=== PATIENT | female | born 1950 | race Caucasian/White ===

== ENCOUNTER → 2016-10-25 | Outpatient (CLI) | payer MEDICARE, MEDICAID ==
[~2016-10-25] MED LIST: AC325T; AC325T PO; ACID16CA2 PO; ADV1DS; ADVAIR; ALBU0.8322; ALBU17AE23; ALBU17AE3; ALBUTERAL; ALBUTEROL/IPRATROPIU INH; AMT50T; ASP81CT; ASPI-84 PO; AZITHROMAX; BACL20TA PO; BCL10T; BETA10DR OS; BETAXOLOL; BUDE6HFA IH; CSPT25 OS; DCS100C PO; DESV50TA PO; DIAZ5TAB3; DIAZ5TAB3 PO; DIAZ5TAB49; DIPH1TAB45; DIPH25TA82 PO; DUONEB; DZPM2T PO; ESCI20TA; ESCI20TA2; ESCT10T; ESOM20CA; FL025NA25 NSEACH; FLC150T; FLC150T PO; FLT05NA16; FLT05NA16 NSEACH; FLUT1DIS26 IH; FLUT1DIS26 INH; FRS325T PO; FRSM20T; FRSM20T PO; FURO20TA4; FURO20TA4 PO; GUAI100S; GUAI10SY4; HYDR-31; HYDR1TAB PO; INTE30KI4 IM; IPRA0.2S18; IPRA0.2S47; IPRA3AMP19 IH; IPRA3AMP19 NEB; KCL10CCR; LACT1CAP45 PO; LATA2.5D19 OS; LEVO500T69 PO; LNZ600T PO; LRT10T; LRT10T PO; LVB.63NB3 NEB; LVF250T; MELO15TA14 PO; MMT17NA; MOXI400T2; MPR22T NSEACH; MULT-608 PO; MULTIVITAMIN WITH MINERALS PO; NABU500T8; NCT7P; NST15C; NST15PW; NSTU5 PO; NYST1POW15; NYSTATIN POWDER; OMEP-10 PO; OMEP20CA12 PO; PHENERGAN/CODEINE; PL1OP15; PL1OP15 OS; PRD10T; PRD20T PO; Prestiq PO; QNS260T; RNT150T; ROCEPHIN IM; SENN1TAB76 PO; SERT50TA; SULF1TAB38; TIMO10DR; TIOT18CA; TPR25T; TPR25T PO; TRAV0.004S OS; VICODIN; VNL37.5T PO; [UNRECOGNIZED DRUG - CODE]; [UNRECOGNIZED DRUG - CODE]; [UNRECOGNIZED DRUG - CODE]; rocephin IM
--- OUTSIDE RECORDS SUMMARY | 2016-10-25 09:06 | XMS REPORT | Continuity of Care Document ---
Author Author [facility] Address Unknown Phone Unavailable Allergies Active Description Code Type Severity Reaction Onset Reported/Identified Relationship to Patient Clinical Status Yes Aminoglycosides [id number] Drug Allergy Unknown N/A 11/11/2006 Yes amoxicillin [id number] Drug Allergy Unknown N/A 11/11/2006 Yes bacitracin [id number] Drug Allergy Unknown N/A 11/11/2006 Yes clavulanic acid [id number] Drug Allergy Unknown N/A 11/11/2006 Yes erythromycin base [id number] Drug Allergy Unknown N/A 11/11/2006 Yes gramicidin D [id number] Drug Allergy Unknown N/A 11/11/2006 Yes neomycin [id number] Drug Allergy Unknown N/A 11/11/2006 Yes polymyxin B [id number] Drug Allergy Unknown N/A 11/11/2006 Yes vancomycin [id number] Drug Allergy Unknown N/A 11/11/2006 Yes adhesive [id number] Drug Allergy Unknown N/A 02/01/2008 Yes latex [id number] Drug Allergy Unknown N/A 02/01/2008 Yes cefaclor [id number] Drug Allergy Unknown N/A 09/24/2011 Yes *MRSA Miscellaneous Allergy N/A N/A 08/23/2013 Medications 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 08/19/2013 KIRT GEE MD 340 MULTIPLE SCLEROSIS 08/19/2013 KIRT GEE MD 496 CHR AIRWAY OBSTRUCT NEC 08/19/2013 KIRT GEE MD V58.69 CORRECTION MEDICATION USE 08/25/2013 RAGHU CHEN MD 296.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 08/25/2013 RAGHU CHEN MD 338.29 CHRONIC PAIN NEC 08/25/2013 RAGHU CHEN MD 340 MULTIPLE SCLEROSIS 08/25/2013 RAGHU CHEN MD 496 CHR AIRWAY OBSTRUCT NEC 05/10/2016 Ot 786.2 COUGH Procedures Code Description [place] [address] ELECTROCARDIOGRAM REPORT GERARD SANCHEZ, KIRT Gipson 08/19/2013 Results Test Result Range COMPLETE BLOOD COUNT - 08/19/13 14:50 Platelet 218 10^3u 142-424 MPV 10.9 FL 9.4-12.4 Kleberg # 0.85 10^3u 0.0-1.0 RBC 5.14 10^6u 4.04-6.13 Kleberg % 12.0 % 0-12 RDW 14.2 % 11.6-14.8 Neut # 3.45 10^3u 2.0-6.9 Neut % 48.6 % 37-80 WBC 7.10 10^3u 4.60-10.20 MCV 89.1 FL 80.0-97.0 Baso # 0.11 10^3u 0.0-0.1 Baso % 1.5 % 0-2 Eos # 0.43 10^3u 0-0.7 Eos % 6.1 % 0-7 Lymph % 31.8 % 10-50 MCHC 31.4 G/DL 31.8-35.4 MCH 28.0 PG 27.0-31.2 Lymph # 2.26 10^3u 0.6-3.4 HGB 14.4 G/DL 12.2-18.1 HCT 45.8 % 37.7-53.7 CMP - 08/19/13 14:50 Osmo Calculated 290 MOSM 261-280 Sodium 148 MMOLL 137-145 T. Protein 8.6 G/DL 6.3-8.2 Potassium 4.5 MMOLL 3.6-5.0 T Bili 0.5 MG/DL 0.2-1.3 Calcium 9.3 MG/DL 8.4-10.2 BUN 22 MG/DL 7-21 Chloride 100 MMOLL 98-107 AST 80 U/L 15-46 ALT 81 U/L 7-56 Albumin 4.1 G/DL 3.5-5.0 A/G Ratio 0.9 RATIO 1.2-2.2 Bun/Creat 20.2 RATIO 7-25 Alk Phos 127 U/L 38-126 CO2 34 MMOLL 22-30 Glucose 122 MG/DL 65-110 Globulin 4.5 2.4-3.5 Creatinine 1.1 MG/DL 0.7-1.5 Valproic Acid (Depakene) - 08/19/13 14:50 Valproic Acid (Depakene) 17.72 UG/ML 50- 100 TSH - 08/19/13 14:50 TSH 1.12 UIUML 0.35-4.94 Free T4 - 08/19/13 14:50 Free T4 0.95 NG/DL 0.70-1.48 EKG - 08/19/13 14:50 [facility]KG [facility] Urinalysis - 08/19/13 21:10 Glucose Negative Negative Leukocyte Negative Negative Nitrite Negative Negative pH 7.0 5.5-7.5 Urine Appearance SLCLOUDY Clear Protein Negative Negative Ketones Trace Negative Urobilinogen 4.0 0.2-1.0 Urine RBC N0-2 Specific [place] 1.020 1.010-1.020 Urine WBC N0-2 Amorphous Crystals 1+ Blood Negative Negative Color Yellow Yellow Squamous Epithelial Cells 2+ Bilirubin Negative Negative Valproic Acid (Depakene) - 08/25/13 05:30 Valproic Acid (Depakene) 36.78 UG/ML 50- 100 Encounters ACCT No. Visit Date/Time Discharge Status Pt. Type Provider Facility Loc./Unit Complaint [id number] 08/19/2013 14:00:00 08/25/2013 14 :30:00 DIS Inpatient APRIL SANCHEZ, [facility] [id number] 08/19/2013 14:00:00 08/19/2013 14 :00:00 DIS Outpatient GERARD SANCHEZ, KIRT Gipson [facility] OTHER
[2016-10-25 09:07] LABS: BILIRUBIN,URINE NEGATIVE (NEGATIVE); KETONES,URINE NEGATIVE (NEGATIVE); LEUKOCYTE ESTERASE ,URINE 2+ (NEGATIVE); NITRITE,URINE NEGATIVE (NEGATIVE); PH,URINE 6 (5-9); PROTEIN,URINE NEGATIVE (NEGATIVE); UROBILINOGEN,URINE 4 MG/DL (NORMAL)
[2016-10-25 09:19] LABS: RENAL EPITHELIAL CELLS,URINE 0-2 /HPF; WBC,URINE TNTC /HPF
[2016-10-25 09:20] LABS: SQUAMOUS EPITHELIAL CELL,UR 0-2 /HPF
== END ==
LOC: LABNPT 09:02
PROVIDERS: ATTEND Family Medicine
DX: R39.198 Other difficulties with micturition (principal)
CPT/HCPCS: 81000; 87088

== ENCOUNTER → 2017-01-31 | Outpatient (CLI) | payer MEDICARE, MEDICAID ==
[2017-01-31 11:05] LABS: BILIRUBIN,URINE NEGATIVE (NEGATIVE); KETONES,URINE NEGATIVE (NEGATIVE); LEUKOCYTE ESTERASE ,URINE 1+ (NEGATIVE); NITRITE,URINE NEGATIVE (NEGATIVE); PH,URINE 6 (5-9); PROTEIN,URINE 1+ (NEGATIVE); UROBILINOGEN,URINE 4 MG/DL (NORMAL)
== END ==
LOC: LABNPT 10:53
PROVIDERS: ATTEND Internal Medicine
DX: N39.0 Urinary tract infection, site not specified (principal)
CPT/HCPCS: 81000; 87077; 87088; 87186

== ENCOUNTER → 2017-02-20 | Outpatient (CLI) | payer OTHER, MEDICAID | LOC: LABNPT 17:19 | PROVIDERS: ATTEND Family Medicine | DX: R05 Cough (principal) | CPT/HCPCS: 87070; 87077; 87186; 87205 ==

== ENCOUNTER 2017-07-20 16:28 | Inpatient (IN) | payer MEDICARE, MEDICAID ==
[~2017-07-20] VITALS: Ht 160 cm; Wt 91.7 kg
[2017-07-20 16:43] LABS: BASOPHILS % (AUTO) 0 % (0-10); EOSINOPHILS % (AUTO) 0 % (0-10); LYMPHOCYTES # (AUTO) 2.5 X 10^3 (1.0-4.0); LYMPHOCYTES % (AUTO) 11 % (12-44); MEAN CORPUSCULAR HEMOGLOBIN 28 PG (25-34); MEAN CORPUSCULAR HGB CONC 32 G/DL (32-36); MEAN CORPUSCULAR VOLUME 88 FL (80-99); MEAN PLATELET VOLUME 11.2 FL (7.4-10.4); MONOCYTES # (AUTO) 1.6 X 10^3 (0.0-1.0); MONOCYTES % (AUTO) 7 % (0-12); NEUTROPHILS # (AUTO) 19.4 X 10^3 (1.8-7.8); NEUTROPHILS % (AUTO) 82 % (42-75); PLATELET COUNT 248 10^3/uL (130-400); RED BLOOD COUNT 4.94 10^6/uL (4.35-5.85); RED CELL DISTRIBUTION WIDTH 14.5 % (10.0-14.5); WHITE BLOOD COUNT 23.6 10^3/uL (4.3-11.0)
[2017-07-20 16:49] LABS: INR 1.1 (0.8-1.4); PROTHROMBIN TIME PATIENT 14.5 SEC (12.2-14.7)
[2017-07-20 16:58] LABS: ALANINE AMINOTRANSFERASE 14 U/L (0-55); ALBUMIN 3.3 GM/DL (3.2-4.5); ANION GAP 10 MMOL/L (5-14); ASPARTATE AMINO TRANSFERASE 16 U/L (5-34); BILIRUBIN,TOTAL 1.1 MG/DL (0.1-1.0); BLOOD UREA NITROGEN 26 MG/DL (7-18); BUN/CREATININE RATIO 33; CALCIUM 9.8 MG/DL (8.5-10.1); CARBON DIOXIDE 28 MMOL/L (21-32); CHLORIDE 104 MMOL/L (98-107); GFR ESTIMATED > 60; GLUCOSE 103 MG/DL (70-105); POTASSIUM 3.3 MMOL/L (3.6-5.0); SODIUM 142 MMOL/L (135-145); TOTAL PROTEIN 7.8 GM/DL (6.4-8.2)
[2017-07-20] MEDS ORDERED: RT-ALBUTEROL SULF 2.5 MG/3 ML PRE-MIX VIAL IH SCH (17:00)
[2017-07-20] MEDS ORDERED: RT-ALBUTEROL SULF 2.5 MG/3 ML PRE-MIX VIAL ONE (17:03)
--- NOTE | 2017-07-20 17:19 | Diagnostic Imaging Report ---
PATIENT HISTORY: Shortness of air and cough. TECHNIQUE: Single frontal view of the chest. COMPARISON: 06/18/2017. FINDINGS: Lung volumes are mildly low. There is mild cardiomegaly. There is central vascular congestion. There are bilateral interstitial and airspace opacities, with basilar predominance. No pneumothorax is seen. There are small bilateral pleural effusions. No acute osseous abnormality is seen. IMPRESSION: Bibasilar interstitial and airspace opacities with cardiomegaly and central vascular congestion, concerning for CHF. There are minimal bilateral pleural effusions. Dictated by: Dictated on workstation # [id number]
[2017-07-20 17:23] LABS: BAND NEUTROPHILS 5 %; LYMPHOCYTES % (MANUAL) 12 %; NEUTROPHILS % (MANUAL) 80 %
--- NOTE | 2017-07-20 17:25 | ED General ---
General Chief Complaint: Respiratory Problems Stated Complaint: SOA/PNEUMONIA Nursing Triage Note: PT SENT FROM [facility] FOR INCREASED SOA AND COUGH. Nursing Sepsis Screen: Possible Sepsis Risk Source of Information: Patient Exam Limitations: Physical Impairments History of Present Illness Time Seen by Provider: 16:32 Initial Comments Here from the [facility] with shortness of breath, coughing and generalized weakness. Patient is a poor historian. EMS gave albuterol and DuoNeb treatments in route which did help. Apparently she had initial O2 sat of 82 percent at the [facility] and this did respond to oxygen. Her primary care provider, Dr. Richardson, had ordered sputum culture and chest x-ray at the [facility] but her respiratory status declined and she was ultimately sent to the ER for evaluation. Patient states that she is weak and having a hard time breathing but otherwise unable to answer other questions well. Timing/Duration: 2-3 Days, Getting Worse Severity: Moderate Associated Systoms: Cough, Fever/Chills, No Nausea/Vomiting, Shortness of Air, Weakness Allergies and Home Medications Allergies Coded Allergies: Adhesive (Verified Allergy, Unknown, 02/01/08) Aminoglycosides (Verified Allergy, Unknown, 11/11/06) Amoxicillin (Verified Allergy, Unknown, 11/11/06) Erythromycin Base (Verified Allergy, Unknown, 11/11/06) Gramicidin D (Verified Allergy, Unknown, 11/11/06) Latex (Verified Allergy, Unknown, 02/01/08) Neomycin (Verified Allergy, Unknown, 11/11/06) Polymyxin B (Verified Allergy, Unknown, 11/11/06) bacitracin (Verified Allergy, Unknown, 11/11/06) clavulanic acid (Verified Allergy, Unknown, 11/11/06) vancomycin (Verified Allergy, Unknown, 11/11/06) Cefaclor (Verified Allergy, 09/24/11) Home Medications Albuterol Sulfate/Ipratropium 3 Ml Solution, 1 DOSE NEB BID, (Reported) Aspirin 81 Mg Tablet.dr, 81 MG PO DAILY, (Reported) Baclofen 20 Mg Tablet, 20 MG PO TID, (Reported) Betaxolol Hcl 5 Ml Susp, 1 DROP OS BID, (Reported) LEFT EYE Desvenlafaxine Succinate 50 Mg Tab.sr.24h, 50 MG PO DAILY, (Reported) Diazepam 2 Mg Tab, 2 MG PO BID, (Reported) Docusate Sodium 100 Mg Capsule, 100 MG PO BID, (Reported) Ferrous Sulfate 325 Mg Tablet, 325 MG PO DAILY, (Reported) Fluticasone Propionate 16 Gm Lena, 1 SPRAYS NSEACH DAILY, (Reported) Fluticasone Propionate 16 Gm Lena, 2 SPRAYS NSEACH DAILY, (Reported) Fluticasone/Salmeterol 1 Disk Inhp, 1 PUFF INH BID, (Reported) Furosemide 20 Mg Tab, 20 MG PO DAILY, (Reported) Hydrocodone Bit/Acetaminophen 1 Each Tablet, 1 TAB PO Q6H PRN, (Reported) Interferon Beta-1A 30 Mcg/0.5 Ml Kit, 30 MCG IM THURSDAYS, (Reported) Latanoprost 2.5 Ml Soln, 1 DROP OS HS, (Reported) LEFT EYE Loratadine 10 Mg Tab, 10 MG PO DAILY, (Reported) Meloxicam 15 Mg Tablet, 15 MG PO DAILY, (Reported) Omeprazole 20 Mg Capsule.dr, 20 MG PO DAILY, (Reported) Pilocarpine Hcl 15 Ml Soln, 1 DROP OS QID, (Reported) LEFT EYE Senna 1 Tab Tablet, 1 TAB PO BID, (Reported) Timolol Maleate/Dorzolam Hcl 5 Ml Btl, 1 DROP OS BID, (Reported) LEFT EYE Topiramate 25 Mg Tablet, 25 MG PO BID, (Reported) [Multi Vit w/Min] , 1 TAB PO DAILY, (Reported) [rocephin] , 500 MG IM DAILY for 3 Days, (Reported) Constitutional: see HPI, chills, fever, weakness Respiratory: cough, dyspnea on exertion, short of breath, wheezing Gastrointestinal: no symptoms reported Other Unable to complete review of systems due to altered mental status All Other Systems Reviewed Negative Unless Noted: No Past Kxzsezi-Mogzuh-Lrhlyx Hx Patient Social History Alcohol Use: Denies Use Recreational Drug Use: No Smoking Status: Former Smoker Former Smoker, Quit: Jul 20, 2007 Recent Foreign Travel: No Contact w/Someone Who Travel: No Recent Infectious Disease Expo: No Recent Hopitalizations: Yes (NUMEROUS) Physical Abuse: No Sexual Abuse: No Mistreated: No Fear: No Immunizations Up To Date Date of Pneumonia Vaccine: Jun 25, 2011 Date of Influenza Vaccine: May 21, 2011 Surgeries History of Surgeries: Yes (ELBOW SURGERY, CARPAL TUNNEL SURGERY) Surgeries: Hysterectomy, Orthopedic, Tonsillectomy Respiratory History of Respiratory Disorde: Yes Respiratory Disorders: COPD Cardiovascular History of Cardiac Disorders: Yes (HEART FAILURE, ) Neurological History of Neurological Disord: Yes (HAS MULTIPLE SCLEROSIS, CHRONIC PAIN) Neurological Disorders: Headaches /Migraines Reproductive System Hx Reproductive Disorders: No Genitourinary History of Genitourinary Disor: No Gastrointestinal History of Gastrointestinal Di: Yes Gastrointestinal Disorders: Chronic Constipation, Ulcer Musculoskeletal History of Musculoskeletal Dis: Yes (HAS MULTIPLE SCLEROSIS, HX OF MUSCLE WEAKNESS, ABNORMAL POSTURE,ABNORM GAIT) Endocrine History of Endocrine Disorders: No HEENT History of HEENT Disorders: Yes HEENT Disorders: Macular Degeneration Cancer History of Cancer: No Psychosocial History of Psychiatric Problem: Yes Behavioral Health Disorders: Anxiety, Personality Disorder, Depression Suicide Risk Score: 0 Blood Transfusions History of Blood Disorders: No Reviewed Nursing Assessment Reviewed/Agree w Nursing PMH: Yes Family Medical History Significant Family History: No Pertinent Family Hx Physical Exam-Suspected Sepsis Physical Exam Vital Signs Vital Sign - Last 12Hours 07/20/17 07/20/17 17:03 17:08 Temp 99.8 Pulse 93 Resp 27 B/P (MAP) 123/79 (94) Pulse Ox 95 O2 Delivery T Piece O2 Flow Rate 3.00 Capillary Refill : Less Than 3 Seconds Blood Pressure Mean: 94 General Appearance: WD/WN, Mild Distress (respiratory) HEENT: PERRL/EOMI, Pharynx Normal Neck: Non Tender, Supple Respiratory: Crackles (throughout both bases), Decreased Breath Sounds, Respiratory Distress Cardiovascular: No Murmur, Tachycardia Gastrointestinal: Non Tender, Soft Back: Normal Inspection, No CVA Tenderness, No Vertebral Tenderness Extremity: Normal Capillary Refill, Non Tender, No Calf Tenderness Neurologic/Psychiatric: Alert, Motor Weakness (global), Other (very poor historian but answers a few questions.) Skin: normal color, warm/dry Focused Exam Evaluation Lactate Level Laboratory Tests 07/20/17 16:30: Lactic Acid Level 1.13 Lactic Acid Level Laboratory Tests Test 07/20/17 16:30 Lactic Acid Level 1.13 MMOL/L (0.50-2.00) Progress/Results/Core Measures Suspected Sepsis Recent Fever Within 48 Hours: Yes Infection Criteria Present: Suspected New Infection New/Unexplained Altered Menta: No Sepsis Screen: Possible Sepsis Risk Sepsis Diagnosis: SIRS Temperature:99.8 Pulse: 93 Respiratory Rate: 27 Laboratory Tests 07/20/17 16:30: White Blood Count 23.6H Blood Pressure 123 /79 Mean: 94 Laboratory Tests 07/20/17 16:30: Lactic Acid Level 1.13 Laboratory Tests 07/20/17 16:30: Creatinine 0.80, INR Comment 1.1, Platelet Count 248, Total Bilirubin 1.1H Results/Orders Lab Results Laboratory Tests Test 07/20/17 16:30 07/20/17 17:24 Range/Units White Blood Count 23.6 H 4.3-11.0 10^3/uL Red Blood Count 4.94 4.35-5.85 10^6/uL Hemoglobin 14.0 11.5-16.0 G/DL Hematocrit 43 35-52 % Mean Corpuscular Volume 88 80-99 FL Mean Corpuscular Hemoglobin 28 25-34 PG Mean Corpuscular Hemoglobin Concent 32 32-36 G/DL Red Cell Distribution Width 14.5 10.0-14.5 % Platelet Count 248 130-400 10^3/uL Mean Platelet Volume 11.2 H 7.4-10.4 FL Neutrophils (%) (Auto) 82 H 42-75 % Lymphocytes (%) (Auto) 11 L 12-44 % Monocytes (%) (Auto) 7 0-12 % Eosinophils (%) (Auto) 0 0-10 % Basophils (%) (Auto) 0 0-10 % Neutrophils # (Auto) 19.4 H 1.8-7.8 X 10^3 Lymphocytes # (Auto) 2.5 1.0-4.0 X 10^3 Monocytes # (Auto) 1.6 H 0.0-1.0 X 10^3 Eosinophils # (Auto) 0.0 0.0-0.3 10^3/uL Basophils # (Auto) 0.0 0.0-0.1 10^3/uL Neutrophils % (Manual) 80 % Lymphocytes % (Manual) 12 % Monocytes % (Manual) 3 % Band Neutrophils 5 % Toxic Granulation 1+ Blood Morphology Comment NORMAL Prothrombin Time 14.5 12.2-14.7 SEC INR Comment 1.1 0.8-1.4 Activated Partial Thromboplast Time 35 24-35 SEC Sodium Level 142 135-145 MMOL/L Potassium Level 3.3 L 3.6-5.0 MMOL/L Chloride Level 104 98-107 MMOL/L Carbon Dioxide Level 28 21-32 MMOL/L Anion Gap 10 5-14 MMOL/L Blood Urea Nitrogen 26 H 7-18 MG/DL Creatinine 0.80 0.60-1.30 MG/DL Estimat Glomerular Filtration Rate > 60 BUN/Creatinine Ratio 33 Glucose Level 103 70-105 MG/DL Lactic Acid Level 1.13 0.50-2.00 MMOL/L Calcium Level 9.8 8.5-10.1 MG/DL Total Bilirubin 1.1 H 0.1-1.0 MG/DL Aspartate Amino Transf (AST/SGOT) 16 5-34 U/L Alanine Aminotransferase (ALT/SGPT) 14 0-55 U/L Alkaline Phosphatase 102 40-136 U/L Total Protein 7.8 6.4-8.2 GM/DL Albumin 3.3 3.2-4.5 GM/DL Urine Color SHABBIR H Urine Clarity CLEAR Urine pH 5 5-9 Urine Specific [place] 1.025 H 1.016-1.022 Urine Protein 1+ H NEGATIVE Urine Glucose (UA) NEGATIVE NEGATIVE Urine Ketones NEGATIVE NEGATIVE Urine Nitrite NEGATIVE NEGATIVE Urine Bilirubin NEGATIVE NEGATIVE Urine Urobilinogen 4 H NORMAL MG/DL Urine Leukocyte Esterase 1+ H NEGATIVE Urine RBC (Auto) NEGATIVE NEGATIVE Urine RBC NONE /HPF Urine WBC 2-5 /HPF Urine Squamous Epithelial Cells 0-2 /HPF Urine Crystals NONE /LPF Urine Bacteria LARGE H /HPF Urine Casts PRESENT /LPF Urine Hyaline Casts 0-2 H /LPF Urine Mucus NEGATIVE /LPF Urine Culture Indicated YES Micro Results Microbiology 07/20/17 Influenza Types A,B Antigen (MANJINDER) - Final, Complete My Orders Orders - SHARONDA WONG MD Cbc With Automated Diff (07/20/17 16:36) Comprehensive Metabolic Panel (07/20/17 16:36) Lactic Acid Analyzer (07/20/17 16:36) Blood Culture (07/20/17 16:36) Sputum Culture (07/20/17 16:36) Ua Culture If Indicated (07/20/17 16:36) Protime With Inr (07/20/17 16:36) Partial Thromboplastin Time (07/20/17 16:36) Chest 1 View, Ap/Pa Only (07/20/17 16:36) O2 (07/20/17 16:36) Saline Lock/Iv-Start (07/20/17 16:36) Ekg Tracing (07/20/17 16:36) Vital Signs Adult Sepsis Patie Q1H (07/20/17 16:36) Remove Rings In Anticipation O (07/20/17 16:36) Influenza A And B Antigens (07/20/17 16:36) Manual Differential (07/20/17 16:30) Albuterol Pre-Mix Nebs (Rt) (Proventil (07/20/17 17:00) Rt Request For Service (07/20/17 16:57) Albuterol Pre-Mix Nebs (Rt) (Proventil (07/20/17 17:03) Urine Culture (07/20/17 17:24) Furosemide Injection (Lasix Injection) (07/20/17 17:48) BNP (07/20/17 17:49) Maxipime 2g Iv 100 Mls/Hr (07/20/17 17:56) Medications Given in ED Current Medications Medications Dose Ordered Sig/Angelique Route Start Time Stop Time Status Last Admin Dose Admin Albuterol Sulfate 2.5 mg STK-MED ONCE .ROUTE 07/20/17 17:03 07/20/17 17:04 DC 07/20/17 17:08 2.5 MG Vital Signs/I&O Vital Sign - Last 12Hours 07/20/17 07/20/17 17:03 17:08 Temp 99.8 Pulse 93 Resp 27 B/P (MAP) 123/79 (94) Pulse Ox 95 96 O2 Delivery T Piece Nasal Cannula O2 Flow Rate 3.00 Capillary Refill : Less Than 3 Seconds Blood Pressure Mean: 94 Progress Note : Progress Note Seen and evaluated. Sepsis protocol initiated. IV by EMS. Labs, EKG, blood cultures and lactic acid ordered. Albuterol neb treatment ordered. O2 saturations improved and are 92 percent on 4 L via nasal cannula. Normally she is on 2 L so is requiring increased oxygen requirement. Chest x-ray pending. 174: Bibasilar infiltrates noted. Question of vascular congestion as well on x -ray. White count is elevated and patient has fever and I believe this is bibasilar infiltrate related to pneumonia. We will treat as such. I did discuss the case with Dr. Curtis and he agrees. We will give 1 dose of Lasix now. Consideration for Zosyn the patient is pen allergic. She has had Rocephin in the past. We will use cefepime. Patient does have Zhou catheter placed. Admit, inpatient status. Patient agrees to plan. Currently O2 saturation 94 percent with heart rate 96 on 4 L O2 via nasal cannula. ECG Initial ECG Impression Date: Jul 20, 2017 Initial ECG Impression Time: 16:39 Initial ECG Rate: 104 Initial ECG Rhythm: S.Tach Comment Sinus tachycardia with PACs. Morphology similar to previous of 05 July 2010. No evidence of ST elevation SC. Interpreted by me. Diagnostic Imaging Diagonstic Imaging: Xray Plain Films/CT/US/NM/MRI: chest Comments [facility]. [place], [place] NAME: MARAH HARRY [facility] REC#: [id number] PT STATUS: REG ER : 1950 PHYSICIAN: SHARONDA WONG MD ADMIT DATE: 07/20/17/ER Draft Date of Exam:07/20/17 CHEST 1 VIEW, AP/PA ONLY PATIENT HISTORY: Shortness of air and cough. TECHNIQUE: Single frontal view of the chest. COMPARISON: 06/18/2017. FINDINGS: Lung volumes are mildly low. There is mild cardiomegaly. There is central vascular congestion. There are bilateral interstitial and airspace opacities, with basilar predominance. No pneumothorax is seen. There are small bilateral pleural effusions. No acute osseous abnormality is seen. IMPRESSION: Bibasilar interstitial and airspace opacities with cardiomegaly and central vascular congestion, concerning for CHF. There are minimal bilateral pleural effusions. Dictated on workstation # [id number] Dict: 07/20/17 1713 Trans: 07/20/17 1719 [facility] [id number] Interpreted by: VIJAY HWANG MD Electronically signed by: Departure Communication (Admissions) Time/Spoke to Admitting Phy: 17:45 Impression Impression: Primary Impression: Bilateral pneumonia Qualified Codes: J18.9 - Pneumonia, unspecified organism Additional Impressions: Respiratory distress Hypoxia Disposition: ADMITTED INPATIENT Condition: Stable Admissions Decision to Admit Reason: Admit from ER (General) Decision to Admit/Date: Jul 20, 2017 Time/Decision to Admit Time: 17:45 Departure-Patient Inst. Referrals: ABHIJEET BEVERLY MD (PCP/Family) Primary Care Physician SHARONDA WONG MD Jul 20, 2017 17:25
[2017-07-20 17:31] LABS: BILIRUBIN,URINE NEGATIVE (NEGATIVE); KETONES,URINE NEGATIVE (NEGATIVE); LEUKOCYTE ESTERASE ,URINE 1+ (NEGATIVE); NITRITE,URINE NEGATIVE (NEGATIVE); PH,URINE 5 (5-9); PROTEIN,URINE 1+ (NEGATIVE); UROBILINOGEN,URINE 4 MG/DL (NORMAL)
[2017-07-20 17:48] LABS: HYALINE CASTS, URINE 0-2 /LPF; SQUAMOUS EPITHELIAL CELL,UR 0-2 /HPF
[2017-07-20] MEDS ORDERED: FUROSEMIDE 40 MG/4 ML INJ (LASIX) IV STA (17:48)
[2017-07-20] MEDS ORDERED: CEFEPIME INJECTION 2,000 MG in NS (IVPB) 50 ML IV STA (17:56)
[2017-07-20 19:00] VITALS: BP 134/62
[2017-07-20] MEDS ORDERED: ACETAMINOPHEN 325 MG TABLET/CAPLET (TYLENOL) PO PRN (20:00)
[2017-07-20] MEDS ORDERED: CATHETER FLUSH 10 ML SYR IV PRN (20:00)
[2017-07-20] MEDS ORDERED: ACETAMINOPHEN 650 MG SUPP (TYLENOL) PR PRN (20:00)
[2017-07-20] MEDS: NS IV 1000 ML 1,000 ML IV SCH (20:29)
[2017-07-20] MEDS ORDERED: RT-ALBUTEROL/IPRATROPIUM 3 ML (DUONEB) VIAL INH PRN (20:30)
[2017-07-20] MEDS: RT-ALBUTEROL/IPRATROPIUM 3 ML (DUONEB) VIAL INH SCH (22:23)
[2017-07-21 00:52] VITALS: BP 118/66
[2017-07-21] MEDS: RT-ALBUTEROL/IPRATROPIUM 3 ML (DUONEB) VIAL INH SCH ×3 (02:04→11:08)
[2017-07-21 04:30] VITALS: BP 105/66
[2017-07-21 06:20] LABS: BASOPHILS % (AUTO) 0 % (0-10); EOSINOPHILS % (AUTO) 0 % (0-10); LYMPHOCYTES # (AUTO) 1.5 X 10^3 (1.0-4.0); LYMPHOCYTES % (AUTO) 9 % (12-44); MEAN CORPUSCULAR HEMOGLOBIN 28 PG (25-34); MEAN CORPUSCULAR HGB CONC 32 G/DL (32-36); MEAN CORPUSCULAR VOLUME 87 FL (80-99); MEAN PLATELET VOLUME 11.1 FL (7.4-10.4); MONOCYTES # (AUTO) 1.1 X 10^3 (0.0-1.0); MONOCYTES % (AUTO) 7 % (0-12); NEUTROPHILS # (AUTO) 13.9 X 10^3 (1.8-7.8); NEUTROPHILS % (AUTO) 84 % (42-75); PLATELET COUNT 241 10^3/uL (130-400); RED BLOOD COUNT 4.78 10^6/uL (4.35-5.85); WHITE BLOOD COUNT 16.6 10^3/uL (4.3-11.0)
[2017-07-21] MEDS ORDERED: INFLUENZA TRIvalent 2017-2018 0.5 ML/45 MCG SYR IM ONE (07:00)
[2017-07-21 07:09] LABS: ALANINE AMINOTRANSFERASE 9 U/L (0-55); ALBUMIN 3.2 GM/DL (3.2-4.5); ANION GAP 11 MMOL/L (5-14); ASPARTATE AMINO TRANSFERASE 16 U/L (5-34); BILIRUBIN,TOTAL 0.9 MG/DL (0.1-1.0); BLOOD UREA NITROGEN 26 MG/DL (7-18); BUN/CREATININE RATIO 34; CALCIUM 9.4 MG/DL (8.5-10.1); CARBON DIOXIDE 28 MMOL/L (21-32); CHLORIDE 104 MMOL/L (98-107); CREATININE SERUM 0.76 MG/DL (0.60-1.30); GFR ESTIMATED > 60; GLUCOSE 96 MG/DL (70-105); SODIUM 143 MMOL/L (135-145); TOTAL PROTEIN 7.4 GM/DL (6.4-8.2)
[2017-07-21 08:00] VITALS: BP 130/69
[2017-07-21] MEDS: CEFEPIME 2 GM/NS 50 ML IVPB IV SCH ×4 (08:26→21:59)
[2017-07-21] MEDS ORDERED: TOPI25TA10 PO (09:11)
[2017-07-21] MEDS ORDERED: ACET325T38 PO ×2 (09:11)
[2017-07-21] MEDS ORDERED: PILO15DR7 OS (09:11)
[2017-07-21] MEDS ORDERED: FAMO20TA3 PO (09:11)
[2017-07-21] MEDS ORDERED: CITA20TA7 PO (09:11)
[2017-07-21] MEDS ORDERED: BACL20TA PO (09:11)
[2017-07-21] MEDS ORDERED: HYDR-3812 PO (09:11)
[2017-07-21] MEDS ORDERED: GUAI5SYR PO (09:11)
[2017-07-21] MEDS ORDERED: FLUT1AER INH (09:11)
[2017-07-21] MEDS ORDERED: VENL150C98 PO (09:11)
[2017-07-21] MEDS ORDERED: BUSP5TAB59 PO (09:11)
[2017-07-21] MEDS ORDERED: IBUP-30 PO (09:11)
[2017-07-21] MEDS ORDERED: FURO40TA4 PO (09:11)
[2017-07-21] MEDS ORDERED: LATA2.5D5 OU (09:11)
[2017-07-21] MEDS ORDERED: IPRA3AMP NEB (09:11)
[2017-07-21] MEDS ORDERED: DIVA125C10 PO (09:11)
[2017-07-21] MEDS ORDERED: BETA5DRO3 OU (09:11)
[2017-07-21] MEDS ORDERED: ONDN4T PO (09:11)
[2017-07-21] MEDS ORDERED: SENN-1 PO (09:11)
[2017-07-21] MEDS ORDERED: SODI30SP2 NS (09:11)
[2017-07-21 12:00] VITALS: BP 116/62
[2017-07-21] MEDS ORDERED: ACETAMINOPHEN 325 MG TABLET/CAPLET (TYLENOL) PO PRN (13:15)
[2017-07-21] MEDS ORDERED: SALINE NASAL SPRAY (OCEAN) 45 ML BTL NS PRN (13:15)
--- NOTE | 2017-07-21 13:30 | History & Physical-Hospitalist ---
HPI History of Present Illness: HPI/Chief Complaint The patient is a 67-year-old white female who resides at [facility] as a result of multiple sclerosis and advanced disability. She is unable to give anything in the way of useful history. Apparently she had had symptoms such that her physician Dr. egan from [place] had ordered a chest x-ray and a sputum culture. In the interim her respiratory status declined and she was sent by ambulance to [facility]. Workup in the emergency room showed a respiratory rate of 27-30. She was hypoxic but responded to oxygen supplementation at 5 L per nasal cannula with a 95 SaO2. Her white count was 23 ,600. Lactic acid was normal. UA was unremarkable. Chest x-ray was noted to have bibasilar infiltrates. Radiology seem to favor edema however her BMP was unremarkable and given her reported fever at the [facility] her vital signs were consistent with Sirs. With the white count at 23,600 and the chest x-ray I favor sepsis and pneumonia. Date Seen 07/21/17 Time Seen by Provider: 13:25 Attending Physician Nazario Alicea MD PCP Ramon Egan MD Referring Physician Date of Admission Jul 20, 2017 at 17:55 Home Medications & Allergies Home Medications Reviewed patient Home Medication Reconciliation Form Allergies Allergies Coded Allergies Aminoglycosides (Verified Allergy, Unknown, 11/11/06) adhesive (Verified Allergy, Unknown, 02/01/08) amoxicillin (Verified Allergy, Unknown, 11/11/06) bacitracin (Verified Allergy, Unknown, 11/11/06) cefaclor (Verified Allergy, Unknown, 07/20/17) clavulanic acid (Verified Allergy, Unknown, 11/11/06) erythromycin base (Verified Allergy, Unknown, 11/11/06) gramicidin D (Verified Allergy, Unknown, 11/11/06) latex (Verified Allergy, Unknown, 02/01/08) neomycin (Verified Allergy, Unknown, 11/11/06) polymyxin B (Verified Allergy, Unknown, 11/11/06) vancomycin (Verified Allergy, Unknown, 11/11/06) Past Dvythlz-Wnocdr-Cqesuz Hx Patient Social History Alcohol Use: Denies Use Recreational Drug Use: No Smoking Status: Former Smoker Former Smoker, Quit: Jul 20, 2007 Type Used: Cigarettes Physical Abuse Screen: No Sexual Abuse: No Recent Foreign Travel: No Contact w/other who traveled: No Recent Hopitalizations: No Recent Infectious Disease Expo: No Immunizations Up To Date Pediatric: No Date of Pneumonia Vaccine: Jun 25, 2011 Date of Influenza Vaccine: May 21, 2017 Seasonal Allergies Seasonal Allergies: No Surgeries No Hysterectomy, Orthopedic, Tonsillectomy Respiratory Yes Currently Using CPAP: No Currently Using BIPAP: No Cardiovascular Yes Neurological Yes Headaches /Migraines Reproductive System Hx Reproductive Disorders: No Genitourinary No Gastrointestinal Yes Ulcer Musculoskeletal Yes Chronic Back Pain Endocrine History of Endocrine Disorders: No HEENT History of HEENT Disorders: No HEENT Disorders: Macular Degeneration Cancer No Psychosocial History of Psychiatric Problem: Yes Behavioral Health Disorders: Personality Disorder Integumentary History of Skin or Integumenta: No Blood Transfusions History of Blood Disorders: No Adverse Reaction to a Blood Tr: No Reviewed Nursing Assessment Reviewed/Agree w Nursing PMH: Yes Family Medical History Significant Family History: No Pertinent Family Hx Family Hx: Patient reports no known family medical history. Review of Systems ROS-Unable to Obtain: patient answered questions only in gibberish Constitutional: no symptoms reported Physical Exam Physical Exam Vital Signs Vital Sign - Last 12Hours 07/20/17 07/20/17 17:03 17:08 Temp 99.8 Pulse 93 Resp 27 B/P (MAP) 123/79 (94) Pulse Ox 95 O2 Delivery T Piece O2 Flow Rate 3.00 Capillary Refill : Less Than 3 Seconds General Appearance: Other (patient appears much older than stated age. I understood no words given an answer to my questions. She exhibited tremulousness of the head and jaw.) Eyes: Bilateral Eye Normal Inspection HEENT: Normal ENT Inspection Neck: Normal Inspection Respiratory: Chest Non Tender, Lungs Clear, Normal Breath Sounds, No Accessory Muscle Use, No Respiratory Distress, Decreased Breath Sounds (breath sounds were distant) Cardiovascular: Regular Rate, Rhythm, No Edema, No Gallop, No JVD, No Murmur, Normal Peripheral Pulses Gastrointestinal: Normal Bowel Sounds, No Organomegaly, No Pulsatile Mass, Non Tender, Soft Neurologic/Psychiatric: Disoriented x3 Comments Loss of muscle mass Results Results/Procedures Lab Laboratory Tests 07/20/17 16:30 07/21/17 05:31 Assessment/Plan Admission Diagnosis Sepsis/pneumonia. 2.multiple sclerosis. 3.dementia or other cognitive disorder. Assessment and Plan Empiric Antibiotics and IV fluids Clinical Quality Measures DVT/VTE Risk/Contraindication: Risk Factor Score Per Nursin RFS Level Per Nursing on Admit: 4+=Very High NAZARIO ALICEA MD Jul 21, 2017 13:30
[2017-07-21] MEDS: RT-ALBUTEROL/IPRATROPIUM 3 ML (DUONEB) VIAL IH SCH ×3 (15:15→22:35)
[2017-07-21 15:35] VITALS: BP 127/59
[2017-07-21] MEDS: PILOCARPINE 2% OS SCH ×2 (16:17→22:00)
[2017-07-21] MEDS ORDERED: RT-ALBUTEROL/IPRATROPIUM 3 ML (DUONEB) VIAL IH SCH (17:00)
[2017-07-21 19:14] VITALS: BP 115/59
[2017-07-21] MEDS ORDERED: NON-FORMULARY MEDICATION 1 EA EA (Baclofen 20 MG) PO SCH (21:00)
[2017-07-21] MEDS: DIVALPROX SPRINKLE 125 MG (DEPAKOTE) CAP PO SCH (21:58)
[2017-07-21] MEDS: toPIRamate 25 MG (TOPAMAX) TAB PO SCH (21:58)
[2017-07-21] MEDS: BACLOFEN 10 MG (LIORESAL) TAB PO SCH (21:58)
[2017-07-21] MEDS: BETAXOLOL 0.5% OU SCH (21:59)
[2017-07-21] MEDS: busPIRone 5 MG (BUSPAR) TAB PO SCH (21:59)
[2017-07-21] MEDS: FAMOTIDINE 20 MG (PEPCID) TABLET PO SCH (21:59)
[2017-07-21] MEDS: LATANOPROST 0.005% (XALATAN) OPHTH SOLN 2.5 ML OU SCH (22:00)
[2017-07-21] MEDS: NS IV 1000 ML 1,000 ML IV SCH (22:09)
[2017-07-22 00:17] VITALS: BP 120/56
[2017-07-22] MEDS: RT-ALBUTEROL/IPRATROPIUM 3 ML (DUONEB) VIAL IH SCH ×6 (02:29→22:01)
[2017-07-22 04:00] VITALS: BP 111/57
[2017-07-22] MEDS: NS IV 1000 ML 1,000 ML IV SCH (05:41)
[2017-07-22 06:20] LABS: BASOPHILS % (AUTO) 0 % (0-10); EOSINOPHILS # (AUTO) 0.1 10^3/uL (0.0-0.3); EOSINOPHILS % (AUTO) 1 % (0-10); LYMPHOCYTES # (AUTO) 1.4 X 10^3 (1.0-4.0); LYMPHOCYTES % (AUTO) 14 % (12-44); MEAN CORPUSCULAR HEMOGLOBIN 29 PG (25-34); MEAN CORPUSCULAR HGB CONC 33 G/DL (32-36); MEAN CORPUSCULAR VOLUME 87 FL (80-99); MEAN PLATELET VOLUME 10.9 FL (7.4-10.4); MONOCYTES # (AUTO) 0.8 X 10^3 (0.0-1.0); MONOCYTES % (AUTO) 8 % (0-12); NEUTROPHILS # (AUTO) 7.6 X 10^3 (1.8-7.8); NEUTROPHILS % (AUTO) 76 % (42-75); PLATELET COUNT 190 10^3/uL (130-400); RED BLOOD COUNT 4.57 10^6/uL (4.35-5.85); RED CELL DISTRIBUTION WIDTH 13.6 % (10.0-14.5); WHITE BLOOD COUNT 9.9 10^3/uL (4.3-11.0)
[2017-07-22 08:00] VITALS: BP 115/71
[2017-07-22] MEDS: FAMOTIDINE 20 MG (PEPCID) TABLET PO SCH ×2 (08:58→20:24)
[2017-07-22] MEDS: busPIRone 5 MG (BUSPAR) TAB PO SCH ×2 (08:58→20:23)
[2017-07-22] MEDS: SENNA W/DOCUSATE (SENOKOT S) TABLET PO SCH (08:58)
[2017-07-22] MEDS: DIVALPROX SPRINKLE 125 MG (DEPAKOTE) CAP PO SCH ×2 (08:58→20:24)
[2017-07-22] MEDS: toPIRamate 25 MG (TOPAMAX) TAB PO SCH ×2 (08:58→20:24)
[2017-07-22] MEDS: CEFEPIME 2 GM/NS 50 ML IVPB IV SCH ×4 (08:58→20:23)
[2017-07-22] MEDS: BACLOFEN 10 MG (LIORESAL) TAB PO SCH ×3 (08:58→20:24)
[2017-07-22] MEDS: PILOCARPINE 2% OS SCH ×4 (08:59→20:24)
[2017-07-22] MEDS: BETAXOLOL 0.5% OU SCH ×2 (08:59→20:24)
[2017-07-22] MEDS ORDERED: IBUPROFEN TABLET 200 MG TAB PO PRN (09:45)
[2017-07-22] MEDS ORDERED: guaiFENesin/DM (ROBITUSSIN DM) 10 ML UDC PO PRN (09:45)
[2017-07-22] MEDS ORDERED: ONDANSETRON 4 MG (ZOFRAN) ORAL DISSOLVE TAB PO PRN (10:45)
[2017-07-22] MEDS: HYDROcodone/APAP 5 MG/325 MG (LORTAB) TAB PO PRN ×2 (10:55→17:00)
--- NOTE | 2017-07-22 11:12 | Progress Note-Hospitalist ---
Progress Note HPI/CC on Admission The patient is a 67-year-old white female who resides at [facility] as a result of multiple sclerosis and advanced disability. She is unable to give anything in the way of useful history. Apparently she had had symptoms such that her physician Dr. vincent from [place] had ordered a chest x-ray and a sputum culture. In the interim her respiratory status declined and she was sent by ambulance to [facility]. Workup in the emergency room showed a respiratory rate of 27-30. She was hypoxic but responded to oxygen supplementation at 5 L per nasal cannula with a 95 SaO2. Her white count was 23 ,600. Lactic acid was normal. UA was unremarkable. Chest x-ray was noted to have bibasilar infiltrates. Radiology seem to favor edema however her BMP was unremarkable and given [facility] her vital signs were consistent with Sirs. With the white count at 23,600 and the chest x-ray I favor sepsis and pneumonia. 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 Pt sounds a bit gurgly still. Pt confirms coughing, but not coughing up anything. Pt confirms coughing when she eats Pt was tried to talk, but had difficulty doing so Chronically ill, gurgling, lying supine in bed RRR, coarse all delaney no tachypneic No edema Laboratory Tests 07/22/17 05:41 Assessment: Sepsis due to pneumonia Appears high risk for aspiration? Severe MS Chronic debility needs DNR due to poor quality of life Obesity Hypokalemia Dementia Plan: 40 mEq of K+ IV Palliative care consult Speech therapy evaluation, hold diet until evaluated Restart all home meds including Lasix Check labs in am Scribed by Jeanie Cueva under direct supervision of Dr. Celestina Olivas. CELESTINA OLIVAS DO Jul 22, 2017 11:12
[2017-07-22] MEDS: POTASSIUM CL 10MEQ/50ML IVPB 50 ML IV SCH ×4 (11:46→15:57)
[2017-07-22 12:00] VITALS: BP 103/52
--- NOTE | 2017-07-22 12:48 | ST Dysphagia Evaluation ---
Speech Evaluation-General Medical Diagnosis Sepsis/Pneumonia Onset Date: Jul 20, 2017 Therapy Diagnosis Therapy Diagnosis: Mild Oropharyngeal Dysphagia Precautions Precautions: Aspiration Precautions/Isolations: Aspiration, Fall Prevention, Standard Precautions Referral Referring Physician: Dr. Celestina Zamorano Reason for Referral: Evaluation/Treatment Clinical Bedside Swallowing Evaluation Medical History Pertinent Medical History: Dementia Reviewed History: Yes Social History Home: Jail Speech PLF/Current-Dysphagia Prior Level of Function The patient was unable to provide past medical history or prior level of function. Subjective The patient was admitted to [facility] with a diagnosis of pneumonia. The patient has a past medical history significant for severe dementia, as well as, multiple sclerosis. The patient greeted the clinician upon entrance to her room and was agreeable to participation in the dysphagia evaluation. At this time, the patient is NPO pending results of swallowing evaluation. Per RN, the patient has done well with PO intake. CXR: 07/20/2017: Bibasilar interstitial and airspace opacities with cardiomegaly and central vascular congestion, concerning for CHF. There are minimal bilateral pleural effusions. Cognitive Status Patient Orientation: Non-Verbal/Aphasic Oral Motor Skills Dentition: Edentalous Ability to Follow Directions: Poor Oral Expression Ability: Severe Impairment Face Facial Symmetry: Symmetrical (Grossly Symmetrical) Oral-Facial Assessment Oral-Facial Dentition: Normal Labial Seal Description: Normal Smile: Normal Lingual Protrusion: Abnormal Right lingual tip deviation upon protrusion. Lingual Strength: Normal Pharynx Velopharyngeal Move.: Normal Dysphagia Evaluation Consistencies Presented: Thin Liquid (Via teaspoon, cup sip, and straw sip.), Pureed Oral Phase: Reduced Oral Transit - The patient displayed increased posterior transfer of puree consistencies, as well as, mild lingual residue following the bolus (puree). Pharyngeal Phase: Multiple Swallow Attempts, Reduced Laryngeal Elevation Funct. Velo/Pharyngeal Symptom: Cough After Swallow - The patient's vocal quality could not be assessed post swallow as she frequently did not vocalize upon request. - The patient displayed one, rigorous cough following consecutive straw drinks of thin liquid. The patient did not follow verbal prompts to complete one straw drink per swallow. - No signs/symptoms of aspiration were demonstrated with multiple teaspoon or cup sips of thin liquid or with multiple teaspoons of puree. Dietary Recommendations: Pureed Liquid Recommendations: Thin - Crush medication and place in puree for administration. - The patient should be seated upright and alert for all PO. Swallowing Precautions: Decreased Bolus 1/4 Tsp, Liquids from Cup, No Straw, Small Bites and Sips, Sitting 90 Degrees 30 Post Intake Dysphagia Evaluation Summary The patient displays mild oropharyngeal dysphagia characterized by reduced lingual range of motion and slightly decreased laryngeal elevation. Barriers to Learning Cognition Speech-Plan Treatment Plan Speech Therapy Treatment Plan: Discontinue ST Evaluation, only. Frequency: 1 time per month Estimated Hrs Per Day: Other Rehab Potential: Poor Safety Risks/Education Teaching Recipient: Patient Teaching Methods: Discussion Response to Teaching: Unable to Comprehend Education Topics Provided: Results, Recommendations, Plan of Care, Swallowing Strategies Time Speech Therapy Time In: 12:25 Speech Therapy Time Out: 12:45 Total Billed Time: 20 Billed Treatment Time 1, ANALIA NÚÑEZ Jul 22, 2017 12:48
[2017-07-22 15:35] VITALS: BP 120/62
[2017-07-22] MEDS: RT-ADVAIR HFA 115/21 MCG PER PUFF IH SCH (18:04)
[2017-07-22 19:01] VITALS: BP 112/82
[2017-07-22] MEDS: LATANOPROST 0.005% (XALATAN) OPHTH SOLN 2.5 ML OU SCH (20:24)
[2017-07-23] VITALS (7 sets, daily range): BP systolic 111–122; BP diastolic 59–72
[2017-07-23] MEDS: HYDROcodone/APAP 5 MG/325 MG (LORTAB) TAB PO PRN ×3 (00:26→20:29)
[2017-07-23] MEDS: RT-ALBUTEROL/IPRATROPIUM 3 ML (DUONEB) VIAL IH SCH ×6 (02:06→22:01)
[2017-07-23] MEDS: VENlafaxine XR 75 MG (EFFEXOR XR) CAP PO SCH (06:02)
[2017-07-23 06:43] LABS: BASOPHILS # (AUTO) 0.1 10^3/uL (0.0-0.1); BASOPHILS % (AUTO) 1 % (0-10); EOSINOPHILS # (AUTO) 0.2 10^3/uL (0.0-0.3); EOSINOPHILS % (AUTO) 3 % (0-10); LYMPHOCYTES # (AUTO) 1.7 X 10^3 (1.0-4.0); LYMPHOCYTES % (AUTO) 22 % (12-44); MEAN CORPUSCULAR HEMOGLOBIN 28 PG (25-34); MEAN CORPUSCULAR HGB CONC 33 G/DL (32-36); MEAN CORPUSCULAR VOLUME 88 FL (80-99); MEAN PLATELET VOLUME 11.2 FL (7.4-10.4); MONOCYTES # (AUTO) 0.9 X 10^3 (0.0-1.0); MONOCYTES % (AUTO) 12 % (0-12); NEUTROPHILS # (AUTO) 4.6 X 10^3 (1.8-7.8); NEUTROPHILS % (AUTO) 62 % (42-75); PLATELET COUNT 187 10^3/uL (130-400); RED CELL DISTRIBUTION WIDTH 13.7 % (10.0-14.5); WHITE BLOOD COUNT 7.5 10^3/uL (4.3-11.0)
[2017-07-23] MEDS: RT-ADVAIR HFA 115/21 MCG PER PUFF IH SCH ×2 (06:59→22:00)
[2017-07-23 07:09] LABS: ALANINE AMINOTRANSFERASE 16 U/L (0-55); ALBUMIN 2.8 GM/DL (3.2-4.5); ANION GAP 10 MMOL/L (5-14); ASPARTATE AMINO TRANSFERASE 23 U/L (5-34); BILIRUBIN,TOTAL 0.4 MG/DL (0.1-1.0); BLOOD UREA NITROGEN 18 MG/DL (7-18); BUN/CREATININE RATIO 28; CALCIUM 8.6 MG/DL (8.5-10.1); CARBON DIOXIDE 23 MMOL/L (21-32); CHLORIDE 104 MMOL/L (98-107); CREATININE SERUM 0.64 MG/DL (0.60-1.30); GFR ESTIMATED > 60; GLUCOSE 100 MG/DL (70-105); POTASSIUM 3.5 MMOL/L (3.6-5.0); SODIUM 137 MMOL/L (135-145); TOTAL PROTEIN 6.7 GM/DL (6.4-8.2)
[2017-07-23] MEDS: busPIRone 5 MG (BUSPAR) TAB PO SCH ×2 (09:28→20:29)
[2017-07-23] MEDS: BACLOFEN 10 MG (LIORESAL) TAB PO SCH ×3 (09:28→20:29)
[2017-07-23] MEDS: BETAXOLOL 0.5% OU SCH ×2 (09:28→20:29)
[2017-07-23] MEDS: CEFEPIME 2 GM/NS 50 ML IVPB IV SCH ×4 (09:28→20:28)
[2017-07-23] MEDS: PILOCARPINE 2% OS SCH ×4 (09:28→20:29)
[2017-07-23] MEDS: FUROSEMIDE 40 MG (LASIX) TAB PO SCH (09:29)
[2017-07-23] MEDS: DIVALPROX SPRINKLE 125 MG (DEPAKOTE) CAP PO SCH ×2 (09:29→20:29)
[2017-07-23] MEDS: SENNA W/DOCUSATE (SENOKOT S) TABLET PO SCH (09:29)
[2017-07-23] MEDS: toPIRamate 25 MG (TOPAMAX) TAB PO SCH ×2 (09:29→20:29)
[2017-07-23] MEDS: FAMOTIDINE 20 MG (PEPCID) TABLET PO SCH ×2 (09:30→20:29)
--- NOTE | 2017-07-23 10:46 | Progress Note-Hospitalist ---
Progress Note HPI/CC on Admission The patient is a 67-year-old white female who resides at [facility] as a result of multiple sclerosis and advanced disability. She is unable to give anything in the way of useful history. Apparently she had had symptoms such that her physician Dr. vincent from [place] had ordered a chest x-ray and a sputum culture. In the interim her respiratory status declined and she was sent by ambulance to [facility]. Workup in the emergency room showed a respiratory rate of 27-30. She was hypoxic but responded to oxygen supplementation at 5 L per nasal cannula with a 95 SaO2. Her white count was 23 ,600. Lactic acid was normal. UA was unremarkable. Chest x-ray was noted to have bibasilar infiltrates. Radiology seem to favor edema however her BMP was unremarkable and given her [facility] at the senior care her vital signs were consistent with Sirs. With the white count at 23,600 and the chest x-ray I favor sepsis and pneumonia. Progress Notes/Assess & Plan Date Seen 07/23/17 Time Seen by Provider: 10:30 Diagonsis/Assessment & Plan Chart Review: No fever Vitals stable WBC 7.5 K+ 3.5 after supplement Patient Interview: Pt coughed up some mucus prior to interview and I handed her tissues to help her clean it Pt stated again today that she was hot Pt still having difficulty making speaking today as well Pt was informed that I had her diet changed. Pt confirms having breakfast Physical exam stable. Lungs sound much better Possible UTI was discussed. Labs look better today though, and this was discussed. Pt denies having BMs but I assessed the chart and BM's are charted Pt asked to eat when asked if she needed anything and I informed her that I will have her RN help her with this Chronically ill, no gurgling today, lying supine but elevated in bed Difficult to understand RRR, cno coarseness in lung delaney noted today much improved No edema Laboratory Tests 07/23/17 06:16 Assessment: Sepsis due to pneumonia Appears high risk for aspiration? Severe MS Chronic debility needs DNR due to poor quality of life Obesity Hypokalemia improved Dementia Complicated UTI Plan: 40 mEq of K+ IV repeat Palliative care consult along with PT/OT Speech therapy evaluation is appreciated and implemented their recs Restarted all home meds including Lasix Check labs in am Swingbed tomorrow Zyvox along with Cefepime Scribed by Jeanie Cueva under direct supervision of Dr. Celestina Olivas. CELESTINA OLIVAS DO Jul 23, 2017 10:45
[2017-07-23] MEDS ORDERED: MAGNESIUM 1 GM/100 ML IVPB 100 ML IV NR (11:45)
[2017-07-23] MEDS: LINEZOLID (ZYVOX) 600 MG TAB PO SCH ×2 (12:05→20:29)
[2017-07-23] MEDS: POTASSIUM CL 10MEQ/50ML IVPB 50 ML IV SCH ×4 (13:32→16:47)
--- NOTE | 2017-07-23 13:47 | Physical Therapy Evaluation ---
PT Evaluation-General Medical Diagnosis Admission Date Jul 20, 2017 at 17:55 Medical Diagnosis: Sepsis/Pneumonia Onset Date: Jul 20, 2017 Therapy Diagnosis Therapy Diagnosis: generalized weakness/debility Height/Weight Height (Feet): 5 Height (Inches): 3.00 Weight (Pounds): 193 Weight (Ounces): 0.0 Precautions Precautions/Isolations: Aspiration, Fall Prevention, Standard Precautions Weight Bear Status Right Lower Extremity: Right Full Weight Bearing Left Lower Extremity: Left Full Weight Bearing Referral Physician: Jaun Reason for Referral: Evaluation/Treatment Medical History Pertinent Medical History: COPD, Dementia, Heart Failure, Macular Degenertion Additional Medical History multiple sclerosis Current History EMS secondary to SOB/weakness/hypoxia Reviewed History: Yes Social History Home: Correction Prior/Core FIM Prior Level of Function Functional [place] Measure 0=Not Assessed/NA 4=Minimal Assistance 1=Total Assistance 5=Supervision or Setup 2=Maximal Assistance 6=Modified [place] 3=Moderate Assistance 7=Complete [place] Bed Mobility: 2 Transfers (B,C,W/C) (FIM): 2 Gait: 0 Wheelchair Mobility: 4 is able to propel w/c at [place] per staff PT Evaluation-Current Subjective Patient is yelling and mumbling. Pain Numeric Pain Scale: 10-Worst Possible Pain Location: Right, Left Location Body Site: Knee Pain Description: Sharp Comment: FLACC with ROM Objective Patient Orientation: Confused Problem Solving: Poor Attachments: Oxygen, Zhou Catheter, IV ROM/Strength ROM Lower Extremities limited bilateral LE ROM due to pain and resistance with testing Strength Lower Extremities grossly 3-/5 bilaterally Integumentary/Posture Integumentary refer to nursing notes Bowel Incontinence: Yes Bladder Incontinence: Zhou Cath Neuromuscular (Tone, Coordination, Reflexes) diminished coordination/resistive with all movement Sensory Vision: Blind Legally Hearing: Unable to Assess Sensation Right Lower Extremit: Intact Sensation Left Lower Extremity: Intact Transfers Functional [place] Measure 0=Not Assessed/NA 4=Minimal Assistance 1=Total Assistance 5=Supervision or Setup 2=Maximal Assistance 6=Modified [place] 3=Moderate Assistance 7=Complete [place] Transfers (B, C, W/C) (FIM): 1 Scootin Rollin attempted to perform bed mobility activity to EOB, however, patient became combative and agitated. Dependent assist to reposition in bed with pillow placement behind back to relieve pressure. Gait Mode of Locomotion: Wheelchair Anticipated Mode of Locomotion: Wheelchair Assessment/Needs 67 y.o. female, will benefit from skilled PT to address functional strength and mobility to improve current LOF. Per NH staff, patient was able to perform SPT and propel w/c. Currently patient is unable to safely perform these tasks. Rehab Potential: Guarded PT Deputy Court Goals [facility] Goals PT Deputy [address] Goals Time Frame: Aug 07, 2017 Transfers (B,C,W/C) (FIM): 2 Wheelchair (FIM): 1 Wheelchair distance (FIM): 1=up to 49 ft Distance: 25' Wheelchair Level of Assist: 3 PT Plan Problem List Problem List: Activity Tolerance, Functional Strength, Safety, Balance, Transfer, Bed Mobility Treatment/Plan Treatment Plan: Continue Plan of Care Treatment Plan: Bed Mobility, Education, Functional Activity Giacomo, Functional Strength, Safety, Therapeutic Exercise, Transfers Treatment Duration: Aug 07, 2017 Frequency: 6 times per week Estimated Hrs Per Day: .25 hour per day Patient and/or Family Agrees t: Yes Discharge Recommendations Therapy D/C Recommendations: Correction Placement Time/GCodes Time In: 1307 Time Out: 1321 Total Billed Treatment Time: 14 Total Billed Treatment 1 visit EVModC 14 min ELOINA WHYTE PT Jul 23, 2017 13:47
--- NOTE | 2017-07-23 14:39 | Occupational Therapy Eval ---
OT Evaluation-General/PLF Medical Diagnosis Admission Date Jul 20, 2017 at 17:55 Medical Diagnosis: Sepsis/Pneumonia Onset Date: Jul 20, 2017 Therapy Diagnosis Therapy Diagnosis: decr self care, weakness, decr funct mobility, decr act christina Height/Weight Height (Feet): 5 Height (Inches): 3.00 Weight (Pounds): 193 Weight (Ounces): 0.0 Precautions Precautions/Isolations: Aspiration, Fall Prevention, Standard Precautions Safety Interventions: Bed Exit Alarm Referral Physician: Jaun Referral Reason: Evaluation/Treatment Medical History Pertinent Medical History: COPD, Dementia, Heart Failure, Macular Degenertion, Smoking Additional Medical History Elbow surgery, CTS. Multiple sclerosis. Chronic pain, headache/migraine. Anxiety , personality disorder, depression Current History Admitted from [facility] through ED with SOA/pneumonia and weakness Reviewed History: Yes Social History Home: [facility] ADL-Prior Level of Function ADL PLOF Comments Records indicate that pt was able to feed herself and get around in w/c prior to illness. She needed help with transfers and dressing/bathing/toileting. OT Current Status Subjective Pt seen in room, up in bed, agreeable to OT. Pt recognized this therapist and wished her "ace [place]." Pt reported some discomfort in thighs but did not rate or describe pain. Appearance Alert, cooperative. Pt is difficult to understand and mumbles. Mental Status/Objective Attachments: Zhou Catheter, IV, Oxygen Current Glasses/Contacts: Yes ("Can't find them") Hand Dominance: Right Upper Extremity ROM Grossly WFL bilat Upper Extremity Strength Grossly 4/5 bilat and able to follow instructions ADL-Treatment ADL-Current Pt indicated that she is able to feed herself but has someone with her because she chokes. Nursing reported that they feed her. Functional [place] Measure 0=Not Assessed/NA 4=Minimal Assistance 1=Total Assistance 5=Supervision or Setup 2=Maximal Assistance 6=Modified [place] 3=Moderate Assistance 7=Complete IndependenceIRFPAI Quality Coding Scale 6 Independent with activity with or without an assistive device 5 Patient requires set up or clean up by helper. Patient completes activity by themselves 4 Supervision or touching assist (CGA). [place] provide cues , steadying assist 3 The helper provides less than half the effort to complete the activity 2 The helper provides more than half the effort to complete the activity 1 Dependent. The helper does all the effort to complete an activity 7 Patient refused to complete or attempt activity 9 The patient did not perform the activity before the current illness or injury 88 Not attempted due to Medical conditions or safety concerns Education OT Patient Education: Purpose of tx/functional activities, Rehab process Teaching Recipient: Patient Teaching Methods: Discussion Response to Teaching: Verbalize Understanding OT Powder Room Attendant Goals Powder Room Attendant Goals Time Frame: Aug 07, 2017 Eating (FIM): 5 Grooming(FIM): 5 Toileting(FIM): 2 Toilet/Commode Transfer(FIM): 2 Additional Goals: 2-Verbalize Understanding, 3-ImproveStrength/Giacomo 1=Demonstrate adherence to instructed precautions during ADL tasks. 2=Patient will verbalize/demonstrate understanding of assistive devices/ modifications for ADL. 3=Patient will improve strength/tolerance for activity to enable patient to perform ADL's. OT Education/Plan Problem List/Assessment Assessment: Decreased Activ Tolerance, Decreased UE Strength, Dependent Transfers, Impaired Self-Care Skills, Visual-Perceptual Deficit (possibly due to macular degeneration) Pt would benefit from skilled OT to increase her independence in basic self care to allow her to safely return to her home and to decrease caregiver burden. Discharge Recommendations Plan/Recommendations: Continue POC Therapy D/C Recommendations: [facility] (TCU/NH) (OT) Treatment Plan/Plan of Care Treatment,Training & Education: Yes Patient would benefit from OT for education, treatment and training to promote independence in ADL's, mobility, safety and/or upper extremity function for ADL' s. Plan of Care: ADL Retraining, Functional Mobility, UE Funct Exercise/Act, UE Neuromus Re-Ed/Coord Treatment Duration: Aug 07, 2017 Frequency: 5 times per week Estimated Hrs Per Day: .5 hour per day Agreement: Yes Rehab Potential: Guarded Time/GCodes Start Time: 14:15 Stop Time: 14:30 Total Time Billed (hr/min): 15 Billed Treatment Time visit, evaluation moderate intensity 15 minutes MATT OLIVIA OT Jul 23, 2017 14:39
[2017-07-23] MEDS: NS IV 1000 ML 1,000 ML IV SCH (14:52)
[2017-07-23] MEDS: LATANOPROST 0.005% (XALATAN) OPHTH SOLN 2.5 ML OU SCH (20:29)
[2017-07-24 00:15] VITALS: BP 115/74
[2017-07-24] MEDS: RT-ALBUTEROL/IPRATROPIUM 3 ML (DUONEB) VIAL IH SCH ×2 (02:53→08:01)
[2017-07-24 05:41] LABS: BASOPHILS # (AUTO) 0.1 10^3/uL (0.0-0.1); BASOPHILS % (AUTO) 1 % (0-10); EOSINOPHILS # (AUTO) 0.3 10^3/uL (0.0-0.3); EOSINOPHILS % (AUTO) 4 % (0-10); LYMPHOCYTES # (AUTO) 1.7 X 10^3 (1.0-4.0); LYMPHOCYTES % (AUTO) 26 % (12-44); MEAN CORPUSCULAR HEMOGLOBIN 29 PG (25-34); MEAN CORPUSCULAR HGB CONC 33 G/DL (32-36); MEAN CORPUSCULAR VOLUME 88 FL (80-99); MEAN PLATELET VOLUME 10.7 FL (7.4-10.4); MONOCYTES # (AUTO) 0.8 X 10^3 (0.0-1.0); MONOCYTES % (AUTO) 11 % (0-12); NEUTROPHILS % (AUTO) 58 % (42-75); PLATELET COUNT 188 10^3/uL (130-400); RED BLOOD COUNT 4.42 10^6/uL (4.35-5.85); RED CELL DISTRIBUTION WIDTH 13.7 % (10.0-14.5); WHITE BLOOD COUNT 6.8 10^3/uL (4.3-11.0)
[2017-07-24 06:03] LABS: ALANINE AMINOTRANSFERASE 15 U/L (0-55); ALBUMIN 2.7 GM/DL (3.2-4.5); ANION GAP 8 MMOL/L (5-14); ASPARTATE AMINO TRANSFERASE 23 U/L (5-34); BILIRUBIN,TOTAL 0.4 MG/DL (0.1-1.0); BLOOD UREA NITROGEN 12 MG/DL (7-18); BUN/CREATININE RATIO 18; CALCIUM 8.9 MG/DL (8.5-10.1); CARBON DIOXIDE 27 MMOL/L (21-32); CHLORIDE 106 MMOL/L (98-107); CREATININE SERUM 0.67 MG/DL (0.60-1.30); GFR ESTIMATED > 60; GLUCOSE 77 MG/DL (70-105); SODIUM 141 MMOL/L (135-145); TOTAL PROTEIN 6.2 GM/DL (6.4-8.2)
[2017-07-24] MEDS: VENlafaxine XR 75 MG (EFFEXOR XR) CAP PO SCH (06:03)
[2017-07-24] MEDS: HYDROcodone/APAP 5 MG/325 MG (LORTAB) TAB PO PRN (06:06)
[2017-07-24 08:00] VITALS: BP 137/76
[2017-07-24] MEDS ORDERED: ADVAIR HFA 115/21 MCG INHALER 8 GM IH SCH (08:00)
[2017-07-24] MEDS: SENNA W/DOCUSATE (SENOKOT S) TABLET PO SCH (08:34)
[2017-07-24] MEDS: DIVALPROX SPRINKLE 125 MG (DEPAKOTE) CAP PO SCH (08:34)
[2017-07-24] MEDS: BETAXOLOL 0.5% OU SCH (08:34)
[2017-07-24] MEDS: toPIRamate 25 MG (TOPAMAX) TAB PO SCH (08:34)
[2017-07-24] MEDS: busPIRone 5 MG (BUSPAR) TAB PO SCH (08:34)
[2017-07-24] MEDS: LINEZOLID (ZYVOX) 600 MG TAB PO SCH (08:34)
[2017-07-24] MEDS: PILOCARPINE 2% OS SCH (08:34)
[2017-07-24] MEDS: FAMOTIDINE 20 MG (PEPCID) TABLET PO SCH (08:34)
[2017-07-24] MEDS: BACLOFEN 10 MG (LIORESAL) TAB PO SCH (08:34)
[2017-07-24] MEDS: CEFEPIME 2 GM/NS 50 ML IVPB IV SCH ×2 (08:36)
[2017-07-24] MEDS: FUROSEMIDE 40 MG (LASIX) TAB PO SCH (08:42)
--- NOTE | 2017-07-24 10:55 | Discharge Summary-Hospitalist ---
Diagnosis/Chief Complaint Date of Admission Jul 20, 2017 at 17:55 Date of Discharge Discharge Date: Jul 24, 2017 Admission Diagnosis Sepsis/pneumonia. 2.multiple sclerosis. 3.dementia or other cognitive disorder. Discharge Diagnosis Assessment: Sepsis due to pneumonia Aspiration risk placed on modified diet Severe MS Chronic debility needs DNR due to poor quality of life Obesity Hypokalemia improved Dementia Complicated UTI along with allergies to multiple meds Plan: 40 mEq of K+ IV repeat Palliative care consult along with PT/OT Speech therapy evaluation is appreciated and implemented their recs Restarted all home meds including Lasix Check labs in am Swingbed today Zyvox along with Cefepime Scribed by Jeanie Cueva under direct supervision of Dr. Celestina Zamorano. Discharge Summary Discharge Physical Examination Allergies: Coded Allergies: Aminoglycosides (Verified Allergy, Unknown, 11/11/06) adhesive (Verified Allergy, Unknown, 02/01/08) amoxicillin (Verified Allergy, Unknown, 11/11/06) bacitracin (Verified Allergy, Unknown, 11/11/06) cefaclor (Verified Allergy, Unknown, 07/20/17) clavulanic acid (Verified Allergy, Unknown, 11/11/06) erythromycin base (Verified Allergy, Unknown, 11/11/06) gramicidin D (Verified Allergy, Unknown, 11/11/06) latex (Verified Allergy, Unknown, 02/01/08) neomycin (Verified Allergy, Unknown, 11/11/06) polymyxin B (Verified Allergy, Unknown, 11/11/06) vancomycin (Verified Allergy, Unknown, 11/11/06) Vitals & I&Os Vital Signs Date Time Temp Pulse Resp B/P (MAP) Pulse Ox O2 Delivery O2 Flow Rate FiO2 07/24/17 08:01 96 Nasal Cannula 4.00 07/24/17 08:00 96.8 72 22 137/76 (96) 07/23/17 07:13 36 Hospital Course Pt had a standard hospital course. Pneumonia was treated empirically and covered for aspiration due to severe dysphagia and ST was consulted and diet was modified accordingly and patient became much improved after aspiration resolved. DNR was obtained. UTI was noted so Zyvox was initiated due to sensitivities and allergy to meds. Overall her prognosis is poor given severe and progressive MS but she will complete her abx here in [facility] then will DC back to [facility]. Labs (last 24 hrs) Laboratory Tests 07/24/17 05:12: White Blood Count 6.8, Red Blood Count 4.42, Hemoglobin 12.6, Hematocrit 39, Mean Corpuscular Volume 88, Mean Corpuscular Hemoglobin 29, Mean Corpuscular Hemoglobin Concent 33, Red Cell Distribution Width 13.7, Platelet Count 188, Mean Platelet Volume 10.7H, Neutrophils (%) (Auto) 58, Lymphocytes (%) (Auto) 26 , Monocytes (%) (Auto) 11, Eosinophils (%) (Auto) 4, Basophils (%) (Auto) 1, Neutrophils # (Auto) 4.0, Lymphocytes # (Auto) 1.7, Monocytes # (Auto) 0.8, Eosinophils # (Auto) 0.3, Basophils # (Auto) 0.1, Sodium Level 141, Potassium Level 4.0, Chloride Level 106, Carbon Dioxide Level 27, Anion Gap 8, Blood Urea Nitrogen 12, Creatinine 0.67, Estimat Glomerular Filtration Rate > 60, BUN/ Creatinine Ratio 18, Glucose Level 77, Calcium Level 8.9, Total Bilirubin 0.4, Aspartate Amino Transf (AST/SGOT) 23, Alanine Aminotransferase (ALT/SGPT) 15, Alkaline Phosphatase 71, Total Protein 6.2L, Albumin 2.7L Microbiology 07/20/17 Blood Culture - Preliminary, Resulted No growth 07/20/17 Influenza Types A,B Antigen (MANJINDER) - Final, Complete 07/20/17 Urine Culture - Final, Complete Enterococcus Faecium Strep, Beta Hemolytic Group B See Comments Pending Labs Laboratory Tests 07/24/17 05:12: White Blood Count 6.8, Red Blood Count 4.42, Hemoglobin 12.6, Hematocrit 39, Mean Corpuscular Volume 88, Mean Corpuscular Hemoglobin 29, Mean Corpuscular Hemoglobin Concent 33, Red Cell Distribution Width 13.7, Platelet Count 188, Mean Platelet Volume 10.7, Neutrophils (%) (Auto) 58, Lymphocytes (%) (Auto) 26 , Monocytes (%) (Auto) 11, Eosinophils (%) (Auto) 4, Basophils (%) (Auto) 1, Neutrophils # (Auto) 4.0, Lymphocytes # (Auto) 1.7, Monocytes # (Auto) 0.8, Eosinophils # (Auto) 0.3, Basophils # (Auto) 0.1, Sodium Level 141, Potassium Level 4.0, Chloride Level 106, Carbon Dioxide Level 27, Anion Gap 8, Blood Urea Nitrogen 12, Creatinine 0.67, Estimat Glomerular Filtration Rate > 60, BUN/ Creatinine Ratio 18, Glucose Level 77, Calcium Level 8.9, Total Bilirubin 0.4, Aspartate Amino Transf (AST/SGOT) 23, Alanine Aminotransferase (ALT/SGPT) 15, Alkaline Phosphatase 71, Total Protein 6.2, Albumin 2.7 Discharge Home Medications: Active Scripts Active Reported Zofran (Ondansetron HCl) 4 Mg Tab 4 Mg PO Q4H PRN Tylenol (Acetaminophen) 325 Mg Tablet 650 Mg PO TID Tylenol (Acetaminophen) 325 Mg Tablet 650 Mg PO Q4H PRN Topiramate 25 Mg Tablet 25 Mg PO BID Senna S Tablet (Sennosides/Docusate Sodium) 1 Each Tablet 1 Tab PO DAILY Saline Nasal [place] (Sodium Chloride) 30 Ml [place] 2 Sprays NS Q8H PRN Guaifenesin Dm Syrup (Guaifenesin/Dextromethorphan) 5 Ml Syrup 10 Ml PO Q4H PRN Furosemide 40 Mg Tablet 40 Mg PO DAILY Isopto Carpine (Pilocarpine HCl) 15 Ml Drops 1 Drop OS QID Advil (Ibuprofen) 200 Mg Tablet 400 Mg PO Q6H PRN Hydrocodon -Acetaminophen 5-325 (Hydrocodone/Acetaminophen) 1 Each Tablet 1 Tab PO Q4H PRN Acid Handle Assembler (FAMOTIDINE) (Famotidine) 20 Mg Tablet 20 Mg PO BID Venlafaxine HCl ER (Venlafaxine HCl) 150 Mg Cap.er.24h 150 Mg PO DAILY Iprat-Albut 0.5-3(2.5) mg/3 ml (Ipratropium/Albuterol Sulfate) 3 Ml Ampul.neb 3 Ml NEB QID Divalproex Sodium 125 Mg Cap.sprink 125 Mg PO BID Citalopram HBr (Citalopram Hydrobromide) 20 Mg Tablet 20 Mg PO DAILY Buspirone HCl 5 Mg Tablet 5 Mg PO BID Breo Ellipta 100-25 Mcg INH (Fluticasone/Vilanterol) 1 Each Blst.w.dev 1 Puff INH DAILY Betaxolol HCl 5 Ml Drops 2 Drops OU BID Baclofen 20 Mg Tablet 20 Mg PO TID Latanoprost 2.5 Ml Drops 1 Drop OU HS Instructions to patient/family Please see electronic discharge instructions given to patient. Clinical Quality Measures DVT/VTE Risk/Contraindication: Risk Factor Score Per Nursin RFS Level Per Nursing on Admit: 4+=Very High CELESTINA ZAMORANO DO Jul 24, 2017 10:55
== END 2017-07-24 10:56 | disposition swing bed (61) | DRG 871 ==
LOC: ER 16:28 → EDUNIT# 16:28 → 4TH 17:55
PROVIDERS: ADMIT Internal Medicine; ATTEND Internal Medicine
DX: A41.9 Sepsis, unspecified organism (principal); J69.0 Pneumonitis due to inhalation of food and vomit; N39.0 Urinary tract infection, site not specified; G35 Multiple sclerosis; R13.10 Dysphagia, unspecified; F03.90 Unspecified dementia, unspecified severity, without behavioral disturbance, psychotic disturbance, mood disturbance, and anxiety; E87.6 Hypokalemia; E66.9 Obesity, unspecified; Z66 Do not resuscitate; Z68.35 Body mass index [BMI] 35.0-35.9, adult
CPT/HCPCS: 36415; 71010; 80053; 81000; 83605; 83880; 85007; 85025; 85027; 85610; 85730; 87040; 87077; 87088; 87186; 87804; 93005; 94640; 94642; 94660; 94760; 96365; 96375

== ENCOUNTER 2017-07-24 10:57 | Inpatient (IN) | payer MEDICARE, MEDICAID ==
[~2017-07-24] VITALS: Ht 160 cm; Wt 91.7 kg
[~2017-07-24 10:57] MED LIST changes: +ACET325T38 PO; +BETA5DRO3 OU; +BUSP5TAB59 PO; +CITA20TA7 PO; +DIVA125C10 PO; +FAMO20TA3 PO; +FLUT1AER INH; +FURO40TA4 PO; +GUAI5SYR PO; +HYDR-3812 PO; +IBUP-30 PO; +IPRA3AMP NEB; +LATA2.5D5 OU; +ONDN4T PO; +PILO15DR7 OS; +SENN-1 PO; +SODI30SP2 NS; +TOPI25TA10 PO; +VENL150C98 PO
[2017-07-24] MEDS ORDERED: IBUPROFEN TABLET 200 MG TAB PO PRN (11:00)
[2017-07-24] MEDS ORDERED: SALINE NASAL SPRAY (OCEAN) 45 ML BTL NS PRN (11:00)
[2017-07-24] MEDS ORDERED: ACETAMINOPHEN 325 MG TABLET/CAPLET (TYLENOL) PO PRN (11:00)
[2017-07-24] MEDS ORDERED: ACETAMINOPHEN 650 MG SUPP (TYLENOL) PR PRN (11:00)
[2017-07-24] MEDS ORDERED: RT-ALBUTEROL SULF 2.5 MG/3 ML PRE-MIX VIAL IH SCH (11:00)
[2017-07-24] MEDS ORDERED: ONDANSETRON 4 MG (ZOFRAN) ORAL DISSOLVE TAB PO PRN (11:00)
[2017-07-24] MEDS ORDERED: guaiFENesin/DM (ROBITUSSIN DM) 10 ML UDC PO PRN (11:00)
[2017-07-24] MEDS ORDERED: CATHETER FLUSH 10 ML SYR IV PRN (11:00)
--- OUTSIDE RECORDS SUMMARY | 2017-07-24 11:14 | XMS REPORT | Continuity of Care Document ---
Author Author [facility] Address Unknown Phone Unavailable Allergies Active Description Code Type Severity Reaction Onset Reported/Identified Relationship to Patient Clinical Status Yes Aminoglycosides [id number] Drug Allergy Unknown N/A 11/11/2006 Yes amoxicillin [id number] Drug Allergy Unknown N/A 11/11/2006 Yes bacitracin [id number] Drug Allergy Unknown N/A 11/11/2006 Yes clavulanic acid [id number] Drug Allergy Unknown N/A 11/11/2006 Yes erythromycin base [id number] Drug Allergy Unknown N/A 11/11/2006 Yes gramicidin D [id number] Drug Allergy Unknown N/A 11/11/2006 Yes neomycin [id number] Drug Allergy Unknown N/A 11/11/2006 Yes polymyxin B [id number] Drug Allergy Unknown N/A 11/11/2006 Yes vancomycin [id number] Drug Allergy Unknown N/A 11/11/2006 Yes adhesive [id number] Drug Allergy Unknown N/A 02/01/2008 Yes latex [id number] Drug Allergy Unknown N/A 02/01/2008 Yes *MRSA Miscellaneous Allergy N /A N/A 08/23/2013 Yes cefaclor [id number] Drug Allergy Unknown N/A 07/20/2017 Medications There is no data. 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 08/25/2013 RAGHU CHEN MD 338.29 CHRONIC PAIN NEC 08/25/2013 RAGHU CHEN MD 340 MULTIPLE SCLEROSIS 08/25/2013 APRIL SANCHEZ, RAGHU Tsang 496 CHR AIRWAY OBSTRUCT NEC 05/10/2016 Ot 786.2 COUGH 10/31/2016 ABHIJEET BEVERLY MD Ot R39.198 OTHER DIFFICULTIES WITH MICTURITION 11/01/2016 ABHIJEET BEVERLY MD Ot R39.198 OTHER DIFFICULTIES WITH MICTURITION 11/19/2016 ABHIJEET BEVERLY MD Ot R39.198 OTHER DIFFICULTIES WITH MICTURITION 11/25/2016 ABHIJEET BEVERLY MD Ot R39.198 OTHER DIFFICULTIES WITH MICTURITION 02/06/2017 ABHIJEET BEVERLY MD Ot N39.0 URINARY TRACT INFECTION, SITE NOT SPECIF 02/07/2017 Ot 786.2 COUGH 02/08/2017 ABHIJEET BEVERLY MD Ot N39.0 URINARY TRACT INFECTION, SITE NOT SPECIF 02/09/2017 ABHIJEET BEVERLY MD Ot N39.0 URINARY TRACT INFECTION, SITE NOT SPECIF 02/23/2017 ABHIJEET BEVERLY MD Ot N39.0 URINARY TRACT INFECTION, SITE NOT SPECIF 03/06/2017 ABHIJEET BEVERLY MD Ot N39.0 URINARY TRACT INFECTION, SITE NOT SPECIF 03/16/2017 ABHIJEET BEVERLY MD Ot R05 COUGH 03/20/2017 ABHIJEET BEVERLY MD Ot R05 COUGH 04/21/2017 ABHIJEET BEVERLY MD Ot V76.12 OTH SCREEN MAMMO-MALIGN NEOPLASM OF HANS 04/21/2017 ABHIJEET BEVERLY MD Ot R39.198 OTHER DIFFICULTIES WITH MICTURITION 04/21/2017 ABHIJEET BEVERLY MD Ot N39.0 URINARY TRACT INFECTION, SITE NOT SPECIF 04/21/2017 ABHIJEET BEVERLY MD Ot R05 COUGH 04/21/2017 ABHIJEET BEVERLY MD Ot R05 COUGH 06/19/2017 JOSE R HAMILTON MD Ot S00.33XA CONTUSION OF NOSE, INITIAL ENCOUNTER 06/19/2017 JOSE R HAMILTON MD Ot S01.81XA LACERATION W/O FOREIGN BODY OF OTH PART 06/19/2017 JOSE R HAMILTON MD Ot S02.2XXA FRACTURE OF NASAL BONES, INIT ENCNTR FOR 06/19/2017 JOSE R HAMILTON MD, Ot W19.XXXA UNSPECIFIED FALL, INITIAL ENCOUNTER 06/19/2017 JOSE R HAMILTON MD, Ot Y92.[address] IN CARE HOME PLACE 06/19/2017 JOSE R HAMILTON MD, Ot Z23 ENCOUNTER FOR IMMUNIZATION 06/19/2017 JOSE R HAMILTON MD, Ot 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 06/19/2017 JOSE R HAMILTON MD, Ot Z90.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 ABSENCE OF BOTH CERVIX AND UTER 06/19/2017 JOSE R HAMILTON MD, Ot Z90.89 ACQUIRED ABSENCE OF OTHER ORGANS 07/21/2017 JONNA ALICEA MD Ot A41.9 SEPSIS, UNSPECIFIED ORGANISM 07/21/2017 JONNA ALICEA MD Ot F03.90 UNSPECIFIED DEMENTIA WITHOUT BEHAVIORAL 07/21/2017 JONNA ALICEA MD Ot G35 MULTIPLE SCLEROSIS 07/21/2017 JONNA ALICEA MD Ot J18.9 PNEUMONIA, UNSPECIFIED ORGANISM 07/24/2017 JONNA ALICEA MD Ot A41.9 SEPSIS, UNSPECIFIED ORGANISM 07/24/2017 JONNA ALICEA MD Ot F03.90 UNSPECIFIED DEMENTIA WITHOUT BEHAVIORAL 07/24/2017 JONNA ALICEA MD Ot G35 MULTIPLE SCLEROSIS 07/24/2017 JONNA ALICEA MD Ot J18.9 PNEUMONIA, UNSPECIFIED ORGANISM Procedures Code Description Performed By Performed On 33.24 ENDOSCOPIC BRONCHIAL BX 07/23/2009 34905 ELECTROCARDIOGRAM REPORT KIRT GEE MD 08/19/2013 Results Test Result Range COMPLETE BLOOD COUNT - 08/19/13 14:50 Platelet 218 10^3u 142-424 MPV 10.9 FL 9.4-12.4 [place] # 0.85 10^3u 0.0-1.0 RBC 5.14 10^6u 4.04-6.13 [place] % 12.0 % 0-12 RDW 14.2 % [...] 08/19/13 14:50 Valproic Acid (Depakene) 17.72 UG/ML 50-100 TSH - 08/19/13 14:50 TSH 1.12 UIUML 0.35-4.94 Free T4 - 08/19/13 14:50 Free T4 0.95 NG/DL 0.70-1.48 EKG - 08/19/13 14:50 EKG SMR Urinalysis - 08/19/13 21:10 Glucose Negative Negative Leukocyte Negative Negative Nitrite Negative Negative pH 7.0 5.5-7.5 Urine Appearance SLCLOUDY Clear Protein Negative Negative Ketones Trace Negative Urobilinogen 4.0 0.2-1.0 Urine RBC N0-2 Specific [place] 1.020 1.010-1.020 Urine WBC N0-2 Amorphous Crystals 1+ Blood Negative Negative Color Yellow Yellow Squamous Epithelial Cells 2+ Bilirubin Negative Negative Valproic Acid (Depakene) - 08/25/13 05:30 Valproic Acid (Depakene) 36.78 UG/ML 50-100 Complete urinalysis with reflex to culture - 10/25/16 06:37 Urine color determination YELLOW NRG Urine clarity determination SLIGHTLY CLOUDY NRG Urine pH measurement by test strip 6 5-9 Specific gravity of urine by test strip 1.015 1.016- 1.022 Urine protein assay by test strip, semi-quantitative NEGATIVE NEGATIVE Urine glucose detection by automated test strip NEGATIVE NEGATIVE Erythrocytes detection in urine sediment by light microscopy 1+ NEGATIVE Urine ketones detection by automated test strip NEGATIVE NEGATIVE Urine nitrite detection by test strip NEGATIVE NEGATIVE Urine total bilirubin detection by test strip NEGATIVE NEGATIVE Urine urobilinogen measurement by automated test strip (mass/volume) 4 mg/dL NORMAL Urine leukocyte esterase detection by dipstick 2+ NEGATIVE Automated urine sediment erythrocyte count by microscopy (number/high power field) NONE NRG Automated urine sediment leukocyte count by microscopy (number/high power field ) TNTC NRG Bacteria detection in urine sediment by light microscopy LARGE NRG Squamous epithelial cells detection in urine sediment by light microscopy 0-2 NRG Crystals detection in urine sediment by light microscopy PRESENT NRG Casts detection in urine sediment by light microscopy NONE NRG Mucus detection in urine sediment by light microscopy NEGATIVE NRG Complete urinalysis with reflex to culture YES NRG Amorphous sediment detection in urine sediment by light microscopy MOD PITA URATES NRG Renal epithelial cells detection in urine sediment by light microscopy 0-2 NRG Bacterial urine culture - 10/25/16 06:37 Bacterial urine culture FOOTNOTE NRG Complete urinalysis with reflex to culture - 01/31/17 02:33 Urine color determination YELLOW NRG Urine clarity determination SLIGHTLY CLOUDY NRG Urine pH measurement by test strip 6 5-9 Specific gravity of urine by test strip 1.020 1.016- 1.022 Urine protein assay by test strip, semi-quantitative 1+ NEGATIVE Urine glucose detection by automated test strip NEGATIVE NEGATIVE Erythrocytes detection in urine sediment by light microscopy NEGATIVE NEGATIVE Urine ketones detection by automated test strip NEGATIVE NEGATIVE Urine nitrite detection by test strip NEGATIVE NEGATIVE Urine total bilirubin detection by test strip NEGATIVE NEGATIVE Urine urobilinogen measurement by automated test strip (mass/volume) 4 mg/dL NORMAL Urine leukocyte esterase detection by dipstick 1+ NEGATIVE Automated urine sediment erythrocyte count by microscopy (number/high power field) NONE NRG Automated urine sediment leukocyte count by microscopy (number/high power field ) [HPF] NRG Bacteria detection in urine sediment by light microscopy LARGE NRG Squamous epithelial cells detection in urine sediment by light microscopy 5-10 NRG Crystals detection in urine sediment by light microscopy NONE NRG Casts detection in urine sediment by light microscopy NONE NRG Mucus detection in urine sediment by light microscopy NEGATIVE NRG Complete urinalysis with reflex to culture YES NRG Bacterial urine culture - 01/31/17 02:33 Bacterial urine culture [id number] NRG COLONY COUNT >100,000/ML NR FTX;REPORTABLE SENSITIVITY [place]ED [place] 0811, 02-06-17 NR URINE CULTURE RESULTS PLUS [facility] Bacterial susceptibility panel - 01/31/17 02:33 Gentamicin susceptibility test by minimum inhibitory concentration > = NR Trimethoprim/sulfamethoxazole susceptibility test by minimum inhibitoryconcentration <= NRG Ampicillin susceptibility test by minimum inhibitory concentration > = NR Tobramycin susceptibility test by minimum inhibitory concentration 2 NR Cefazolin susceptibility test by minimum inhibitory concentration < = NR Ceftriaxone susceptibility test by minimum inhibitory concentration <= NRG Ampicillin/sulbactam susceptibility test by minimum inhibitory concentration 16 NRG Piperacillin/tazobactam susceptibility test by minimum inhibitory concentration <= NRG Ciprofloxacin susceptibility test by minimum inhibitory concentration 0.5 NRG Meropenem susceptibility test by minimum inhibitory concentration < = NRG Nitrofurantoin susceptibility test by minimum inhibitory concentration <= NRG Aztreonam susceptibility test by minimum inhibitory concentration < = NRG Extended spectrum beta lactamase (ESBL) producing bacteria susceptibility test by minimum inhibitory concentration - [facility] Bacterial susceptibility panel - 01/31/17 02:33 Gentamicin susceptibility test by minimum inhibitory concentration S NR Vancomycin susceptibility test by minimum inhibitory concentration < = NRG Levofloxacin susceptibility test by minimum inhibitory concentration >= NR Tetracycline susceptibility test by minimum inhibitory concentration >= NR Ampicillin susceptibility test by minimum inhibitory concentration 8 NR Ciprofloxacin susceptibility test by minimum inhibitory concentration R NRG Nitrofurantoin susceptibility test by minimum inhibitory concentration 64 NR Linezolid susceptibility test by minimum inhibitory concentration 2 NR Sputum Gram stain - 02/20/17 05:00 GRAM STAIN SPUTUM AND MIXED BACTERIAL SUSAN NRG Bacterial sputum culture - 02/20/17 05:00 FREE TEXT EXTERNAL AB NR QUANTITY OF GROWTH . [facility] MRSA AGAR MRSA isolated (Screening test for MRSA is positive) [facility] CALL POSITIVES (F1 HELP) CALLED TO GIOVANI AT 0936, 02-22-17 [facility] Bacterial sputum culture [id number] [facility] Bacterial susceptibility panel - 02/20/17 05:00 Oxacillin susceptibility test by minimum inhibitory concentration > = NRG Gentamicin susceptibility test by minimum inhibitory concentration < = NRG Clindamycin susceptibility test by minimum inhibitory concentration R NRG Erythromycin susceptibility test by minimum inhibitory concentration >= NRG Trimethoprim/sulfamethoxazole susceptibility test by minimum inhibitoryconcentration <= NRG Vancomycin susceptibility test by minimum inhibitory concentration < = NRG Levofloxacin susceptibility test by minimum inhibitory concentration >= NRG Rifampin susceptibility test by minimum inhibitory concentration <= NRG Tetracycline susceptibility test by minimum inhibitory concentration >= NRG Ciprofloxacin susceptibility test by minimum inhibitory concentration R [facility] Bacterial susceptibility panel - 02/20/17 05:00 Gentamicin susceptibility test by minimum inhibitory concentration > = NRG Trimethoprim/sulfamethoxazole susceptibility test by minimum inhibitoryconcentration >= NRG Ampicillin susceptibility test by minimum inhibitory concentration > = NRG Tobramycin susceptibility test by minimum inhibitory concentration > = NRG Cefazolin susceptibility test by minimum inhibitory concentration I NRG Ceftriaxone susceptibility test by minimum inhibitory concentration S NRG Ampicillin/sulbactam susceptibility test by minimum inhibitory concentration >= NRG Piperacillin/tazobactam susceptibility test by minimum inhibitory concentration <= NRG Ciprofloxacin susceptibility test by minimum inhibitory concentration >= NRG Meropenem susceptibility test by minimum inhibitory concentration < = NRG Aztreonam susceptibility test by minimum inhibitory concentration S NRG Amikacin susceptibility test by minimum inhibitory concentration S [facility] Bacterial susceptibility panel - 02/20/17 05:00 Gentamicin susceptibility test by minimum inhibitory concentration > = NRG Trimethoprim/sulfamethoxazole susceptibility test by minimum inhibitoryconcentration <= NRG Ampicillin susceptibility test by minimum inhibitory concentration > = NRG Tobramycin susceptibility test by minimum inhibitory concentration 8 NRG Cefazolin susceptibility test by minimum inhibitory concentration < = NRG Ceftriaxone susceptibility test by minimum inhibitory concentration <= NRG Ampicillin/sulbactam susceptibility test by minimum inhibitory concentration 16 NRG Piperacillin/tazobactam susceptibility test by minimum inhibitory concentration <= NRG Ciprofloxacin susceptibility test by minimum inhibitory concentration >= NRG Meropenem susceptibility test by minimum inhibitory concentration < = NRG Aztreonam susceptibility test by minimum inhibitory concentration < = NRG Extended spectrum beta lactamase (ESBL) producing bacteria susceptibility test by minimum inhibitory concentration - NRG Amikacin susceptibility test by minimum inhibitory concentration S NRG Complete blood count (CBC) with automated white blood cell (WBC) differential - 06/18/17 22:55 Blood leukocytes automated count (number/volume) 9.6 10*3/uL 4.3-11.0 Blood erythrocytes automated count (number/volume) 4.90 10*6/uL 4.35-5.85 Venous blood hemoglobin measurement (mass/volume) 14.1 g/dL 11.5-16.0 Blood hematocrit (volume fraction) 43 % 35-52 Automated erythrocyte mean corpuscular volume 88 [foz_us] 80-99 Automated erythrocyte mean corpuscular hemoglobin (mass per erythrocyte) 29 pg 25-34 Automated erythrocyte mean corpuscular hemoglobin concentration measurement ( mass/volume) 33 g/dL 32-36 Automated erythrocyte distribution width ratio 14.3 % 10.0-14.5 Automated blood platelet count (count/volume) 219 10*3/uL 130-400 Automated blood platelet mean volume measurement 10.8 [foz_us] 7.4-10.4 Automated blood neutrophils/100 leukocytes 71 % 42-75 Automated blood lymphocytes/100 leukocytes 22 % 12-44 Blood monocytes/100 leukocytes 7 % 0-12 Automated blood eosinophils/100 leukocytes 0 % 0-10 Automated blood basophils/100 leukocytes 1 % 0-10 Blood neutrophils automated count (number/volume) 6.7 10*3 1.8-7.8 Blood lymphocytes automated count (number/volume) 2.1 10*3 1.0-4.0 Blood monocytes automated count (number/volume) 0.7 10*3 0.0-1.0 Automated eosinophil count 0.0 10*3/uL 0.0-0.3 Automated blood basophil count (count/volume) 0.1 10*3/uL 0.0-0.1 Whole blood basic metabolic panel - 06/18/17 22:55 Serum or plasma sodium measurement (moles/volume) 141 mmol/L 135-145 Serum or plasma potassium measurement (moles/volume) 3.9 mmol/L 3.6-5.0 Serum or plasma chloride measurement (moles/volume) 104 mmol/L 98-107 Carbon dioxide 26 mmol/L 21-32 Serum or plasma anion gap determination (moles/volume) 11 mmol/L 5-14 Serum or plasma urea nitrogen measurement (mass/volume) 28 mg/dL 7-18 Serum or plasma creatinine measurement (mass/volume) 0.86 mg/dL 0.60-1.30 Serum or plasma urea nitrogen/creatinine mass ratio 33 NRG Serum or plasma creatinine measurement with calculation of estimated glomerular filtration rate > NRG Serum or plasma glucose measurement (mass/volume) 120 mg/dL 70-105 Serum or plasma calcium measurement (mass/volume) 9.4 mg/dL 8.5-10.1 Valproic acid - 06/18/17 22:55 Valproic acid 25.3 ug/mL 50.0-100.0 Complete urinalysis with reflex to culture - 06/19/17 00:04 Urine color determination YELLOW NRG Urine clarity determination CLEAR NRG Urine pH measurement by test strip 6 5-9 Specific gravity of urine by test strip 1.020 1.016- 1.022 Urine protein assay by test strip, semi-quantitative NEGATIVE NEGATIVE Urine glucose detection by automated test strip NEGATIVE NEGATIVE Erythrocytes detection in urine sediment by light microscopy NEGATIVE NEGATIVE Urine ketones detection by automated test strip NEGATIVE NEGATIVE Urine nitrite detection by test strip NEGATIVE NEGATIVE Urine total bilirubin detection by test strip NEGATIVE NEGATIVE Urine urobilinogen measurement by automated test strip (mass/volume) 4 mg/dL NORMAL Urine leukocyte esterase detection by dipstick 1+ NEGATIVE Automated urine sediment erythrocyte count by microscopy (number/high power field) NONE NRG Automated urine sediment leukocyte count by microscopy (number/high power field ) RARE NRG Bacteria detection in urine sediment by light microscopy TRACE NRG Squamous epithelial cells detection in urine sediment by light microscopy 2-5 NRG Crystals detection in urine sediment by light microscopy NONE NRG Casts detection in urine sediment by light microscopy PRESENT NRG Mucus detection in urine sediment by light microscopy SMALL NRG Complete urinalysis with reflex to culture NO NRG Hyaline casts detection in urine sediment by light microscopy RARE NRG Blood lactic acid measurement (moles/volume) - 07/20/17 16:30 Blood lactic acid measurement (moles/volume) 1.13 mmol/L 0.50-2.00 Complete blood count (CBC) with automated white blood cell (WBC) differential - 07/20/17 16:30 Blood leukocytes automated count (number/volume) 23.6 10*3/uL 4.3-11.0 Blood erythrocytes automated count (number/volume) 4.94 10*6/uL 4.35-5.85 Venous blood hemoglobin measurement (mass/volume) 14.0 g/dL 11.5-16.0 Blood hematocrit (volume fraction) 43 % 35-52 Automated erythrocyte mean corpuscular volume 88 [foz_us] 80-99 Automated erythrocyte mean corpuscular hemoglobin (mass per erythrocyte) 28 pg 25-34 Automated erythrocyte mean corpuscular hemoglobin concentration measurement ( mass/volume) 32 g/dL 32-36 Automated erythrocyte distribution width ratio 14.5 % 10.0-14.5 Automated blood platelet count (count/volume) 248 10*3/uL 130-400 Automated blood platelet mean volume measurement 11.2 [foz_us] 7.4-10.4 Automated blood neutrophils/100 leukocytes 82 % 42-75 Automated blood lymphocytes/100 leukocytes 11 % 12-44 Blood monocytes/100 leukocytes 7 % 0-12 Automated blood eosinophils/100 leukocytes 0 % 0-10 Automated blood basophils/100 leukocytes 0 % 0-10 Blood neutrophils automated count (number/volume) 19.4 10*3 1.8-7.8 Blood lymphocytes automated count (number/volume) 2.5 10*3 1.0-4.0 Blood monocytes automated count (number/volume) 1.6 10*3 0.0-1.0 Automated eosinophil count 0.0 10*3/uL 0.0-0.3 Automated blood basophil count (count/volume) 0.0 10*3/uL 0.0-0.1 PT panel in platelet poor plasma by coagulation assay - 07/20/17 16:30 Prothrombin time (PT) in platelet poor plasma by coagulation assay 14.5 s 12.2-14.7 INR in platelet poor plasma or blood by coagulation assay 1.1 0.8-1.4 Activated partial thromboplastin time (aPTT) in platelet poor plasma bycoagulation assay - 07/20/17 16:30 Activated partial thromboplastin time (aPTT) in platelet poor plasma bycoagulation assay 35 s 24-35 Comprehensive metabolic panel - 07/20/17 16:30 Serum or plasma sodium measurement (moles/volume) 142 mmol/L 135-145 Serum or plasma potassium measurement (moles/volume) 3.3 mmol/L 3.6-5.0 Serum or plasma chloride measurement (moles/volume) 104 mmol/L 98-107 Carbon dioxide 28 mmol/L 21-32 Serum or plasma anion gap determination (moles/volume) 10 mmol/L 5-14 Serum or plasma urea nitrogen measurement (mass/volume) 26 mg/dL 7-18 Serum or plasma creatinine measurement (mass/volume) 0.80 mg/dL 0.60-1.30 Serum or plasma urea nitrogen/creatinine mass ratio 33 NRG Serum or plasma creatinine measurement with calculation of estimated glomerular filtration rate > NRG Serum or plasma glucose measurement (mass/volume) 103 mg/dL 70-105 Serum or plasma calcium measurement (mass/volume) 9.8 mg/dL 8.5-10.1 Serum or plasma total bilirubin measurement (mass/volume) 1.1 mg/dL 0.1-1.0 Serum or plasma alkaline phosphatase measurement (enzymatic activity/volume) 102 U/L 40-136 Serum or plasma aspartate aminotransferase measurement (enzymatic activity/ volume) 16 U/L 5-34 Serum or plasma alanine aminotransferase measurement (enzymatic activity/volume ) 14 U/L 0-55 Serum or plasma protein measurement (mass/volume) 7.8 g/dL 6.4-8.2 Serum or plasma albumin measurement (mass/volume) 3.3 g/dL 3.2-4.5 Blood manual differential performed detection - 07/20/17 16:30 Blood monocytes/100 leukocytes 3 % NRG Manual blood segmented neutrophils/100 leukocytes 80 % NRG Blood band neutrophils/100 leukocytes 5 % NRG Manual blood lymphocytes/100 leukocytes 12 % NRG Blood erythrocyte morphology finding identification NORMAL NRG Blood toxic granules detection by light microscopy 1+ NRG Serum or plasma lithium measurement (moles/volume) - 07/20/17 16:30 BNP level 124.3 pg/mL <100.0 Bacterial blood culture - 07/20/17 16:30 Bacterial blood culture NG NRG Bacterial blood culture - 07/20/17 16:52 Bacterial blood culture NG NRG Influenza virus A and B antigen detection - 07/20/17 17:14 FLU RESULT NEGATIVE FOR INFLUENZA A AND B ANTIGENS BY IA NRG Complete urinalysis with reflex to culture - 07/20/17 17:24 Urine color determination SHABBIR NRG Urine clarity determination CLEAR NRG Urine pH measurement by test strip 5 5-9 Specific gravity of urine by test strip 1.025 1.016- 1.022 Urine protein assay by test strip, semi-quantitative 1+ NEGATIVE Urine glucose detection by automated test strip NEGATIVE NEGATIVE Erythrocytes detection in urine sediment by light microscopy NEGATIVE NEGATIVE Urine ketones detection by automated test strip NEGATIVE NEGATIVE Urine nitrite detection by test strip NEGATIVE NEGATIVE Urine total bilirubin detection by test strip NEGATIVE NEGATIVE Urine urobilinogen measurement by automated test strip (mass/volume) 4 mg/dL NORMAL Urine leukocyte esterase detection by dipstick 1+ NEGATIVE Automated urine sediment erythrocyte count by microscopy (number/high power field) NONE NRG Automated urine sediment leukocyte count by microscopy (number/high power field ) [HPF] NRG Bacteria detection in urine sediment by light microscopy LARGE NRG Squamous epithelial cells detection in urine sediment by light microscopy 0-2 NRG Crystals detection in urine sediment by light microscopy NONE NRG Casts detection in urine sediment by light microscopy PRESENT NRG Mucus detection in urine sediment by light microscopy NEGATIVE NRG Complete urinalysis with reflex to culture YES NRG Hyaline casts detection in urine sediment by light microscopy 0-2 NRG Bacterial urine culture - 07/20/17 17:24 Bacterial urine culture SEE COMMEN NRG COLONY COUNT . NRG FTX;REPORTABLE SENSITIVITY REPORTED 07/23 07:40 NRG Bacterial susceptibility panel - 07/20/17 17:24 Gentamicin susceptibility test by minimum inhibitory concentration S NRG Vancomycin susceptibility test by minimum inhibitory concentration < = NRG Levofloxacin susceptibility test by minimum inhibitory concentration >= NRG Tetracycline susceptibility test by minimum inhibitory concentration >= NRG Ampicillin susceptibility test by minimum inhibitory concentration R NRG Ciprofloxacin susceptibility test by minimum inhibitory concentration R NRG Nitrofurantoin susceptibility test by minimum inhibitory concentration 64 NRG Linezolid susceptibility test by minimum inhibitory concentration 2 NRG Complete blood count (CBC) with automated white blood cell (WBC) differential - 07/21/17 05:31 Blood leukocytes automated count (number/volume) 16.6 10*3/uL 4.3-11.0 Blood erythrocytes automated count (number/volume) 4.78 10*6/uL 4.35-5.85 Venous blood hemoglobin measurement (mass/volume) 13.5 g/dL 11.5-16.0 Blood hematocrit (volume fraction) 42 % 35-52 Automated erythrocyte mean corpuscular volume 87 [foz_us] 80-99 Automated erythrocyte mean corpuscular hemoglobin (mass per erythrocyte) 28 pg 25-34 Automated erythrocyte mean corpuscular hemoglobin concentration measurement ( mass/volume) 32 g/dL 32-36 Automated erythrocyte distribution width ratio 14.0 % 10.0-14.5 Automated blood platelet count (count/volume) 241 10*3/uL 130-400 Automated blood platelet mean volume measurement 11.1 [foz_us] 7.4-10.4 Automated blood neutrophils/100 leukocytes 84 % 42-75 Automated blood lymphocytes/100 leukocytes 9 % 12-44 Blood monocytes/100 leukocytes 7 % 0-12 Automated blood eosinophils/100 leukocytes 0 % 0-10 Automated blood basophils/100 leukocytes 0 % 0-10 Blood neutrophils automated count (number/volume) 13.9 10*3 1.8-7.8 Blood lymphocytes automated count (number/volume) 1.5 10*3 1.0-4.0 Blood monocytes automated count (number/volume) 1.1 10*3 0.0-1.0 Automated eosinophil count 0.0 10*3/uL 0.0-0.3 Automated blood basophil count (count/volume) 0.0 10*3/uL 0.0-0.1 Comprehensive metabolic panel - 07/21/17 05:31 Serum or plasma sodium measurement (moles/volume) 143 mmol/L 135-145 Serum or plasma potassium measurement (moles/volume) 3.0 mmol/L 3.6-5.0 Serum or plasma chloride measurement (moles/volume) 104 mmol/L 98-107 Carbon dioxide 28 mmol/L 21-32 Serum or plasma anion gap determination (moles/volume) 11 mmol/L 5-14 Serum or plasma urea nitrogen measurement (mass/volume) 26 mg/dL 7-18 Serum or plasma creatinine measurement (mass/volume) 0.76 mg/dL 0.60-1.30 Serum or plasma urea nitrogen/creatinine mass ratio 34 NRG Serum or plasma creatinine measurement with calculation of estimated glomerular filtration rate > NRG Serum or plasma glucose measurement (mass/volume) 96 mg/dL 70-105 Serum or plasma calcium measurement (mass/volume) 9.4 mg/dL 8.5-10.1 Serum or plasma total bilirubin measurement (mass/volume) 0.9 mg/dL 0.1-1.0 Serum or plasma alkaline phosphatase measurement (enzymatic activity/volume) 102 U/L 40-136 Serum or plasma aspartate aminotransferase measurement (enzymatic activity/ volume) 16 U/L 5-34 Serum or plasma alanine aminotransferase measurement (enzymatic activity/volume ) 9 U/L 0-55 Serum or plasma protein measurement (mass/volume) 7.4 g/dL 6.4-8.2 Serum or plasma albumin measurement (mass/volume) 3.2 g/dL 3.2-4.5 Complete blood count (CBC) with automated white blood cell (WBC) differential - 07/22/17 05:41 Blood leukocytes automated count (number/volume) 9.9 10*3/uL 4.3-11.0 Blood erythrocytes automated count (number/volume) 4.57 10*6/uL 4.35-5.85 Venous blood hemoglobin measurement (mass/volume) 13.1 g/dL 11.5-16.0 Blood hematocrit (volume fraction) 40 % 35-52 Automated erythrocyte mean corpuscular volume 87 [foz_us] 80-99 Automated erythrocyte mean corpuscular hemoglobin (mass per erythrocyte) 29 pg 25-34 Automated erythrocyte mean corpuscular hemoglobin concentration measurement ( mass/volume) 33 g/dL 32-36 Automated erythrocyte distribution width ratio 13.6 % 10.0-14.5 Automated blood platelet count (count/volume) 190 10*3/uL 130-400 Automated blood platelet mean volume measurement 10.9 [foz_us] 7.4-10.4 Automated blood neutrophils/100 leukocytes 76 % 42-75 Automated blood lymphocytes/100 leukocytes 14 % 12-44 Blood monocytes/100 leukocytes 8 % 0-12 Automated blood eosinophils/100 leukocytes 1 % 0-10 Automated blood basophils/100 leukocytes 0 % 0-10 Blood neutrophils automated count (number/volume) 7.6 10*3 1.8-7.8 Blood lymphocytes automated count (number/volume) 1.4 10*3 1.0-4.0 Blood monocytes automated count (number/volume) 0.8 10*3 0.0-1.0 Automated eosinophil count 0.1 10*3/uL 0.0-0.3 Automated blood basophil count (count/volume) 0.0 10*3/uL 0.0-0.1 Complete blood count (CBC) with automated white blood cell (WBC) differential - 07/23/17 06:16 Blood leukocytes automated count (number/volume) 7.5 10*3/uL 4.3-11.0 Blood erythrocytes automated count (number/volume) 4.40 10*6/uL 4.35-5.85 Venous blood hemoglobin measurement (mass/volume) 12.5 g/dL 11.5-16.0 Blood hematocrit (volume fraction) 39 % 35-52 Automated erythrocyte mean corpuscular volume 88 [foz_us] 80-99 Automated erythrocyte mean corpuscular hemoglobin (mass per erythrocyte) 28 pg 25-34 Automated erythrocyte mean corpuscular hemoglobin concentration measurement ( mass/volume) 33 g/dL 32-36 Automated erythrocyte distribution width ratio 13.7 % 10.0-14.5 Automated blood platelet count (count/volume) 187 10*3/uL 130-400 Automated blood platelet mean volume measurement 11.2 [foz_us] 7.4-10.4 Automated blood neutrophils/100 leukocytes 62 % 42-75 Automated blood lymphocytes/100 leukocytes 22 % 12-44 Blood monocytes/100 leukocytes 12 % 0-12 Automated blood eosinophils/100 leukocytes 3 % 0-10 Automated blood basophils/100 leukocytes 1 % 0-10 Blood neutrophils automated count (number/volume) 4.6 10*3 1.8-7.8 Blood lymphocytes automated count (number/volume) 1.7 10*3 1.0-4.0 Blood monocytes automated count (number/volume) 0.9 10*3 0.0-1.0 Automated eosinophil count 0.2 10*3/uL 0.0-0.3 Automated blood basophil count (count/volume) 0.1 10*3/uL 0.0-0.1 Comprehensive metabolic panel - 07/23/17 06:16 Serum or plasma sodium measurement (moles/volume) 137 mmol/L 135-145 Serum or plasma potassium measurement (moles/volume) 3.5 mmol/L 3.6-5.0 Serum or plasma chloride measurement (moles/volume) 104 mmol/L 98-107 Carbon dioxide 23 mmol/L 21-32 Serum or plasma anion gap determination (moles/volume) 10 mmol/L 5-14 Serum or plasma urea nitrogen measurement (mass/volume) 18 mg/dL 7-18 Serum or plasma creatinine measurement (mass/volume) 0.64 mg/dL 0.60-1.30 Serum or plasma urea nitrogen/creatinine mass ratio 28 NRG Serum or plasma creatinine measurement with calculation of estimated glomerular filtration rate > NRG Serum or plasma glucose measurement (mass/volume) 100 mg/dL 70-105 Serum or plasma calcium measurement (mass/volume) 8.6 mg/dL 8.5-10.1 Serum or plasma total bilirubin measurement (mass/volume) 0.4 mg/dL 0.1-1.0 Serum or plasma alkaline phosphatase measurement (enzymatic activity/volume) 75 U/L 40-136 Serum or plasma aspartate aminotransferase measurement (enzymatic activity/ volume) 23 U/L 5-34 Serum or plasma alanine aminotransferase measurement (enzymatic activity/volume ) 16 U/L 0-55 Serum or plasma protein measurement (mass/volume) 6.7 g/dL 6.4-8.2 Serum or plasma albumin measurement (mass/volume) 2.8 g/dL 3.2-4.5 Complete blood count (CBC) with automated white blood cell (WBC) differential - 07/24/17 05:12 Blood leukocytes automated count (number/volume) 6.8 10*3/uL 4.3-11.0 Blood erythrocytes automated count (number/volume) 4.42 10*6/uL 4.35-5.85 Venous blood hemoglobin measurement (mass/volume) 12.6 g/dL 11.5-16.0 Blood hematocrit (volume fraction) 39 % 35-52 Automated erythrocyte mean corpuscular volume 88 [foz_us] 80-99 Automated erythrocyte mean corpuscular hemoglobin (mass per erythrocyte) 29 pg 25-34 Automated erythrocyte mean corpuscular hemoglobin concentration measurement ( mass/volume) 33 g/dL 32-36 Automated erythrocyte distribution width ratio 13.7 % 10.0-14.5 Automated blood platelet count (count/volume) 188 10*3/uL 130-400 Automated blood platelet mean volume measurement 10.7 [foz_us] 7.4-10.4 Automated blood neutrophils/100 leukocytes 58 % 42-75 Automated blood lymphocytes/100 leukocytes 26 % 12-44 Blood monocytes/100 leukocytes 11 % 0-12 Automated blood eosinophils/100 leukocytes 4 % 0-10 Automated blood basophils/100 leukocytes 1 % 0-10 Blood neutrophils automated count (number/volume) 4.0 10*3 1.8-7.8 Blood lymphocytes automated count (number/volume) 1.7 10*3 1.0-4.0 Blood monocytes automated count (number/volume) 0.8 10*3 0.0-1.0 Automated eosinophil count 0.3 10*3/uL 0.0-0.3 Automated blood basophil count (count/volume) 0.1 10*3/uL 0.0-0.1 Comprehensive metabolic panel - 07/24/17 05:12 Serum or plasma sodium measurement (moles/volume) 141 mmol/L 135-145 Serum or plasma potassium measurement (moles/volume) 4.0 mmol/L 3.6-5.0 Serum or plasma chloride measurement (moles/volume) 106 mmol/L 98-107 Carbon dioxide 27 mmol/L 21-32 Serum or plasma anion gap determination (moles/volume) 8 mmol/L 5-14 Serum or plasma urea nitrogen measurement (mass/volume) 12 mg/dL 7-18 Serum or plasma creatinine measurement (mass/volume) 0.67 mg/dL 0.60-1.30 Serum or plasma urea nitrogen/creatinine mass ratio 18 NRG Serum or plasma creatinine measurement with calculation of estimated glomerular filtration rate > NRG Serum or plasma glucose measurement (mass/volume) 77 mg/dL 70-105 Serum or plasma calcium measurement (mass/volume) 8.9 mg/dL 8.5-10.1 Serum or plasma total bilirubin measurement (mass/volume) 0.4 mg/dL 0.1-1.0 Serum or plasma alkaline phosphatase measurement (enzymatic activity/volume) 71 U/L 40-136 Serum or plasma aspartate aminotransferase measurement (enzymatic activity/ volume) 23 U/L 5-34 Serum or plasma alanine aminotransferase measurement (enzymatic activity/volume ) 15 U/L 0-55 Serum or plasma protein measurement (mass/volume) 6.2 g/dL 6.4-8.2 Serum or plasma albumin measurement (mass/volume) 2.7 g/dL 3.2-4.5 Encounters ACCT No. Visit Date/Time Discharge Status Pt. Type Provider Facility Loc./Unit Complaint [id number] 08/19/2013 14:00:00 08/25/2013 14:30:00 DIS Inpatient APRIL SANCHEZ, RAGHU [facility] [id number] 08/19/2013 14:00:00 08/19/2013 14:00:00 DIS Outpatient GERARD SANCHEZ, KIRT [facility] OTHER [id number] 07/20/2017 17:55:00 07/24/2017 10:56:00 DIS Inpatient NIXON SANCHEZ, JONNA [facility] 4TH BIBASILAR PNA,RESP DISTRESS [id number] 06/18/2017 22:36:00 06/19/2017 02:26:00 DIS Emergency ALFONSO SANCHEZ, JOSE R Dowd [facility] ER FALL [id number] 02/20/2017 17:19:00 02/20/2017 23:59:59 CLS Outpatient ABHIJEET BEVERLY MD [facility] R05 [id number] 01/31/2017 10:53:00 01/31/2017 23:59:59 CLS Outpatient ABHIJEET BEVERLY MD [facility] [id number] 10/25/2016 09:02:00 10/25/2016 23:59:59 CLS Outpatient ABHIJEET BEVERLY MD [id number] 05/04/2014 13:47:00 05/04/2014 23:59:59 CLS Outpatient ABHIJEET BEVERLY MD [facility] RAD SCREENING [id number] 07/24/2017 11:46:00 PEN Preadmit NATASHA OLIVAS DO [id number] 09/28/2010 09:46:00 Document Registration [id number] 07/22/2009 13:01:00 Document Registration
[2017-07-24] MEDS ORDERED: INFLUENZA TRIvalent 2017-2018 0.5 ML/45 MCG SYR IM ONE (11:15)
[2017-07-24] MEDS ORDERED: RT-ALBUTEROL/IPRATROPIUM 3 ML (DUONEB) VIAL INH PRN (11:15)
--- NOTE | 2017-07-24 11:47 | Physical Therapy Evaluation ---
PT Evaluation-General Medical Diagnosis Admission Date Jul 24, 2017 at 10:57 Medical Diagnosis: bibasliar pneumonia Onset Date: Jul 20, 2017 Therapy Diagnosis Therapy Diagnosis: weakness/debility Height/Weight Height (Feet): 5 Height (Inches): 3.00 Weight (Pounds): 193 Weight (Ounces): 0.0 Precautions Precautions/Isolations: Aspiration, Droplet Isolation, Fall Prevention Weight Bear Status Right Lower Extremity: Right Full Weight Bearing Left Lower Extremity: Left Full Weight Bearing Referral Physician: Jaun Reason for Referral: Evaluation/Treatment Medical History Pertinent Medical History: COPD, Dementia, Heart Failure, Macular Degenertion Additional Medical History O2 continuous; Multiple Sclerosis Current History transfer to [facility] status Reviewed History: Yes Social History Home: Retirement Prior/[facility] Prior Level of Function Functional [place] Measure 0=Not Assessed/NA 4=Minimal Assistance 1=Total Assistance 5=Supervision or Setup 2=Maximal Assistance 6=Modified [place] 3=Moderate Assistance 7=Complete [place] Bed Mobility: 2 Transfers (B,C,W/C) (FIM): 2 Wheelchair Mobility: 4 able to propel w/c at [place]; non ambulatory PT Evaluation-Current Subjective Patient is in bed and agrees to PT. Pain Numeric Pain Scale: 10-Worst Possible Pain Location: Right, Left, Soft Tissue Location Body Site: Thigh Pain Description: Ache Comment: FLACC Objective Patient Orientation: Confused Problem Solving: Poor Attachments: Oxygen, Zhou Catheter, IV ROM/Strength ROM Lower Extremities rigid bilaterally with ROM/ very resistive with all ROM Strenght Lower Extremities bilaterally 4/5 with inability to formally test due to dementia Integumentary/Posture Integumentary refer to nursing notes Bowel Incontinence: Yes Bladder Incontinence: Zhou Cath Posture kyphotic Neuromuscular (Tone, Coordination, Reflexes) diminished coordination/resistive with all movement, change in position, ROM Sensory Vision: Blind Legally Hearing: Impaired Sensation Right Lower Extremit: Intact Sensation Left Lower Extremity: Intact Transfers Functional [place] Measure 0=Not Assessed/NA 4=Minimal Assistance 1=Total Assistance 5=Supervision or Setup 2=Maximal Assistance 6=Modified [place] 3=Moderate Assistance 7=Complete [place] Transfers (B, C, W/C) (FIM): 1 Scootin Rollin Supine to/from Sit: 1 Sit to/from Stand: 1 Sit to Lying (QC): 1 Lying to Sitting/Side of Bed(Q: 1 Sit to Stand (QC): 1 Chair/[id number]-[id number] Xfer(QC): 1 dependent assist with all bed mobility and transfers with patient demonstrating extension tone with all repositioning and SPT bed to chair. Gait Does the Patient Walk?: No and Walking Goal NOT indicated Wheelchair Training Does the Pt Use a Wheelchair?: Yes Balance Sitting Static: Fair Sitting Dynamic: Poor Standing Static: Poor Standing Dynamic: Poor Treatment bed mobility activity/exercises with patient unable to follow simple direction and requiring dependent assist with all. Patient demonstrated extension tone with SPT bed to recliner with dependent assist x 2 to reposition up in chair with pillow placement behind back to prevent aspiration with drinking and eating. Assessment/Needs 67 y.o. female, will benefit from skilled PT to address functional mobility to improve current dependent transfers and bed mobility and to safely return to [place] for continued care. Rehab Potential: Guarded PT Prison Goals Surface Plate Inspector Goals PT Surface Plate Inspector Goals Time Frame: Aug 07, 2017 Transfers (B,C,W/C) (FIM): 2 Sit to Lying (QC): 2 Lying-Sitting on Side/Bed(QC): 2 Sit to Stand (QC): 2 Rollin Chair/Fet-pr-Hdeqf Xfer(QC): 2 Does the Patient Walk: No and Walking Goal NOT indicated Wheelchair (FIM): 1 Wheelchair distance (FIM): 1=up to 49 ft Distance: 20' Wheelchair Level of Assist: 3 PT Plan Problem List Problem List: Activity Tolerance, Functional Strength, Safety, Balance, Transfer, Bed Mobility, ROM Treatment/Plan Treatment Plan: Continue Plan of Care Treatment Plan: Bed Mobility, Education, Functional Activity Giacomo, Functional Strength, Safety, Therapeutic Exercise, Transfers Treatment Duration: Aug 07, 2017 Frequency: 6 times per week Estimated Hrs Per Day: .25 hour per day Patient and/or Family Agrees t: Yes Safety Risks/Education Patient Education: Safety Issues Teaching Recipient: Patient Teaching Methods: Discussion Response to Teaching: Reinforcement Needed Discharge Recommendations Therapy D/C Recommendations: Retirement Placement Time/GCodes Time In: 1105 Time Out: 1130 Total Billed Treatment Time: 25 Total Billed Treatment 1 visit EVModC 10 min FA 15 min ELOINA WHYTE PT Jul 24, 2017 11:47
--- NOTE | 2017-07-24 11:56 | Discharge Summary-Hospitalist ---
Diagnosis/Chief Complaint Date of Admission Jul 24, 2017 at 10:57 Date of Discharge Discharge Diagnosis see DC note on acute care Discharge Summary Discharge Physical Examination Allergies: Coded Allergies: Aminoglycosides (Verified Allergy, Unknown, 11/11/06) adhesive (Verified Allergy, Unknown, 02/01/08) amoxicillin (Verified Allergy, Unknown, 11/11/06) bacitracin (Verified Allergy, Unknown, 11/11/06) cefaclor (Verified Allergy, Unknown, 07/20/17) clavulanic acid (Verified Allergy, Unknown, 11/11/06) erythromycin base (Verified Allergy, Unknown, 11/11/06) gramicidin D (Verified Allergy, Unknown, 11/11/06) latex (Verified Allergy, Unknown, 02/01/08) neomycin (Verified Allergy, Unknown, 11/11/06) polymyxin B (Verified Allergy, Unknown, 11/11/06) vancomycin (Verified Allergy, Unknown, 11/11/06) Vitals & I&Os Vital Signs Date Time Temp Pulse Resp B/P (MAP) Pulse Ox O2 Delivery O2 Flow Rate FiO2 07/27/17 06:56 98 07/27/17 06:49 Nasal Cannula 5.00 07/27/17 06:00 97.0 80 20 111/75 (87) Hospital Course Chart Review: Pt was made DNR at her request yesterday No fever WBC 6.8 CMP normal K+ 3.5 Stop iv fluid Will swing today Patient Interview: Pt was asleep prior to interview. Pt was informed that her pneumonia is better. Labs look good and this was discussed. Pt was informed that UTI treatment started yesterday Physical exam stable. Lungs sound perfect Pt was informed that she will continue treatment until the first of the week then DC. Pt states she is not getting enough to eat. Pt would like something to drink and I assured her that I would have her RN help with this. Plan: DC fluids Swingbed Scribed by Jeanie Cueva under direct supervision of Dr. Celestina Zamorano. Discharge Home Medications: Active Scripts Active Reported Zofran (Ondansetron HCl) 4 Mg Tab 4 Mg PO Q4H PRN Tylenol (Acetaminophen) 325 Mg Tablet 650 Mg PO TID Tylenol (Acetaminophen) 325 Mg Tablet 650 Mg PO Q4H PRN Topiramate 25 Mg Tablet 25 Mg PO BID Senna S Tablet (Sennosides/Docusate Sodium) 1 Each Tablet 1 Tab PO DAILY Saline Nasal Kinsley (Sodium Chloride) 30 Ml Kinsley 2 Sprays NS Q8H PRN Guaifenesin Dm Syrup (Guaifenesin/Dextromethorphan) 5 Ml Syrup 10 Ml PO Q4H PRN Furosemide 40 Mg Tablet 40 Mg PO DAILY Isopto Carpine (Pilocarpine HCl) 15 Ml Drops 1 Drop OS QID Advil (Ibuprofen) 200 Mg Tablet 400 Mg PO Q6H PRN Hydrocodon -Acetaminophen 5-325 (Hydrocodone/Acetaminophen) 1 Each Tablet 1 Tab PO Q4H PRN Acid Tiler (FAMOTIDINE) (Famotidine) 20 Mg Tablet 20 Mg PO BID Venlafaxine HCl ER (Venlafaxine HCl) 150 Mg Cap.er.24h 150 Mg PO DAILY Iprat-Albut 0.5-3(2.5) mg/3 ml (Ipratropium/Albuterol Sulfate) 3 Ml Ampul.neb 3 Ml NEB QID Divalproex Sodium 125 Mg Cap.sprink 125 Mg PO BID Citalopram HBr (Citalopram Hydrobromide) 20 Mg Tablet 20 Mg PO DAILY Buspirone HCl 5 Mg Tablet 5 Mg PO BID Breo Ellipta 100-25 Mcg INH (Fluticasone/Vilanterol) 1 Each Blst.w.dev 1 Puff INH DAILY Betaxolol HCl 5 Ml Drops 2 Drops OU BID Baclofen 20 Mg Tablet 20 Mg PO TID Latanoprost 2.5 Ml Drops 1 Drop OU HS Instructions to patient/family Please see electronic discharge instructions given to patient. Clinical Quality Measures DVT/VTE Risk/Contraindication: Risk Factor Score Per Nursin CELESTINA ZAMORANO DO Jul 24, 2017 11:56
[2017-07-24] MEDS: BACLOFEN 10 MG (LIORESAL) TAB PO SCH ×2 (13:53→21:37)
[2017-07-24] MEDS: PILOCARPINE 2% OS SCH ×3 (13:54→21:40)
--- NOTE | 2017-07-24 14:25 | Occupational Therapy Eval ---
OT Evaluation-General/PLF Medical Diagnosis Admission Date Jul 24, 2017 at 10:57 Medical Diagnosis: bibasliar pneumonia Onset Date: Jul 20, 2017 Therapy Diagnosis Therapy Diagnosis: impaired self care skills Height/Weight Height (Feet): 5 Height (Inches): 3.00 Weight (Pounds): 193 Weight (Ounces): 0.0 Precautions Precautions/Isolations: Aspiration, Droplet Isolation, Fall Prevention Referral Physician: Jaun Medical History Pertinent Medical History: COPD, Dementia, Heart Failure, Macular Degenertion Additional Medical History elbow surgery, CTS, chronic pain, headache/migraine, anxiety, personality disorder, depression. Reviewed History: Yes Social History Home: [facility] ADL-Prior Level of Function ADL PLOF Comments Per acute care OT evaluation, pt was able to feed herself and get around in her w/c, but required assist for transfers, bathing, toileting, and dressing. Drive Self: No OT Current Status Subjective Pt sitting in chair, agrees to therapy. Pt reports pain in back, but does not rate. Mental Status/Objective Patient Orientation: Person, Confused Attachments: IV, Oxygen Current Glasses/Contacts: Yes (impaired vision secondary to macular degeneration) Hand Dominance: Right Upper Extremity ROM Grossly functional Upper Extremity Coordination Fair Upper Extremity Strength Fair ADL-Treatment ADL-Current Pt participated in UE assessment while seated. Pt drinks from cup after set up, but RN reports pt has been assisted with feeding. Pt has impaired vision and has difficulty managing foods on tray. Pt combed hair with minimal assistance to reach back of head. Pt washed face with SBA. Education provided regarding role of OT and plan of care. Pt is in agreement with plan. Pt would like to remain sitting up at this time. Needs met after session. Functional [place] Measure 0=Not Assessed/NA 4=Minimal Assistance 1=Total Assistance 5=Supervision or Setup 2=Maximal Assistance 6=Modified [place] 3=Moderate Assistance 7=Complete IndependenceIRFPAI Quality Coding Scale 6 Independent with activity with or without an assistive device 5 Patient requires set up or clean up by helper. Patient completes activity by themselves 4 Supervision or touching assist (CGA). [place] provide cues , steadying assist 3 The helper provides less than half the effort to complete the activity 2 The helper provides more than half the effort to complete the activity 1 Dependent. The helper does all the effort to complete an activity 7 Patient refused to complete or attempt activity 9 The patient did not perform the activity before the current illness or injury 88 Not attempted due to Medical conditions or safety concerns Eating (FIM): 3 (by report) Eating (QC): 3 Grooming (FIM): 4 Education OT Patient Education: Rehab process Teaching Recipient: Patient Teaching Methods: Discussion Response to Teaching: Reinforcement Needed OT Short Term Goals Short Term Goals 1=Demonstrate adherence to instructed precautions during ADL tasks. 2=Patient will verbalize/demonstrate understanding of assistive devices/ modifications for ADL. 3=Patient will improve strength/tolerance for activity to enable patient to perform ADL's. OT Brazer Crawler Torch Goals Brazer Crawler Torch Goals Time Frame: Aug 07, 2017 Eating (FIM): 5 Eating (QC): 4 Groomin Oral Hygiene (QC): 4 Toileting(FIM): 2 Toileting Hygiene (QC): 2 Toilet/Commode Transfer(FIM): 2 Toilet/Commode Transfer (QC): 2 Additional Goals: 2-Verbalize Understanding, 3-ImproveStrength/Giacomo 1=Demonstrate adherence to instructed precautions during ADL tasks. 2=Patient will verbalize/demonstrate understanding of assistive devices/ modifications for ADL. 3=Patient will improve strength/tolerance for activity to enable patient to perform ADL's. OT Education/Plan Problem List/Assessment Assessment: Decreased Activ Tolerance, Decreased UE Strength, Dependent Transfers, Impaired Funct Balance, Impaired Self-Care Skills Pt to benefit from skilled OT intervention for ADL training, transfers, and UE activity to maximize level of function and allow safe discharge. Discharge Recommendations Plan/Recommendations: Continue POC Treatment Plan/Plan of Care Treatment,Training & Education: Yes Patient would benefit from OT for education, treatment and training to promote independence in ADL's, mobility, safety and/or upper extremity function for ADL' s. Plan of Care: ADL Retraining, Functional Mobility, UE Funct Exercise/Act Treatment Duration: Aug 07, 2017 Frequency: 5 times per week Estimated Hrs Per Day: .25 hour per day Rehab Potential: Guarded Time/GCodes Start Time: 13:45 Stop Time: 14:10 Total Time Billed (hr/min): 25 Billed Treatment Time 1 visit, EVM(10minutes), ADL(15minutes) MICHAEL SIMS OT Jul 24, 2017 14:25
--- NOTE | 2017-07-24 14:45 | ST Dysphagia Evaluation ---
Speech Evaluation-General Medical Diagnosis bibasliar pneumonia Onset Date: Jul 20, 2017 Therapy Diagnosis Therapy Diagnosis: Mild Oropharyngeal Dysphagia Precautions Precautions: Aspiration Precautions/Isolations: Aspiration, Droplet Isolation, Fall Prevention Referral Referring Physician: Dr. Celestina Zamorano Reason for Referral: Evaluation/Treatment Bedside Swallowing Evaluation Medical History Pertinent Medical History: COPD, Dementia, Heart Failure, Macular Degenertion Reviewed History: Yes Speech PLF/Current-Dysphagia Prior Level of Function The patient was unable to provide prior level of function. The patient was evaluated on the acute floor and was placed on a pureed diet with thin liquids ( no straws, crushed medication). Subjective The patient was recently transferred to swing bed status with a diagnosis of pneumonia. The patient greeted the clinician and was agreeable to participation in the dysphagia evaluation. Per Dr. Zamorano's progress note, the patient's chest exam is improving. The patient was seated upright in recliner upon entrance. Cognitive Status The patient does state her first name to the clinician. The patient's speech is poorly articulated and displays reduced intelligibility. Oral Motor Skills Dentition: Edentalous Current Food Consistancy: Pureed, Thin Liquids Ability to Follow Directions: Fair Oral Expression Ability: Moderate Impairment Voice Voice Phonatory-Based Quality: Weak Voice Pitch: Normal Voice Loudness: Mildly Soft/Quiet Face Facial Symmetry: Symmetrical (Grossly.) Oral-Facial Assessment Oral-Facial Dentition: Normal Labial Seal Description: Weak (Bilaterally.) Smile: Normal Lingual Protrusion: Abnormal (Slight deviation of tongue tip to the right.) Lingual ROM: Normal Lingual Strength: Normal Pharynx Velopharyngeal Move.: Normal Volitional Dry Swallow: Yes Voluntary Cough: Yes Can Clear Throat Volitionally: Yes Productive Cough: Yes The patient displays a productive cough at basline prior to bolus trials. Dysphagia Evaluation Consistencies Presented: Thin Liquid, Pureed Oral Phase: Oral Residue The patient displayed mild lingual surface residue following trials of puree. The patient cleared the residue with a subsequent dry swallow (spontaneous). Pharyngeal Phase: Multiple Swallow Attempts, Reduced Laryngeal Elevation Funct. Velo/Pharyngeal Symptom: Cough After Swallow - No signs/symptoms of aspiration were demonstrated with teaspoon trials of thin liquid or single, small cup sips of thin liquid. No signs/symptoms of aspiration were demonstrated with trials of puree. - One immediate cough (productive) was noted with large, consecutive cup sips. Once cup sips were single and small, no signs/symptoms of aspiration were demonstrated (noted above). Dietary Recommendations: Pureed Liquid Recommendations: Thin Swallowing Precautions: Decreased Bolus 1/4 Tsp, Decreased Rate of Oral Intake , Liquids from Cup, No Straw, Oral Supervision Staff, Oral Supervision Caregiver , Small Bites and Sips, Sitting 90 Degrees 30 Post Intake 1. Crush Medication 2. Upright and alert for PO. Dysphagia Evaluation Summary The patient displays mild oropharyngeal dysphagia characterized by reduced lingual coordination and decreased laryngeal elevation. Please ensure the patient is upright, alert, and consuming small, single sips to avoid and reduce the patient's risks for aspiration. Due to the patient's fluctuating alertness and cognition, she remains at a high risk for aspiration. Barriers to Learning Cognition. Speech Short Term Goals Short Term Goals Short Term Goals 1. The patient will demonstrate swallowing strategies with 70% accuracy and moderate clinician verbal cueing. Time Frame-STG: Five Days Speech Label Printing Machinist Goals Longterm Goals 1. The patient will tolerate the least restrictive diet without signs/symptoms of aspiration or laryngeal penetration. Time Frame: One Week Speech-Plan Treatment Plan Speech Therapy Treatment Plan: Continue Plan of Care Continue skilled speech pathology to monitor swallowing safety. Frequency: 3 times per week Estimated Hrs Per Day: .25 hour per day Rehab Potential: Guarded Safety Risks/Education Teaching Recipient: Patient Teaching Methods: Discussion Response to Teaching: Unable to Comprehend Education Topics Provided: Results, Recommendations, Plan of Care Time Speech Therapy Time In: 14:30 Speech Therapy Time Out: 14:45 Total Billed Time: 15 Billed Treatment Time 1, ANALIA NÚÑEZ Jul 24, 2017 14:45
[2017-07-24] MEDS: RT-ALBUTEROL/IPRATROPIUM 3 ML (DUONEB) VIAL IH SCH ×2 (15:03→20:52)
[2017-07-24] MEDS ORDERED: RT-ADVAIR HFA 115/21 MCG PER PUFF IH ONE (18:30)
[2017-07-24 18:39] VITALS: BP 116/57
[2017-07-24] MEDS: ADVAIR HFA 115/21 MCG INHALER 8 GM IH SCH (21:04)
[2017-07-24] MEDS: LINEZOLID (ZYVOX) 600 MG TAB PO SCH (21:36)
[2017-07-24] MEDS: FAMOTIDINE 20 MG (PEPCID) TABLET PO SCH (21:37)
[2017-07-24] MEDS: DIVALPROX SPRINKLE 125 MG (DEPAKOTE) CAP PO SCH (21:37)
[2017-07-24] MEDS: busPIRone 5 MG (BUSPAR) TAB PO SCH (21:37)
[2017-07-24] MEDS: toPIRamate 25 MG (TOPAMAX) TAB PO SCH (21:37)
[2017-07-24] MEDS: CEFEPIME INJECTION 2,000 MG in NS (IVPB) 50 ML IV SCH (21:37)
[2017-07-24] MEDS: LATANOPROST 0.005% (XALATAN) OPHTH SOLN 2.5 ML OU SCH (21:39)
[2017-07-24] MEDS: BETAXOLOL 0.5% OU SCH (21:39)
[2017-07-25] MEDS: RT-ALBUTEROL/IPRATROPIUM 3 ML (DUONEB) VIAL IH SCH ×6 (02:14→21:45)
[2017-07-25] MEDS: VENlafaxine XR 75 MG (EFFEXOR XR) CAP PO SCH (06:06)
[2017-07-25 06:11] VITALS: BP 148/83
[2017-07-25] MEDS: ADVAIR HFA 115/21 MCG INHALER 8 GM IH SCH ×2 (07:20→18:51)
--- NOTE | 2017-07-25 09:53 | Physical Therapy Daily Note ---
PT Daily Note-Current Subjective Pt. in bed slumped, eyes closed, unable to understand what pt. is saying when she is awakened and attempts to communicate. Pt. resistive for much of Rx. Pain Location: No Pain Reported Mental Status Patient Orientation: Confused, Mumbles Attachments: Oxygen, Zhou Catheter pt. VENETIE IRA and vision impaired and has much difficulty communicating Transfers Functional [place] Measure 0=Not Assessed/NA 4=Minimal Assistance 1=Total Assistance 5=Supervision or Setup 2=Maximal Assistance 6=Modified [place] 3=Moderate Assistance 7=Complete IndependenceIRFPAI Quality Coding Scale 6 Independent with activity with or without an assistive device 5 Patient requires set up or clean up by helper. Patient completes activity by themselves 4 Supervision or touching assist (CGA). [place] provide cues , steadying assist 3 The helper provides less than half the effort to complete the activity 2 The helper provides more than half the effort to complete the activity 1 Dependent. The helper does all the effort to complete an activity 7 Patient refused to complete or attempt activity 9 The patient did not perform the activity before the current illness or injury 88 Not attempted due to Medical conditions or safety concerns Transfers (B, C, W/C) (FIM): 2 Scootin Rollin Supine to/from Sit: 2 MAX assist of 2 to roll and to bring to sitting as well. Pt. pulls back and resists and keeps eyes closed. leans to left when up . Sat with assist at EOB for 8 min. Attempted help pt. eat offering a few bites of food which ptl. declined except for 2 bites Weight Bearing Right Lower Extremity: Right Full Weight Bearing Left Lower Extremity: Left Full Weight Bearing Exercises Supine Ex: Rolling, Heel Slides, Hip abd/add Supine Reps: 8 Assessment Current Status: Fair Progress difficulty with communication , much difficulty with mobility PT Panel Maker Goals Panel Maker Goals PT Panel Maker Goals Time Frame: Aug 07, 2017 Transfers (B,C,W/C) (FIM): 2 Wheelchair (FIM): 1 Wheelchair distance (FIM): 1=up to 49 ft Distance: 20' Wheelchair Level of Assist: 3 PT Plan Treatment/Plan Treatment Plan: Continue Plan of Care Treatment Plan: Bed Mobility, Education, Functional Activity Giacomo, Functional Strength, Safety, Therapeutic Exercise, Transfers Treatment Duration: Aug 07, 2017 Frequency: 6 times per week Estimated Hrs Per Day: .25 hour per day Patient and/or Family Agrees t: Yes Safety Risks/Education Patient Education: Transfer Techniques, Correct Positioning, Safety Issues Teaching Recipient: Patient Teaching Methods: Demonstration, Discussion Response to Teaching: Verbalize Understanding, Unable to Return Demonstration, Unable to Comprehend, Reinforcement Needed Time/GCodes Time In: 900 Time Out: 915 Total Billed Treatment Time: 15 Total Billed Treatment 1,FA15m G Codes Necessary: No EUGENIE RENTERIA MECHANICAL CAD DRAFTER Jul 25, 2017 09:53
[2017-07-25] MEDS: CEFEPIME INJECTION 2,000 MG in NS (IVPB) 50 ML IV SCH ×2 (11:09→20:29)
[2017-07-25] MEDS: FUROSEMIDE 40 MG (LASIX) TAB PO SCH (11:10)
[2017-07-25] MEDS: SENNA W/DOCUSATE (SENOKOT S) TABLET PO SCH (11:10)
[2017-07-25] MEDS: BACLOFEN 10 MG (LIORESAL) TAB PO SCH ×3 (11:10→20:29)
[2017-07-25] MEDS: toPIRamate 25 MG (TOPAMAX) TAB PO SCH ×2 (11:10→20:27)
[2017-07-25] MEDS: busPIRone 5 MG (BUSPAR) TAB PO SCH ×2 (11:10→20:29)
[2017-07-25] MEDS: BETAXOLOL 0.5% OU SCH ×2 (11:11→20:30)
[2017-07-25] MEDS: FAMOTIDINE 20 MG (PEPCID) TABLET PO SCH ×2 (11:11→20:29)
[2017-07-25] MEDS: DIVALPROX SPRINKLE 125 MG (DEPAKOTE) CAP PO SCH ×2 (11:11→20:29)
[2017-07-25] MEDS: LINEZOLID (ZYVOX) 600 MG TAB PO SCH ×2 (11:20→20:27)
[2017-07-25] MEDS: PILOCARPINE 2% OS SCH ×4 (11:20→20:31)
[2017-07-25 18:59] VITALS: BP 115/64
[2017-07-25] MEDS: HYDROcodone/APAP 5 MG/325 MG (LORTAB) TAB PO PRN (20:28)
[2017-07-25] MEDS: LATANOPROST 0.005% (XALATAN) OPHTH SOLN 2.5 ML OU SCH (20:30)
[2017-07-26] MEDS: RT-ALBUTEROL/IPRATROPIUM 3 ML (DUONEB) VIAL IH SCH ×6 (01:57→21:38)
[2017-07-26 06:00] VITALS: BP 142/65
[2017-07-26] MEDS: VENlafaxine XR 75 MG (EFFEXOR XR) CAP PO SCH (06:17)
[2017-07-26] MEDS: FUROSEMIDE 40 MG (LASIX) TAB PO SCH (08:15)
[2017-07-26] MEDS: FAMOTIDINE 20 MG (PEPCID) TABLET PO SCH ×2 (08:15→20:34)
[2017-07-26] MEDS: BACLOFEN 10 MG (LIORESAL) TAB PO SCH ×3 (08:15→20:34)
[2017-07-26] MEDS: SENNA W/DOCUSATE (SENOKOT S) TABLET PO SCH (08:16)
[2017-07-26] MEDS: toPIRamate 25 MG (TOPAMAX) TAB PO SCH ×2 (08:16→20:33)
[2017-07-26] MEDS: LINEZOLID (ZYVOX) 600 MG TAB PO SCH ×2 (08:16→20:34)
[2017-07-26] MEDS: DIVALPROX SPRINKLE 125 MG (DEPAKOTE) CAP PO SCH ×2 (08:16→20:33)
[2017-07-26] MEDS: CEFEPIME INJECTION 2,000 MG in NS (IVPB) 50 ML IV SCH ×2 (08:16→20:34)
[2017-07-26] MEDS: PILOCARPINE 2% OS SCH ×4 (08:17→20:34)
[2017-07-26] MEDS: BETAXOLOL 0.5% OU SCH ×2 (08:17→20:35)
[2017-07-26] MEDS: busPIRone 5 MG (BUSPAR) TAB PO SCH ×2 (09:02→20:34)
[2017-07-26] MEDS: HYDROcodone/APAP 5 MG/325 MG (LORTAB) TAB PO PRN (09:02)
[2017-07-26 09:52] LABS: BASOPHILS # (AUTO) 0.1 10^3/uL (0.0-0.1); BASOPHILS % (AUTO) 2 % (0-10); EOSINOPHILS # (AUTO) 0.2 10^3/uL (0.0-0.3); EOSINOPHILS % (AUTO) 3 % (0-10); LYMPHOCYTES % (AUTO) 23 % (12-44); MEAN CORPUSCULAR HEMOGLOBIN 28 PG (25-34); MEAN CORPUSCULAR HGB CONC 33 G/DL (32-36); MEAN CORPUSCULAR VOLUME 87 FL (80-99); MEAN PLATELET VOLUME 10.3 FL (7.4-10.4); MONOCYTES % (AUTO) 12 % (0-12); NEUTROPHILS # (AUTO) 5.1 X 10^3 (1.8-7.8); NEUTROPHILS % (AUTO) 60 % (42-75); PLATELET COUNT 254 10^3/uL (130-400); RED BLOOD COUNT 4.69 10^6/uL (4.35-5.85); RED CELL DISTRIBUTION WIDTH 13.8 % (10.0-14.5); WHITE BLOOD COUNT 8.5 10^3/uL (4.3-11.0)
--- NOTE | 2017-07-26 09:59 | Progress Note-Hospitalist ---
Subjective HPI/CC On Admission Date Seen by Provider: Jul 26, 2017 Time Seen by Provider: 10:00 Subjective/Events-last exam patient has been requiring increased oxygen over the last 2-3 days. Chest x- ray shows a right middle lobe infiltrate. Official reading is not available at this point to compare it to her other previous chest x-rays. patient's abdomen is somewhat distended with high-pitched gurgling bowel sounds. There is no recorded bowel movement for some time. Review of Systems Gastrointestinal: Constipation Objective Exam Vital Signs Vital Sign - Last 12Hours 07/24/17 07/24/17 15:03 18:39 Temp 98.3 Pulse 77 Resp 18 B/P (MAP) 116/57 (76) Pulse Ox 93 O2 Delivery Nasal Cannula O2 Flow Rate 4.00 Capillary Refill : General Appearance: Chronically ill Respiratory: Lungs Clear Cardiovascular: Regular Rate, Rhythm, Systolic Murmur Gastrointestinal: Abnormal Bowel Sounds, Distended Extremity: Pedal Edema Neurologic/Psychiatric: Alert Results/Procedures Lab Laboratory Tests 07/26/17 09:42 Assessment/Plan Assessment and Plan Assess & Plan/Chief Complaint pneumonia-probable aspiration on pureed diet, inproved on cxr.on antibiotics. Patient is a DO NOT RESUSCITATE Constipation with increased abdominal distention will use a Dulcolax suppository 1 KENDALL MCCARTNEY MD Jul 26, 2017 9:59 am
[2017-07-26] MEDS ORDERED: BISACODYL 10 MG SUPP (DULCOLAX) PR NR (10:00)
[2017-07-26 10:12] LABS: ALANINE AMINOTRANSFERASE 13 U/L (0-55); ANION GAP 9 MMOL/L (5-14); ASPARTATE AMINO TRANSFERASE 17 U/L (5-34); BILIRUBIN,TOTAL 0.5 MG/DL (0.1-1.0); BLOOD UREA NITROGEN 10 MG/DL (7-18); BUN/CREATININE RATIO 14; CALCIUM 9.3 MG/DL (8.5-10.1); CARBON DIOXIDE 30 MMOL/L (21-32); CHLORIDE 101 MMOL/L (98-107); CREATININE SERUM 0.73 MG/DL (0.60-1.30); GFR ESTIMATED > 60; GLUCOSE 98 MG/DL (70-105); SODIUM 140 MMOL/L (135-145); TOTAL PROTEIN 7.3 GM/DL (6.4-8.2)
--- NOTE | 2017-07-26 10:16 | Diagnostic Imaging Report ---
INDICATION: Hypoxia. TECHNIQUE: Single view chest 9:43 AM. CORRELATION STUDY: 07/20/2017 FINDINGS: Heart size enlarged. Vasculature is improved and near normal on followup. Likely areas of atelectasis about both lung bases are present. Overall the lung delaney do appear to be improved in their appearance since prior study. IMPRESSION: 1. Stable cardiac enlargement. Vasculature and lung delaney overall appear improved since prior study. There may be minimal basilar atelectasis. Dictated by: Dictated on workstation # [id number]
[2017-07-26] MEDS: ADVAIR HFA 115/21 MCG INHALER 8 GM IH SCH ×2 (10:49→18:58)
[2017-07-26 18:00] VITALS: BP 125/77
[2017-07-26] MEDS: LATANOPROST 0.005% (XALATAN) OPHTH SOLN 2.5 ML OU SCH (20:35)
[2017-07-27] MEDS: RT-ALBUTEROL/IPRATROPIUM 3 ML (DUONEB) VIAL IH SCH ×6 (02:13→22:51)
[2017-07-27 06:00] VITALS: BP 111/75
[2017-07-27] MEDS: VENlafaxine XR 75 MG (EFFEXOR XR) CAP PO SCH (06:06)
[2017-07-27] MEDS: ADVAIR HFA 115/21 MCG INHALER 8 GM IH SCH ×2 (06:49→18:53)
[2017-07-27] MEDS: FAMOTIDINE 20 MG (PEPCID) TABLET PO SCH ×2 (09:39→21:29)
[2017-07-27] MEDS: FUROSEMIDE 40 MG (LASIX) TAB PO SCH (09:39)
[2017-07-27] MEDS: BACLOFEN 10 MG (LIORESAL) TAB PO SCH ×3 (09:40→21:29)
[2017-07-27] MEDS: DIVALPROX SPRINKLE 125 MG (DEPAKOTE) CAP PO SCH ×2 (09:40→21:29)
[2017-07-27] MEDS: HYDROcodone/APAP 5 MG/325 MG (LORTAB) TAB PO PRN ×2 (09:40→21:31)
[2017-07-27] MEDS: LINEZOLID (ZYVOX) 600 MG TAB PO SCH ×2 (09:40→21:29)
[2017-07-27] MEDS: toPIRamate 25 MG (TOPAMAX) TAB PO SCH ×2 (09:40→21:29)
[2017-07-27] MEDS: SENNA W/DOCUSATE (SENOKOT S) TABLET PO SCH (09:40)
[2017-07-27] MEDS: busPIRone 5 MG (BUSPAR) TAB PO SCH ×2 (09:48→21:29)
--- NOTE | 2017-07-27 10:33 | Speech Therapy Daily Note ---
Speech Daily Progress Note Subjective Date Seen by Provider: Jul 27, 2017 Time Seen by Provider: 08:45 The patient was seated upright in recliner, self-feeding upon entrance. The clinician aided the patient in completion of her breakfast and completed a re- assessment of the patient's swallowing function. The patient greeted the clinician appropriately and was agreeable to the plan of care. The patient remains extremely difficult to comprehend and rarely vocalizes. The patient displays a grunting like behavior intermittently at baseline, which is similar to a throat clear. Objective The patient was reassessed with her morning meal, self-feeding jell-O, mashed potatoes, and Powerade (via cup). The patient consistently missed her cup of Jell-O, therefore, the clinician aided in feeding for the remainder of the session. Without the clinician's aid, the patient was unable to follow verbal prompts to consume small, single sips of thin liquid. Following one swallow (self administered), the patient displayed a rigorous cough. Due to the patient's inability to self-control sip size, the clinician attempted cup drinks of nectar -thick liquids. Regardless of drink size (small sip, continuous large drinks), no coughing or additional signs/symptoms of aspiration were demonstrated. No signs/symptoms of aspiration were demonstrated with 4 ounces of puree ( chocolate pudding). As the patient appears inconsistently able to control cup drinks of follow verbal cues/reminders by the clinician, the clinician believes the safest consistency (liquid) for the patient is a nectar-thick. The patient should continue with pureed solids. Recommendations: - Almyra-thick liquid consistencies. - NO STRAWS. - Single, small cup drinks. - Pureed solids. - Crush medication and place in puree for administration. - Feeding assistance and aid. * These recommendations were provided to the patient's RN. Treatment Plan Continue Plan of Care Speech Short Term Goals Short Term Goals Short Term Goals 1. The patient will demonstrate swallowing strategies with 70% accuracy and moderate clinician verbal cueing. NOT MET Time Frame-STG: Five Days Speech Fpc Goals Fpc Goals 1. The patient will tolerate the least restrictive diet without signs/symptoms of aspiration or laryngeal penetration. Time Frame: One Week Speech-Plan Treatment Plan Speech Therapy Treatment Plan: Continue Plan of Care Continue skilled speech pathology to target swallowing safety and appropriateness of current diet consistency. Treatment Duration: Aug 03, 2017 Frequency: 3 times per week Estimated Hrs Per Day: .25 hour per day Rehab Potential: Guarded Safety Risks/Education Teaching Recipient: Patient Teaching Methods: Discussion Response to Teaching: Reinforcement Needed Education Topics Provided: Diet Recommendations, Swallowing Strategies, Signs/Symptoms of Aspiration (also discussed with the patient's RN). Time Speech Therapy Time In: 08:45 Speech Therapy Time Out: 09:05 Total Billed Time: 20 Billed Treatment Time 1, ANALIA MARTINEZ Jul 27, 2017 10:33
[2017-07-27] MEDS: BETAXOLOL 0.5% OU SCH ×2 (10:37→21:29)
[2017-07-27] MEDS: PILOCARPINE 2% OS SCH ×4 (10:37→21:29)
--- NOTE | 2017-07-27 12:06 | Physical Therapy Daily Note ---
PT Daily Note-Current Subjective Pt. shakes head and points to indicate she wants bites of food and motions drinking Pain Numeric Pain Scale: 0-No Pain Location: No Pain Reported Mental Status Patient Orientation: Non-Verbal/Aphasic Attachments: Zhou Catheter Transfers Functional [place] Measure 0=Not Assessed/NA 4=Minimal Assistance 1=Total Assistance 5=Supervision or Setup 2=Maximal Assistance 6=Modified [place] 3=Moderate Assistance 7=Complete IndependenceIRFPAI Quality Coding Scale 6 Independent with activity with or without an assistive device 5 Patient requires set up or clean up by helper. Patient completes activity by themselves 4 Supervision or touching assist (CGA). [place] provide cues , steadying assist 3 The helper provides less than half the effort to complete the activity 2 The helper provides more than half the effort to complete the activity 1 Dependent. The helper does all the effort to complete an activity 7 Patient refused to complete or attempt activity 9 The patient did not perform the activity before the current illness or injury 88 Not attempted due to Medical conditions or safety concerns Transfers (B, C, W/C) (FIM): 3 Scootin Sit to/from Stand: 3 Weight Bearing Right Lower Extremity: Right Full Weight Bearing Left Lower Extremity: Left Full Weight Bearing Exercises Seated Therapy Exercises: Ankle pumps, Sit to stand, Long arc quads, Hip flexion Seated Reps: 10 Treatments sit to stand at chair, resists further seated therex. Assessment Current Status: Fair Progress nursing reports knowing this pt. from outside facility and that she typically needs max assist during illness but slowly recovers and then moves self around SBA PT Logistics Vice President Goals Logistics Vice President Goals PT Chcf Goals Time Frame: Aug 07, 2017 Transfers (B,C,W/C) (FIM): 2 Wheelchair (FIM): 1 Wheelchair distance (FIM): 1=up to 49 ft Distance: 20' Wheelchair Level of Assist: 3 PT Plan Treatment/Plan Treatment Plan: Continue Plan of Care Treatment Plan: Bed Mobility, Education, Functional Activity Giacomo, Functional Strength, Safety, Therapeutic Exercise, Transfers Treatment Duration: Aug 07, 2017 Frequency: 6 times per week Estimated Hrs Per Day: .25 hour per day Patient and/or Family Agrees t: Yes Safety Risks/Education Patient Education: Gait Training, Transfer Techniques Teaching Recipient: Patient Teaching Methods: Demonstration Response to Teaching: Unable to Return Demonstration, Unable to Comprehend, Reinforcement Needed Time/GCodes Time In: 1045 Time Out: 1100 Total Billed Treatment Time: 15 Total Billed Treatment 1,FA15m G Codes Necessary: EUGENIE Montilla PTA Jul 27, 2017 12:06
--- NOTE | 2017-07-27 13:44 | Occupational Ther Daily Note ---
OT Current Status-Daily Note Subjective Pt. smiles at OT when OT comes into room. Appearance Pt. up in chair. Pt. has spilled drink on herself. Gown is half off. Mental Status/Objective Patient Orientation: Unable to Assess Functional [place] Measure 0=Not Assessed/NA 4=Minimal Assistance 1=Total Assistance 5=Supervision or Setup 2=Maximal Assistance 6=Modified [place] 3=Moderate Assistance 7=Complete [place] ADL-Treatment Functional [place] Measure 0=Not Assessed/NA 4=Minimal Assistance 1=Total Assistance 5=Supervision or Setup 2=Maximal Assistance 6=Modified [place] 3=Moderate Assistance 7=Complete IndependenceIRFPAI Quality Coding Scale 6 Independent with activity with or without an assistive device 5 Patient requires set up or clean up by helper. Patient completes activity by themselves 4 Supervision or touching assist (CGA). [place] provide cues , steadying assist 3 The helper provides less than half the effort to complete the activity 2 The helper provides more than half the effort to complete the activity 1 Dependent. The helper does all the effort to complete an activity 7 Patient refused to complete or attempt activity 9 The patient did not perform the activity before the current illness or injury 88 Not attempted due to Medical conditions or safety concerns Eating (FIM): 1 (Tray in front of pt. OT offers pt. food. Pt. is fully fed by OT, except she will hold her own cup. When OT attempts to have pt. hold spoon, she shakes her head.) Eating (QC): 1 Other Treatment Pt's gown is half off. OT assists pt. with changing gown. Pt. is difficult to understand. Multiple times, pt. attempts to tell OT something that is not intelligible. Pt's tray in front of pt. OT feeds her, but pt. will not feed herself. Noted that OT has to specify where the spoon is each time with food on it. Pt. does not take this on her own, and shakes her head when she is asked to. Pt. will hold her cup, but only takes small sips at a time. Pt. requires encouragement to stay on task, as she wants to tell OT something. OT has nursing listen as well. Pt. is asking for us to get food out of her refridgerator. Nursing states that she feels that pt. may think that she is still at the prison, as she has a mini fridge in her room. All needs met. Education OT Patient Education: Correct positioning, Modified ADL techniques, Progress toward Goal/Update tx plan, Purpose of tx/functional activities, Reviewed precautions, Rehab process, Transfer techniques Teaching Recipient: Patient Teaching Methods: Demonstration, Discussion Response to Teaching: Verbalize Understanding, Return Demonstration OT Short Term Goals Short Term Goals 1=Demonstrate adherence to instructed precautions during ADL tasks. 2=Patient will verbalize/demonstrate understanding of assistive devices/ modifications for ADL. 3=Patient will improve strength/tolerance for activity to enable patient to perform ADL's. OT Acls Nurse Goals Custodial Goals Time Frame: Aug 07, 2017 Eating (FIM): 5 Eating (QC): 4 Groomin Oral Hygiene (QC): 4 Toileting(FIM): 2 Toileting Hygiene (QC): 2 Toilet/Commode Transfer(FIM): 2 Toilet/Commode Transfer (QC): 2 Additional Goals: 2-Verbalize Understanding, 3-ImproveStrength/Giacomo 1=Demonstrate adherence to instructed precautions during ADL tasks. 2=Patient will verbalize/demonstrate understanding of assistive devices/ modifications for ADL. 3=Patient will improve strength/tolerance for activity to enable patient to perform ADL's. OT Education/Plan Problem List/Assessment Assessment: Decreased Activ Tolerance, Decreased Safety Aware, Decreased UE Strength, Dependent Transfers, Impaired Bed Mobility, Impaired Cognition, Impaired Coordination, Impaired Funct Balance, Impaired I ADL's, Impaired Self- Care Skills, Restricted Funct UE ROM, Visual-Perceptual Deficit Pt to benefit from skilled OT intervention for ADL training, transfers, and UE activity to maximize level of function and allow safe discharge. Discharge Recommendations Plan/Recommendations: Continue POC Therapy D/C Recommendations: 24 hr Supervision, Senior Care Placement Treatment Plan/Plan of Care Treatment,Training & Education: Yes Patient would benefit from OT for education, treatment and training to promote independence in ADL's, mobility, safety and/or upper extremity function for ADL' s. Plan of Care: ADL Retraining, Functional Mobility, UE Funct Exercise/Act Treatment Duration: Aug 07, 2017 Frequency: 5 times per week Estimated Hrs Per Day: .25 hour per day Rehab Potential: Guarded Time/GCodes Start Time: 13:15 Stop Time: 13:35 Total Time Billed (hr/min): 20 Billed Treatment Time 1, ADL MACK SPANGLER OT Jul 27, 2017 13:44
--- NOTE | 2017-07-27 15:15 | Progress Note-Hospitalist ---
Subjective HPI/CC On Admission Date Seen by Provider: Jul 27, 2017 Time Seen by Provider: 15:00 Subjective/Events-last exam Pt reports doing well. She is difficult to understand. I informed her of plan to remove warner and I believe she was agreeable to that. Objective Exam Vital Signs Vital Sign - Last 12Hours 07/24/17 07/24/17 15:03 18:39 Temp 98.3 Pulse 77 Resp 18 B/P (MAP) 116/57 (76) Pulse Ox 93 O2 Delivery Nasal Cannula O2 Flow Rate 4.00 Capillary Refill : General Appearance: No Apparent Distress, WD/WN Respiratory: Lungs Clear, No Respiratory Distress Cardiovascular: Regular Rate, Rhythm, No Murmur Gastrointestinal: Normal Bowel Sounds, Non Tender, Soft Neurologic/Psychiatric: Alert, Other (dysphasia) Assessment/Plan Assessment and Plan Assess & Plan/Chief Complaint Pneumonia- likely due to aspiration Complete abx tonight Continue to titrate oxygen as able Likely to return to [place] tomorrow KEVIN CAICEDO MD Jul 27, 2017 15:15
[2017-07-27 18:51] VITALS: BP 114/68
[2017-07-27] MEDS: LATANOPROST 0.005% (XALATAN) OPHTH SOLN 2.5 ML OU SCH (21:29)
[2017-07-28] MEDS: RT-ALBUTEROL/IPRATROPIUM 3 ML (DUONEB) VIAL IH SCH ×4 (02:54→14:11)
[2017-07-28] MEDS: VENlafaxine XR 75 MG (EFFEXOR XR) CAP PO SCH (05:42)
[2017-07-28] MEDS: HYDROcodone/APAP 5 MG/325 MG (LORTAB) TAB PO PRN (05:42)
[2017-07-28 06:20] VITALS: BP 114/59
[2017-07-28] MEDS: ADVAIR HFA 115/21 MCG INHALER 8 GM IH SCH (07:24)
[2017-07-28] MEDS: SENNA W/DOCUSATE (SENOKOT S) TABLET PO SCH (08:38)
[2017-07-28] MEDS: FAMOTIDINE 20 MG (PEPCID) TABLET PO SCH (08:38)
[2017-07-28] MEDS: BETAXOLOL 0.5% OU SCH (08:38)
[2017-07-28] MEDS: toPIRamate 25 MG (TOPAMAX) TAB PO SCH (08:38)
[2017-07-28] MEDS: FUROSEMIDE 40 MG (LASIX) TAB PO SCH (08:38)
[2017-07-28] MEDS: BACLOFEN 10 MG (LIORESAL) TAB PO SCH (08:38)
[2017-07-28] MEDS: busPIRone 5 MG (BUSPAR) TAB PO SCH (08:38)
[2017-07-28] MEDS: DIVALPROX SPRINKLE 125 MG (DEPAKOTE) CAP PO SCH (08:38)
[2017-07-28] MEDS: PILOCARPINE 2% OS SCH (08:39)
--- NOTE | 2017-07-28 09:02 | Discharge Inst-Simple/Standard ---
Discharge Inst-Standard Discharge Medications New, Converted or Re-Newed RX: Other Patient Instructions/Follow Up Plan of Care/Instructions/FU: See diet orders below. Please crush meds and place in pureed food. Assist with feeds. Activity as Tolerated: Yes Discharge Diet: Other Diet (Dysphagia diet, pureed with nectar thick liquids) KEVIN CAICEDO MD Jul 28, 2017 09:02
--- NOTE | 2017-07-28 09:17 | Discharge Summary-Hospitalist ---
Diagnosis/Chief Complaint Date of Admission Jul 24, 2017 at 10:57 Date of Discharge Discharge Date: Jul 28, 2017 Admission Diagnosis Pneumonia Discharge Diagnosis Pneumonia Discharge Summary Discharge Physical Examination Allergies: Coded Allergies: Aminoglycosides (Verified Allergy, Unknown, 11/11/06) adhesive (Verified Allergy, Unknown, 02/01/08) amoxicillin (Verified Allergy, Unknown, 11/11/06) bacitracin (Verified Allergy, Unknown, 11/11/06) cefaclor (Verified Allergy, Unknown, 07/20/17) clavulanic acid (Verified Allergy, Unknown, 11/11/06) erythromycin base (Verified Allergy, Unknown, 11/11/06) gramicidin D (Verified Allergy, Unknown, 11/11/06) latex (Verified Allergy, Unknown, 02/01/08) neomycin (Verified Allergy, Unknown, 11/11/06) polymyxin B (Verified Allergy, Unknown, 11/11/06) vancomycin (Verified Allergy, Unknown, 11/11/06) Vitals & I&Os Vital Signs Date Time Temp Pulse Resp B/P (MAP) Pulse Ox O2 Delivery O2 Flow Rate FiO2 07/28/17 07:22 94 Nasal Cannula 4.00 07/28/17 06:20 96.8 70 18 114/59 (77) General Appearance: Alert, Cooperative Respiratory: Clear to Auscultation Cardiovascular: Regular Rate, No Murmurs Abdominal: Normal Bowel Sounds, Soft Hospital Course Ms Hooper was admitted for pneumonia and due to her extensive allergies necessitated [facility] admission to [facility] for IV antibiotics. Her pneumonia was likely due to aspiration and she was evaluated by Speech Therapy who recommended Pureed diet with [place] thick liquids which she tolerated well. She completed abx on 07/27 evening and was discharged back in stable condition to her NH. Discharge Home Medications: Active Scripts Active Reported Zofran (Ondansetron HCl) 4 Mg Tab 4 Mg PO Q4H PRN Tylenol (Acetaminophen) 325 Mg Tablet 650 Mg PO TID Tylenol (Acetaminophen) 325 Mg Tablet 650 Mg PO Q4H PRN Topiramate 25 Mg Tablet 25 Mg PO BID Senna S Tablet (Sennosides/Docusate Sodium) 1 Each Tablet 1 Tab PO DAILY Saline Nasal [place] (Sodium Chloride) 30 Ml [place] 2 Sprays NS Q8H PRN Guaifenesin Dm Syrup (Guaifenesin/Dextromethorphan) 5 Ml Syrup 10 Ml PO Q4H PRN Furosemide 40 Mg Tablet 40 Mg PO DAILY Isopto Carpine (Pilocarpine HCl) 15 Ml Drops 1 Drop OS QID Advil (Ibuprofen) 200 Mg Tablet 400 Mg PO Q6H PRN Hydrocodon -Acetaminophen 5-325 (Hydrocodone/Acetaminophen) 1 Each Tablet 1 Tab PO Q4H PRN Acid Supervisor Machine Workers (FAMOTIDINE) (Famotidine) 20 Mg Tablet 20 Mg PO BID Venlafaxine HCl ER (Venlafaxine HCl) 150 Mg Cap.er.24h 150 Mg PO DAILY Iprat-Albut 0.5-3(2.5) mg/3 ml (Ipratropium/Albuterol Sulfate) 3 Ml Ampul.neb 3 Ml NEB QID Divalproex Sodium 125 Mg Cap.sprink 125 Mg PO BID Citalopram HBr (Citalopram Hydrobromide) 20 Mg Tablet 20 Mg PO DAILY Buspirone HCl 5 Mg Tablet 5 Mg PO BID Breo Ellipta 100-25 Mcg INH (Fluticasone/Vilanterol) 1 Each Blst.w.dev 1 Puff INH DAILY Betaxolol HCl 5 Ml Drops 2 Drops OU BID Baclofen 20 Mg Tablet 20 Mg PO TID Latanoprost 2.5 Ml Drops 1 Drop OU HS Instructions to patient/family Please see electronic discharge instructions given to patient. Clinical Quality Measures DVT/VTE Risk/Contraindication: Risk Factor Score Per Nursin Copy Copies To 1: ABHIJEET BEVERLY MD, KATELYN M MD Jul 28, 2017 09:17
--- NOTE | 2017-07-28 09:29 | Therapy Team Discharge Summary ---
Therapy Discharge Summary Discharge Recommendations Date of Discharge Therapy D/C Recommendations: 24 hr Supervision, Alf Placement Physical Therapy Patient dismissed to [place] for continued care. Patient continues to require dependent assist of 2 for all bed mobility and SPT bed to recliner. Patient continues to be difficult to understand. Therapy to continue at [place]. Goals addressed but not attained. Occupational Therapy Decreased Activ Tolerance, Decreased Safety Aware, Decreased UE Strength, Dependent Transfers, Impaired Bed Mobility, Impaired Cognition, Impaired Coordination, Impaired Funct Balance, Impaired I ADL's, Impaired Self-Care Skills, Restricted Funct UE ROM, Visual-Perceptual Deficit PT Halfway Goals Halfway Goals PT Industry Analyst Goals Time Frame: Aug 07, 2017 Transfers (B,C,W/C) (FIM): 2 Sit to Lying (QC): 2 Lying-Sitting on Side/Bed(QC): 2 Sit to Stand (QC): 2 Rollin Chair/Iue-gc-Jttsp Xfer(QC): 2 Does the Patient Walk: No and Walking Goal NOT indicated Wheelchair (FIM): 1 Wheelchair distance (FIM): 1=up to 49 ft Distance: 20' Wheelchair Level of Assist: 3 OT Industry Analyst Goals Halfway Goals Time Frame: Aug 07, 2017 Eating (FIM): 5 Eating (QC): 4 Groomin Oral Hygiene (QC): 4 Toileting(FIM): 2 Toileting Hygiene (QC): 2 Toilet/Commode Transfer(FIM): 2 Toilet/Commode Transfer (QC): 2 Additional Goals: 2-Verbalize Understanding, 3-ImproveStrength/Giacomo 1=Demonstrate adherence to instructed precautions during ADL tasks. 2=Patient will verbalize/demonstrate understanding of assistive devices/ modifications for ADL. 3=Patient will improve strength/tolerance for activity to enable patient to perform ADL's. Speech Halfway Goals Halfway Goals 1. The patient will tolerate the least restrictive diet without signs/symptoms of aspiration or laryngeal penetration. Time Frame: One Week ELOINA WHYTE PT Jul 28, 2017 09:29
--- NOTE | 2017-07-28 10:50 | Therapy Team Discharge Summary ---
Therapy Discharge Summary Discharge Recommendations Date of Discharge Therapy D/C Recommendations: 24 hr Supervision, Detention Placement Occupational Therapy Decreased Activ Tolerance, Decreased Safety Aware, Decreased UE Strength, Dependent Transfers, Impaired Bed Mobility, Impaired Cognition, Impaired Coordination, Impaired Funct Balance, Impaired I ADL's, Impaired Self-Care Skills, Restricted Funct UE ROM, Visual-Perceptual Deficit Speech-Language Pathology The patient was admitted to [facility] with a diagnosis of pneumonia. A bedside swallow revealed the patient was appropriate for a pureed diet with thin liquids with strict aspiration precautions. Upon follow up, the patient was self-feeding and it appeared she was unable to follow recommendations for small, single sips. Due to this, the patient was assessed with nectar-thick liquids and appeared appropriate regardless of cup sip size. The patient was placed on a pureed diet with nectar-thick liquids. The patient is discharged to return to correction at this time. Speech pathology follow up is recommended for diet safety upon return to correction. PT Correction Goals Regional Operations Manager Goals PT Regional Operations Manager Goals Time Frame: Aug 07, 2017 Transfers (B,C,W/C) (FIM): 2 Sit to Lying (QC): 2 Lying-Sitting on Side/Bed(QC): 2 Sit to Stand (QC): 2 Rollin Chair/Rcy-zw-Pdwyz Xfer(QC): 2 Does the Patient Walk: No and Walking Goal NOT indicated Wheelchair (FIM): 1 Wheelchair distance (FIM): 1=up to 49 ft Distance: 20' Wheelchair Level of Assist: 3 OT Regional Operations Manager Goals Correction Goals Time Frame: Aug 07, 2017 Eating (FIM): 5 Eating (QC): 4 Groomin Oral Hygiene (QC): 4 Toileting(FIM): 2 Toileting Hygiene (QC): 2 Toilet/Commode Transfer(FIM): 2 Toilet/Commode Transfer (QC): 2 Additional Goals: 2-Verbalize Understanding, 3-ImproveStrength/Giacomo 1=Demonstrate adherence to instructed precautions during ADL tasks. 2=Patient will verbalize/demonstrate understanding of assistive devices/ modifications for ADL. 3=Patient will improve strength/tolerance for activity to enable patient to perform ADL's. Speech Regional Operations Manager Goals Regional Operations Manager Goals 1. The patient will tolerate the least restrictive diet without signs/symptoms of aspiration or laryngeal penetration. MET Time Frame: One Week ANALIA GOMEZ Jul 28, 2017 10:50
--- NOTE | 2017-07-29 13:46 | Therapy Team Discharge Summary ---
Therapy Discharge Summary Discharge Recommendations Date of Discharge Jul 28, 2017 at 14:35 Therapy D/C Recommendations: 24 hr Supervision, Correction Placement Occupational Therapy Pt admitted to [facility] status following acute hospitalization for pneumonia. Skilled OT intervention focused on ADL training. Pt would not attempt to feed herself during OT treatment session and did not meet OT LTG. Pt was discharged back to [facility] for further care. D/C SWB OT at this time. Decreased Activ Tolerance, Decreased Safety Aware, Decreased UE Strength, Dependent Transfers, Impaired Bed Mobility, Impaired Cognition, Impaired Coordination, Impaired Funct Balance, Impaired I ADL's, Impaired Self-Care Skills, Restricted Funct UE ROM, Visual-Perceptual Deficit PT Cryptographic Clerk Goals Skilled Nursing Goals PT Cryptographic Clerk Goals Time Frame: Aug 07, 2017 Transfers (B,C,W/C) (FIM): 2 Sit to Lying (QC): 2 Lying-Sitting on Side/Bed(QC): 2 Sit to Stand (QC): 2 Chair/Gtz-kl-Wdazv Xfer(QC): 2 Does the Patient Walk: No and Walking Goal NOT indicated Wheelchair (FIM): 1 Wheelchair distance (FIM): 1=up to 49 ft Distance: 20' Wheelchair Level of Assist: 3 OT Skilled Nursing Goals Cryptographic Clerk Goals Time Frame: Aug 07, 2017 Eating (FIM): 5 Eating (QC): 4 Oral Hygiene (QC): 4 Grooming(FIM): 5 Toileting(FIM): 2 Toileting Hygiene (QC): 2 Toilet/Commode Transfer(FIM): 2 Toilet/Commode Transfer (QC): 2 Additional Goals: 2-Verbalize Understanding, 3-ImproveStrength/Giacomo 1=Demonstrate adherence to instructed precautions during ADL tasks. 2=Patient will verbalize/demonstrate understanding of assistive devices/ modifications for ADL. 3=Patient will improve strength/tolerance for activity to enable patient to perform ADL's. Speech Skilled Nursing Goals Skilled Nursing Goals 1. The patient will tolerate the least restrictive diet without signs/symptoms of aspiration or laryngeal penetration. MET Time Frame: One Week MICHAEL SIMS OT Jul 29, 2017 13:46
== END 2017-07-28 14:35 | DRG 178 ==
LOC: 4TH 10:57
PROVIDERS: ADMIT Internal Medicine; ATTEND Internal Medicine
DX: J69.0 Pneumonitis due to inhalation of food and vomit (principal); N39.0 Urinary tract infection, site not specified; G35 Multiple sclerosis; R13.10 Dysphagia, unspecified; F03.90 Unspecified dementia, unspecified severity, without behavioral disturbance, psychotic disturbance, mood disturbance, and anxiety; E66.9 Obesity, unspecified; Z66 Do not resuscitate; Z68.35 Body mass index [BMI] 35.0-35.9, adult; K59.00 Constipation, unspecified
CPT/HCPCS: 36415; 71010; 80053; 85025; 94640; 94760; 94761

== ENCOUNTER 2019-01-11 19:38 | Emergency (ER) | payer MEDICARE, MEDICAID ==
[~2019-01-11] VITALS: Ht 160 cm; Wt 72.6 kg
[~2019-01-11 19:38] MED LIST changes: +ACHD5005 PO; -CITA20TA7 PO; +CITA20TA9 PO; -HYDR-3812 PO; -IPRA3AMP NEB; +IPRA3AMP31 NEB; -SENN-1 PO; +SENN-145 PO
[2019-01-11] MEDS ORDERED: MEROPENEM 500 MG in WATER (STERILE) FOR INJECTION 10 ML IV ONE (19:45)
[2019-01-11] MEDS ORDERED: ONDANSETRON 4 MG/2 ML (SDV) Z0FRAN IV PRN (19:45)
[2019-01-11] MEDS ORDERED: NS IV ONE (19:45)
--- NOTE | 2019-01-11 19:58 | ED General ---
General Stated Complaint: AMS Source of Information: EMS, [facility] Records Exam Limitations: Other (PT IS NOT TALKING, MINIMAL INFORMATION FROM LONGTERM ABOUT PT AND LAST KNOWN WELL TIME IS UNCLEAR. PT HAS DX OF DEMENTIA, PER OLD RECORDS AND HAS BEEN UNABLE TO GIVE ANY HISTORY FOR MANY YEARS, ACCORDING TO OLD RECORDS) (NIHARIKA CREWS DO) History of Present Illness Date Seen by Provider: Jan 11, 2019 Time Seen by Provider: 19:59 Initial Comments PT ARRIVES VIA EMS FROM [facility] LONGTERM PT ARRIVES WITH "ALTERED MENTAL STATUS" "NOT ACTING LIKE HERSELF" , BUT LONGTERM STAFF ARE UNABLE TO STATE WHAT HER NORMAL BASELINE IS FOR THE PT WAS REPORTED TO EMS, THAT PT WAS EATING DINNER AND VOMITED--TIME OF THIS IS UNKNOWN LONGTERM REPORTED BP 67/40 AND PT WAS DIAPHORETIC FOR EMS, BP'S HAVE BEEN IN 70'S SYSTOLIC, HR 62-67, O2 SAT 92% ON ROOM AIR, UP TO 96% ON 2L/NC TEMP WAS 100.7 AND PT DIAPHORETIC FOR EMS FINGERSTICK GLUCOSE 149 FOR EMS PT IS NOT TALKING OR FOLLOWING COMMANDS PT DOES OPEN EYES TO VOICE BUT DOES NOT MAKE EYE CONTACT OR LOOK AROUND ROOM ( PER OLD RECORDS, PT IS BLIND FROM MACULAR DEGENERATION) PT IS WHEELCHAIR BOUND PT IS FULL CODE, PER LONGTERM RECORDS PCP: DR. GONZALEZ (NIHARIKA CREWS DO) Allergies and Home Medications Allergies Coded Allergies: Aminoglycosides (Verified Allergy, Unknown, 11/11/06) adhesive (Verified Allergy, Unknown, 02/01/08) amoxicillin (Verified Allergy, Unknown, 11/11/06) bacitracin (Verified Allergy, Unknown, 11/11/06) cefaclor (Verified Allergy, Unknown, 07/20/17) clavulanic acid (Verified Allergy, Unknown, 11/11/06) erythromycin base (Verified Allergy, Unknown, 11/11/06) gramicidin D (Verified Allergy, Unknown, 11/11/06) latex (Verified Allergy, Unknown, 02/01/08) neomycin (Verified Allergy, Unknown, 11/11/06) polymyxin B (Verified Allergy, Unknown, 11/11/06) vancomycin (Verified Allergy, Unknown, 11/11/06) Home Medications Acetaminophen 325 Mg Tablet, 650 MG PO Q4H PRN for PAIN-MILD, (Reported) Acetaminophen 325 Mg Tablet, 650 MG PO TID, (Reported) Baclofen 20 Mg Tablet, 20 MG PO TID, (Reported) Betaxolol HCl 5 Ml Drops, 2 DROPS OU BID, (Reported) Buspirone HCl 5 Mg Tablet, 5 MG PO BID, (Reported) Citalopram Hydrobromide 20 Mg Tablet, 20 MG PO DAILY, (Reported) Divalproex Sodium 125 Mg Cap.sprink, 125 MG PO BID, (Reported) Famotidine 20 Mg Tablet, 20 MG PO BID, (Reported) Fluticasone/Vilanterol 1 Each Blst.w.dev, 1 PUFF INH DAILY, (Reported) Furosemide 40 Mg Tablet, 40 MG PO DAILY, (Reported) Guaifenesin/Dextromethorphan 5 Ml Syrup, 10 ML PO Q4H PRN for COUGH, (Reported) Hydrocodone Bit/Acetaminophen 1 Each Tablet, 1 TAB PO Q4H PRN for PAIN-MODERATE, (Reported) Ibuprofen 200 Mg Tablet, 400 MG PO Q6H PRN for PAIN-MILD, (Reported) Ipratropium/Albuterol Sulfate 3 Ml Ampul.neb, 3 ML NEB QID, (Reported) Latanoprost 2.5 Ml Drops, 1 DROP OU HS, (Reported) Ondansetron HCl 4 Mg Tab, 4 MG PO Q4H PRN for NAUSEA/VOMITING-1ST LINE, (Reported) Pilocarpine HCl 15 Ml Drops, 1 DROP OS QID, (Reported) Sennosides/Docusate Sodium 1 Each Tablet, 1 TAB PO DAILY, (Reported) Sodium Chloride 30 Ml Lapaz, 2 SPRAYS NS Q8H PRN for DRY NOSE, (Reported) Topiramate 25 Mg Tablet, 25 MG PO BID, (Reported) Venlafaxine HCl 150 Mg Cap.er.24h, 150 MG PO DAILY, (Reported) Review of Systems Review of Systems Constitutional: diaphoresis, fever, other (NO OTHER INFORMATION OBTAINABLE) Psychiatric/Neurological: See HPI (NIHARIKA CREWS DO) Past Yqxefri-Jkuerb-Ftxtzq Hx Patient Social History Type Used: Cigarettes Former Smoker, Quit: Jul 20, 2007 Recent Foreign Travel: No Contact w/Someone Who Travel: No Recent Hopitalizations: No (NIHARIKA CREWS DO) Immunizations Up To Date PED Vaccines UTD: No Date of Pneumonia Vaccine: Jun 25, 2011 Date of Influenza Vaccine: May 21, 2017 (MARSNIHARIKA Na CARRION) Seasonal Allergies Seasonal Allergies: No (MARSNIHARIKA Na CARRION) Past Medical History Surgeries: Yes Hysterectomy, Orthopedic, Tonsillectomy Respiratory: Yes Pneumonia Currently Using CPAP: No Currently Using BIPAP: No Cardiac: Yes Hypertension Neurological: Yes Headaches /Migraines, Multiple Sclerosis Reproductive Disorders: No Genitourinary: Yes Bladder Infection Gastrointestinal: Yes Ulcer Musculoskeletal: Yes (WHEELCHAIR BOUND) Chronic Back Pain Endocrine: No HEENT: Yes Macular Degeneration Cancer: No Psychosocial: Yes Personality Disorder Integumentary: No Blood Disorders: No Adverse Reaction/Blood Tranf: No (MARSNIHARIKA Na CARRION) Family Medical History Patient reports no known family medical history. No Pertinent Family Hx (MARSNIHARIKA Na CARRION) Physical Exam Vital Signs Vital Signs - First Documented 01/11/19 01/11/19 19:40 23:02 Temp 97.4 Pulse 65 Resp 16 B/P (MAP) 71/41 (51) Pulse Ox 93 O2 Delivery Nasal Cannula O2 Flow Rate 2.00 (CRISTO SWARTZ APRN) Vital Signs Capillary Refill : (MARSNIHARIKA Monzon ) Height, Weight, BMI Height: 5'3.00" Weight: 193lbs. 0.0oz. 87.661953sb; 34.2 BMI Method:Estimated General Appearance: Obese, Other (PT OPENS EYES TO VOICE, BUT DOES NOT MAKE EYE CONTACT--LOOKING UP AND TO THE RIGHT WITH BLANK STARE. PT IS MUTTERING UNINTELLIGIBLE WORDS/GUTTERAL NOISES. PT IS NOT FOLLOWING COMMANDS. ) HEENT: Other (EDENTULOUS; PUPILS PINPOINT) Respiratory: Normal Breath Sounds, No Accessory Muscle Use, No Respiratory Distress Cardiovascular: Regular Rate, Rhythm, No JVD, No Murmur Gastrointestinal: Soft Extremity: Normal Capillary Refill, No Pedal Edema Neurologic/Psychiatric: Other (AWAKE, WITH MENTATION NOTED ABOVE. DOES APPEAR TO MOVE ALL EXTREMITIES EQUALLY, BUT DOES NOT FOLLOW COMMANDS) Skin: Damp, Pallor, Other (WARM) (NIHARIKA CREWS DO) Focused Exam Lactate Level 01/11/19 19:50: Lactic Acid Level 1.45 (CRISTO SWARTZ APRN) Lactic Acid Level (CRISTO SWARTZ APRN) Procedures/Interventions Lumen: triple Central Line Procedure: betadine prep, sterile drapes applied, sterile dressing applied Position: internal jugular (L) Anesthesia: local Volume Anesthetic (ccs): 5 Complications: none Post Position: sutured (CRISTO SWARTZ APRN) Progress/Results/Core Measures Suspected Sepsis SIRS Temperature: Pulse: Respiratory Rate: Laboratory Tests 01/11/19 19:50: White Blood Count 9.8 Blood Pressure / Mean: 01/11/19 19:50: Lactic Acid Level 1.45 Laboratory Tests 01/11/19 19:50: Creatinine 0.88, INR Comment 1.1, Platelet Count 160, Total Bilirubin 0.8 (NIHARIKA CREWS DO) Results/Orders Lab Results (CRISTO SWARTZ APRN) Micro Results (CRISTO SWARTZ APRN) My Orders (CRISTO SWARTZ APRN) Medications Given in ED (CRISTO SWARTZ APRN) Vital Signs/I&O Capillary Refill : (NIHARIKA CREWS DO) Progress Note : Progress Note BP STILL IN 70'S/40'S, DESPITE > 3 LITERS OF FLUIDS, HEART RATE IN 60'S CENTRAL LINE PLACED BY BORING MILL SET UP OPERATOR Baudilio SWARTZ AND LEVOPHED DROP STARTED. BP UP TO 130'S/70'S, HEART RATE IN 50'S O2 SATS 98-100% ON 2L/NC (NIHARIKA CREWS DO) Diagnostic Imaging Comments CT HEAD--NO ACUTE PROCESS, ADVANCED MICROVASCULAR ISCHEMIC CHANGES--SIMILAR TO PREVIOUS--PER RADIOLOGIST REPORT @ 2015 CXR--ATELECTASIS AND INFILTRATE IN RIGHT BASE, PER RADIOLOGIST REPORT AT 2020 Reviewed: Reviewed by Me (NIHARIKA CREWS DO) Departure Communication (Admissions) Family Conversation SPOKE WITH PT'S DAUGHTER, AND INFORMED HER OF PT'S CRITICAL CONDITION, AND THAT SHE WOULD BE TRANSFERRED TO [place], DUE TO NO ICU BEDS AVAILABLE HERE. (NIHARIKA CREWS DO) Impression Primary Impression: Septic shock Additional Impressions: RLL pneumonia UTI (urinary tract infection) Altered mental status Dementia NON-AMBULATORY Hx of multiple sclerosis Disposition: 02 XFER SHT-TRM HOSP Condition: Improved Transfer Transfer Facility: [place] Method of Transfer: EMS (NIHARIKA CREWS DO) Departure-Patient Inst. Referrals: ABHIJEET BEVERLY MD (PCP/Family) Primary Care Physician NIHARIKA CREWS DO Jan 11, 2019 19:58 CRISTO SWARTZ APRN Jan 11, 2019 21:21
--- NOTE | 2019-01-11 20:00 | NUR ---
UNABLE TO COMPLETE NIH R/T UNRESPONSIVENESS.
[2019-01-11 20:01] LABS: BASOPHILS % (AUTO) 0 % (0-10); EOSINOPHILS # (AUTO) 0.1 10^3/uL (0.0-0.3); EOSINOPHILS % (AUTO) 1 % (0-10); HEMATOCRIT 38 % (35-52); HEMOGLOBIN 12.7 G/DL (11.5-16.0); LYMPHOCYTES # (AUTO) 1.3 X 10^3 (1.0-4.0); LYMPHOCYTES % (AUTO) 13 % (12-44); MEAN CORPUSCULAR HEMOGLOBIN 30 PG (25-34); MEAN CORPUSCULAR HGB CONC 33 G/DL (32-36); MEAN CORPUSCULAR VOLUME 90 FL (80-99); MEAN PLATELET VOLUME 10.5 FL (7.4-10.4); MONOCYTES # (AUTO) 0.8 X 10^3 (0.0-1.0); MONOCYTES % (AUTO) 8 % (0-12); NEUTROPHILS # (AUTO) 7.6 X 10^3 (1.8-7.8); NEUTROPHILS % (AUTO) 78 % (42-75); PLATELET COUNT 160 10^3/uL (130-400); RED CELL DISTRIBUTION WIDTH 13.5 % (10.0-14.5); WHITE BLOOD COUNT 9.8 10^3/uL (4.3-11.0)
[2019-01-11] MEDS ORDERED: LACTATED RINGERS 1,000 ML IV ONE ×2 (20:07→20:45)
[2019-01-11 20:12] LABS: INR 1.1 (0.8-1.4); PROTHROMBIN TIME PATIENT 14.9 SEC (12.2-14.7)
--- NOTE | 2019-01-11 20:14 | Diagnostic Imaging Report ---
PROCEDURE: CT head wo r/o stroke. TECHNIQUE: Multiple contiguous axial images were obtained through the brain without the use of intravenous contrast. Auto Exposure Controls were utilized during the CT exam to meet ALARA standards for radiation dose reduction. INDICATION: Choking during dinner with vomiting. Hypotensive. Altered mental status. COMPARISON: 06/18/2017. FINDINGS: There is generalized cortical atrophy. The ventricles are not dilated. There is no evidence of intracranial hemorrhage. Periventricular white matter changes are noted bilaterally which does not appear significantly changed. There is no mass effect. No extra-axial fluid collection. Basal cisterns are clear. Mastoid air cells and paranasal sinuses are well-aerated and clear. No evidence of calvarial fracture. IMPRESSION: 1. Diffuse cortical atrophy with white matter changes consistent with chronic small vessel disease. Overall appearance has not changed significantly when compared with 06/18/2017. Dictated by: Dictated on workstation # [id number]
--- NOTE | 2019-01-11 20:15 | Diagnostic Imaging Report ---
INDICATION: Choking with vomiting during dinner. COMPARISON: 07/26/2018. FINDINGS: There is elevation of right hemidiaphragm with some right basilar atelectasis. Probable right basilar infiltrate is well. The left lung is well-aerated and clear. The heart is upper limits of normal. There is no evidence of pulmonary edema. No pneumothorax. No pleural effusion. IMPRESSION: 1. Finding consistent with some atelectasis at right lung base as well as probable mild right basilar infiltrate. Dictated by: Dictated on workstation # [id number]
[2019-01-11 20:19] LABS: ALANINE AMINOTRANSFERASE 19 U/L (0-55); ALBUMIN 3.3 GM/DL (3.2-4.5); ALKALINE PHOSPHATASE 80 U/L (40-136); BILIRUBIN,TOTAL 0.8 MG/DL (0.1-1.0); BUN/CREATININE RATIO 19; CALCIUM 8.8 MG/DL (8.5-10.1); CARBON DIOXIDE 24 MMOL/L (21-32); CHLORIDE 107 MMOL/L (98-107); CREATINE KINASE 66 U/L (29-168); CREATININE SERUM 0.88 MG/DL (0.60-1.30); GFR ESTIMATED > 60; GLUCOSE 132 MG/DL (70-105); POTASSIUM 4.2 MMOL/L (3.6-5.0); SODIUM 139 MMOL/L (135-145); TOTAL PROTEIN 7.1 GM/DL (6.4-8.2)
[2019-01-11 20:39] LABS: CREATINE KINASE MB 2.2 NG/ML (<6.6); TSH (THYROID ANALYZER) 0.81 UIU/ML (0.35-4.94); VALPROIC ACID 23.9 UG/ML (50.0-100.0)
[2019-01-11 20:46] LABS: BILIRUBIN,URINE NEGATIVE (NEGATIVE); CLARITY,URINE SLIGHTLY CLOUDY; COLOR,URINE YELLOW; GLUCOSE, URINE (UA) NEGATIVE (NEGATIVE); KETONES,URINE 1+ (NEGATIVE); LEUKOCYTE ESTERASE ,URINE 2+ (NEGATIVE); NITRITE,URINE POSITIVE (NEGATIVE); PH,URINE 6 (5-9); PROTEIN,URINE 1+ (NEGATIVE); UROBILINOGEN,URINE 8 MG/DL (NORMAL)
[2019-01-11 20:53] LABS: BACTERIA,URINE LARGE /HPF; SQUAMOUS EPITHELIAL CELL,UR 0-2 /HPF
[2019-01-11] MEDS ORDERED: NOREPINEPHRINE 4 MG in NS (IVPB) 250 ML IV SCH (21:00)
--- NOTE | 2019-01-11 21:44 | Diagnostic Imaging Report ---
INDICATION: Central line placement. COMPARISON with 8 PM exam. FINDINGS: Left jugular vein line is now present, the tip extends across the midline into the superior vena cava. The lungs are well-aerated with no pneumothorax or pleural effusion. IMPRESSION: Satisfactory appearing left central line placement. Dictated by: Dictated on workstation # [id number]
--- NOTE | 2019-01-11 22:40 | NUR ---
[facility] BROUGHT DPOA/LIVING WILL PAPER WORK.
[2019-01-11 23:02] VITALS: BP 140/65
--- OUTSIDE RECORDS SUMMARY | 2019-01-12 01:31 | XMS REPORT | Continuity of Care Document ---
Author Organization Unknown Address Unknown Allergies Active Description Code Type Severity Reaction Onset Reported/Identified Relationship to Patient Clinical Status Yes AMINOGLYCOSIDE UNKNOWN UNKNOWN Yes BACTRIM UNKNOWN UNKNOWN Yes CEFACLOR UNKNOWN UNKNOWN Yes CEPHALOSPORINS UNKNOWN UNKNOWN Yes CORICIDIN D UNKNOWN UNKNOWN Yes LATEX UNKNOWN UNKNOWN Yes PENICILLIN G SODIUM UNKNOWN UNKNOWN Yes SILICON UNKNOWN UNKNOWN Yes TAPE UNKNOWN UNKNOWN Yes VANCOMYCIN UNKNOWN UNKNOWN Yes Aminoglycosides [id number] Drug Allergy Unknown N/A 11/11/2006 Yes amoxicillin [id number] Drug Allergy Unknown N/A 11/11/2006 Yes bacitracin [id number] Drug Allergy Unknown N/A 11/11/2006 Yes clavulanic acid [id number] Drug Allergy Unknown N/A 11/11/2006 Yes erythromycin base [id number] Drug Allergy Unknown N/A 11/11/2006 Yes gramicidin D [id number] Drug Allergy Unknown N/A 11/11/2006 Yes neomycin [id number] Drug Allergy Unknown N/A 11/11/2006 Yes polymyxin B [id number] Drug Allergy Unknown N/A 11/11/2006 Yes vancomycin [id number] Drug Allergy Unknown N/A 11/11/2006 Yes adhesive [id number] Drug Allergy Unknown N/A 02/01/2008 Yes latex [id number] Drug Allergy Unknown N/A 02/01/2008 Yes *MRSA Miscellaneous Allergy N/A N/A 08/23/2013 Yes cefaclor [id number] Drug Allergy Unknown N/A 07/20/2017 Medications There is no data. 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 08/19/2013 KIRT GEE MD 340 MULTIPLE SCLEROSIS 08/19/2013 KIRT GEE MD 496 CHR AIRWAY OBSTRUCT NEC 08/19/2013 KIRT GEE MD V58.69 JAIL MEDICATION USE 08/25/2013 RAGHU CHEN MD 296.34 [...] ABHIJEET BEVERLY MD Ot R05 COUGH 04/21/2017 RUSH SANCHEZ, ABHIJEET Monzon Ot R05 COUGH 06/19/2017 JOSE R HAMILTON MD Ot S00.33XA CONTUSION OF NOSE, INITIAL ENCOUNTER 06/19/2017 JOSE R HAMILTON MD Ot S01.81XA LACERATION W/O FOREIGN BODY OF OTH PART 06/19/2017 JOSE R HAMILTON MD Ot S02.2XXA FRACTURE OF NASAL BONES, INIT ENCNTR FOR 06/19/2017 JOSE R HAMILTON MD Ot W19.XXXA UNSPECIFIED FALL, INITIAL ENCOUNTER 06/19/2017 JOSE R HAMILTON MD Ot Y92.[address] IN GROUP HOME PLACE 06/19/2017 JOSE R HAMILTON MD Ot Z23 ENCOUNTER FOR IMMUNIZATION 06/19/2017 JOSE R HAMILTON MD Ot Z79.82 JAIL (CURRENT) USE OF ASPIRIN 06/19/2017 JOSE R HAMILTON MD Ot Z90.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 ABSENCE OF BOTH CERVIX AND UTER 06/19/2017 JOSE R HAMILTON MD Ot Z90.89 ACQUIRED ABSENCE OF OTHER ORGANS [...] UNSPECIFIED ORGANISM 07/24/2017 JONNA ALICEA MD Ot E66.9 OBESITY, UNSPECIFIED 07/24/2017 JONNA ALICEA MD Ot E87.6 HYPOKALEMIA 07/24/2017 JONNA ALICEA MD Ot F03.90 UNSPECIFIED DEMENTIA WITHOUT BEHAVIORAL 07/24/2017 JONNA ALICEA MD Ot G35 MULTIPLE SCLEROSIS 07/24/2017 JONNA ALICEA MD Ot J69.0 PNEUMONITIS DUE TO INHALATION OF FOOD AN 07/24/2017 JONNA ALICEA MD Ot N39.0 URINARY TRACT INFECTION, SITE NOT SPECIF 07/24/2017 JONNA ALICEA MD Ot R13.10 DYSPHAGIA, UNSPECIFIED 07/24/2017 JONNA ALICEA MD Ot Z66 DO NOT RESUSCITATE 07/24/2017 JONNA ALICEA MD Ot Z68.35 BODY MASS INDEX (BMI) 35.0-35.9, ADULT 07/27/2017 OLIVAS DO, NATASHA Ot E66.9 OBESITY, UNSPECIFIED 07/27/2017 OLIVAS DO, NATASHA Ot F03.90 UNSPECIFIED DEMENTIA WITHOUT BEHAVIORAL 07/27/2017 OLIVAS DO, NATASHA Ot G35 MULTIPLE SCLEROSIS 07/27/2017 OLIVAS DO, NATASHA Ot J69.0 PNEUMONITIS DUE TO INHALATION OF FOOD AN 07/27/2017 OLIVAS DO, NATASHA Ot K59.00 CONSTIPATION, UNSPECIFIED 07/27/2017 OLIVAS DO, NATASHA Ot N39.0 URINARY TRACT INFECTION, SITE NOT SPECIF 07/27/2017 OLIVAS DO, NATASHA Ot R13.10 DYSPHAGIA, UNSPECIFIED 07/27/2017 OLIVAS DO, NATASHA Ot Z66 DO NOT RESUSCITATE 07/27/2017 OLIVAS DO, NATASHA Ot Z68.35 BODY MASS INDEX (BMI) 35.0-35.9, ADULT 07/28/2017 OLIVAS DO, NATASHA Ot E66.9 OBESITY, UNSPECIFIED 07/28/2017 OLIVAS DO, NATASHA Ot F03.90 UNSPECIFIED DEMENTIA WITHOUT BEHAVIORAL 07/28/2017 OLIVAS DO, NATASHA Ot G35 MULTIPLE SCLEROSIS 07/28/2017 OLIVAS DO, NATASHA Ot J69.0 PNEUMONITIS DUE TO INHALATION OF FOOD AN 07/28/2017 OLIVSA DO, NATASHA Ot K59.00 CONSTIPATION, UNSPECIFIED 07/28/2017 OLIVAS DO, NATASHA Ot N39.0 URINARY TRACT INFECTION, SITE NOT SPECIF 07/28/2017 OLIVAS DO, NATASHA Ot R13.10 DYSPHAGIA, UNSPECIFIED 07/28/2017 OLIVAS DO, NATASHA Ot Z66 DO NOT RESUSCITATE 07/28/2017 NATASHA OLIVAS DO Ot Z68.35 BODY MASS INDEX (BMI) 35.0-35.9, ADULT Procedures Code Description Performed By Performed On 33.24 ENDOSCOPIC BRONCHIAL BX 07/23/2009 34827 ELECTROCARDIOGRAM REPORT GERARD SANCHEZ, KIRT Leonela 08/19/2013 Results Test Result Range COMPLETE BLOOD COUNT - 08/19/13 14:50 Platelet 218 10^3u 142-424 MPV 10.9 FL 9.4-12.4 [place] # 0.85 10^3u 0.0-1.0 RBC 5.14 10^6u 4.04-6.13 [place] % 12.0 % 0-12 RDW 14.2 % [...] Urobilinogen 4.0 0.2-1.0 Urine RBC N0-2 Specific [place] 1.020 1.010-1.020 Urine WBC N0-2 Amorphous Crystals [...] gravity of urine by test strip 1.015 1.016-1.022 Urine protein assay by test strip, semi-quantitative [...] sediment leukocyte count by microscopy (number/high power field) TNTC NRG Bacteria detection in urine sediment [...] gravity of urine by test strip 1.020 1.016-1.022 Urine protein assay by test strip, semi-quantitative [...] sediment leukocyte count by microscopy (number/high power field) [HPF] NRG Bacteria detection in urine sediment [...] culture - 01/31/17 02:33 Bacterial urine culture [id number] NRG COLONY COUNT >100,000/ML NRG FTX;[place]PORT[place] [address], 17 NRG URINE CULTURE RESULTS PLUS NRG Bacterial susceptibility panel - 01/31/17 02:33 Gentamicin susceptibility test by minimum inhibitory concentration >= NRG Trimethoprim/sulfamethoxazole susceptibility test by minimum inhibitoryconcentration <= NRG Ampicillin susceptibility test by minimum inhibitory concentration >= NRG Tobramycin susceptibility test by minimum inhibitory concentration 2 NRG Cefazolin susceptibility test by minimum inhibitory concentration <= NRG Ceftriaxone susceptibility test by minimum inhibitory concentration <= NRG Ampicillin/sulbactam susceptibility test by minimum inhibitory concentration 16 NRG Piperacillin/tazobactam susceptibility test by minimum inhibitory concentration <= NRG Ciprofloxacin susceptibility test by minimum inhibitory concentration 0.5 NRG Meropenem susceptibility test by minimum inhibitory concentration <= NRG Nitrofurantoin susceptibility test by minimum inhibitory concentration <= NRG Aztreonam susceptibility test by minimum inhibitory concentration <= NRG Extended spectrum beta lactamase (ESBL) producing bacteria susceptibility test by minimum inhibitory concentration - [facility] Bacterial susceptibility panel - 01/31/17 02:33 Gentamicin susceptibility test by minimum inhibitory concentration S NRG Vancomycin susceptibility test by minimum inhibitory concentration <= NRG Levofloxacin susceptibility test by minimum inhibitory concentration >= NRG Tetracycline susceptibility test by minimum inhibitory concentration >= NRG Ampicillin susceptibility test by minimum inhibitory concentration 8 NRG Ciprofloxacin susceptibility test by minimum inhibitory concentration R NRG Nitrofurantoin susceptibility test by minimum inhibitory concentration 64 NRG Linezolid susceptibility test by minimum inhibitory concentration 2 NRG Sputum Gram stain - 02/20/17 05:00 GRAM STAIN SPUTUM AND MIXED BACTERIAL SUSAN NR Bacterial sputum culture - 02/20/17 05:00 FREE TEXT EXTERNAL AB NRG QUANTITY OF GROWTH . NRG MRSA AGAR MRSA isolated (Screening test for MRSA is positive) [facility] CALL POSITIVES (F1 HELP) CALLED TO MARLON/HOLLIE AT [id number] NR Bacterial sputum culture [id number] [facility] Bacterial susceptibility panel - 02/20/17 05:00 Oxacillin susceptibility test by minimum inhibitory concentration >= NRG Gentamicin susceptibility test by minimum inhibitory concentration <= NRG Clindamycin susceptibility test by minimum inhibitory concentration R NRG Erythromycin susceptibility test by minimum inhibitory concentration >= NRG Trimethoprim/sulfamethoxazole susceptibility test by minimum inhibitoryconcentration <= NRG Vancomycin susceptibility test by minimum inhibitory concentration <= NRG Levofloxacin susceptibility test by minimum inhibitory concentration >= NRG Rifampin susceptibility test by minimum inhibitory concentration <= NRG Tetracycline susceptibility test by minimum inhibitory concentration >= NRG Ciprofloxacin susceptibility test by minimum inhibitory concentration R [facility] Bacterial susceptibility panel - 02/20/17 05:00 Gentamicin susceptibility test by minimum inhibitory concentration >= NRG Trimethoprim/sulfamethoxazole susceptibility test by minimum inhibitoryconcentration >= NRG Ampicillin susceptibility test by minimum inhibitory concentration >= NRG Tobramycin susceptibility test by minimum inhibitory concentration >= NRG Cefazolin susceptibility test by minimum inhibitory concentration I NRG Ceftriaxone susceptibility test by minimum inhibitory concentration S NRG Ampicillin/sulbactam susceptibility test by minimum inhibitory concentration >= NRG Piperacillin/tazobactam susceptibility test by minimum inhibitory concentration <= NRG Ciprofloxacin susceptibility test by minimum inhibitory concentration >= NRG Meropenem susceptibility test by minimum inhibitory concentration <= NRG Aztreonam susceptibility test by minimum inhibitory concentration S NRG Amikacin susceptibility test by minimum inhibitory concentration S NR Bacterial susceptibility panel - 02/20/17 05:00 Gentamicin susceptibility test by minimum inhibitory concentration >= NRG Trimethoprim/sulfamethoxazole susceptibility test by minimum inhibitoryconcentration <= NRG Ampicillin susceptibility test by minimum inhibitory concentration >= NRG Tobramycin susceptibility test by minimum inhibitory concentration 8 NRG Cefazolin susceptibility test by minimum inhibitory concentration <= NRG Ceftriaxone susceptibility test by minimum inhibitory concentration <= NRG Ampicillin/sulbactam susceptibility test by minimum inhibitory concentration 16 NRG Piperacillin/tazobactam susceptibility test by minimum inhibitory concentration <= NRG Ciprofloxacin susceptibility test by minimum inhibitory concentration >= NRG Meropenem susceptibility test by minimum inhibitory concentration <= NRG Aztreonam susceptibility test by minimum inhibitory concentration <= NRG Extended spectrum beta lactamase (ESBL) producing [...] Automated erythrocyte mean corpuscular hemoglobin concentration measurement (mass/volume) 33 g/dL 32-36 Automated erythrocyte distribution width ratio 14.3 % 10.0- 14.5 Automated blood platelet count (count/volume) 219 10*3/uL [...] Blood monocytes automated count (number/volume) 0.7 10*3 0.0- 1.0 Automated eosinophil count 0.0 10*3/uL 0.0-0.3 Automated [...] gravity of urine by test strip 1.020 1.016-1.022 Urine protein assay by test strip, semi-quantitative [...] sediment leukocyte count by microscopy (number/high power field) RARE NRG Bacteria detection in urine sediment [...] Blood lactic acid measurement (moles/volume) 1.13 mmol/L 0.50- 2.00 Complete blood count (CBC) with automated white [...] Automated erythrocyte mean corpuscular hemoglobin concentration measurement (mass/volume) 32 g/dL 32-36 Automated erythrocyte distribution width ratio 14.5 % 10.0- 14.5 Automated blood platelet count (count/volume) 248 10*3/uL [...] Blood monocytes automated count (number/volume) 1.6 10*3 0.0- 1.0 Automated eosinophil count 0.0 10*3/uL 0.0-0.3 Automated [...] Serum or plasma aspartate aminotransferase measurement (enzymatic activity/volume) 16 U/L 5-34 Serum or plasma alanine aminotransferase measurement (enzymatic activity/volume) 14 U/L 0-55 Serum or plasma protein [...] gravity of urine by test strip 1.025 1.016-1.022 Urine protein assay by test strip, semi-quantitative [...] sediment leukocyte count by microscopy (number/high power field) [HPF] NRG Bacteria detection in urine sediment [...] Vancomycin susceptibility test by minimum inhibitory concentration <= NRG Levofloxacin susceptibility test by minimum inhibitory [...] Automated erythrocyte mean corpuscular hemoglobin concentration measurement (mass/volume) 32 g/dL 32-36 Automated erythrocyte distribution width ratio 14.0 % 10.0- 14.5 Automated blood platelet count (count/volume) 241 10*3/uL [...] Blood monocytes automated count (number/volume) 1.1 10*3 0.0- 1.0 Automated eosinophil count 0.0 10*3/uL 0.0-0.3 Automated [...] Serum or plasma aspartate aminotransferase measurement (enzymatic activity/volume) 16 U/L 5-34 Serum or plasma alanine aminotransferase measurement (enzymatic activity/volume) 9 U/L 0-55 Serum or plasma protein [...] Automated erythrocyte mean corpuscular hemoglobin concentration measurement (mass/volume) 33 g/dL 32-36 Automated erythrocyte distribution width ratio 13.6 % 10.0- 14.5 Automated blood platelet count (count/volume) 190 10*3/uL [...] Blood monocytes automated count (number/volume) 0.8 10*3 0.0- 1.0 Automated eosinophil count 0.1 10*3/uL 0.0-0.3 Automated [...] Automated erythrocyte mean corpuscular hemoglobin concentration measurement (mass/volume) 33 g/dL 32-36 Automated erythrocyte distribution width ratio 13.7 % 10.0- 14.5 Automated blood platelet count (count/volume) 187 10*3/uL [...] Blood monocytes automated count (number/volume) 0.9 10*3 0.0- 1.0 Automated eosinophil count 0.2 10*3/uL 0.0-0.3 Automated [...] Serum or plasma aspartate aminotransferase measurement (enzymatic activity/volume) 23 U/L 5-34 Serum or plasma alanine aminotransferase measurement (enzymatic activity/volume) 16 U/L 0-55 Serum or plasma protein [...] Automated erythrocyte mean corpuscular hemoglobin concentration measurement (mass/volume) 33 g/dL 32-36 Automated erythrocyte distribution width ratio 13.7 % 10.0- 14.5 Automated blood platelet count (count/volume) 188 10*3/uL [...] Blood monocytes automated count (number/volume) 0.8 10*3 0.0- 1.0 Automated eosinophil count 0.3 10*3/uL 0.0-0.3 Automated [...] Serum or plasma aspartate aminotransferase measurement (enzymatic activity/volume) 23 U/L 5-34 Serum or plasma alanine aminotransferase measurement (enzymatic activity/volume) 15 U/L 0-55 Serum or plasma protein measurement (mass/volume) 6.2 g/dL 6.4-8.2 Serum or plasma albumin measurement (mass/volume) 2.7 g/dL 3.2-4.5 Complete blood count (CBC) with automated white blood cell (WBC) differential - 07/26/17 09:42 Blood leukocytes automated count (number/volume) 8.5 10*3/uL 4.3-11.0 Blood erythrocytes automated count (number/volume) 4.69 10*6/uL 4.35-5.85 Venous blood hemoglobin measurement (mass/volume) 13.3 g/dL 11.5-16.0 Blood hematocrit (volume fraction) 41 % 35-52 Automated erythrocyte mean corpuscular volume 87 [foz_us] 80-99 Automated erythrocyte mean corpuscular hemoglobin (mass per erythrocyte) 28 pg 25-34 Automated erythrocyte mean corpuscular hemoglobin concentration measurement (mass/volume) 33 g/dL 32-36 Automated erythrocyte distribution width ratio 13.8 % 10.0- 14.5 Automated blood platelet count (count/volume) 254 10*3/uL 130-400 Automated blood platelet mean volume measurement 10.3 [foz_us] 7.4-10.4 Automated blood neutrophils/100 leukocytes 60 % 42-75 Automated blood lymphocytes/100 leukocytes 23 % 12-44 Blood monocytes/100 leukocytes 12 % 0-12 Automated blood eosinophils/100 leukocytes 3 % 0-10 Automated blood basophils/100 leukocytes 2 % 0-10 Blood neutrophils automated count (number/volume) 5.1 10*3 1.8-7.8 Blood lymphocytes automated count (number/volume) 2.0 10*3 1.0-4.0 Blood monocytes automated count (number/volume) 1.0 10*3 0.0- 1.0 Automated eosinophil count 0.2 10*3/uL 0.0-0.3 Automated blood basophil count (count/volume) 0.1 10*3/uL 0.0-0.1 Blood blood smear finding identification by light microscopy S [facility] Comprehensive metabolic panel - 07/26/17 09:42 Serum or plasma sodium measurement (moles/volume) 140 mmol/L 135-145 Serum or plasma potassium measurement (moles/volume) 4.0 mmol/L 3.6-5.0 Serum or plasma chloride measurement (moles/volume) 101 mmol/L 98-107 Carbon dioxide 30 mmol/L 21-32 Serum or plasma anion gap determination (moles/volume) 9 mmol/L 5-14 Serum or plasma urea nitrogen measurement (mass/volume) 10 mg/dL 7-18 Serum or plasma creatinine measurement (mass/volume) 0.73 mg/dL 0.60-1.30 Serum or plasma urea nitrogen/creatinine mass ratio 14 [facility] Serum or plasma creatinine measurement with calculation of estimated glomerular filtration rate > [facility] Serum or plasma glucose measurement (mass/volume) 98 mg/dL 70-105 Serum or plasma calcium measurement (mass/volume) 9.3 mg/dL 8.5-10.1 Serum or plasma total bilirubin measurement (mass/volume) 0.5 mg/dL 0.1-1.0 Serum or plasma alkaline phosphatase measurement (enzymatic activity/volume) 80 U/L 40-136 Serum or plasma aspartate aminotransferase measurement (enzymatic activity/volume) 17 U/L 5-34 Serum or plasma alanine aminotransferase measurement (enzymatic activity/volume) 13 U/L 0-55 Serum or plasma protein measurement (mass/volume) 7.3 g/dL 6.4-8.2 Serum or plasma albumin measurement (mass/volume) 3.0 g/dL 3.2-4.5 Complete blood count (CBC) with automated white blood cell (WBC) differential - 01/11/19 19:50 Blood leukocytes automated count (number/volume) 9.8 10*3/uL 4.3-11.0 Blood erythrocytes automated count (number/volume) 4.29 10*6/uL 4.35-5.85 Venous blood hemoglobin measurement (mass/volume) 12.7 g/dL 11.5-16.0 Blood hematocrit (volume fraction) 38 % 35-52 Automated erythrocyte mean corpuscular volume 90 [foz_us] 80-99 Automated erythrocyte mean corpuscular hemoglobin (mass per erythrocyte) 30 pg 25-34 Automated erythrocyte mean corpuscular hemoglobin concentration measurement (mass/volume) 33 g/dL 32-36 Automated erythrocyte distribution width ratio 13.5 % 10.0- 14.5 Automated blood platelet count (count/volume) 160 10*3/uL 130-400 Automated blood platelet mean volume measurement 10.5 [foz_us] 7.4-10.4 Automated blood neutrophils/100 leukocytes 78 % 42-75 Automated blood lymphocytes/100 leukocytes 13 % 12-44 Blood monocytes/100 leukocytes 8 % 0-12 Automated blood eosinophils/100 leukocytes 1 % 0-10 Automated blood basophils/100 leukocytes 0 % 0-10 Blood neutrophils automated count (number/volume) 7.6 10*3 1.8-7.8 Blood lymphocytes automated count (number/volume) 1.3 10*3 1.0-4.0 Blood monocytes automated count (number/volume) 0.8 10*3 0.0- 1.0 Automated eosinophil count 0.1 10*3/uL 0.0-0.3 Automated blood basophil count (count/volume) 0.0 10*3/uL 0.0-0.1 PT panel in platelet poor plasma by coagulation assay - 01/11/19 19:50 Prothrombin time (PT) in platelet poor plasma by coagulation assay 14.9 s 12.2-14.7 INR in platelet poor plasma or blood by coagulation assay 1.1 0.8-1.4 Activated partial thromboplastin time (aPTT) in platelet poor plasma bycoagulation assay - 01/11/19 19:50 Activated partial thromboplastin time (aPTT) in platelet poor plasma bycoagulation assay 37 s 24-35 Blood lactic acid measurement (moles/volume) - 01/11/19 19:50 Blood lactic acid measurement (moles/volume) 1.45 mmol/L 0.50- 2.00 Comprehensive metabolic panel - 01/11/19 19:50 Serum or plasma sodium measurement (moles/volume) 139 mmol/L 135-145 Serum or plasma potassium measurement (moles/volume) 4.2 mmol/L 3.6-5.0 Serum or plasma chloride measurement (moles/volume) 107 mmol/L 98-107 Carbon dioxide 24 mmol/L 21-32 Serum or plasma anion gap determination (moles/volume) 8 mmol/L 5-14 Serum or plasma urea nitrogen measurement (mass/volume) 17 mg/dL 7-18 Serum or plasma creatinine measurement (mass/volume) 0.88 mg/dL 0.60-1.30 Serum or plasma urea nitrogen/creatinine mass ratio 19 NRG Serum or plasma creatinine measurement with calculation of estimated glomerular filtration rate > NRG Serum or plasma glucose measurement (mass/volume) 132 mg/dL 70-105 Serum or plasma calcium measurement (mass/volume) 8.8 mg/dL 8.5-10.1 Serum or plasma total bilirubin measurement (mass/volume) 0.8 mg/dL 0.1-1.0 Serum or plasma alkaline phosphatase measurement (enzymatic activity/volume) 80 U/L 40-136 Serum or plasma aspartate aminotransferase measurement (enzymatic activity/volume) 25 U/L 5-34 Serum or plasma alanine aminotransferase measurement (enzymatic activity/volume) 19 U/L 0-55 Serum or plasma protein measurement (mass/volume) 7.1 g/dL 6.4-8.2 Serum or plasma albumin measurement (mass/volume) 3.3 g/dL 3.2-4.5 CALCIUM CORRECTED 9.4 mg/dL 8.5-10.1 Magnesium - 01/11/19 19:50 Magnesium 2.0 mg/dL 1.8-2.4 Serum or plasma creatine kinase measurement (enzymatic activity/volume) - 01/11/19 19:50 Serum or plasma creatine kinase measurement (enzymatic activity/volume) 66 U/L 29-168 Serum or plasma lithium measurement (moles/volume) - 01/11/19 19:50 BNP level 107.9 pg/mL <100.0 Serum or plasma creatine kinase MB measurement (enzymatic activity/volume) - 01/11/19 19:50 Serum or plasma creatine kinase MB measurement (enzymatic activity/volume) 2.2 ng/mL <6.6 Serum or plasma troponin i.cardiac measurement (mass/volume) - 01/11/19 19:50 Serum or plasma troponin i.cardiac measurement (mass/volume) < ng/mL <0.028 Myoglobin, serum - 01/11/19 19:50 Myoglobin, serum 39.9 ng/mL 10.0-92.0 Serum or plasma thyrotropin measurement by detection limit <=0.05 miu/l (units/volume) - 01/11/19 19:50 Serum or plasma thyrotropin measurement by detection limit <=0.05 miu/l (units/volume) 0.81 u[iU]/mL 0.35-4.94 [id number] - 01/11/19 19:50 [id number] 23.9 ug/mL 50.0-100.0 Influenza virus A and B antigen detection - 01/11/19 20:19 FLU RESULT NEGATIVE FOR INFLUENZA A AND B ANTIGENS BY IA NRG Complete urinalysis with reflex to culture - 01/11/19 20:32 Urine color determination YELLOW NRG Urine clarity determination SLIGHTLY CLOUDY NRG Urine pH measurement by test strip 6 5-9 Specific gravity of urine by test strip 1.015 1.016-1.022 Urine protein assay by test strip, semi-quantitative 1+ NEGATIVE Urine glucose detection by automated test strip NEGATIVE NEGATIVE Erythrocytes detection in urine sediment by light microscopy NEGATIVE NEGATIVE Urine ketones detection by automated test strip 1+ NEGATIVE Urine nitrite detection by test strip POSITIVE NEGATIVE Urine total bilirubin detection by test strip NEGATIVE NEGATIVE Urine urobilinogen measurement by automated test strip (mass/volume) 8 mg/dL NORMAL Urine leukocyte esterase detection by dipstick 2+ NEGATIVE Automated urine sediment erythrocyte count by microscopy (number/high power field) NONE NRG Automated urine sediment leukocyte count by microscopy (number/high power field) [HPF] NRG Bacteria detection in urine sediment by light microscopy LARGE NRG Squamous epithelial cells detection in urine sediment by light microscopy 0-2 NRG Crystals detection in urine sediment by light microscopy NONE NRG Casts detection in urine sediment by light microscopy NONE NRG Mucus detection in urine sediment by light microscopy NEGATIVE NRG Complete urinalysis with reflex to culture CULTURE PENDING NRG Encounters ACCT No. Visit Date/Time Discharge Status Pt. Type Provider Facility Loc./Unit Complaint [id number] 08/19/2013 14:00:00 08/25/2013 14:30:00 DIS Inpatient APRIL SANCHE[facility] [id number] 08/19/2013 14:00:00 08/19/2013 14:00:00 DIS Outpatient GERARD SANCHEZ, KIRT [facility] [id number] 08/06/2018 01:15:26 Document Registration [id number] 07/24/2017 10:57:00 07/28/2017 14:35:00 DIS Inpatient NATASHA OLIVAS DO [facility] 4TH SWB-PNEUMONIA [id number] 07/20/2017 17:55:00 07/24/2017 10:56:00 DIS Inpatient NIXON SANCHEZ, JONNA Monzon [facility] 4TH BIBASILAR PNA,RESP DISTRESS [id number] 06/18/2017 22:36:00 06/19/2017 02:26:00 DIS Emergency ALFONSO SANCHEZ, JOSE R oDwd [facility] ER FALL [id number] 02/20/2017 17:19:00 02/20/2017 23:59:59 CLS Outpatient ABHIJEET BEVERLY MD [facility] R05 [id number] 01/31/2017 10:53:00 01/31/2017 23:59:59 CLS Outpatient ABHIJEET BEVERLY MD [facility] [id number] 10/25/2016 09:02:00 10/25/2016 23:59:59 CLS Outpatient ABHIJEET BEVERLY MD [facility] [id number] 05/04/2014 13:47:00 05/04/2014 23:59:59 CLS Outpatient ABHIJEET BEVERLY MD [facility] RAD SCREENING [id number] 01/11/2019 20:04:00 Document Registration [id number] 09/28/2010 09:46:00 Document Registration [id number] 07/22/2009 13:01:00 Document Registration
== END 2019-01-11 23:02 | disposition short-term general hospital (02) ==
LOC: EDUNIT# 19:38 → ER 19:39
DX: A41.9 Sepsis, unspecified organism (principal); R65.21 Severe sepsis with septic shock; J18.1 Lobar pneumonia, unspecified organism; N39.0 Urinary tract infection, site not specified; F03.90 Unspecified dementia, unspecified severity, without behavioral disturbance, psychotic disturbance, mood disturbance, and anxiety; R41.82 Altered mental status, unspecified; I10 Essential (primary) hypertension; G43.909 Migraine, unspecified, not intractable, without status migrainosus; G35 Multiple sclerosis; F60.9 Personality disorder, unspecified; Z87.19 Personal history of other diseases of the digestive system; Z87.448 Personal history of other diseases of urinary system; Z91.048 Other nonmedicinal substance allergy status; Z88.1 Allergy status to other antibiotic agents; Z91.040 Latex allergy status; Z88.8 Allergy status to other drugs, medicaments and biological substances; Z79.51 Long term (current) use of inhaled steroids; Z87.01 Personal history of pneumonia (recurrent); Z87.891 Personal history of nicotine dependence; Z90.710 Acquired absence of both cervix and uterus; Z90.89 Acquired absence of other organs
CPT/HCPCS: 36415; 51702; 70450; 71045; 80053; 80164; 81000; 82550; 82553; 83605; 83735; 83874; 83880; 84443; 84484; 85025; 85610; 85730; 87040; 87077; 87088; 87186; 87804; 93005; 93041; 96361; 96365; 96375; 99291

== ENCOUNTER 2019-03-02 22:18 | Emergency (ER) | payer MEDICARE, MEDICAID ==
[~2019-03-02] VITALS: Ht 167.6 cm; Wt 72.6 kg
[2019-03-02] MEDS ORDERED: BENZONATATE 100 MG (TESSALON) CAPSULE PO ONE (23:13)
[2019-03-02] MEDS ORDERED: WATER (STERILE) FOR INJECTION 10 ML ONE (23:13)
[2019-03-02] MEDS ORDERED: cefTRIAXone 1,000 MG IV (ROCEPHIN) VIAL ONE (23:13)
--- NOTE | 2019-03-02 23:15 | NUR ---
called isabel gil at [facility] for ride back to facility.
--- NOTE | 2019-03-02 23:18 | NUR ---
pt incontinent urine. pt cleaned new depends placed on patient. warm blanket provided.
[2019-03-02 23:50] VITALS: BP 118/95
[2019-03-03 00:09] LABS: ALANINE AMINOTRANSFERASE 18 U/L (0-55); ALBUMIN 3.3 GM/DL (3.2-4.5); ALKALINE PHOSPHATASE 97 U/L (40-136); BILIRUBIN,TOTAL 0.4 MG/DL (0.1-1.0); BUN/CREATININE RATIO 24; CALCIUM 9.4 MG/DL (8.5-10.1); CARBON DIOXIDE 21 MMOL/L (21-32); CHLORIDE 109 MMOL/L (98-107); GFR ESTIMATED > 60; GLUCOSE 120 MG/DL (70-105); POTASSIUM 3.7 MMOL/L (3.6-5.0); SODIUM 141 MMOL/L (135-145); TOTAL PROTEIN 7.8 GM/DL (6.4-8.2); VALPROIC ACID 19.3 UG/ML (50.0-100.0)
[2019-03-03 00:15] LABS: HEMATOCRIT 40 % (35-52); HEMOGLOBIN 13.1 G/DL (11.5-16.0); LYMPHOCYTES % (AUTO) 33 % (12-44); MEAN CORPUSCULAR HEMOGLOBIN 29 PG (25-34); MEAN CORPUSCULAR HGB CONC 33 G/DL (32-36); MEAN CORPUSCULAR VOLUME 88 FL (80-99); MEAN PLATELET VOLUME 10.5 FL (7.4-10.4); MONOCYTES % (AUTO) 12 % (0-12); NEUTROPHILS % (AUTO) 50 % (42-75); PLATELET COUNT 197 10^3/uL (130-400); WHITE BLOOD COUNT 6.5 10^3/uL (4.3-11.0)
[2019-03-03 00:16] LABS: BASOPHILS # (AUTO) 0.1 10^3/uL (0.0-0.1); BASOPHILS % (AUTO) 2 % (0-10); EOSINOPHILS # (AUTO) 0.3 10^3/uL (0.0-0.3); EOSINOPHILS % (AUTO) 5 % (0-10); LYMPHOCYTES # (AUTO) 2.1 X 10^3 (1.0-4.0); MONOCYTES # (AUTO) 0.8 X 10^3 (0.0-1.0); NEUTROPHILS # (AUTO) 3.2 X 10^3 (1.8-7.8)
--- NOTE | 2019-03-03 02:00 | ED Cough/URI ---
General Chief Complaint: Cough/Cold/Flu Symptoms Stated Complaint: COUGHING Nursing Triage Note: cough Sepsis Screen: No Definite Risk Source: EMS, longterm records, old records (ALL PMH IS FROM OLD RECORDS AND [facility] RECORDS) Exam Limitations: other (PT WITH INCOHERENT SPEECH) History of Present Illness Date Seen by Provider: Mar 02, 2019 Time Seen by Provider: 22:19 Initial Comments PT ARRIVES VIA EMS FROM [facility] SENT HERE TO ER [facility], BECAUSE PT HAS A COUGH WITH GREEN SPUTUM PT HAS NO OTHER SYMPTOMS NO OTHER INFORMATION FROM [facility] PT WAS ADMITTED THERE 01/20/19 --FROM [facility], ACCORDING TO [facility] PAPERS. PT WAS HERE IN ER 01/11/19 --CAME FROM [facility] AT THAT TIME--AND WAS TRANSFERRED TO [place] WITH SEPTIC SHOCK, RLL PNEUMONIA, UTI PT WITH LONG HISTORY OF DEMENTIA, WITH CHRONIC UNINTELLIGIBLE LANGUAGE, AND IS NON-AMBULATORY/WHEELCHAIR BOUND--HAS HISTORY OF M.S., IS ALSO BLIND FROM MACULAR DEGENERATION AND GLAUCOMA PT APPEARS TO BE AT HER NORMAL BASELINE MENTALLY/NEUROLOGICALLY AT THIS TIME. PT IS DNR/DNI PCP: DR. CAM Allergies and Home Medications Allergies Coded Allergies: Aminoglycosides (Verified Allergy, Unknown, 11/11/06) adhesive (Verified Allergy, Unknown, 02/01/08) amoxicillin (Verified Allergy, Unknown, 11/11/06) bacitracin (Verified Allergy, Unknown, 11/11/06) cefaclor (Verified Allergy, Unknown, 07/20/17) clavulanic acid (Verified Allergy, Unknown, 11/11/06) erythromycin base (Verified Allergy, Unknown, 11/11/06) gramicidin D (Verified Allergy, Unknown, 11/11/06) latex (Verified Allergy, Unknown, 02/01/08) neomycin (Verified Allergy, Unknown, 11/11/06) polymyxin B (Verified Allergy, Unknown, 11/11/06) vancomycin (Verified Allergy, Unknown, 11/11/06) Home Medications Acetaminophen 325 Mg Tablet, 650 MG PO Q4H PRN for PAIN-MILD, (Reported) Acetaminophen 325 Mg Tablet, 650 MG PO TID, (Reported) Baclofen 20 Mg Tablet, 20 MG PO TID, (Reported) Betaxolol HCl 5 Ml Drops, 2 DROPS OU BID, (Reported) Buspirone HCl 5 Mg Tablet, 5 MG PO BID, (Reported) Citalopram Hydrobromide 20 Mg Tablet, 20 MG PO DAILY, (Reported) Divalproex Sodium 125 Mg Cap.sprink, 125 MG PO BID, (Reported) Famotidine 20 Mg Tablet, 20 MG PO BID, (Reported) Fluticasone/Vilanterol 1 Each Blst.w.dev, 1 PUFF INH DAILY, (Reported) Furosemide 40 Mg Tablet, 40 MG PO DAILY, (Reported) Guaifenesin/Dextromethorphan 5 Ml Syrup, 10 ML PO Q4H PRN for COUGH, (Reported) Hydrocodone Bit/Acetaminophen 1 Each Tablet, 1 TAB PO Q4H PRN for PAIN-MODERATE, (Reported) Ibuprofen 200 Mg Tablet, 400 MG PO Q6H PRN for PAIN-MILD, (Reported) Ipratropium/Albuterol Sulfate 3 Ml Ampul.neb, 3 ML NEB QID, (Reported) Latanoprost 2.5 Ml Drops, 1 DROP OU HS, (Reported) Ondansetron HCl 4 Mg Tab, 4 MG PO Q4H PRN for NAUSEA/VOMITING-1ST LINE, (Reported) Pilocarpine HCl 15 Ml Drops, 1 DROP OS QID, (Reported) Sennosides/Docusate Sodium 1 Each Tablet, 1 TAB PO DAILY, (Reported) Sodium Chloride 30 Ml Cadott, 2 SPRAYS NS Q8H PRN for DRY NOSE, (Reported) Topiramate 25 Mg Tablet, 25 MG PO BID, (Reported) Venlafaxine HCl 150 Mg Cap.er.24h, 150 MG PO DAILY, (Reported) Patient Home Medication List Home Medication List Reviewed: Yes Review of Systems Review of Systems Constitutional: No fever; other (UNABLE TO OBTAIN ANY OTHER INFORMATION ) Respiratory: cough, phlegm Past Cuunhuh-Fybosa-Mxdges Hx Past Med/Social Hx: Reviewed and Corrections made Patient Social History Alcohol Use: Denies Use Recreational Drug Use: No Smoking Status: Former Smoker Type Used: Cigarettes Former Smoker, Quit: Jul 20, 2007 2nd Hand Smoke Exposure: No Recent Foreign Travel: No Contact w/Someone Who Travel: No Recent Infectious Disease Expo: No Recent Hopitalizations: No Immunizations Up To Date Tetanus Booster (TDap): Unknown PED Vaccines UTD: No Date of Pneumonia Vaccine: Jun 25, 2011 Date of Influenza Vaccine: May 21, 2017 Seasonal Allergies Seasonal Allergies: No Past Medical History Surgeries: Yes (TONSILLECTOMY; HYSTERECTOMY; ELBOW SURGERY; CARPAL TUNNEL SURGERY) Hysterectomy, Orthopedic, Tonsillectomy Respiratory: Yes (RLL AND SEPTIC SHOCK 01/11/19) Pneumonia, COPD Currently Using CPAP: No Currently Using BIPAP: No Cardiac: Yes (CHF) Chronic Edema/Swelling, Hypertension Neurological: Yes (UNINTELLIGIBLE SPEECH, WITH ESSENTIALLY NO FORMED WORDS; PT IS NON-AMBULATORY; DEMENTIA WITH BEHAVIOR DISTURBANCE) Dementia, Headaches /Migraines, Multiple Sclerosis : No 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 No Pertinent Family Hx Physical Exam Vital Signs - First Documented 03/02/19 22:19 Temp 97.2 Pulse 87 Resp 14 B/P (MAP) 97/66 (76) Pulse Ox 92 O2 Delivery Room Air Capillary Refill : Less Than 3 Seconds Height: 5'6.00" Weight: 160lbs. 2.0oz. [id number]; 34.2 BMI Method:Estimated General Appearance: other (PT MOVING AROUND, LOOKING TOWARD VOICES, SMILING, BABBLING BUT SPEECH IS UNINTELLIGIBLE WITH NO FORMED WORDS. HAS OCCASIONAL LOOSE COUGH. PT HAS BEEN INCONTINENT OF URINE PRIOR TO ARRIVAL. DOES NOT APPEAR TO BE IN ANY DISCOMFORT OR DISTRESS) HEENT: other (EDENTULOUS, ORAL MUCOSA MOIST) Respiratory: normal breath sounds, no respiratory distress, no accessory muscle use, decreased breath sounds (IN BASES) Cardiovascular: regular rate, rhythm, no edema, no JVD, no murmur Gastrointestinal: non tender, soft Extremities: no pedal edema, normal capillary refill Neurologic/Psychiatric: no motor/sensory deficits (GROSS MOTOR/SENSORY INTACT--MOVING ALL EXTREMITIES), alert, other (MENTATION NOTED ABOVE. PT DOES NOT FOLLOW COMMANDS. PT SEEMS FAIRLY ANIMATED AND SMILING AND ACKNOWLEDGING WHEN SOMEONE IS IN ROOM AND DOES ATTEMPT TO TALK BUT NO INTELLIGIBLE WORDS. ) Skin: normal color, warm/dry Focused Exam Lactate Level 03/02/19 22:40: Lactic Acid Level 1.33 Lactic Acid Level Laboratory Tests Test 03/02/19 22:40 Lactic Acid Level 1.33 MMOL/L (0.50-2.00) Progress/Results/Core Measures Suspected Sepsis Recent Fever Within 48 Hours: No Infection Criteria Present: None New/Unexplained Altered Menta: No Sepsis Screen: No Definite Risk SIRS Temperature:97.5 Pulse: 84 Respiratory Rate: 16 Laboratory Tests 03/02/19 22:40: White Blood Count 6.5 Blood Pressure 118 /95 Mean: 103 03/02/19 22:40: Lactic Acid Level 1.33 Laboratory Tests 03/02/19 22:40: Creatinine 0.80, Platelet Count 197, Total Bilirubin 0.4 Results/Orders Lab Results Laboratory Tests Test 03/02/19 22:40 Range/Units White Blood Count 6.5 4.3-11.0 10^3/uL Red Blood Count 4.56 4.35-5.85 10^6/uL Hemoglobin 13.1 11.5-16.0 G/DL Hematocrit 40 35-52 % Mean Corpuscular Volume 88 80-99 FL Mean Corpuscular Hemoglobin 29 25-34 PG Mean Corpuscular Hemoglobin Concent 33 32-36 G/DL Red Cell Distribution Width 14.0 10.0-14.5 % Platelet Count 197 130-400 10^3/uL Mean Platelet Volume 10.5 H 7.4-10.4 FL Neutrophils (%) (Auto) 50 42-75 % Lymphocytes (%) (Auto) 33 12-44 % Monocytes (%) (Auto) 12 0-12 % Eosinophils (%) (Auto) 5 0-10 % Basophils (%) (Auto) 2 0-10 % Neutrophils # (Auto) 3.2 1.8-7.8 X 10^3 Lymphocytes # (Auto) 2.1 1.0-4.0 X 10^3 Monocytes # (Auto) 0.8 0.0-1.0 X 10^3 Eosinophils # (Auto) 0.3 0.0-0.3 10^3/uL Basophils # (Auto) 0.1 0.0-0.1 10^3/uL Sodium Level 141 135-145 MMOL/L Potassium Level 3.7 3.6-5.0 MMOL/L Chloride Level 109 H 98-107 MMOL/L Carbon Dioxide Level 21 21-32 MMOL/L Anion Gap 11 5-14 MMOL/L Blood Urea Nitrogen 19 H 7-18 MG/DL Creatinine 0.80 0.60-1.30 MG/DL Estimat Glomerular Filtration Rate > 60 BUN/Creatinine Ratio 24 Glucose Level 120 H 70-105 MG/DL Lactic Acid Level 1.33 0.50-2.00 MMOL/L Calcium Level 9.4 8.5-10.1 MG/DL Corrected Calcium 10.0 8.5-10.1 MG/DL Total Bilirubin 0.4 0.1-1.0 MG/DL Aspartate Amino Transf (AST/SGOT) 24 5-34 U/L Alanine Aminotransferase (ALT/SGPT) 18 0-55 U/L Alkaline Phosphatase 97 40-136 U/L Total Protein 7.8 6.4-8.2 GM/DL Albumin 3.3 3.2-4.5 GM/DL Valproic Acid (Depakene) Level 19.3 L 50.0-100.0 UG/ML My Orders Orders - NIHARIKA CREWS DO Ed Iv/Invasive Line Start (03/02/19 22:19) Monitor-Rhythm Ecg Trace Only (03/02/19 22:19) Cbc With Automated Diff (03/02/19 22:19) Comprehensive Metabolic Panel (03/02/19 22:19) Blood Culture (03/02/19 22:19) Sputum Culture (03/02/19 22:19) Lactic Acid Analyzer (03/02/19 22:27) Valproic Acid (03/02/19 22:27) Ceftriaxone For Iv Use (Rocephin For I (03/02/19 23:13) Benzonatate Capsule (Tessalon Perles) (03/02/19 23:13) Water (Sterile) For Injection (Sterile W (03/02/19 23:13) Chest 1 View, Ap/Pa Only (03/02/19 22:19) Vital Signs/I&O 03/02/19 03/02/19 03/02/19 22:19 22:19 23:50 Temp 97.2 97.5 Pulse 87 84 Resp 14 16 B/P (MAP) 97/66 (76) 118/95 (103) Pulse Ox 92 97 O2 Delivery Room Air Room Air Room Air Capillary Refill : Less Than 3 Seconds Blood Pressure Mean: 103 Progress Note : Progress Note UNEVENTFUL ER STAY VITALS STABLE, NO FEVER, NO HYPOXIA GIVEN ROCEPHIN WITHOUT ANY ADVERSE EFFECTS. Diagnostic Imaging Comments CXR--MILD BIBASILAR ATELECTASIS/INFILTRATES--PENDING RADIOLOGIST REVIEW Reviewed: Reviewed by Me Departure Impression Primary Impression: BRONCHITIS VS MILD PNEUMONIA Disposition: XFER SNF Condition: Stable Departure-Patient Inst. Referrals: ABHIJEET BEVERLY MD (PCP) Primary Care Physician JEREMÍAS CAM DO Patient Instructions: Acute Bronchitis, Adult (DC), Pneumonia, Adult (DC) Add. Discharge Instructions: CONTINUE CURRENT MEDICATIONS FOLLOW UP WITH THIS WEEK FOR FURTHER CARE All discharge instructions reviewed with patient and/or family. Voiced understanding. Scripts Benzonatate (TESSALON PERLES) 100 Mg Capsule 1-2 TAB PO TID for Cough, #30 CAP Prov: NIHARIKA CREWS DO 03/03/19 Cefdinir (Cefdinir) 300 Mg Capsule 300 MG PO BID for FOR INFECTION, #20 CAP Prov: NIHARIKA CREWS DO 03/03/19 NIHARIKA CREWS DO Mar 03, 2019 02:00
[2019-03-03] MEDS ORDERED: BENZ100C18 PO (02:15)
[2019-03-03] MEDS ORDERED: CEFD300C3 PO (02:15)
--- NOTE | 2019-03-03 06:49 | Diagnostic Imaging Report ---
INDICATION: Cough and congestion COMPARISON: 01/11/2019 TECHNIQUE: Single frontal radiograph of the chest dated 03/02/2019. FINDINGS: Previously noted left IJ central venous catheter is no longer visualized. The cardiac silhouette is mildly enlarged, though stable. No significant pulmonary vascular congestion. Slightly increased right basilar predominantly interstitial opacities. Otherwise, the lungs appear clear. No significant pleural effusion. No pneumothorax. No acute osseous abnormality with chronic osseous findings. IMPRESSION: Developing mild right basilar atelectasis and/or pneumonitis. Interval removal of previously noted left IJ central venous catheter. Dictated by: Dictated on workstation # [id number]
== END 2019-03-02 23:50 | disposition home or self-care (01) ==
LOC: EDUNIT# 22:18 → ER 22:19
DX: R05 Cough (principal); J44.9 Chronic obstructive pulmonary disease, unspecified; I11.0 Hypertensive heart disease with heart failure; I50.9 Heart failure, unspecified; F32.9 Major depressive disorder, single episode, unspecified; F41.9 Anxiety disorder, unspecified; F03.91 Unspecified dementia, unspecified severity, with behavioral disturbance; G43.909 Migraine, unspecified, not intractable, without status migrainosus; G35 Multiple sclerosis; F80.9 Developmental disorder of speech and language, unspecified; K21.9 Gastro-esophageal reflux disease without esophagitis; F22 Delusional disorders; F60.3 Borderline personality disorder; Z74.09 Other reduced mobility; Z88.8 Allergy status to other drugs, medicaments and biological substances; Z88.0 Allergy status to penicillin; Z88.1 Allergy status to other antibiotic agents; Z91.040 Latex allergy status; Z79.51 Long term (current) use of inhaled steroids; Z87.891 Personal history of nicotine dependence; Z90.89 Acquired absence of other organs; Z90.710 Acquired absence of both cervix and uterus; Z98.890 Other specified postprocedural states; Z87.01 Personal history of pneumonia (recurrent)
CPT/HCPCS: 36415; 71045; 80053; 80164; 83605; 85025; 87040; 87070; 87205; 93041

== ENCOUNTER 2019-05-16 03:56 | Inpatient (IN) | payer MEDICARE, MEDICAID ==
[~2019-05-16] VITALS: Ht 152.4 cm; Wt 76.1 kg
[~2019-05-16 03:56] MED LIST changes: +BENZ100C18 PO; +CEFD300C3 PO; -PILO15DR7 OS; +PILO15DR7 OU
[2019-05-16] MEDS ORDERED: methylPREDNISolone 125 MG (Solu-MEDROL) VIAL IV STA (04:00)
[2019-05-16] MEDS ORDERED: MEROPENEM 500 MG in WATER (STERILE) FOR INJECTION 10 ML IV ONE ×2 (04:00→05:30)
[2019-05-16] MEDS ORDERED: NS IV 1000 ML 1,000 ML IV SCH (04:00)
[2019-05-16] MEDS ORDERED: RT-ALBUTEROL/IPRATROPIUM 3 ML (DUONEB) VIAL INH ONE (04:00)
[2019-05-16 04:21] LABS: BASOPHILS # (AUTO) 0.1 10^3/uL (0.0-0.1); BASOPHILS % (AUTO) 1 % (0-10); EOSINOPHILS # (AUTO) 0.3 10^3/uL (0.0-0.3); EOSINOPHILS % (AUTO) 5 % (0-10); HEMATOCRIT 42 % (35-52); HEMOGLOBIN 13.4 G/DL (11.5-16.0); LYMPHOCYTES # (AUTO) 1.8 X 10^3 (1.0-4.0); LYMPHOCYTES % (AUTO) 27 % (12-44); MEAN CORPUSCULAR HEMOGLOBIN 28 PG (25-34); MEAN CORPUSCULAR HGB CONC 32 G/DL (32-36); MEAN CORPUSCULAR VOLUME 87 FL (80-99); MEAN PLATELET VOLUME 10.3 FL (7.4-10.4); MONOCYTES # (AUTO) 0.8 X 10^3 (0.0-1.0); MONOCYTES % (AUTO) 11 % (0-12); NEUTROPHILS # (AUTO) 3.9 X 10^3 (1.8-7.8); NEUTROPHILS % (AUTO) 57 % (42-75); PLATELET COUNT 214 10^3/uL (130-400); RED CELL DISTRIBUTION WIDTH 14.5 % (10.0-14.5); WHITE BLOOD COUNT 6.8 10^3/uL (4.3-11.0)
[2019-05-16 04:34] LABS: PROTHROMBIN TIME PATIENT 13.6 SEC (12.2-14.7)
[2019-05-16 04:40] LABS: ALANINE AMINOTRANSFERASE 23 U/L (0-55); ALBUMIN 3.1 GM/DL (3.2-4.5); ALKALINE PHOSPHATASE 92 U/L (40-136); BILIRUBIN,TOTAL 0.4 MG/DL (0.1-1.0); BUN/CREATININE RATIO 20; CALCIUM 8.9 MG/DL (8.5-10.1); CARBON DIOXIDE 27 MMOL/L (21-32); CHLORIDE 109 MMOL/L (98-107); CREATININE SERUM 0.79 MG/DL (0.60-1.30); GFR ESTIMATED > 60; GLUCOSE 91 MG/DL (70-105); MAGNESIUM 2.1 MG/DL (1.6-2.4); SODIUM 143 MMOL/L (135-145); TOTAL PROTEIN 8.2 GM/DL (6.4-8.2)
[2019-05-16 04:47] LABS: VALPROIC ACID 26.5 UG/ML (50.0-100.0)
[2019-05-16 05:03] LABS: BILIRUBIN,URINE NEGATIVE (NEGATIVE); CLARITY,URINE CLEAR; COLOR,URINE YELLOW; GLUCOSE, URINE (UA) NEGATIVE (NEGATIVE); KETONES,URINE NEGATIVE (NEGATIVE); LEUKOCYTE ESTERASE ,URINE 1+ (NEGATIVE); NITRITE,URINE NEGATIVE (NEGATIVE); PH,URINE 7 (5-9); PROTEIN,URINE 1+ (NEGATIVE); UROBILINOGEN,URINE 8 MG/DL (NORMAL)
[2019-05-16 05:20] LABS: BACTERIA,URINE LARGE /HPF; SQUAMOUS EPITHELIAL CELL,UR 0-2 /HPF
--- NOTE | 2019-05-16 05:25 | Diagnostic Imaging Report ---
INDICATION: Shortness of air. COMPARISON: 01/11/2019 FINDINGS: Single frontal radiographic view of the chest was obtained and demonstrates normal cardiac silhouette and pulmonary vasculature. Pulmonary interstitium appears slightly more prominent on today's exam. Lungs otherwise show low inspiratory volumes with patchy atelectatic opacities within both lung bases. There is no large effusion or pneumothorax. Osseous structures show no gross acute abnormalities. IMPRESSION: 1. Slightly increased interstitial opacities. Findings could be on the basis of interstitial infiltrate or edema. Clinical correlation recommended. 2. Low lung volumes with probable bibasilar atelectasis. Dictated by: Dictated on workstation # [id number]
--- NOTE | 2019-05-16 05:58 | ED Respiratory ---
General Chief Complaint: Respiratory Problems Stated Complaint: PNEUMONIA, HYPOXIA; SEPSIS;DEMEMTIA; UTI Nursing Triage Note: Pt to room #6 via [facility] ems cart from [facility] with c/o SOA. Clinical Program Coordinator nurse Shanell (BETSY) reported to this RN pt O2 sat 87% via RA, productive cough, and SOA. Nurse Shanell reports she adm brtx to pt @ 0310. CC ems accessed 20g IV to lt a/c prior to arrival and placed pt on 4L O2 via NC. Upon arrival pt alert to self and situation. Pt noted to be coughing up green/yellow phlegm. Diminished lung renteria heard bilat. Source: EMS, care home records Exam Limitations: clinical condition (PT WITH DEMENTIA AND SPEECH IS UNINTELLIGIBLE) History of Present Illness Date Seen by Provider: May 16, 2019 Time Seen by Provider: 03:57 Initial Comments PT ARRIVES VIA EMS FROM [facility] REPORTS THAT PT HAS HAD A COUGH WITH YELLOW / GREEN SPUTUM SINCE YESTERDAY PT HAS BEEN SHORT OF BREATH TODAY O2 SAT AT [facility] WAS 87% ON ROOM AIR, PER [facility] STAFF. EMS REPORT THAT O2 SATS 92-93%ON 2L--UP TO 95-96% ON 4L/NC [facility] STAFF GAVE PT A BREATHING TREATMENT AT 0310 THIS AM NO OTHER INFORMATION IS KNOWN IS UNKNOWN IF SHE HAS HAD FEVER OR NOT PT IS DNR/DNI PT WAS HERE 01/11/19 AND WAS TRANSFERRED TO [place] DUE TO SEPTIC SHOCK DUE TO PNEUMONIA--REQUIRED CENTRAL LINE PLACEMENT HERE. NO OTHER DETAILS ARE KNOWN ABOUT HER STAY AT [place]. PT SPEECH IS MOSTLY UNINTELLIGIBLE / GUTTERAL SOUNDS WITH A FEW NON-SENSICAL WORDS AT TIMES ON DIRECT QUESTIONING THE PT IF SHE WAS IN PAIN ANYWHERE, SHE WAS ABLE TO SAY "NO" PCP: DR. CAM IS DR AT [facility]. Allergies and Home Medications Allergies Coded Allergies: Aminoglycosides (Verified Allergy, Unknown, 11/11/06) adhesive (Verified Allergy, Unknown, 02/01/08) amoxicillin (Verified Allergy, Unknown, 11/11/06) bacitracin (Verified Allergy, Unknown, 11/11/06) cefaclor (Verified Allergy, Unknown, 07/20/17) clavulanic acid (Verified Allergy, Unknown, 11/11/06) erythromycin base (Verified Allergy, Unknown, 11/11/06) gramicidin D (Verified Allergy, Unknown, 11/11/06) latex (Verified Allergy, Unknown, 02/01/08) neomycin (Verified Allergy, Unknown, 11/11/06) polymyxin B (Verified Allergy, Unknown, 11/11/06) vancomycin (Verified Allergy, Unknown, 11/11/06) Home Medications Acetaminophen 325 Mg Tablet, 650 MG PO Q4H PRN for PAIN-MILD, (Reported) Acetaminophen 325 Mg Tablet, 650 MG PO TID, (Reported) Baclofen 20 Mg Tablet, 20 MG PO TID, (Reported) Benzonatate 100 Mg Capsule, 1-2 TAB PO TID Prescribed by: NIHARIKA CREWS on 03/03/19214 Betaxolol HCl 5 Ml Drops, 2 DROPS OU BID, (Reported) Buspirone HCl 5 Mg Tablet, 5 MG PO BID, (Reported) Cefdinir 300 Mg Capsule, 300 MG PO BID Prescribed by: NIHARIKA CREWS on 03/03/19214 Citalopram Hydrobromide 20 Mg Tablet, 20 MG PO DAILY, (Reported) Divalproex Sodium 125 Mg Cap.sprink, 125 MG PO BID, (Reported) Famotidine 20 Mg Tablet, 20 MG PO BID, (Reported) Fluticasone/Vilanterol 1 Each Blst.w.dev, 1 PUFF INH DAILY, (Reported) Furosemide 40 Mg Tablet, 40 MG PO DAILY, (Reported) Guaifenesin/Dextromethorphan 5 Ml Syrup, 10 ML PO Q4H PRN for COUGH, (Reported) Hydrocodone Bit/Acetaminophen 1 Each Tablet, 1 TAB PO Q4H PRN for PAIN-MODERATE, (Reported) Ibuprofen 200 Mg Tablet, 400 MG PO Q6H PRN for PAIN-MILD, (Reported) Ipratropium/Albuterol Sulfate 3 Ml Ampul.neb, 3 ML NEB QID, (Reported) Latanoprost 2.5 Ml Drops, 1 DROP OU HS, (Reported) Ondansetron HCl 4 Mg Tab, 4 MG PO Q4H PRN for NAUSEA/VOMITING-1ST LINE, (Reported) Pilocarpine HCl 15 Ml Drops, 1 DROP OS QID, (Reported) Sennosides/Docusate Sodium 1 Each Tablet, 1 TAB PO DAILY, (Reported) Sodium Chloride 30 Ml [place], 2 SPRAYS NS Q8H PRN for DRY NOSE, (Reported) Topiramate 25 Mg Tablet, 25 MG PO BID, (Reported) Venlafaxine HCl 150 Mg Cap.er.24h, 150 MG PO DAILY, (Reported) Patient Home Medication List Home Medication List Reviewed: Yes Review of Systems Review of Systems Constitutional: other (PT NOT ) Respiratory: cough, phlegm, short of breath Past Wwgelzj-Mfihjo-Gymcmy Hx Past Med/Social Hx: Reviewed and Corrections made Patient Social History Alcohol Use: Denies Use Recreational Drug Use: No Smoking Status: Former Smoker Type Used: Cigarettes Former Smoker, Quit: Jul 20, 2007 2nd Hand Smoke Exposure: No Recent Foreign Travel: No Contact w/Someone Who Travel: No Recent Infectious Disease Expo: No Recent Hopitalizations: No Immunizations Up To Date Tetanus Booster (TDap): Unknown PED Vaccines UTD: No Date of Pneumonia Vaccine: Jun 25, 2011 Date of Influenza Vaccine: May 21, 2017 Seasonal Allergies Seasonal Allergies: No Past Medical History Surgeries: Yes (TONSILLECTOMY; HYSTERECTOMY; ELBOW SURGERY; CARPAL TUNNEL SURGERY) Hysterectomy, Orthopedic, Tonsillectomy Respiratory: Yes ([facility]LL PNEUMONIA AND SEPTIC SHOCK 01/11/19) Pneumonia, COPD Currently Using CPAP: No Currently Using BIPAP: No Cardiac: Yes (CHF) Chronic Edema/Swelling, Hypertension Neurological: Yes (DYPSHAGIA AND DYSPHASIA) Dementia, Headaches /Migraines, Multiple Sclerosis Reproductive Disorders: No [employer] History: Menopausal Genitourinary: Yes Bladder Infection Gastrointestinal: Yes (DYSPHAGIA) Gastroesophageal Reflux, Chronic Constipation, Ulcer Musculoskeletal: Yes (ELBOW AND CARPAL TUNNEL SURGERY; CHRONIC PAIN ; GENERALIZED WEAKNESS; WHEELCHAIR BOUND) Chronic Back Pain Endocrine: No HEENT: Yes (EDENTULOUS; 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 No Pertinent Family Hx Physical Exam Vital Signs - First Documented 05/16/19 05/16/19 03:58 04:07 Temp 35.3 Pulse 80 Resp 28 B/P (MAP) 126/72 (90) Pulse Ox 94 O2 Delivery Nasal Cannula O2 Flow Rate 2.00 FiO2 95 Capillary Refill : Less Than 3 Seconds Height: 5'6.00" Weight: 160lbs. 2.0oz. 72.500039yp; 23.00 BMI Method:Estimated General Appearance: no apparent distress, other (FREQUENT LOOSE, PRODUCTIVE COUGH--COPIOUS AMOUNTS OF PURULENT SPUTUM. NO APPARENT DISTRESS. PT WITH CONSTANT MOVEMENTS OF MOUTH AND TONGUE. BABBLING "JIBBERISH" MOST OF THE TIME--ABLE TO MAKE OUT A FEW WORDS, BUT ARE NON-SENSICAL, AND OTHERWISE SPEECH IS MOSTLY GUTTERAL NOISES/NO INTELLIGIBLE WORDS DOES NOT MAKE EYE CONTACT, BUT HAS REPORTED HX OF BLINDNESS DUE TO MACULAR DEGENERATION) HEENT: other (EDENTULOUS. ORAL MUCOSA MOIST) Respiratory: no respiratory distress, no accessory muscle use, decreased breath sounds (DECREASED LUNG SOUNDS IN ALL LUNG RENTERIA. ) Cardiovascular: regular rate, rhythm; No JVD; systolic murmur (?FAINT? ) Gastrointestinal: soft Extremities: no pedal edema, normal capillary refill Neurologic/Psychiatric: other (MOVES ALL EXTREMITIES. PT IS ALERT. MENTATION NOTED ABOVE. PT CAN FOLLOW A FEW SIMPLE COMMANDS. ) Skin: normal color, warm/dry Focused Exam Lactate Level 05/16/19 04:06: Lactic Acid Level 1.02 Lactic Acid Level Laboratory Tests Test 05/16/19 04:06 Lactic Acid Level 1.02 MMOL/L (0.50-2.00) Progress/Results/Core Measures Suspected Sepsis Recent Fever Within 48 Hours: No Infection Criteria Present: Suspected New Infection New/Unexplained Altered Menta: No Sepsis Screen: Possible Sepsis Risk SIRS Temperature: Pulse: 80 Respiratory Rate: 28 Laboratory Tests 05/16/19 04:06: White Blood Count 6.8 Blood Pressure 126 /72 Mean: 90 05/16/19 04:06: Lactic Acid Level 1.02 Laboratory Tests 05/16/19 04:06: Creatinine 0.79, INR Comment 1.0, Platelet Count 214, Total Bilirubin 0.4 Results/Orders Lab Results Laboratory Tests Test 05/16/19 04:06 05/16/19 04:55 Range/Units White Blood Count 6.8 4.3-11.0 10^3/uL Red Blood Count 4.88 4.35-5.85 10^6/uL Hemoglobin 13.4 11.5-16.0 G/DL Hematocrit 42 35-52 % Mean Corpuscular Volume 87 80-99 FL Mean Corpuscular Hemoglobin 28 25-34 PG Mean Corpuscular Hemoglobin Concent 32 32-36 G/DL Red Cell Distribution Width 14.5 10.0-14.5 % Platelet Count 214 130-400 10^3/uL Mean Platelet Volume 10.3 7.4-10.4 FL Neutrophils (%) (Auto) 57 42-75 % Lymphocytes (%) (Auto) 27 12-44 % Monocytes (%) (Auto) 11 0-12 % Eosinophils (%) (Auto) 5 0-10 % Basophils (%) (Auto) 1 0-10 % Neutrophils # (Auto) 3.9 1.8-7.8 X 10^3 Lymphocytes # (Auto) 1.8 1.0-4.0 X 10^3 Monocytes # (Auto) 0.8 0.0-1.0 X 10^3 Eosinophils # (Auto) 0.3 0.0-0.3 10^3/uL Basophils # (Auto) 0.1 0.0-0.1 10^3/uL Prothrombin Time 13.6 12.2-14.7 SEC INR Comment 1.0 0.8-1.4 Activated Partial Thromboplast Time 33 24-35 SEC Sodium Level 143 135-145 MMOL/L Potassium Level 4.0 3.6-5.0 MMOL/L Chloride Level 109 H 98-107 MMOL/L Carbon Dioxide Level 27 21-32 MMOL/L Anion Gap 7 5-14 MMOL/L Blood Urea Nitrogen 16 7-18 MG/DL Creatinine 0.79 0.60-1.30 MG/DL Estimat Glomerular Filtration Rate > 60 BUN/Creatinine Ratio 20 Glucose Level 91 70-105 MG/DL Lactic Acid Level 1.02 0.50-2.00 MMOL/L Calcium Level 8.9 8.5-10.1 MG/DL Corrected Calcium 9.6 8.5-10.1 MG/DL Magnesium Level 2.1 1.6-2.4 MG/DL Total Bilirubin 0.4 0.1-1.0 MG/DL Aspartate Amino Transf (AST/SGOT) 24 5-34 U/L Alanine Aminotransferase (ALT/SGPT) 23 0-55 U/L Alkaline Phosphatase 92 40-136 U/L Troponin I < 0.028 <0.028 NG/ML B-Type Natriuretic Peptide 67.4 <100.0 PG/ML Total Protein 8.2 6.4-8.2 GM/DL Albumin 3.1 L 3.2-4.5 GM/DL Valproic Acid (Depakene) Level 26.5 L 50.0-100.0 UG/ML Urine Color YELLOW Urine Clarity CLEAR Urine pH 7 5-9 Urine Specific [place] 1.015 L 1.016-1.022 Urine Protein 1+ H NEGATIVE Urine Glucose (UA) NEGATIVE NEGATIVE Urine Ketones NEGATIVE NEGATIVE Urine Nitrite NEGATIVE NEGATIVE Urine Bilirubin NEGATIVE NEGATIVE Urine Urobilinogen 8 H NORMAL MG/DL Urine Leukocyte Esterase 1+ H NEGATIVE Urine RBC (Auto) NEGATIVE NEGATIVE Urine RBC 2-5 H /HPF Urine WBC 2-5 /HPF Urine Squamous Epithelial Cells 0-2 /HPF Urine Crystals NONE /LPF Urine Bacteria LARGE H /HPF Urine Casts NONE /LPF Urine Mucus NEGATIVE /LPF Urine Culture Indicated CULTURE PENDING Micro Results Microbiology 05/16/19 Influenza Types A,B Antigen (MANJINDER) - Final, Complete My Orders Orders - NIHARIKA CREWS DO Cbc With Automated Diff (05/16/19 04:00) Comprehensive Metabolic Panel (05/16/19 04:00) Blood Culture (05/16/19 04:00) Sputum Culture (05/16/19 04:00) Urinalysis (05/16/19 04:00) Urine Culture (05/16/19 04:00) Protime With Inr (05/16/19 04:00) Partial Thromboplastin Time (05/16/19 04:00) Chest 1 View, Ap/Pa Only (05/16/19 04:00) Ed Iv/Invasive Line Start (05/16/19 04:00) Ed Iv/Invasive Line Start (05/16/19 04:00) Ekg Tracing (05/16/19 04:00) Troponin I (05/16/19 04:00) Vital Signs Adult Sepsis Patie Q15M (05/16/19 04:00) O2 (05/16/19 04:00) Remove Rings In Anticipation O (05/16/19 04:00) Lactic Acid Analyzer (05/16/19 04:00) Influenza A And B Antigens (05/16/19 04:00) Ns Iv 1000 Ml (Sodium Chloride 0.9%) (05/16/19 04:00) Meropenem (Merrem 500 Mg) (05/16/19 04:00) Catheter(Urinary) Insert & Ass 03,15 (05/16/19 04:00) Monitor-Rhythm Ecg Trace Only (05/16/19 04:00) BNP (05/16/19 04:00) Magnesium (05/16/19 04:00) Albuterol/Ipra Inhalation Soln (Duoneb I (05/16/19 04:00) Rt Request For Service (05/16/19 04:00) Methylprednisolone Sod Succ (Solu-Medrol (05/16/19 04:00) Svn Small Volume Nebulizer (05/16/19 04:00) Valproic Acid (05/16/19 04:09) Medications Given in ED Current Medications Medications Dose Ordered Sig/Angelique Route Start Time Stop Time Status Last Admin Dose Admin Albuterol/ Ipratropium 3 ml ONCE ONCE INH 05/16/19 04:00 05/16/19 04:05 DC 05/16/19 04:19 3 ML Meropenem 500 mg/ Sterile Water 10 ml @ 200 mls/hr ONCE ONCE IV 05/16/19 04:00 05/16/19 04:05 DC 05/16/19 04:37 200 MLS/HR Vital Signs/I&O 05/16/19 05/16/19 05/16/19 03:58 04:07 04:27 Temp 35.3 Pulse 80 Resp 28 B/P (MAP) 126/72 (90) Pulse Ox 94 88 94 O2 Delivery Nasal Cannula Nasal Cannula Nasal Cannula O2 Flow Rate 2.00 2.00 FiO2 95 Capillary Refill : Less Than 3 Seconds Blood Pressure Mean: 90 Progress Note : Progress Note GIVEN DUO NEB TREATMENT AND SOLU-MEDROL--INCREASED AERATION, NOW WITH FAINT WHEEZING AND FAINT BILATERAL RALES. VITALS REMAINED STABLE. O2 SATS 94-96% ON 2L/NC PT HYPOTHERMIC ON ARRIVAL, GIVEN WARM BLANKETS AND TEMP BEGINNING TO COME UP AT TIME OF ADMIT. ECG Initial ECG Impression Date: May 16, 2019 Initial ECG Impression Time: 04:07 Initial ECG Rate: 70 Initial ECG Rhythm: Normal Sinus Diagnostic Imaging Comments CXR--POOR INSPIRATION, BIBASILAR INFILTRATES/ATELECTASIS. PENDING RADIOLOGIST REVIEW Reviewed: Reviewed by Me Departure Communication (Admissions) 0515--SPOKE WITH DR. HO, ACCEPTS PT FOR ADMIT. Impression Primary Impression: Sepsis Additional Impressions: Dementia Hypoxia Pneumonia UTI (urinary tract infection) Disposition: ADMITTED INPATIENT Condition: Stable Admissions Decision to Admit Reason: Admit from ER (General) Decision to Admit/Date: May 16, 2019 Time/Decision to Admit Time: 05:15 Departure-Patient Inst. Referrals: ABHIJEET BEVERLY MD (PCP/Family) Primary Care Physician NIHARIKA CREWS DO May 16, 2019 05:58
--- NOTE | 2019-05-16 06:00 | NUR ---
MARAH HARRY admitted to room 430-1, with an admitting diagnosis of pneumonia, hypoxia, sepsis, dementia, UTI on 05/16/19 from ED via stretcher, accompanied by staff.MARAH HARRY introduced to surroundings, call light, bed controls, phone, TV, temperature control, lights, meal times, smoking policy, visitor policy, side rail policy, bathrooms and showers. Patient Rights given to patient in the handbook. MARAH HARRY verbalizes understanding that [facility] is not responsible for the loss or damage to any personal effects or valuables that are kept in the patients posession during their hospitalization.
--- NOTE | 2019-05-16 06:08 | NUR ---
Contacted [facility] and spoke nurse Shanell, with regarding pt admission to #[phone]. Shanell voices no questions or concerns.
[2019-05-16] MEDS ORDERED: D5 1/2 NS W/KCL 20 MEQ/L 1,000 ML IV ONE (06:30)
[2019-05-16 06:39] VITALS: BP 114/77
[2019-05-16] MEDS ORDERED: ACETAMINOPHEN 500 MG TAB (TYLENOL) PO PRN (07:45)
[2019-05-16 08:00] VITALS: BP 113/77
--- NOTE | 2019-05-16 08:01 | History & Physical ---
History of Present Illness History of Present Illness Reason for visit/HPI Patient resident of a retirement. Received a call from the nurse there that the patient's pulse ox was 87 and trouble breathing. Patient spitting up green phlegm. Patient has dementia and unable to be understandable or give a good history. Patient on 01/11 was transferred to [facility] from this emergency room due to septic shock. Difficulty understand patient due to garbled speech. Patient states 8-2 = 5 Date of Admission May 16, 2019 at 05:15 Time Seen by a Provider: 08:03 I consulted on this patient on 05/16/19 07:56 Attending Physician Maged Cam DO Admitting Physician Ramon Egan MD Consult Allergies and Home Medications Allergies Coded Allergies: Aminoglycosides (Verified Allergy, Unknown, 11/11/06) adhesive (Verified Allergy, Unknown, 02/01/08) amoxicillin (Verified Allergy, Unknown, 11/11/06) bacitracin (Verified Allergy, Unknown, 11/11/06) cefaclor (Verified Allergy, Unknown, 07/20/17) clavulanic acid (Verified Allergy, Unknown, 11/11/06) erythromycin base (Verified Allergy, Unknown, 11/11/06) gramicidin D (Verified Allergy, Unknown, 11/11/06) latex (Verified Allergy, Unknown, 02/01/08) neomycin (Verified Allergy, Unknown, 11/11/06) polymyxin B (Verified Allergy, Unknown, 11/11/06) vancomycin (Verified Allergy, Unknown, 11/11/06) Home Medications Acetaminophen 325 Mg Tablet, 650 MG PO Q4H PRN for PAIN-MILD, (Reported) Acetaminophen 325 Mg Tablet, 650 MG PO TID, (Reported) Baclofen 20 Mg Tablet, 20 MG PO TID, (Reported) Benzonatate 100 Mg Capsule, 1-2 TAB PO TID Prescribed by: NIHARIKA CREWS on 03/03/19214 Betaxolol HCl 5 Ml Drops, 2 DROPS OU BID, (Reported) Buspirone HCl 5 Mg Tablet, 5 MG PO BID, (Reported) Cefdinir 300 Mg Capsule, 300 MG PO BID Prescribed by: NIHARIKA CREWS on 03/03/19214 Citalopram Hydrobromide 20 Mg Tablet, 20 MG PO DAILY, (Reported) Divalproex Sodium 125 Mg Cap.sprink, 125 MG PO BID, (Reported) Famotidine 20 Mg Tablet, 20 MG PO BID, (Reported) Fluticasone/Vilanterol 1 Each Blst.w.dev, 1 PUFF INH DAILY, (Reported) Furosemide 40 Mg Tablet, 40 MG PO DAILY, (Reported) Guaifenesin/Dextromethorphan 5 Ml Syrup, 10 ML PO Q4H PRN for COUGH, (Reported) Hydrocodone Bit/Acetaminophen 1 Each Tablet, 1 TAB PO Q4H PRN for PAIN-MODERATE, (Reported) Ibuprofen 200 Mg Tablet, 400 MG PO Q6H PRN for PAIN-MILD, (Reported) Ipratropium/Albuterol Sulfate 3 Ml Ampul.neb, 3 ML NEB QID, (Reported) Latanoprost 2.5 Ml Drops, 1 DROP OU HS, (Reported) Ondansetron HCl 4 Mg Tab, 4 MG PO Q4H PRN for NAUSEA/VOMITING-1ST LINE, (Reported) Pilocarpine HCl 15 Ml Drops, 1 DROP OS QID, (Reported) Sennosides/Docusate Sodium 1 Each Tablet, 1 TAB PO DAILY, (Reported) Sodium Chloride 30 Ml [place], 2 SPRAYS NS Q8H PRN for DRY NOSE, (Reported) Topiramate 25 Mg Tablet, 25 MG PO BID, (Reported) Venlafaxine HCl 150 Mg Cap.er.24h, 150 MG PO DAILY, (Reported) Patient Home Medication List Home Medication List Reviewed: No Past Pxvvfdm-Mzjmii-Vobbkz Hx Past Med/Social Hx: Reviewed and Corrections made Patient Social History Alcohol Use: Denies Use Recreational Drug Use: No Smoking Status: Former Smoker Former Smoker, Quit: Jul 20, 2007 Type Used: Cigarettes 2nd Hand Smoke Exposure: No Recent Foreign Travel: No Contact w/other who traveled: No Recent Hopitalizations: No Recent Infectious Disease Expo: No Immunizations Up To Date Tetanus Booster (TDap): Unknown Pediatric: No Date of Pneumonia Vaccine: Jun 25, 2011 Date of Influenza Vaccine: May 21, 2017 Seasonal Allergies Seasonal Allergies: No Past Medical History Surgeries: Hysterectomy, Orthopedic, Tonsillectomy Currently Using CPAP: No Currently Using BIPAP: No Cardiac: Chronic Edema/Swelling, Hypertension Neurological: Dementia, Headaches /Migraines, Multiple Sclerosis Reproductive: No Menopausal Genitourinary: Bladder Infection Gastrointestinal: Gastroesophageal Reflux, Chronic Constipation, Ulcer Musculoskeletal: Chronic Back Pain HEENT: Dysphagia, Macular Degeneration, Glaucoma Loss of Vision: Bilateral Psychosocial: Anxiety, Personality Disorder, Depression History of Blood Disorders: No Adverse Reaction to Blood [place]: No Family History Patient reports no known family medical history. No Pertinent Family Hx Review of Systems Constitutional: malaise, weakness EENTM: no symptoms reported Respiratory: cough, other (Congestion) Cardiovascular: no symptoms reported Gastrointestinal: no symptoms reported Genitourinary: no symptoms reported : No Physical Exam Vital Signs Vital Signs - First Documented 05/16/19 05/16/19 03:58 04:07 Temp 35.3 Pulse 80 Resp 28 B/P (MAP) 126/72 (90) Pulse Ox 94 O2 Delivery Nasal Cannula O2 Flow Rate 2.00 FiO2 95 Capillary Refill : Less Than 3 Seconds Height, Weight, BMI Height: 5'6.00" Weight: 160lbs. 2.0oz. 72.062527ke; 32.76 BMI Method:Estimated General Appearance: No Apparent Distress, WD/WN Eyes: Bilateral Eye Normal Inspection, Bilateral Eye Other (Macular degener ation) HEENT: Normal ENT Inspection Neck: Full Range of Motion, Normal Inspection Respiratory: Decreased Breath Sounds, Wheezing (Congestion), Other (Spitting up green phlegm) Cardiovascular: Regular Rate, Rhythm Gastrointestinal: Non Tender, Soft Assessment/Plan Admission Diagnosis Short of the air. Sepsis. Dementia. Pneumonia. Hypoxemia Admission Status: Inpatient Order (span 2 midnights) Reason for Inpatient Admission: Pneumonia. Hypoxia. Spitting up green phlegm. Sepsis Clinical Quality Measures DVT/VTE Risk/Contraindication: Risk Factor Score Per Nursin RFS Level Per Nursing on Admit: 4+=Very High MAGED CAM DO May 16, 2019 08:01
[2019-05-16] MEDS: D5 1/2 NS W/KCL 20 MEQ/L 1,000 ML IV SCH ×2 (09:40→17:22)
[2019-05-16] MEDS: ENOXAPARIN 40 MG/0.4 ML (LOVENOX) SYR SC SCH (09:42)
[2019-05-16] MEDS ORDERED: CRAN250C2 PO (09:48)
[2019-05-16] MEDS ORDERED: BACL10TA PO (09:48)
[2019-05-16] MEDS ORDERED: DORZ10DR18 OU (09:48)
[2019-05-16] MEDS ORDERED: MAGN400O7 PO (09:48)
[2019-05-16] MEDS ORDERED: BISA10SU8 RC (09:48)
[2019-05-16] MEDS ORDERED: PURE RC (09:48)
[2019-05-16] MEDS ORDERED: POTA10TA10 PO (09:48)
[2019-05-16] MEDS ORDERED: MIRA50TA PO (09:48)
[2019-05-16] MEDS ORDERED: [UNRECOGNIZED DRUG - OTHER] RC (09:48)
[2019-05-16] MEDS: methylPREDNISolone 125 MG (Solu-MEDROL) VIAL IV SCH ×3 (09:48→22:33)
[2019-05-16] MEDS ORDERED: POLY17PO6 PO (09:48)
[2019-05-16] MEDS ORDERED: FURO20TA4 PO (09:48)
[2019-05-16] MEDS ORDERED: ASCO-262 PO (09:48)
[2019-05-16] MEDS ORDERED: OLAN2.5T3 PO (09:48)
--- NOTE | 2019-05-16 09:50 | NUR ---
UPDATED MED REC WITH ORDER SUMMARY REPORT FROM [facility] [place] AND [facility].
[2019-05-16] MEDS: RT-ALBUTEROL/IPRATROPIUM 3 ML (DUONEB) VIAL INH PRN ×2 (11:40→14:51)
[2019-05-16 11:47] VITALS: BP 117/77
[2019-05-16 12:00] VITALS: BP 108/70
[2019-05-16] MEDS: MEROPENEM 500 MG/SWFI 10 ML IV PUSH IV SCH ×4 (12:30→21:22)
[2019-05-16] MEDS ORDERED: KCL 10 MEQ TAB (MICRO K) PO SCH (12:45)
[2019-05-16] MEDS ORDERED: RT-ALBUTEROL/IPRATROPIUM 3 ML (DUONEB) VIAL IH PRN (12:45)
[2019-05-16] MEDS ORDERED: BISACODYL 10 MG SUPP (DULCOLAX) RC PRN (12:45)
[2019-05-16] MEDS ORDERED: NON-FORMULARY MEDICATION 1 EA EA (Polyethylene Glycol 3350 (Miralax) 17 GM) PO PRN (12:45)
[2019-05-16] MEDS ORDERED: POLYETHYLENE GLYCOL 17 GM (MIRALAX) PACK PO PRN (13:15)
--- NOTE | 2019-05-16 14:20 | NUR ---
Attempted to see pt for consult for MST Score. Pt was asleep both times. Will attempt to see pt tomorrow. Tay More MS, RD, LD [phone]
[2019-05-16 15:58] VITALS: BP 102/67
[2019-05-16] MEDS: LORazepam INJ 2 MG/ML (ATIVAN) VIAL IVP PRN (16:19)
[2019-05-16] MEDS: BACLOFEN 10 MG (LIORESAL) TAB PO SCH ×2 (16:50→21:28)
[2019-05-16] MEDS: DIVALPROX SPRINKLE 125 MG (DEPAKOTE) CAP PO SCH ×2 (16:50→21:22)
[2019-05-16] MEDS: KCL 10 MEQ TAB (MICRO K) PO SCH (17:15)
[2019-05-16] MEDS: RT-ALBUTEROL/IPRATROPIUM 3 ML (DUONEB) VIAL INH SCH (19:02)
[2019-05-16 19:21] VITALS: BP 114/75
[2019-05-16] MEDS ORDERED: NON-FORMULARY MEDICATION 1 EA EA (Dorzolamide HCl 1 DROP) OU SCH (21:00)
[2019-05-16] MEDS ORDERED: OLANZAPINE 2.5 MG PO SCH (21:00)
[2019-05-16] MEDS: OLANZapine 2.5 MG (ZyPREXA) TAB PO SCH (21:22)
[2019-05-16] MEDS: toPIRamate 25 MG (TOPAMAX) TAB PO SCH (21:22)
[2019-05-16] MEDS: DORZOLAMIDE 2% 10 ML BTL (TRUSOPT) OU SCH (21:25)
[2019-05-16] MEDS: LATANOPROST 0.005% (XALATAN) OPHTH SOLN 2.5 ML OU SCH (21:25)
[2019-05-16] MEDS: MILK OF MAGNESIA 400 MG/5 ML 30 ML UDC PO SCH (21:28)
[2019-05-17 00:37] VITALS: BP 128/80
[2019-05-17] MEDS: D5 1/2 NS W/KCL 20 MEQ/L 1,000 ML IV SCH ×3 (02:39→23:12)
[2019-05-17] MEDS: LORazepam INJ 2 MG/ML (ATIVAN) VIAL IVP PRN ×3 (04:09→18:27)
[2019-05-17 04:35] VITALS: BP 107/69
[2019-05-17 05:26] LABS: BASOPHILS % (AUTO) 0 % (0-10); EOSINOPHILS % (AUTO) 0 % (0-10); HEMATOCRIT 39 % (35-52); HEMOGLOBIN 12.2 G/DL (11.5-16.0); LYMPHOCYTES # (AUTO) 0.8 X 10^3 (1.0-4.0); LYMPHOCYTES % (AUTO) 11 % (12-44); MEAN CORPUSCULAR HEMOGLOBIN 27 PG (25-34); MEAN CORPUSCULAR HGB CONC 32 G/DL (32-36); MEAN CORPUSCULAR VOLUME 87 FL (80-99); MONOCYTES # (AUTO) 0.2 X 10^3 (0.0-1.0); MONOCYTES % (AUTO) 3 % (0-12); NEUTROPHILS % (AUTO) 86 % (42-75); PLATELET COUNT 165 10^3/uL (130-400); RED CELL DISTRIBUTION WIDTH 14.2 % (10.0-14.5)
[2019-05-17 05:52] LABS: ALANINE AMINOTRANSFERASE 20 U/L (0-55); ALBUMIN 2.8 GM/DL (3.2-4.5); ALKALINE PHOSPHATASE 72 U/L (40-136); BILIRUBIN,TOTAL 0.3 MG/DL (0.1-1.0); BUN/CREATININE RATIO 23; CALCIUM 8.8 MG/DL (8.5-10.1); CARBON DIOXIDE 21 MMOL/L (21-32); CHLORIDE 112 MMOL/L (98-107); CREATININE SERUM 0.69 MG/DL (0.60-1.30); GFR ESTIMATED > 60; GLUCOSE 152 MG/DL (70-105); POTASSIUM 4.8 MMOL/L (3.6-5.0); SODIUM 139 MMOL/L (135-145); TOTAL PROTEIN 7.4 GM/DL (6.4-8.2)
[2019-05-17] MEDS: BACLOFEN 10 MG (LIORESAL) TAB PO SCH ×3 (06:03→20:46)
[2019-05-17] MEDS: MEROPENEM 500 MG/SWFI 10 ML IV PUSH IV SCH ×6 (06:03→20:46)
[2019-05-17] MEDS: RT-ADVAIR HFA 115/21 MCG PER PUFF IH SCH (07:47)
--- NOTE | 2019-05-17 07:58 | Progress Note ---
Subjective Time Seen by a Provider: 07:56 Subjective/Events-last exam Patient doing better today. Patient not spitting up possibly going sputum has previous today. Lung congestion is less. Clinically patient in the right direction Focused Exam Lactate Level 05/16/19 04:06: Lactic Acid Level 1.02 Objective Exam Vital Signs Date Time Temp Pulse Resp B/P (MAP) Pulse Ox O2 Delivery O2 Flow Rate FiO2 05/17/19 04:35 36.3 63 18 107/69 (82) 100 Nasal Cannula 2.00 05/17/19 00:37 35.7 77 20 128/80 (96) 100 Nasal Cannula 2.00 05/16/19 20:01 Nasal Cannula 2.00 05/16/19 19:21 36.0 64 18 114/75 (88) 98 Nasal Cannula 2.00 05/16/19 19:02 94 Nasal Cannula 2.00 05/16/19 15:58 36.4 79 18 102/67 (79) 98 Nasal Cannula 2.00 05/16/19 12:00 35.2 73 18 108/70 (83) 99 Nasal Cannula 2.00 05/16/19 11:47 36.2 70 97 05/16/19 11:47 97 Nasal Cannula 2.00 05/16/19 08:00 98 Nasal Cannula 2.00 95 05/16/19 08:00 35.0 82 20 113/77 (89) 93 Nasal Cannula 2.00 I & O 05/17/19 07:00 Intake Total 1010 ml Output Total 800 ml Balance 210 ml Capillary Refill : Less Than 3 Seconds General Appearance: No Apparent Distress, WD/WN HEENT: Normal ENT Inspection Neck: Normal Inspection Respiratory: Lungs Clear, No Accessory Muscle Use, No Respiratory Distress Cardiovascular: Regular Rate, Rhythm, No Murmur Gastrointestinal: non tender, soft Results Lab Laboratory Tests 05/17/19 05:11 Laboratory Tests 05/17/19 05:11: White Blood Count 7.0, Red Blood Count 4.45, Hemoglobin 12.2, Hematocrit 39, Mean Corpuscular Volume 87, Mean Corpuscular Hemoglobin 27, Mean Corpuscular Hemoglobin Concent 32, Red Cell Distribution Width 14.2, Platelet Count 165, Mean Platelet Volume 10.0, Neutrophils (%) (Auto) 86H, Lymphocytes (%) (Auto) 11L, Monocytes (%) (Auto) 3, Eosinophils (%) (Auto) 0, Basophils (%) (Auto) 0, Neutrophils # (Auto) 6.0, Lymphocytes # (Auto) 0.8L, Monocytes # (Auto) 0.2, Eosinophils # (Auto) 0.0, Basophils # (Auto) 0.0, Sodium Level 139, Potassium Level 4.8, Chloride Level 112H, Carbon Dioxide Level 21, Anion Gap 6, Blood Urea Nitrogen 16, Creatinine 0.69, Estimat Glomerular Filtration Rate > 60, BUN/Creatinine Ratio 23, Glucose Level 152H, Calcium Level 8.8, Corrected Calcium 9.8, Total Bilirubin 0.3, Aspartate Amino Transf (AST/SGOT) 16, Alanine Aminotransferase (ALT/SGPT) 20, Alkaline Phosphatase 72, Total Protein 7.4, Albumin 2.8L Microbiology 05/16/19 Blood Culture - Preliminary, Resulted No growth 05/16/19 Influenza Types A,B Antigen (MANJINDER) - Final, Complete Assessment/Plan Assessment/Plan Assess & Plan/Chief Complaint Pneumonia. Hypoxia. Dementia. Patient improving Clinical Quality Measures Admission Status Admission Dx Short of the air. Sepsis. Dementia. Pneumonia. Hypoxemia DVT/VTE Risk/Contraindication: Risk Factor Score Per Nursin RFS Level Per Nursing on Admit: 4+=Very High JEREMÍAS CAM DO May 17, 2019 07:58
[2019-05-17 08:00] VITALS: BP 103/63
[2019-05-17] MEDS ORDERED: NON-FORMULARY MEDICATION 1 EA EA (Mirabegron (Myrbetriq) 50 MG) PO SCH (09:00)
[2019-05-17] MEDS ORDERED: NON-FORMULARY MEDICATION 1 EA EA (Sennosides/Docusate Sodium (Senna S Tablet) 1 TAB) PO SCH (09:00)
[2019-05-17] MEDS ORDERED: NON-FORMULARY MEDICATION 1 EA EA (Famotidine (Acid Reducer (FAMOTIDINE)) 20 MG) PO SCH (09:00)
[2019-05-17] MEDS ORDERED: NON-FORMULARY MEDICATION 1 EA EA (Fluticasone/Vilanterol (Breo Ellipta 100-25 Mcg INH) 1 P INH SCH (09:00)
[2019-05-17] MEDS ORDERED: NON-FORMULARY MEDICATION 1 EA EA (Venlafaxine HCl (Venlafaxine HCl ER) 150 MG) PO SCH (09:00)
--- NOTE | 2019-05-17 09:06 | Diagnostic Imaging Report ---
EXAMINATION: Portable erect AP chest at 3:24 AM. INDICATION: Pneumonia. FINDINGS: This exam is less than optimal as the patient is rotated. Allowing for this technical factor, there does not seem to have been any significant change when compared to the prior exam of 05/16/2019. The heart is stable in size. There is still atelectasis/infiltrate in both lung bases, particularly in the right infrahilar region. The upper lungs are generally clear. The mediastinum is not widened. The osseous structures are intact. IMPRESSION: Allowing for the rotation of the patient, there has been no significant change since the prior exam. No new abnormality has developed. Dictated by: Dictated on workstation # [id number]
[2019-05-17] MEDS: toPIRamate 25 MG (TOPAMAX) TAB PO SCH ×2 (10:02→20:46)
[2019-05-17] MEDS: SENNA W/DOCUSATE (SENOKOT S) TABLET PO SCH (10:02)
[2019-05-17] MEDS: DIVALPROX SPRINKLE 125 MG (DEPAKOTE) CAP PO SCH ×3 (10:02→20:46)
[2019-05-17] MEDS: MILK OF MAGNESIA 400 MG/5 ML 30 ML UDC PO SCH ×2 (10:03→20:46)
[2019-05-17] MEDS: FAMOTIDINE 20 MG (PEPCID) TABLET PO SCH (10:03)
[2019-05-17] MEDS: VENlafaxine XR 75 MG (EFFEXOR XR) CAP PO SCH (10:03)
[2019-05-17] MEDS: FUROSEMIDE 20 MG (LASIX) TAB PO SCH (10:03)
[2019-05-17] MEDS: ENOXAPARIN 40 MG/0.4 ML (LOVENOX) SYR SC SCH (10:04)
[2019-05-17] MEDS: DORZOLAMIDE 2% 10 ML BTL (TRUSOPT) OU SCH ×2 (10:14→20:46)
[2019-05-17] MEDS: RT-ALBUTEROL/IPRATROPIUM 3 ML (DUONEB) VIAL INH SCH ×2 (10:47→19:18)
[2019-05-17 12:00] VITALS: BP 100/62
--- NOTE | 2019-05-17 15:18 | NUR ---
Pastoral care visit.
[2019-05-17 16:26] VITALS: BP 92/54
[2019-05-17] MEDS: OLANZapine 2.5 MG (ZyPREXA) TAB PO SCH (20:46)
[2019-05-17] MEDS: LATANOPROST 0.005% (XALATAN) OPHTH SOLN 2.5 ML OU SCH (20:46)
[2019-05-17 20:59] VITALS: BP 97/55
[2019-05-18 00:32] VITALS: BP 103/66
[2019-05-18 04:10] VITALS: BP 112/76
[2019-05-18] MEDS: BACLOFEN 10 MG (LIORESAL) TAB PO SCH ×3 (06:16→21:39)
[2019-05-18] MEDS: MEROPENEM 500 MG/SWFI 10 ML IV PUSH IV SCH ×6 (06:16→20:38)
[2019-05-18] MEDS: KCL 10 MEQ TAB (MICRO K) PO SCH (06:16)
[2019-05-18] MEDS: VENlafaxine XR 75 MG (EFFEXOR XR) CAP PO SCH (06:16)
[2019-05-18 06:53] LABS: HEMOGLOBIN 13.2 G/DL (11.5-16.0); RED CELL DISTRIBUTION WIDTH 14.7 % (10.0-14.5); WHITE BLOOD COUNT 6.7 10^3/uL (4.3-11.0)
[2019-05-18 07:08] LABS: BUN/CREATININE RATIO 19; CALCIUM 8.6 MG/DL (8.5-10.1); CARBON DIOXIDE 26 MMOL/L (21-32); CHLORIDE 110 MMOL/L (98-107); CREATININE SERUM 0.72 MG/DL (0.60-1.30); GFR ESTIMATED > 60; GLUCOSE 75 MG/DL (70-105); POTASSIUM 4.3 MMOL/L (3.6-5.0); SODIUM 141 MMOL/L (135-145)
--- NOTE | 2019-05-18 07:58 | Progress Note ---
Subjective Time Seen by a Provider: 07:56 Subjective/Events-last exam Patient continues to improve. Patient still has congestion in chest Patient is fragile. Plan to discharge tomorrow Focused Exam Lactate Level 05/16/19 04:06: Lactic Acid Level 1.02 Objective Exam Vital Signs Date Time Temp Pulse Resp B/P (MAP) Pulse Ox O2 Delivery O2 Flow Rate FiO2 05/18/19 04:10 36.9 76 20 112/76 (88) 95 Room Air 05/18/19 00:32 36.3 87 20 103/66 (78) 92 Room Air 05/17/19 20:59 36.5 83 20 97/55 (69) 94 Room Air 05/17/19 20:00 Room Air 05/17/19 19:18 92 Room Air 05/17/19 16:26 36.4 83 18 92/54 (67) 94 Room Air 05/17/19 12:00 34.6 71 18 100/62 (75) 92 Nasal Cannula 2.00 05/17/19 08:00 34.6 71 18 103/63 (76) 100 Nasal Cannula 2.00 05/17/19 08:00 Nasal Cannula 2.00 I & O 05/18/19 07:00 Intake Total 400 ml Output Total 950 ml Balance -550 ml Capillary Refill : Less Than 3 Seconds General Appearance: No Apparent Distress, Thin HEENT: Normal ENT Inspection Neck: Normal Inspection Respiratory: No Accessory Muscle Use, No Respiratory Distress, Other (Chest congestion lasts) Cardiovascular: Regular Rate, Rhythm Gastrointestinal: non tender, soft Results Lab Laboratory Tests 05/18/19 06:25 Laboratory Tests 05/18/19 06:25: White Blood Count 6.7, Red Blood Count 4.84, Hemoglobin 13.2, Hematocrit 42, Mean Corpuscular Volume 88, Mean Corpuscular Hemoglobin 27, Mean Corpuscular Hemoglobin Concent 31L, Red Cell Distribution Width 14.7H, Platelet Count 203, Mean Platelet Volume 10.0, Sodium Level 141, Potassium Level 4.3, Chloride Level 110H, Carbon Dioxide Level 26, Anion Gap 5, Blood Urea Nitrogen 14, Creatinine 0.72, Estimat Glomerular Filtration Rate > 60, BUN/Creatinine Ratio 19, Glucose Level 75, Calcium Level 8.6 Microbiology 05/16/19 Blood Culture - Preliminary, Resulted No growth 05/16/19 Influenza Types A,B Antigen (MANJINDER) - Final, Complete 05/16/19 Urine Culture - Preliminary, Resulted Enterococcus faecalis Assessment/Plan Assessment/Plan Assess & Plan/Chief Complaint Pneumonia. Hypoxia. Dementia. Patient improving. . 05/18/19. Pneumonia. Hypoxia. Dementia Clinical Quality Measures Admission Status Admission Dx Short of the air. Sepsis. Dementia. Pneumonia. Hypoxemia DVT/VTE Risk/Contraindication: Risk Factor Score Per Nursin RFS Level Per Nursing on Admit: 4+=Very High JEREMÍAS CAM DO May 18, 2019 07:58
[2019-05-18] MEDS: RT-ADVAIR HFA 115/21 MCG PER PUFF IH SCH (08:00)
[2019-05-18] MEDS: RT-ALBUTEROL/IPRATROPIUM 3 ML (DUONEB) VIAL INH SCH ×4 (08:00→19:38)
[2019-05-18] MEDS: toPIRamate 25 MG (TOPAMAX) TAB PO SCH ×2 (08:39→20:42)
[2019-05-18] MEDS: SENNA W/DOCUSATE (SENOKOT S) TABLET PO SCH (08:40)
[2019-05-18] MEDS: DIVALPROX SPRINKLE 125 MG (DEPAKOTE) CAP PO SCH ×3 (08:40→20:38)
[2019-05-18] MEDS: DORZOLAMIDE 2% 10 ML BTL (TRUSOPT) OU SCH ×2 (08:40→20:43)
[2019-05-18] MEDS: FAMOTIDINE 20 MG (PEPCID) TABLET PO SCH (08:41)
[2019-05-18] MEDS: MILK OF MAGNESIA 400 MG/5 ML 30 ML UDC PO SCH ×2 (08:41→20:38)
[2019-05-18] MEDS: ENOXAPARIN 40 MG/0.4 ML (LOVENOX) SYR SC SCH (08:41)
[2019-05-18] MEDS: FUROSEMIDE 20 MG (LASIX) TAB PO SCH (08:41)
--- NOTE | 2019-05-18 08:44 | Diagnostic Imaging Report ---
PATIENT HISTORY: Pneumonia. TECHNIQUE: Frontal view of the chest COMPARISON: 05/17/2019 FINDINGS: Lung volumes are mildly low. There are persistent mild airspace opacities in the lung bases which appear similar to the prior exam. The cardiac silhouette is unchanged in size. There is no pleural effusion or pneumothorax. Old left-sided rib fractures are noted. There is calcific atherosclerosis in the aorta. IMPRESSION: Low lung volumes with stable bibasilar airspace opacities, may represent atelectasis or infiltrate. Dictated by: Dictated on workstation # [id number]
[2019-05-18] MEDS: D5 1/2 NS W/KCL 20 MEQ/L 1,000 ML IV SCH ×2 (08:49→18:37)
--- NOTE | 2019-05-18 09:01 | Physician Query Clarification ---
PQ-Intro New Diagnosis Admission/Discharge Admission Date: May 16, 2019 at 05:15 Discharge Date: The medical record reflects the following clinical scenario: History/Risk Factors: Sepsis Pneumonia COPD History of smoking Clinical Findings:Pulse 80, Resp 28, 02 sats 87%, hypoxia, tachypnea, deep respirations Treatment:Given Duo Neb treatment and Solu Medrol. Nasal cannula oxygen 2-3 liters. Question: What condition best reflects the above clinical scenario? Please document a response in the Progress Noter or Discharge Summary. 1. Acute respiratory failure with hypoxia due to sepsis. 2. Acute respiratory failure unrelated to sepsis. 3. Hypoxia only without diagnosis of acute respiratory failure. 4. Other, with explanation of the clinical findings. 5. Clinically undetermined, no explanation for the clinical findings. PHYSICIAN RESPONSE What condition reflects above: Other, explanation/clinical finding (Number 3 was the answer) Please remember a lack of response to the above will prompt a phone page by [facility]/Coding staff. In responding to this query, please exercise your independent professional judgment. The purpose of this communication is to more accurately reflect the complexity of your patients condition. The fact that a question is asked does not imply that any particular answer is desired or expected. Thank you for your timely response to this clarification. Requestors name: Magui Grossman [facility] Phone # ext [phone] or [phone] THIS PHYSICIAN QUERY FORM IS A PERMANENT PART OF THE MEDICAL RECORD MAGUI GROSSMAN May 18, 2019 09:01 JEREMÍAS CAM DO May 19, 2019 07:21
--- NOTE | 2019-05-18 09:13 | Physician Query Clarification ---
PQ-Uncertain Diagnosis Admission/Discharge Admission Date: May 16, 2019 at 05:15 Discharge Date: The medical record reflects the following clinical scenario: History/Risk Factors: Sepsis Pneumonia Clinical Findings:Urine specific gravity 101.5, Urine protein 1+, Urine Urobilinogen 8, Urine leukocyte esterase 1+, Urine bacteria Large, Urine culture >100,000/ML Enterococcus faecalis. Treatment: IV Meropenem 500mg Question: Is UTI due to Enterococcus faecalis a clinically valid diagnosis? UTI was documented in the ED impression by Dr. Villafuerte with no further documentation in the medical record. Please document a response in Progress Note or Discharge Summary. 1. Yes, clinically valid, condition resolved. 2. No, condition ruled out. 3. Other, with explanation of clinical findings. 4. Undetermined, no explanation for clinical findings. PHYSICIAN RESPONSE Diagnosis clinically valid: Yes, Conditon resolved Please remember a lack of response to the above will prompt a phone page by CDI/Coding staff. In responding to this query, please exercise your independent professional judgment. The purpose of this communication is to more accurately reflect the complexity of your patients condition. The fact that a question is asked does not imply that any particular answer is desired or expected. Thank you for your timely response to this clarification. Requestors name: [ ] Phone # [ ] THIS PHYSICIAN QUERY FORM IS A PERMANENT PART OF THE MEDICAL RECORD CLAIR GROSSMAN May 18, 2019 09:13 JEREMÍAS CAM DO May 19, 2019 07:23
--- NOTE | 2019-05-18 09:14 | NUR ---
Spoke with [facility] that the patient may discharge on 05/19.
--- NOTE | 2019-05-18 14:46 | NUR ---
RD ASSESSMENT PMHx: HTN, GERD, MS, chronic constipation PT INTERACTION: Pt was awake and pleasant during consult for MST score. Note pt has dementia and difficulty communicating. Pt states current appetite is "so-so" and has been been for "awhile." Note pt consuming <75% of meals x2d, per chart review. Pt states no issues with n/v/c/d at this time and last BM was 05/17. Pt states recent wt loss as "a lot", but could not give a timeframe or amount of weight lost. Note unable to determine recent wt hx, per chart review. Upon visual exam, pt had some signs of muscle wasting in arms and hands that may not be attributed to normal aging or pt's diagnosis of MS. ABNORMAL NUTRITION-RELATED LAB VALUES: Cl 110 (H) Est. kcal needs: 7056-9035 kcal (20-25 kcal/kg) Est. Pro needs: 60-76 g Pro (0.8-1.0 g Pro/kg) PES STATEMENT: Inadequate oral intake related to loss of appetite as evidenced by pt interview | PO intake <75% x2d INTERVENTION: Continue with current diet order of DYS1 - Pureed diet, with Liq Spoon Thick liquids. Encouraged pt to eat when able. MONITOR/EVALUATE: PO Intake; Plan of Care; Hydration Status; Weight Status; Lab Values Tay More MS, RD, LD [phone]
[2019-05-18 15:45] VITALS: BP 99/62
[2019-05-18] MEDS: LORazepam INJ 2 MG/ML (ATIVAN) VIAL IVP PRN (17:02)
[2019-05-18 20:25] VITALS: BP 108/73
[2019-05-18] MEDS: OLANZapine 2.5 MG (ZyPREXA) TAB PO SCH (20:37)
[2019-05-18] MEDS: LATANOPROST 0.005% (XALATAN) OPHTH SOLN 2.5 ML OU SCH (20:43)
[2019-05-19] VITALS: BP 101/66
[2019-05-19] MEDS: D5 1/2 NS W/KCL 20 MEQ/L 1,000 ML IV SCH (04:57)
[2019-05-19] MEDS: MEROPENEM 500 MG/SWFI 10 ML IV PUSH IV SCH ×4 (04:57→13:24)
[2019-05-19 05:24] LABS: HEMOGLOBIN 12.3 G/DL (11.5-16.0); MEAN PLATELET VOLUME 9.7 FL (7.4-10.4); RED CELL DISTRIBUTION WIDTH 14.9 % (10.0-14.5); WHITE BLOOD COUNT 6.3 10^3/uL (4.3-11.0)
[2019-05-19 05:57] LABS: BUN/CREATININE RATIO 19; CALCIUM 8.4 MG/DL (8.5-10.1); CARBON DIOXIDE 23 MMOL/L (21-32); CHLORIDE 109 MMOL/L (98-107); CREATININE SERUM 0.67 MG/DL (0.60-1.30); GFR ESTIMATED > 60; GLUCOSE 99 MG/DL (70-105); POTASSIUM 4.4 MMOL/L (3.6-5.0); SODIUM 139 MMOL/L (135-145)
[2019-05-19] MEDS: VENlafaxine XR 75 MG (EFFEXOR XR) CAP PO SCH (06:41)
[2019-05-19] MEDS: BACLOFEN 10 MG (LIORESAL) TAB PO SCH ×2 (06:41→13:24)
--- NOTE | 2019-05-19 07:49 | Diagnostic Imaging Report ---
INDICATION: Pneumonia. COMPARISON: 05/18/2019. FINDINGS: There has been some improvement in aeration of the lungs bilaterally since previous exam. There are no acute infiltrates demonstrated on today's exam. The heart is not enlarged. There is no pulmonary edema. No pneumothorax or pleural effusion. IMPRESSION: Overall improvement since previous exam. No evidence of atelectasis or acute infiltrates. Dictated by: Dictated on workstation # [id number]
[2019-05-19 08:00] VITALS: BP 102/66
--- NOTE | 2019-05-19 08:09 | Progress Note ---
Subjective Time Seen by a Provider: 08:07 Subjective/Events-last exam Patient doing better today. Chest x-ray shows pneumonia much better. Patient more alert and awake. Plan to send patient home today Objective Exam Vital Signs Date Time Temp Pulse Resp B/P (MAP) Pulse Ox O2 Delivery O2 Flow Rate FiO2 05/19/19 00:00 36.2 68 24 101/66 (78) 95 Room Air 05/18/19 20:40 Room Air 05/18/19 20:25 36.3 76 22 108/73 (85) 94 Room Air 05/18/19 19:39 94 Room Air 05/18/19 15:45 36.6 82 20 99/62 (74) 93 Room Air 05/18/19 15:27 92 Room Air I & O 05/19/19 07:00 Intake Total 3880 ml Output Total 1800 ml Balance 2080 ml Capillary Refill : Less Than 3 SecondsLess Than 3 Seconds General Appearance: No Apparent Distress, WD/WN HEENT: Normal ENT Inspection Neck: Normal Inspection Respiratory: Lungs Clear, No Accessory Muscle Use, No Respiratory Distress Cardiovascular: Regular Rate, Rhythm, No Murmur Gastrointestinal: non tender, soft Results Lab Laboratory Tests 05/19/19 05:09 Laboratory Tests 05/18/19 15:49: Glucometer 107 05/19/19 05:09: White Blood Count 6.3, Red Blood Count 4.50, Hemoglobin 12.3, Hematocrit 39, Mean Corpuscular Volume 87, Mean Corpuscular Hemoglobin 27, Mean Corpuscular Hemoglobin Concent 32, Red Cell Distribution Width 14.9H, Platelet Count 203, Mean Platelet Volume 9.7, Sodium Level 139, Potassium Level 4.4, Chloride Level 109H, Carbon Dioxide Level 23, Anion Gap 7, Blood Urea Nitrogen 13, Creatinine 0.67, Estimat Glomerular Filtration Rate > 60, BUN/Creatinine Ratio 19, Glucose Level 99, Calcium Level 8.4L Microbiology 05/16/19 Blood Culture - Preliminary, Resulted No growth 05/16/19 Influenza Types A,B Antigen (MANJINDER) - Final, Complete 05/16/19 Urine Culture - Preliminary, Resulted Enterococcus faecalis Assessment/Plan Assessment/Plan Assess & Plan/Chief Complaint Pneumonia. Hypoxia. Dementia. Patient improving. . 05/18/19. Pneumonia. Hypoxia. Dementia. . 05/19/19. Pneumonia better. Hypoxia better. Dementia. UTI Clinical Quality Measures Admission Status Admission Dx Short of the air. Sepsis. Dementia. Pneumonia. Hypoxemia DVT/VTE Risk/Contraindication: Risk Factor Score Per Nursin RFS Level Per Nursing on Admit: 4+=Very High JEREMÍAS CAM DO May 19, 2019 08:09
[2019-05-19] MEDS ORDERED: AMOX1TAB12 PO (08:13)
[2019-05-19] MEDS: RT-ALBUTEROL/IPRATROPIUM 3 ML (DUONEB) VIAL INH SCH ×2 (08:41→11:28)
[2019-05-19] MEDS: RT-ADVAIR HFA 115/21 MCG PER PUFF IH SCH (08:41)
[2019-05-19] MEDS: DORZOLAMIDE 2% 10 ML BTL (TRUSOPT) OU SCH (08:47)
[2019-05-19] MEDS: ENOXAPARIN 40 MG/0.4 ML (LOVENOX) SYR SC SCH (08:47)
[2019-05-19] MEDS: FAMOTIDINE 20 MG (PEPCID) TABLET PO SCH (08:48)
[2019-05-19] MEDS: DIVALPROX SPRINKLE 125 MG (DEPAKOTE) CAP PO SCH ×2 (08:48→13:24)
[2019-05-19] MEDS: MILK OF MAGNESIA 400 MG/5 ML 30 ML UDC PO SCH (08:48)
[2019-05-19] MEDS: SENNA W/DOCUSATE (SENOKOT S) TABLET PO SCH (08:48)
[2019-05-19] MEDS: toPIRamate 25 MG (TOPAMAX) TAB PO SCH (08:48)
[2019-05-19] MEDS: FUROSEMIDE 20 MG (LASIX) TAB PO SCH (08:48)
--- NOTE | 2019-05-19 09:05 | NUR ---
CM/SS patient is from [facility], she will return there at discharge. It is likely patient will discharge this day back to the SNF. They would like to transport her at 1400. RN updated and will inform if any changes.
[2019-05-19 09:54] LABS: BACTERIA,URINE NEGATIVE /HPF; BILIRUBIN,URINE NEGATIVE (NEGATIVE); GLUCOSE, URINE (UA) NEGATIVE (NEGATIVE); KETONES,URINE NEGATIVE (NEGATIVE); LEUKOCYTE ESTERASE ,URINE NEGATIVE (NEGATIVE); NITRITE,URINE NEGATIVE (NEGATIVE); PH,URINE 8 (5-9); PROTEIN,URINE NEGATIVE (NEGATIVE); RBC,URINE RARE /HPF; SQUAMOUS EPITHELIAL CELL,UR RARE /HPF; UROBILINOGEN,URINE NORMAL (NORMAL); WBC,URINE RARE /HPF; YEAST,URINE FEW /HPF
[2019-05-19 09:59] LABS: CLARITY,URINE CLEAR; COLOR,URINE YELLOW
--- NOTE | 2019-05-19 10:30 | NUR ---
REPORT CALLED AT THIS TIME TO [facility]. MENDOZA WILL BE REMOVED PRIOR TO LEAVING WELL THE REMOVAL OF ANY IV ACCESS THAT SHE MAY HAVE. THIS RN WILL CONT. TO MONITOR THIS PATIENT UNTIL DISCHARGE BACK TO [facility].
--- NOTE | 2019-05-19 10:58 | NUR ---
DR. CAM GAVE THIS RN ORDERS TO REMOVE MENDOZA PRIOR TO DISCHARGE FROM [facility].
[2019-05-19 14:05] VITALS: BP 102/66
--- NOTE | 2019-05-20 07:54 | Discharge Summary ---
Diagnosis/Chief Complaint Date of Admission May 16, 2019 at 05:15 Date of Discharge May 19, 2019 at 13:10 Discharge Date: May 19, 2019 Discharge Time: 07:49 Discharge Diagnosis Pneumonia. Dementia. Anxiety disorder. COPD. Delusional disorder. DO NOT RESUSCITATE. Dysphagia. Hypertensive heart disease with heart failure. Hypoxemia. Multiple sclerosis. Personal history of nicotine dependence. Sepsis. Urinary tract infection due to Enterococcus faecalis dialysis. Sputum culture Haemophilus influenza. Hypoxemia Reason Hospital Visit Patient resident of a group home. Received a call from the nurse there that the patient's pulse ox was 87 and trouble breathing. Patient spitting up green phlegm. Patient has dementia and unable to be understandable or give a good history. Patient on 01/11 was transferred to [facility] from this emergency room due to septic shock. Difficulty understand patient due to garbled speech. Patient states 8-2 = 5 Discharge Summary Discharge Physical Examination Allergies: Coded Allergies: Aminoglycosides (Verified Allergy, Unknown, 11/11/06) adhesive (Verified Allergy, Unknown, 02/01/08) amoxicillin (Verified Allergy, Unknown, 11/11/06) bacitracin (Verified Allergy, Unknown, 11/11/06) cefaclor (Verified Allergy, Unknown, 07/20/17) clavulanic acid (Verified Allergy, Unknown, 11/11/06) erythromycin base (Verified Allergy, Unknown, 11/11/06) gramicidin D (Verified Allergy, Unknown, 11/11/06) latex (Verified Allergy, Unknown, 02/01/08) neomycin (Verified Allergy, Unknown, 11/11/06) polymyxin B (Verified Allergy, Unknown, 11/11/06) vancomycin (Verified Allergy, Unknown, 11/11/06) Vitals & I&Os Vital Signs Date Time Temp Pulse Resp B/P (MAP) Pulse Ox O2 Delivery O2 Flow Rate FiO2 05/19/19 14:05 36.4 72 20 102/66 91 Room Air 95 05/17/19 12:00 2.00 Hospital Course Patient in hospital did improve. Patient awake and alert. Patient discharge back to group home Labs (last 24 hrs) Laboratory Tests 05/16/19 04:06: White Blood Count 6.8, Red Blood Count 4.88, Hemoglobin 13.4, Hematocrit 42, Mean Corpuscular Volume 87, Mean Corpuscular Hemoglobin 28, Mean Corpuscular Hemoglobin Concent 32, Red Cell Distribution Width 14.5, Platelet Count 214, Mean Platelet Volume 10.3, Neutrophils (%) (Auto) 57, Lymphocytes (%) (Auto) 27, Monocytes (%) (Auto) 11, Eosinophils (%) (Auto) 5, Basophils (%) (Auto) 1, Neutrophils # (Auto) 3.9, Lymphocytes # (Auto) 1.8, Monocytes # (Auto) 0.8, Eosinophils # (Auto) 0.3, Basophils # (Auto) 0.1, Prothrombin Time 13.6, INR Comment 1.0, Activated Partial Thromboplast Time 33, Sodium Level 143, Potassium Level 4.0, Chloride Level 109H, Carbon Dioxide Level 27, Anion Gap 7, Blood Urea Nitrogen 16, Creatinine 0.79, Estimat Glomerular Filtration Rate > 60, BUN/Creatinine Ratio 20, Glucose Level 91, Lactic Acid Level 1.02, Calcium Level 8.9, Corrected Calcium 9.6, Magnesium Level 2.1, Total Bilirubin 0.4, Aspartate Amino Transf (AST/SGOT) 24, Alanine Aminotransferase (ALT/SGPT) 23, Alkaline Phosphatase 92, Troponin I < 0.028, B-Type Natriuretic Peptide 67.4, Total Protein 8.2, Albumin 3.1L, Valproic Acid (Depakene) Level 26.5L 05/16/19 04:55: Urine Color YELLOW, Urine Clarity CLEAR, Urine pH 7, Urine Specific [place] 1. 015L, Urine Protein 1+H, Urine Glucose (UA) NEGATIVE, Urine Ketones NEGATIVE, Urine Nitrite NEGATIVE, Urine Bilirubin NEGATIVE, Urine Urobilinogen 8H, Urine Leukocyte Esterase 1+H, Urine RBC (Auto) NEGATIVE, Urine RBC 2-5H, Urine WBC 2- 5, Urine Squamous Epithelial Cells 0-2, Urine Crystals NONE, Urine Bacteria LARGEH, Urine Casts NONE, Urine Mucus NEGATIVE, Urine Culture Indicated CULTURE PENDING 05/17/19 05:11: White Blood Count 7.0, Red Blood Count 4.45, Hemoglobin 12.2, Hematocrit 39, Mean Corpuscular Volume 87, Mean Corpuscular Hemoglobin 27, Mean Corpuscular Hemoglobin Concent 32, Red Cell Distribution Width 14.2, Platelet Count 165, Mean Platelet Volume 10.0, Neutrophils (%) (Auto) 86H, Lymphocytes (%) (Auto) 11L, Monocytes (%) (Auto) 3, Eosinophils (%) (Auto) 0, Basophils (%) (Auto) 0, Neutrophils # (Auto) 6.0, Lymphocytes # (Auto) 0.8L, Monocytes # (Auto) 0.2, Eosinophils # (Auto) 0.0, Basophils # (Auto) 0.0, Sodium Level 139, Potassium Level 4.8, Chloride Level 112H, Carbon Dioxide Level 21, Anion Gap 6, Blood Urea Nitrogen 16, Creatinine 0.69, Estimat Glomerular Filtration Rate > 60, BUN/Creatinine Ratio 23, Glucose Level 152H, Calcium Level 8.8, Corrected Calcium 9.8, Total Bilirubin 0.3, Aspartate Amino Transf (AST/SGOT) 16, Alanine Aminotransferase (ALT/SGPT) 20, Alkaline Phosphatase 72, Total Protein 7.4, Albumin 2.8L 05/18/19 06:25: White Blood Count 6.7, Red Blood Count 4.84, Hemoglobin 13.2, Hematocrit 42, Mean Corpuscular Volume 88, Mean Corpuscular Hemoglobin 27, Mean Corpuscular Hem oglobin Concent 31L, Red Cell Distribution Width 14.7H, Platelet Count 203, Mean Platelet Volume 10.0, Sodium Level 141, Potassium Level 4.3, Chloride Level 110H , Carbon Dioxide Level 26, Anion Gap 5, Blood Urea Nitrogen 14, Creatinine 0.72, Estimat Glomerular Filtration Rate > 60, BUN/Creatinine Ratio 19, Glucose Level 75, Calcium Level 8.6 05/18/19 15:49: Glucometer 107 05/19/19 05:09: White Blood Count 6.3, Red Blood Count 4.50, Hemoglobin 12.3, Hematocrit 39, Mean Corpuscular Volume 87, Mean Corpuscular Hemoglobin 27, Mean Corpuscular Hemoglobin Concent 32, Red Cell Distribution Width 14.9H, Platelet Count 203, Mean Platelet Volume 9.7, Sodium Level 139, Potassium Level 4.4, Chloride Level 109H, Carbon Dioxide Level 23, Anion Gap 7, Blood Urea Nitrogen 13, Creatinine 0.67, Estimat Glomerular Filtration Rate > 60, BUN/Creatinine Ratio 19, Glucose Level 99, Calcium Level 8.4L 05/19/19 09:20: Urine Color YELLOW, Urine Clarity CLEAR, Urine pH 8, Urine Specific [place] 1.015L, Urine Protein NEGATIVE, Urine Glucose (UA) NEGATIVE, Urine Ketones NEGATIVE, Urine Nitrite NEGATIVE, Urine Bilirubin NEGATIVE, Urine Urobilinogen NORMAL, Urine Leukocyte Esterase NEGATIVE, Urine RBC (Auto) NEGATIVE, Urine RBC RARE, Urine WBC RARE, Urine Squamous Epithelial Cells RARE, Urine Crystals NONE, Urine Bacteria NEGATIVE, Urine Casts NONE, Urine Mucus NEGATIVE, Urine Yeast FEWH, Urine Culture Indicated NO Microbiology 05/16/19 Blood Culture - Preliminary, Resulted No growth 05/16/19 Influenza Types A,B Antigen (MANJINDER) - Final, Complete 05/16/19 Urine Culture - Final, Complete Enterococcus faecalis Laboratory Tests 05/16/19 04:06 05/17/19 05:11 05/18/19 06:25 05/19/19 05:09 Pending Labs Microbiology Date/Time Source Procedure Growth Status 05/16/19 04:26 Peripheral Right Wrist Blood Culture - Preliminary No growth Resulted 05/16/19 04:00 Peripheral Lt Ac Blood Culture - Preliminary No growth Resulted 05/16/19 04:06 Nasopharynx Influenza Types A,B Antigen (MANJINDER) - Final Complete 05/16/19 04:05 Sputum Induced Gram Stain - Final Complete 05/16/19 04:05 Sputum Culture - Final Haemophilus influenza Usual upper respiratory ghulam Complete 05/16/19 04:55 Urine Zhou Cath Urine Culture - Final Enterococcus faecalis Complete Laboratory Tests 05/16/19 04:06: White Blood Count 6.8, Red Blood Count 4.88, Hemoglobin 13.4, Hematocrit 42, Mean Corpuscular Volume 87, Mean Corpuscular Hemoglobin 28, Mean Corpuscular Hemoglobin Concent 32, Red Cell Distribution Width 14.5, Platelet Count 214, Mean Platelet Volume 10.3, Neutrophils (%) (Auto) 57, Lymphocytes (%) (Auto) 27, Monocytes (%) (Auto) 11, Eosinophils (%) (Auto) 5, Basophils (%) (Auto) 1, Neutrophils # (Auto) 3.9, Lymphocytes # (Auto) 1.8, Monocytes # (Auto) 0.8, Eosinophils # (Auto) 0.3, Basophils # (Auto) 0.1, Prothrombin Time 13.6, INR Comment 1.0, Activated Partial Thromboplast Time 33, Sodium Level 143, Potassium Level 4.0, Chloride Level 109, Carbon Dioxide Level 27, Anion Gap 7, Blood Urea Nitrogen 16, Creatinine 0.79, Estimat Glomerular Filtration Rate > 60, BUN/Creatinine Ratio 20, Glucose Level 91, Lactic Acid Level 1.02, Calcium Level 8.9, Corrected Calcium 9.6, Magnesium Level 2.1, Total Bilirubin 0.4, Aspartate Amino Transf (AST/SGOT) 24, Alanine Aminotransferase (ALT/SGPT) 23, Alkaline Phosphatase 92, Troponin I < 0.028, B-Type Natriuretic Peptide 67.4, Total Protein 8.2, Albumin 3.1, Valproic Acid (Depakene) Level 26.5 05/16/19 04:55: Urine Color YELLOW, Urine Clarity CLEAR, Urine pH 7, Urine Specific [place] 1.015, Urine Protein 1+, Urine Glucose (UA) NEGATIVE, Urine Ketones NEGATIVE, Urine Nitrite NEGATIVE, Urine Bilirubin NEGATIVE, Urine Urobilinogen 8, Urine Leukocyte Esterase 1+, Urine RBC (Auto) NEGATIVE, Urine RBC 2-5, Urine WBC 2-5, Urine Squamous Epithelial Cells 0-2, Urine Crystals NONE, Urine Bacteria LARGE, Urine Casts NONE, Urine Mucus NEGATIVE, Urine Culture Indicated CULTURE PENDING 05/17/19 05:11: White Blood Count 7.0, Red Blood Count 4.45, Hemoglobin 12.2, Hematocrit 39, Mean Corpuscular Volume 87, Mean Corpuscular Hemoglobin 27, Mean Corpuscular Hemoglobin Concent 32, Red Cell Distribution Width 14.2, Platelet Count 165, Mean Platelet Volume 10.0, Neutrophils (%) (Auto) 86, Lymphocytes (%) (Auto) 11, Monocytes (%) (Auto) 3, Eosinophils (%) (Auto) 0, Basophils (%) (Auto) 0, Neutrophils # (Auto) 6.0, Lymphocytes # (Auto) 0.8, Monocytes # (Auto) 0.2, Eosinophils # (Auto) 0.0, Basophils # (Auto) 0.0, Sodium Level 139, Potassium Level 4.8, Chloride Level 112, Carbon Dioxide Level 21, Anion Gap 6, Blood Urea Nitrogen 16, Creatinine 0.69, Estimat Glomerular Filtration Rate > 60, BUN/Creatinine Ratio 23, Glucose Level 152, Calcium Level 8.8, Corrected Calcium 9.8, Total Bilirubin 0.3, Aspartate Amino Transf (AST/SGOT) 16, Alanine Aminotransferase (ALT/SGPT) 20, Alkaline Phosphatase 72, Total Protein 7.4, Albumin 2.8 05/18/19 06:25: White Blood Count 6.7, Red Blood Count 4.84, Hemoglobin 13.2, Hematocrit 42, Mean Corpuscular Volume 88, Mean Corpuscular Hemoglobin 27, Mean Corpuscular Hemoglobin Concent 31, Red Cell Distribution Width 14.7, Platelet Count 203, Mean Platelet Volume 10.0, Sodium Level 141, Potassium Level 4.3, Chloride Level 110, Carbon Dioxide Level 26, Anion Gap 5, Blood Urea Nitrogen 14, Creatinine 0.72, Estimat Glomerular Filtration Rate > 60, BUN/Creatinine Ratio 19, Glucose Level 75, Calcium Level 8.6 05/18/19 15:49: Glucometer 107 05/19/19 05:09: White Blood Count 6.3, Red Blood Count 4.50, Hemoglobin 12.3, Hematocrit 39, Mean Corpuscular Volume 87, Mean Corpuscular Hemoglobin 27, Mean Corpuscular Hemoglobin Concent 32, Red Cell Distribution Width 14.9, Platelet Count 203, Mean Platelet Volume 9.7, Sodium Level 139, Potassium Level 4.4, Chloride Level 109, Carbon Dioxide Level 23, Anion Gap 7, Blood Urea Nitrogen 13, Creatinine 0.67, Estimat Glomerular Filtration Rate > 60, BUN/Creatinine Ratio 19, Glucose Level 99, Calcium Level 8.4 05/19/19 09:20: Urine Color YELLOW, Urine Clarity CLEAR, Urine pH 8, Urine Specific [place] 1.015, Urine Protein NEGATIVE, Urine Glucose (UA) NEGATIVE, Urine Ketones NEGATIVE, Urine Nitrite NEGATIVE, Urine Bilirubin NEGATIVE, Urine Urobilinogen NORMAL, Urine Leukocyte Esterase NEGATIVE, Urine RBC (Auto) NEGATIVE, Urine RBC RARE, Urine WBC RARE, Urine Squamous Epithelial Cells RARE, Urine Crystals NONE, Urine Bacteria NEGATIVE, Urine Casts NONE, Urine Mucus NEGATIVE, Urine Yeast FEW, Urine Culture Indicated NO Discharge Home Medications: Active Scripts Active Amox Tr-K Clv 875-125 mg Tab (Amoxicillin/Potassium Clav) 1 Each Tablet 1 Each PO BID 5 Days Reported Zyprexa (Olanzapine) 2.5 Mg Tablet 2.5 Mg PO HS [Pure & Gentle Enema] 1 Ea RC DAILY PRN Potassium Chloride 10 Meq Tablet.er 10 Meq PO MOWEFR Miralax (Polyethylene Glycol 3350) 17 Gm Powd.pack 17 Gm PO DAILY PRN Myrbetriq (Mirabegron) 50 Mg Tab.er.24h 50 Mg PO DAILY Milk of Magnesia (Magnesium Hydroxide) 400 Mg/5 Ml Oral.susp 15 Ml PO BID Dorzolamide HCl 10 Ml Drops 1 Drop OU BID Cranberry (Cranberry Extract) 250 Mg Capsule 250 Mg PO BID Bisacodyl 10 Mg Supp.rect 10 Mg RC DAILY PRN Vitamin C (Ascorbate Calcium) 500 Mg Tablet 500 Mg PO DAILY Furosemide 20 Mg Tablet 20 Mg PO DAILY Baclofen 10 Mg Tablet 10 Mg PO Q8H Topiramate 25 Mg Tablet 25 Mg PO BID Senna S Tablet (Sennosides/Docusate Sodium) 1 Each Tablet 1 Tab PO DAILY Guaifenesin Dm Syrup (Guaifenesin/Dextromethorphan) 5 Ml Syrup 10 Ml PO Q4H PRN SUGAR FREE Isopto Carpine (Pilocarpine HCl) 15 Ml Drops 1 Drop OU QID Hydrocodone/Acetaminophen 5/325mg Tablet (Acetaminophen/Hydrocodone Bitart) 1 Each Tablet 1 Tab PO Q8H PRN Acid Contract Accountant (FAMOTIDINE) (Famotidine) 20 Mg Tablet 20 Mg PO DAILY Venlafaxine HCl ER (Venlafaxine HCl) 150 Mg Cap.er.24h 150 Mg PO DAILY Iprat-Albut 0.5-3(2.5) mg/3 ml (Ipratropium/Albuterol Sulfate) 3 Ml Ampul.neb 3 Ml NEB Q4H PRN Divalproex Sodium 125 Mg Cap.sprink 250 Mg PO TID TAKES 2 (125MG) CAPSULES Breo Ellipta 100-25 Mcg INH (Fluticasone/Vilanterol) 1 Each Blst.w.dev 1 Puff INH DAILY Latanoprost 2.5 Ml Drops 1 Drop OU HS Instructions to patient/family Please see electronic discharge instructions given to patient. Clinical Quality Measures DVT/VTE Risk/Contraindication: Risk Factor Score Per Nursin RFS Level Per Nursing on Admit: 4+=Very High JEREMÍAS CAM DO May 20, 2019 07:54
== END 2019-05-19 13:10 | DRG 871 ==
LOC: EDUNIT# 03:56 → ER 03:58 → 4TH 05:15
PROVIDERS: ADMIT Internal Medicine; ATTEND Family Medicine
DX: A41.9 Sepsis, unspecified organism (principal); J18.9 Pneumonia, unspecified organism; J44.0 Chronic obstructive pulmonary disease with (acute) lower respiratory infection; N39.0 Urinary tract infection, site not specified; F03.91 Unspecified dementia, unspecified severity, with behavioral disturbance; R09.02 Hypoxemia; Z66 Do not resuscitate; B96.3 Hemophilus influenzae [H. influenzae] as the cause of diseases classified elsewhere; B95.2 Enterococcus as the cause of diseases classified elsewhere; I11.0 Hypertensive heart disease with heart failure; I50.9 Heart failure, unspecified; G35 Multiple sclerosis; R13.10 Dysphagia, unspecified; R47.02 Dysphasia; K21.9 Gastro-esophageal reflux disease without esophagitis; K59.09 Other constipation; M54.9 Dorsalgia, unspecified; G89.29 Other chronic pain; H35.30 Unspecified macular degeneration; H40.9 Unspecified glaucoma; G43.909 Migraine, unspecified, not intractable, without status migrainosus; F60.3 Borderline personality disorder; F22 Delusional disorders; F41.9 Anxiety disorder, unspecified; F32.9 Major depressive disorder, single episode, unspecified; Z87.891 Personal history of nicotine dependence; Z99.3 Dependence on wheelchair; Z88.1 Allergy status to other antibiotic agents
CPT/HCPCS: 36415; 71045; 80048; 80053; 80164; 81000; 82962; 83605; 83735; 83880; 84484; 85025; 85027; 85610; 85730; 87040; 87070; 87077; 87088; 87185; 87186; 87205; 87804; 93005; 93041; 94640; 96361; 96374; 96375

== ENCOUNTER → 2019-06-08 | Outpatient (CLI) | payer MEDICARE, MEDICAID ==
[~2019-06-08] MED LIST changes: +AMOX1TAB12 PO; +ASCO-262 PO; +BACL10TA PO; +BISA10SU8 RC; +CRAN250C2 PO; +MAGN400O7 PO; +MIRA50TA PO; +NF-DOR2% OU; +OLAN2.5T3 PO; +POLY17PO6 PO; +POTA10TA10 PO; +PURE RC; +[UNRECOGNIZED DRUG - OTHER] RC
--- NOTE | 2019-06-08 14:37 | Diagnostic Imaging Report ---
INDICATION: Pneumonia. TIME OF EXAM: 01:27 p.m. Correlation is made with prior chest from 05/19/2019. FINDINGS: Heart size is stable. Lungs are clear. There is no infiltrate. No effusion or pneumothorax is seen. Old left-sided posterior rib fracture is again noted. IMPRESSION: No acute cardiopulmonary process is detected. Dictated by: Dictated on workstation # [id number]
== END ==
LOC: RAD 14:19
PROVIDERS: ATTEND Family Medicine
DX: J69.0 Pneumonitis due to inhalation of food and vomit (principal)
CPT/HCPCS: 71045

== ENCOUNTER 2019-08-29 09:11 | Emergency (ER) | payer MEDICARE, MEDICAID ==
[~2019-08-29] VITALS: Ht 160 cm; Wt 86.4 kg
[2019-08-29 09:49] LABS: BASOPHILS # (AUTO) 0.1 10^3/uL (0.0-0.1); BASOPHILS % (AUTO) 1 % (0-10); EOSINOPHILS # (AUTO) 0.2 10^3/uL (0.0-0.3); EOSINOPHILS % (AUTO) 2 % (0-10); HEMATOCRIT 44 % (35-52); HEMOGLOBIN 13.8 G/DL (11.5-16.0); LYMPHOCYTES # (AUTO) 1.7 X 10^3 (1.0-4.0); LYMPHOCYTES % (AUTO) 23 % (12-44); MEAN CORPUSCULAR HEMOGLOBIN 28 PG (25-34); MEAN CORPUSCULAR HGB CONC 32 G/DL (32-36); MEAN CORPUSCULAR VOLUME 88 FL (80-99); MEAN PLATELET VOLUME 10.6 FL (7.4-10.4); MONOCYTES # (AUTO) 0.7 X 10^3 (0.0-1.0); MONOCYTES % (AUTO) 10 % (0-12); NEUTROPHILS # (AUTO) 4.7 X 10^3 (1.8-7.8); NEUTROPHILS % (AUTO) 64 % (42-75); PLATELET COUNT 156 10^3/uL (130-400); RED CELL DISTRIBUTION WIDTH 15.3 % (10.0-14.5); WHITE BLOOD COUNT 7.4 10^3/uL (4.3-11.0)
[2019-08-29] MEDS ORDERED: NS IV 1000 ML 1,000 ML IV ONE (09:58)
--- NOTE | 2019-08-29 10:04 | ED General ---
General Chief Complaint: Respiratory Problems Stated Complaint: FEVER;SOA Nursing Triage Note: PT TO RM 7 WITH COMPLAINT OF SOA AND COUGH. PT STATES SHE HAS HAD SYMPTOMS FOR THREE DAYS. Nursing Sepsis Screen: No Definite Risk Source of Information: Patient Exam Limitations: No Limitations History of Present Illness Date Seen by Provider: Aug 29, 2019 Time Seen by Provider: 09:18 Initial Comments This 69-year-old woman presents to the emergency room with complaints of shortness of air and cough for the past 3 days. She is afebrile at present. She denies any other symptoms. She presents from [facility]. She does receive breathing treatments with improvement in symptoms. Allergies and Home Medications Allergies Coded Allergies: Aminoglycosides (Verified Allergy, Unknown, 11/11/06) adhesive (Verified Allergy, Unknown, 02/01/08) amoxicillin (Verified Allergy, Unknown, 11/11/06) bacitracin (Verified Allergy, Unknown, 11/11/06) cefaclor (Verified Allergy, Unknown, 07/20/17) clavulanic acid (Verified Allergy, Unknown, 11/11/06) erythromycin base (Verified Allergy, Unknown, 11/11/06) gramicidin D (Verified Allergy, Unknown, 11/11/06) latex (Verified Allergy, Unknown, 02/01/08) neomycin (Verified Allergy, Unknown, 11/11/06) polymyxin B (Verified Allergy, Unknown, 11/11/06) vancomycin (Verified Allergy, Unknown, 11/11/06) Home Medications Amoxicillin/Potassium Clav 1 Each Tablet, 1 EACH PO BID Prescribed by: JEREMÍAS CAM on 05/19/19 0813 Ascorbate Calcium 500 Mg Tablet, 500 MG PO DAILY, (Reported) Baclofen 10 Mg Tablet, 10 MG PO Q8H, (Reported) Bisacodyl 10 Mg Supp.rect, 10 MG RC DAILY PRN for CONSTIPATION-4TH LINE, (Reported) Cranberry Extract 250 Mg Capsule, 250 MG PO BID, (Reported) Divalproex Sodium 125 Mg Cap.sprink, 250 MG PO TID, (Reported) TAKES 2 (125MG) CAPSULES Dorzolamide HCl 10 Ml Drops, 1 DROP OU BID, (Reported) Famotidine 20 Mg Tablet, 20 MG PO DAILY, (Reported) Fluticasone/Vilanterol 1 Each Blst.w.dev, 1 PUFF INH DAILY, (Reported) Furosemide 20 Mg Tablet, 20 MG PO DAILY, (Reported) Guaifenesin/Dextromethorphan 5 Ml Syrup, 10 ML PO Q4H PRN for COUGH, (Reported) SUGAR FREE Hydrocodone Bit/Acetaminophen 1 Each Tablet, 1 TAB PO Q8H PRN for PAIN-MODERATE, (Reported) Ipratropium/Albuterol Sulfate 3 Ml Ampul.neb, 3 ML NEB Q4H PRN for SHORTNESS OF BREATH, (Reported) Latanoprost 2.5 Ml Drops, 1 DROP OU HS, (Reported) Magnesium Hydroxide 400 Mg/5 Ml Oral.susp, 15 ML PO BID, (Reported) Mirabegron 50 Mg Tab.er.24h, 50 MG PO DAILY, (Reported) Olanzapine 2.5 Mg Tablet, 2.5 MG PO HS, (Reported) Pilocarpine HCl 15 Ml Drops, 1 DROP OU QID, (Reported) Polyethylene Glycol 3350 17 Gm Powd.pack, 17 GM PO DAILY PRN for CONSTIPATION- 2ND LINE, (Reported) Potassium Chloride 10 Meq Tablet.er, 10 MEQ PO MoWeFr, (Reported) Sennosides/Docusate Sodium 1 Each Tablet, 1 TAB PO DAILY, (Reported) Topiramate 25 Mg Tablet, 25 MG PO BID, (Reported) Venlafaxine HCl 150 Mg Cap.er.24h, 150 MG PO DAILY, (Reported) [Pure & Gentle Enema] , 1 EA RC DAILY PRN for CONSTIPATION, (Reported) Patient Home Medication List Home Medication List Reviewed: Yes Review of Systems Review of Systems Constitutional: no symptoms reported EENTM: no symptoms reported Respiratory: see HPI Cardiovascular: no symptoms reported Gastrointestinal: no symptoms reported Genitourinary: no symptoms reported : No Musculoskeletal: no symptoms reported Skin: no symptoms reported Psychiatric/Neurological: No Symptoms Reported Hematologic/Lymphatic: No Symptoms Reported Immunological/Allergic: no symptoms reported Past Ijtmvaf-Itmfct-Ykjyim Hx Past Med/Social Hx: Reviewed Nursing Past Med/Soc Hx Patient Social History Alcohol Use: Denies Use Recreational Drug Use: No Smoking Status: Former Smoker Type Used: Cigarettes Former Smoker, Quit: Jul 20, 2007 2nd Hand Smoke Exposure: No Recent Foreign Travel: No Contact w/Someone Who Travel: No Recent Infectious Disease Expo: No Recent Hopitalizations: No Immunizations Up To Date Tetanus Booster (TDap): Unknown PED Vaccines UTD: No Date of Pneumonia Vaccine: Jun 25, 2011 Date of Influenza Vaccine: May 21, 2017 Seasonal Allergies Seasonal Allergies: No Past Medical History Surgeries: Yes (TONSILLECTOMY; HYSTERECTOMY; ELBOW SURGERY; CARPAL TUNNEL SURGERY) Hysterectomy, Orthopedic, Tonsillectomy Respiratory: Yes (RLL PNEUMONIA AND SEPTIC SHOCK 01/11/19) Pneumonia, COPD Currently Using CPAP: No Currently Using BIPAP: No Cardiac: Yes (CHF) Chronic Edema/Swelling, Hypertension Neurological: Yes (DYPSHAGIA AND DYSPHASIA) Dementia, Headaches /Migraines, Multiple Sclerosis Reproductive Disorders: No 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 No Pertinent Family Hx Physical Exam-Suspected Sepsis Physical Exam Vital Signs Vital Signs - First Documented Capillary Refill : Less Than 3 Seconds Blood Pressure Mean: 96 Height, Weight, BMI Height: 5'6.00" Weight: 160lbs. 2.0oz. [id number]; 33.00 BMI Method:Estimated General Appearance: No Apparent Distress, WD/WN HEENT: PERRL/EOMI, Normal ENT Inspection Neck: Normal Inspection Respiratory: Lungs Clear, Normal Breath Sounds, No Accessory Muscle Use Cardiovascular: Regular Rate, Rhythm, No Murmur Gastrointestinal: Normal Bowel Sounds, Non Tender, Soft Extremity: Normal Inspection, Non Tender Neurologic/Psychiatric: Alert, Oriented x3, No Motor/Sensory Deficits, Normal Mood/Affect, sap basis architect II-XII Norm as Tested Skin: normal color, warm/dry Focused Exam Lactate Level Lactic Acid Level Progress/Results/Core Measures Suspected Sepsis Recent Fever Within 48 Hours: No Infection Criteria Present: None New/Unexplained Altered Menta: No Sepsis Screen: No Definite Risk SIRS Temperature: Pulse: 87 Respiratory Rate: 20 Blood Pressure 114 /87 Mean: 96 Results/Orders Lab Results Micro Results My Orders Medications Given in ED Vital Signs/I&O Capillary Refill : Less Than 3 Seconds 2 Blood Pressure Mean: 96 Progress Note : Progress Note Patient may have had some mild hypovolemia reflected in the lactic acid and vital signs. Blood pressure was widely variable depending on patient's arm position. She tended to flex her arm tightly up toward her chest which would give an accurate blood pressure readings. When arm was straightened to her side, blood pressure was normal. Patient did state she felt better after IV fluids. She was in no respiratory distress and had no significant abnormal findings on respiratory exam. Chest x-ray and WBC were normal suggesting no pneumonia. Influenza screen was negative. Diagnostic Imaging Diagonstic Imaging: Xray Plain Films/CT/US/NM/MRI: chest Comments NAME: MARAH HARRY [facility] REC#: [id number] PT STATUS: DEP ER : [id number] PHYSICIAN: JOSE R HAMILTON MD ADMIT DATE: 08/29/19/ER Signed Date of Exam:08/29/19 CHEST 1 VIEW, AP/PA ONLY INDICATION: Shortness of air and cough. TIME OF EXAM: 10:11 AM Correlation is made with prior chest from 06/08/2019. FINDINGS: The heart size is stable. Healed left-sided rib fracture is again noted. No infiltrates are seen. There is no effusion or pneumothorax. IMPRESSION: No acute cardiopulmonary process is identified. Dictated by: Dictated on workstation # [id number] Dict: 08/29/19 1020 Trans: 08/29/19 1600 [id number] Interpreted by: CARMELITA WESTON MD Electronically signed by: CARMELITA WESTON MD 08/29/19 1600 Departure Impression Primary Impression: COPD (chronic obstructive pulmonary disease) Qualified Codes: J44.9 - Chronic obstructive pulmonary disease, unspecified Additional Impression: Upper respiratory infection Qualified Codes: J06.9 - Acute upper respiratory infection, unspecified Disposition: HOME, SELF-CARE Condition: Improved Departure-Patient Inst. Decision time for Depature: 14:06 Referrals: ABHIJEET BEVERLY MD (PCP/Family) Primary Care Physician Patient Instructions: Chronic Obstructive Pulmonary Disease (COPD), Including Emphysema Add. Discharge Instructions: Follow-up with your primary care provider as soon as possible. Use nebulizer treatments every 4 hours until follow-up. Encourage plenty of clear liquids. Return to the emergency room or call your doctor if there are any further problems or concerns. All discharge instructions reviewed with patient and/or family. Voiced understanding. JOSE R HAMILTON MD Aug 29, 2019 10:04
[2019-08-29 10:05] LABS: ALANINE AMINOTRANSFERASE 12 U/L (0-55); ALBUMIN 3.4 GM/DL (3.2-4.5); ALKALINE PHOSPHATASE 72 U/L (40-136); BILIRUBIN,TOTAL 0.4 MG/DL (0.1-1.0); BUN/CREATININE RATIO 22; CALCIUM 9.1 MG/DL (8.5-10.1); CARBON DIOXIDE 24 MMOL/L (21-32); CHLORIDE 107 MMOL/L (98-107); CREATININE SERUM 0.85 MG/DL (0.60-1.30); GFR ESTIMATED > 60; GLUCOSE 115 MG/DL (70-105); SODIUM 141 MMOL/L (135-145)
[2019-08-29 10:11] LABS: INR 1.1 (0.8-1.4); PROTHROMBIN TIME PATIENT 14.3 SEC (12.2-14.7)
--- NOTE | 2019-08-29 10:22 | Diagnostic Imaging Report ---
INDICATION: Shortness of air and cough. TIME OF EXAM: 10:11 AM Correlation is made with prior chest from 06/08/2019. FINDINGS: The heart size is stable. Healed left-sided rib fracture is again noted. No infiltrates are seen. There is no effusion or pneumothorax. IMPRESSION: No acute cardiopulmonary process is identified. Dictated by: Dictated on workstation # [id number]
[2019-08-29 13:09] LABS: BILIRUBIN,URINE NEGATIVE (NEGATIVE); CLARITY,URINE CLEAR; COLOR,URINE YELLOW; GLUCOSE, URINE (UA) NEGATIVE (NEGATIVE); KETONES,URINE NEGATIVE (NEGATIVE); LEUKOCYTE ESTERASE ,URINE NEGATIVE (NEGATIVE); NITRITE,URINE NEGATIVE (NEGATIVE); PH,URINE 5.5 (5-9); PROTEIN,URINE NEGATIVE (NEGATIVE)
[2019-08-29 13:17] LABS: BACTERIA,URINE TRACE /HPF; SQUAMOUS EPITHELIAL CELL,UR RARE /HPF; WBC,URINE RARE /HPF
[2019-08-29 13:18] LABS: YEAST,URINE FEW /HPF
[2019-08-29 15:20] VITALS: BP 110/67
== END 2019-08-29 15:20 | disposition home or self-care (01) ==
LOC: EDUNIT# 09:11 → ER 09:12
DX: J44.9 Chronic obstructive pulmonary disease, unspecified (principal); J06.9 Acute upper respiratory infection, unspecified; I11.0 Hypertensive heart disease with heart failure; I50.9 Heart failure, unspecified; F03.91 Unspecified dementia, unspecified severity, with behavioral disturbance; G43.909 Migraine, unspecified, not intractable, without status migrainosus; G35 Multiple sclerosis; F41.9 Anxiety disorder, unspecified; F60.3 Borderline personality disorder; F32.9 Major depressive disorder, single episode, unspecified; K21.9 Gastro-esophageal reflux disease without esophagitis; Z88.0 Allergy status to penicillin; Z88.4 Allergy status to anesthetic agent; Z88.1 Allergy status to other antibiotic agents; Z88.8 Allergy status to other drugs, medicaments and biological substances; Z91.040 Latex allergy status; Z79.51 Long term (current) use of inhaled steroids; Z87.891 Personal history of nicotine dependence; Z90.89 Acquired absence of other organs; Z90.710 Acquired absence of both cervix and uterus
CPT/HCPCS: 36415; 71045; 80053; 81000; 83605; 85025; 85610; 85730; 87040; 87070; 87088; 87205; 87804; 96360

== ENCOUNTER 2020-02-06 14:15 | Observation (INO) | payer MEDICARE, MEDICAID ==
[~2020-02-06] VITALS: Ht 175 cm; Wt 66.5 kg
[2020-02-06] VITALS (9 sets, daily range): BP systolic 97–123; BP diastolic 48–110
[2020-02-06 14:55] LABS: BASOPHILS # (AUTO) 0.1 10^3/uL (0.0-0.1); BASOPHILS % (AUTO) 1 % (0-10); EOSINOPHILS # (AUTO) 0.2 10^3/uL (0.0-0.3); EOSINOPHILS % (AUTO) 1 % (0-10); HEMATOCRIT 50 % (35-52); HEMOGLOBIN 16.1 G/DL (11.5-16.0); LYMPHOCYTES # (AUTO) 2.8 X 10^3 (1.0-4.0); LYMPHOCYTES % (AUTO) 22 % (12-44); MEAN CORPUSCULAR HEMOGLOBIN 29 PG (25-34); MEAN CORPUSCULAR HGB CONC 32 G/DL (32-36); MEAN CORPUSCULAR VOLUME 91 FL (80-99); MEAN PLATELET VOLUME 10.2 FL (7.4-10.4); MONOCYTES # (AUTO) 1.2 X 10^3 (0.0-1.0); MONOCYTES % (AUTO) 9 % (0-12); NEUTROPHILS # (AUTO) 8.5 X 10^3 (1.8-7.8); NEUTROPHILS % (AUTO) 67 % (42-75); PLATELET COUNT 276 10^3/uL (130-400); RED CELL DISTRIBUTION WIDTH 14.9 % (10.0-14.5); WHITE BLOOD COUNT 12.8 10^3/uL (4.3-11.0)
[2020-02-06 15:02] LABS: ALBUMIN 3.6 GM/DL (3.2-4.5); CHLORIDE 102 MMOL/L (98-107); POTASSIUM 4.6 MMOL/L (3.6-5.0); SODIUM 139 MMOL/L (135-145)
[2020-02-06 15:03] LABS: CALCIUM 10.3 MG/DL (8.5-10.1)
[2020-02-06 15:05] LABS: GLUCOSE 105 MG/DL (70-105); TOTAL PROTEIN 9.2 GM/DL (6.4-8.2)
[2020-02-06 15:06] LABS: BILIRUBIN,TOTAL 0.5 MG/DL (0.1-1.0); CARBON DIOXIDE 25 MMOL/L (21-32); INR 1.1 (0.8-1.4); PROTHROMBIN TIME PATIENT 14.7 SEC (12.2-14.7)
[2020-02-06 15:08] LABS: ALKALINE PHOSPHATASE 93 U/L (40-136); CREATININE SERUM 0.88 MG/DL (0.60-1.30); GFR ESTIMATED > 60
[2020-02-06 15:09] LABS: BUN/CREATININE RATIO 31
[2020-02-06 15:11] LABS: ALANINE AMINOTRANSFERASE 9 U/L (0-55)
[2020-02-06] MEDS ORDERED: NS IV 1000 ML 1,000 ML IV SCH (15:30)
--- NOTE | 2020-02-06 15:36 | Diagnostic Imaging Report ---
INDICATION: Chest pain Portable chest 3:05 PM Heart size and pulmonary vascularity are normal. Lungs are clear. There are no effusions or pneumothoraces. IMPRESSION: No acute abnormalities in the chest. Dictated by: Dictated on workstation # [id number]
[2020-02-06 15:49] LABS: BILIRUBIN,URINE 1+ (NEGATIVE); CLARITY,URINE CLOUDY; COLOR,URINE YELLOW; GLUCOSE, URINE (UA) NEGATIVE (NEGATIVE); KETONES,URINE NEGATIVE (NEGATIVE); LEUKOCYTE ESTERASE ,URINE TRACE (NEGATIVE); NITRITE,URINE NEGATIVE (NEGATIVE); PROTEIN,URINE TRACE (NEGATIVE)
[2020-02-06 16:06] LABS: AMORPHOUS SEDIMENT,UR MOD AMOR URATES /LPF; BACTERIA,URINE MODERATE /HPF; SQUAMOUS EPITHELIAL CELL,UR 0-2 /HPF
--- NOTE | 2020-02-06 16:44 | ED General ---
General Chief Complaint: General Problems/Pain Stated Complaint: SOA;COUGH Nursing Triage Note: PT TO COVID 3 BY EMS WITH CC OF LETHARGIC AND WEAKNESS THAT STARTED THIS AFTERNOON. PT ATE BREAKFAST THIS MORNING WITH NO ISSUES. PT DOES NOT APPEAR TO BE IN PAIN AT TRIAGE, HX OF DEMENTIA AND UNABLE TO ANSWER QUESTIONS. Nursing Sepsis Screen: No Definite Risk Source of Information: Patient, EMS Exam Limitations: Physical Impairments (dementia ) History of Present Illness Date Seen by Provider: Feb 06, 2020 Time Seen by Provider: 14:28 Initial Comments 69-year-old female who is brought to the emergency room by [facility] from [facility] for reports of increased weakness and being lethargic this started this afternoon. The patient was able to eat breakfast without any difficulties this morning. The patient is advanced dementia and is unable to answer any of our questions. EMS reports that this is her baseline. Associated Systoms: Weakness Allergies and Home Medications Allergies Coded Allergies: Aminoglycosides (Verified Allergy, Unknown, 11/11/06) adhesive (Verified Allergy, Unknown, 02/01/08) amoxicillin (Verified Allergy, Unknown, 11/11/06) bacitracin (Verified Allergy, Unknown, 11/11/06) cefaclor (Verified Allergy, Unknown, 07/20/17) clavulanic acid (Verified Allergy, Unknown, 11/11/06) erythromycin base (Verified Allergy, Unknown, 11/11/06) gramicidin D (Verified Allergy, Unknown, 11/11/06) latex (Verified Allergy, Unknown, 02/01/08) neomycin (Verified Allergy, Unknown, 11/11/06) polymyxin B (Verified Allergy, Unknown, 11/11/06) vancomycin (Verified Allergy, Unknown, 11/11/06) Home Medications Amoxicillin/Potassium Clav 1 Each Tablet, 1 EACH PO BID Prescribed by: JEREMÍAS CAM on 05/19/19 0813 Ascorbate Calcium 500 Mg Tablet, 500 MG PO DAILY, (Reported) Baclofen 10 Mg Tablet, 10 MG PO Q8H, (Reported) Bisacodyl 10 Mg Supp.rect, 10 MG RC DAILY PRN for CONSTIPATION-4TH LINE, (Repo rted) Cranberry Extract 250 Mg Capsule, 250 MG PO BID, (Reported) Divalproex Sodium 125 Mg Cap.sprink, 250 MG PO TID, (Reported) TAKES 2 (125MG) CAPSULES Dorzolamide HCl 10 Ml Drops, 1 DROP OU BID, (Reported) Famotidine 20 Mg Tablet, 20 MG PO DAILY, (Reported) Fluticasone/Vilanterol 1 Each Blst.w.dev, 1 PUFF INH DAILY, (Reported) Furosemide 20 Mg Tablet, 20 MG PO DAILY, (Reported) Guaifenesin/Dextromethorphan 5 Ml Syrup, 10 ML PO Q4H PRN for COUGH, (Reported) SUGAR FREE Hydrocodone Bit/Acetaminophen 1 Each Tablet, 1 TAB PO Q8H PRN for PAIN-MODERATE, (Reported) Ipratropium/Albuterol Sulfate 3 Ml Ampul.neb, 3 ML NEB Q4H PRN for SHORTNESS OF BREATH, (Reported) Latanoprost 2.5 Ml Drops, 1 DROP OU HS, (Reported) Magnesium Hydroxide 400 Mg/5 Ml Oral.susp, 15 ML PO BID, (Reported) Mirabegron 50 Mg Tab.er.24h, 50 MG PO DAILY, (Reported) Olanzapine 2.5 Mg Tablet, 2.5 MG PO HS, (Reported) Pilocarpine HCl 15 Ml Drops, 1 DROP OU QID, (Reported) Polyethylene Glycol 3350 17 Gm Powd.pack, 17 GM PO DAILY PRN for CONSTIPATION- 2ND LINE, (Reported) Potassium Chloride 10 Meq Tablet.er, 10 MEQ PO MoWeFr, (Reported) Sennosides/Docusate Sodium 1 Each Tablet, 1 TAB PO DAILY, (Reported) Topiramate 25 Mg Tablet, 25 MG PO BID, (Reported) Venlafaxine HCl 150 Mg Cap.er.24h, 150 MG PO DAILY, (Reported) [Pure & Gentle Enema] , 1 EA RC DAILY PRN for CONSTIPATION, (Reported) Patient Home Medication List Home Medication List Reviewed: Yes Review of Systems Review of Systems Constitutional: see HPI; No chills, No fever; malaise, weakness Psychiatric/Neurological: See HPI, Weakness Past Vkqoxsf-Dnuzew-Gohvux Hx Past Med/Social Hx: Reviewed Nursing Past Med/Soc Hx Patient Social History Alcohol Use: Denies Use Recreational Drug Use: No Smoking Status: Former Smoker Type Used: Cigarettes Former Smoker, Quit: Jul 20, 2007 2nd Hand Smoke Exposure: No Recent Foreign Travel: No Contact w/Someone Who Travel: No Recent Infectious Disease Expo: No Recent Hopitalizations: No Physical Abuse: No Sexual Abuse: No Mistreated: No Fear: No Immunizations Up To Date Tetanus Booster (TDap): Unknown PED Vaccines UTD: No Date of Pneumonia Vaccine: Jun 25, 2011 Date of Influenza Vaccine: May 21, 2017 Seasonal Allergies Seasonal Allergies: No Past Medical History Surgeries: Yes (TONSILLECTOMY; HYSTERECTOMY; ELBOW SURGERY; CARPAL TUNNEL SURGERY) Hysterectomy, Orthopedic, Tonsillectomy Respiratory: Yes (RLL PNEUMONIA AND SEPTIC SHOCK 01/11/19) Pneumonia, COPD Currently Using CPAP: No Currently Using BIPAP: No Cardiac: Yes (CHF) Chronic Edema/Swelling, Hypertension Neurological: Yes (DYPSHAGIA AND DYSPHASIA) Dementia, Headaches /Migraines, Multiple Sclerosis Reproductive Disorders: No INGREDIENT SCALER History: Menopausal Genitourinary: Yes Bladder Infection Gastrointestinal: Yes (DYSPHAGIA) Gastroesophageal Reflux, Chronic Constipation, Ulcer Musculoskeletal: Yes Chronic Back Pain Endocrine: No HEENT: Yes (EDENTULOUS; 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 No Pertinent Family Hx Physical Exam Vital Signs Vital Signs - First Documented 02/06/20 02/06/20 14:30 14:35 Temp 35.9 Pulse 80 Resp 20 B/P (MAP) 99/70 (80) Pulse Ox 99 O2 Delivery Nasal Cannula O2 Flow Rate 3.00 Capillary Refill : Less Than 3 Seconds Height, Weight, BMI Height: 5'6.00" Weight: 160lbs. 2.0oz. [id number]; 28.00 BMI Method:Estimated General Appearance: No Apparent Distress, WD/WN, Thin Eyes: Bilateral Eye Normal Inspection, Bilateral Eye PERRL, Bilateral Eye EOMI HEENT: PERRL/EOMI, TMs Normal, Normal ENT Inspection, Pharynx Normal Respiratory: Chest Non Tender, Lungs Clear, Normal Breath Sounds, No Accessory Muscle Use, No Respiratory Distress Cardiovascular: Regular Rate, Rhythm, No Edema, No Gallop, No JVD, No Murmur, Normal Peripheral Pulses Extremity: Normal Capillary Refill Neurologic/Psychiatric: Other (Patient has a baseline of dementia and is alert to her name. Does not answer questions appropriately.) Skin: Normal Color, Warm/Dry Focused Exam Lactate Level 02/06/20 14:40: Lactic Acid Level 2.30*H Lactic Acid Level Laboratory Tests Test 02/06/20 14:40 Lactic Acid Level 2.30 MMOL/L (0.50-2.00) *H Progress/Results/Core Measures Suspected Sepsis Recent Fever Within 48 Hours: No Infection Criteria Present: None New/Unexplained Altered Menta: Yes Sepsis Screen: No Definite Risk SIRS Temperature: Pulse: 80 Respiratory Rate: 20 Laboratory Tests 02/06/20 14:40: White Blood Count 12.8H Blood Pressure 99 /70 Mean: 80 02/06/20 14:40: Lactic Acid Level 2.30*H Laboratory Tests 02/06/20 14:40: Creatinine 0.88, INR Comment 1.1, Platelet Count 276, Total Bilirubin 0.5 Results/Orders Lab Results Laboratory Tests Test 02/06/20 14:40 02/06/20 15:40 Range/Units White Blood Count 12.8 H 4.3-11.0 10^3/uL Red Blood Count 5.49 4.35-5.85 10^6/uL Hemoglobin 16.1 H 11.5-16.0 G/DL Hematocrit 50 35-52 % Mean Corpuscular Volume 91 80-99 FL Mean Corpuscular Hemoglobin 29 25-34 PG Mean Corpuscular Hemoglobin Concent 32 32-36 G/DL Red Cell Distribution Width 14.9 H 10.0-14.5 % Platelet Count 276 130-400 10^3/uL Mean Platelet Volume 10.2 7.4-10.4 FL Neutrophils (%) (Auto) 67 42-75 % Lymphocytes (%) (Auto) 22 12-44 % Monocytes (%) (Auto) 9 0-12 % Eosinophils (%) (Auto) 1 0-10 % Basophils (%) (Auto) 1 0-10 % Neutrophils # (Auto) 8.5 H 1.8-7.8 X 10^3 Lymphocytes # (Auto) 2.8 1.0-4.0 X 10^3 Monocytes # (Auto) 1.2 H 0.0-1.0 X 10^3 Eosinophils # (Auto) 0.2 0.0-0.3 10^3/uL Basophils # (Auto) 0.1 0.0-0.1 10^3/uL Prothrombin Time 14.7 12.2-14.7 SEC INR Comment 1.1 0.8-1.4 Activated Partial Thromboplast Time 32 24-35 SEC Sodium Level 139 135-145 MMOL/L Potassium Level 4.6 3.6-5.0 MMOL/L Chloride Level 102 98-107 MMOL/L Carbon Dioxide Level 25 21-32 MMOL/L Anion Gap 12 5-14 MMOL/L Blood Urea Nitrogen 27 H 7-18 MG/DL Creatinine 0.88 0.60-1.30 MG/DL Estimat Glomerular Filtration Rate > 60 BUN/Creatinine Ratio 31 Glucose Level 105 70-105 MG/DL Lactic Acid Level 2.30 *H 0.50-2.00 MMOL/L Calcium Level 10.3 H 8.5-10.1 MG/DL Corrected Calcium 10.6 H 8.5-10.1 MG/DL Total Bilirubin 0.5 0.1-1.0 MG/DL Aspartate Amino Transf (AST/SGOT) 24 5-34 U/L Alanine Aminotransferase (ALT/SGPT) 9 0-55 U/L Alkaline Phosphatase 93 40-136 U/L Total Protein 9.2 H 6.4-8.2 GM/DL Albumin 3.6 3.2-4.5 GM/DL Urine Color YELLOW Urine Clarity CLOUDY Urine pH 6.0 5-9 Urine Specific Hyrum 1.020 1.016-1.022 Urine Protein TRACE H NEGATIVE Urine Glucose (UA) NEGATIVE NEGATIVE Urine Ketones NEGATIVE NEGATIVE Urine Nitrite NEGATIVE NEGATIVE Urine Bilirubin 1+ H NEGATIVE Urine Urobilinogen 2.0 < = 1.0 MG/DL Urine Leukocyte Esterase TRACE H NEGATIVE Urine RBC (Auto) NEGATIVE NEGATIVE Urine RBC 2-5 H /HPF Urine WBC 2-5 /HPF Urine Squamous Epithelial Cells 0-2 /HPF Urine Crystals PRESENT H /LPF Urine Amorphous Sediment MOD PITA URATES H /LPF Urine Bacteria MODERATE H /HPF Urine Casts NONE /LPF Urine Mucus NEGATIVE /LPF Urine Culture Indicated CULTURE PENDING My Orders Orders - RASHEEDA WALKER Cbc With Automated Diff (02/06/20 14:28) Comprehensive Metabolic Panel (02/06/20 14:28) Blood Culture (02/06/20 14:28) Sputum Culture (02/06/20 14:28) Urinalysis (02/06/20 14:28) Urine Culture (02/06/20 14:28) Protime With Inr (02/06/20 14:28) Partial Thromboplastin Time (02/06/20 14:28) Chest 1 View, Ap/Pa Only (02/06/20 14:28) Ed Iv/Invasive Line Start (02/06/20 14:28) Ed Iv/Invasive Line Start (02/06/20 14:28) Vital Signs Adult Sepsis Patie Q15M (02/06/20 14:28) O2 (02/06/20 14:28) Remove Rings In Anticipation O (02/06/20 14:28) Lactic Acid Analyzer (02/06/20 14:28) Ns Iv 1000 Ml (Sodium Chloride 0.9%) (02/06/20 15:30) Vital Signs/I&O 02/06/20 02/06/20 14:30 14:35 Temp 35.9 Pulse 80 Resp 20 B/P (MAP) 99/70 (80) Pulse Ox 99 99 O2 Delivery Nasal Cannula Nasal Cannula O2 Flow Rate 3.00 3.00 Capillary Refill : Less Than 3 Seconds Blood Pressure Mean: 80 Departure Communication (Admissions) Time/Spoke to Admitting Phy: 16:20 Dr. Khan Impression Primary Impression: Dementia Additional Impressions: Generalized weakness Lethargic Volume depletion Disposition: ADMITTED INPATIENT Condition: Stable/Unchanged Admissions Decision to Admit Reason: Admit from ER (General) Decision to Admit/Date: Feb 06, 2020 Time/Decision to Admit Time: 16:40 Departure-Patient Inst. Referrals: ABHIJEET BEVERLY MD (PCP/Family) Primary Care Physician RASHEEDA WALKER Feb 06, 2020 16:44
--- OUTSIDE RECORDS SUMMARY | 2020-02-06 17:00 | XMS REPORT | Continuity of Care Document ---
Author Organization Unknown Address Unknown Phone Unavailable Allergies Active Description Code Type Severity Reaction Onset Reported/Identified Relationship to Patient Clinical Status Yes AMINOGLYCOSIDE UN KNOWN UNKNOWN Yes BACTRIM UNKNOWN UNKNOWN Yes CEFACLOR UNKNOWN UNKNOWN Yes CEPHALOSPORINS UN KNOWN UNKNOWN Yes CORICIDIN D UNKNOWN UNKNOWN Yes LATEX UNKNOWN UNKNOWN Yes PENICILLIN G SODIUM UNKNOWN UNKNOWN Yes SILICON UNKNOWN UNKNOWN Yes TAPE UNKNOWN UNKNOWN Yes VANCOMYCIN UNKNOWN UNKNOWN Yes Aminoglycosides [id number] D rug Allergy Unknown N/A 11/11/2006 Yes amoxicillin [id number] Drug Aller gy Unknown N/A 11/11/2006 Yes bacitracin [id number] Drug Allerg y Unknown N/A 11/11/2006 Yes clavulanic acid [id number] D rug Allergy Unknown N/A 11/11/2006 Yes erythromycin base [id number] Drug Allergy Unknown N/A 11/11/2006 Yes gramicidin D [id number] Drug Allergy Unknown N/A 11/11/2006 Yes neomycin [id number] Drug Allergy Unknown N/A 11/11/2006 Yes polymyxin B [id number] Drug Aller gy Unknown N/A 11/11/2006 Yes vancomycin [id number] Drug Allerg y Unknown N/A 11/11/2006 Yes adhesive [id number] Drug Allergy Unknown N/A 02/01/2008 Yes latex [id number] Drug Allergy Unknown N/A 02/01/2008 Yes *MRSA Miscellaneous Allergy N/A N/A 08/23/2013 Yes cefaclor [id number] Drug Allergy Unknown N/A 07/20/2017 Medications There is no data. 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 08/19/2013 KIRT GEE MD 340 MULTIPLE SCLEROSIS 08/19/2013 KIRT GEE MD 496 CHR AIRWAY OBSTRUCT NEC 08/19/2013 KIRT GEE MD V58.69 RN HOME HEALTH MEDICATION USE 08/25/2013 RAGHU CHEN MD 296.34 [...] NOT SPECIF 03/16/2017 ABHIJEET BEVERLY MD Ot R0 5 COUGH 03/20/2017 ABHIJEET BEVERLY MD Ot R0 5 COUGH 04/21/2017 ABHIJEET BEVERLY MD Ot V76.12 OTH SCREEN MAMMO-MALIGN NEOPLASM OF HANS 04/21/2017 ABHIJEET BEVERLY MD Ot R39.198 OTHER DIFFICULTIES WITH MICTURITION 04/21/2017 ABHIJEET BEVERLY MD Ot N39.0 URINARY TRACT INFECTION, SITE NOT SPECIF 04/21/2017 ABHIJEET BEVERLY MD Ot R0 5 COUGH 04/21/2017 ABHIJEET BEVERLY MD Ot R0 5 COUGH 06/19/2017 JOSE R HAMILTON MD Ot S00.33XA CONTUSION OF NOSE, INITIAL ENCOUNTER 06/19/2017 JOSE R HAMILTON MD Ot S01.81XA LACERATION W/O FOREIGN BODY OF OTH PART 06/19/2017 JOSE R HAMILTON MD Ot S02.2XXA FRACTURE OF NASAL BONES, INIT ENCNTR FOR 06/19/2017 JOSE R HAMILTON MD Ot W19.XXXA UNSPECIFIED FALL, INITIAL ENCOUNTER 06/19/2017 JOSE R HAMILTON MD Ot Y92.[address] USP PLACE 06/19/2017 JOSE R HAMILTON MD Ot Z23 ENCOUNTER FOR IMMUNIZATION 06/19/2017 JOSE R HAMILTON MD Ot Z79.82 HALFWAY (CURRENT) USE OF ASPIRIN 06/19/2017 JOSE R HAMILTON MD Ot Z90.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 ABSENCE OF BOTH CERVIX AND UTER 06/19/2017 JOSE R HAMILTON MD Ot Z90.89 ACQUIRED ABSENCE OF OTHER ORGANS 07/21/2017 JONNA ALICEA MD Ot A41 .9 SEPSIS, UNSPECIFIED ORGANISM 07/21/2017 JONNA ALICEA MD Ot F03.90 UNSPECIFIED DEMENTIA WITHOUT BEHAVIORAL 07/21/2017 JONNA ALICEA MD Ot G35 MULTIPLE SCLEROSIS 07/21/2017 JONNA ALICEA MD Ot J18 .9 PNEUMONIA, UNSPECIFIED ORGANISM 07/24/2017 JONNA ALICEA MD Ot A41 .9 SEPSIS, UNSPECIFIED ORGANISM 07/24/2017 JONNA ALICEA MD Ot F03.90 UNSPECIFIED DEMENTIA WITHOUT BEHAVIORAL 07/24/2017 JNONA ALICEA MD Ot G35 MULTIPLE SCLEROSIS 07/24/2017 JONNA ALICEA MD Ot J18 .9 PNEUMONIA, UNSPECIFIED ORGANISM 07/24/2017 JONNA ALICEA MD Ot A41 .9 SEPSIS, UNSPECIFIED ORGANISM 07/24/2017 JONNA ALICEA MD Ot E66 .9 OBESITY, UNSPECIFIED 07/24/2017 JONNA ALICEA MD Ot E87 .6 HYPOKALEMIA 07/24/2017 JONNA ALICEA MD Ot F03.90 UNSPECIFIED DEMENTIA WITHOUT BEHAVIORAL 07/24/2017 JONNA ALICEA MD Ot G35 MULTIPLE SCLEROSIS 07/24/2017 JONNA ALICEA MD Ot J69 .0 PNEUMONITIS DUE TO INHALATION OF FOOD AN 07/24/2017 JONNA ALICEA MD Ot N39 .0 URINARY TRACT INFECTION, SITE NOT SPECIF 07/24/2017 [...] DUE TO INHALATION OF FOOD AN 07/28/2017 OLIVAS DO, NATASHA Ot K59.00 CONSTIPATION, UNSPECIFIED 07/28/2017 OLIVAS DO, NATASHA Ot N39.0 URINARY TRACT INFECTION, SITE NOT SPECIF 07/28/2017 OLIVAS DO, NATASHA Ot R13.10 DYSPHAGIA, UNSPECIFIED 07/28/2017 OLIVAS DO, NATASHA Ot Z66 DO NOT RESUSCITATE 07/28/2017 BRENDON CARRION, NATASHA Ot Z68.35 BODY MASS INDEX (BMI) 35.0-35.9, ADULT 01/11/2019 ABHIJEET BEVERLY MD, Ot V76.12 OTH SCREEN MAMMO-MALIGN NEOPLASM OF HANS 01/11/2019 ABHIJEET BEVERLY MD Ot R39.198 OTHER DIFFICULTIES WITH MICTURITION 01/11/2019 ABHIJEET BEVERLY MD Ot N39.0 URINARY TRACT INFECTION, SITE NOT SPECIF 01/11/2019 ABHIJEET BEVERLY MD Ot R0 5 COUGH 01/11/2019 MARS NIHARIKA CARRION Ot A41.9 SEPSIS, UNSPECIFIED ORGANISM 01/11/2019 MARS NIHARIKA CARRION Ot F03.90 UNSPECIFIED DEMENTIA WITHOUT BEHAVIORAL 01/11/2019 MARS NIHARIKA CARRION Ot F60.9 PERSONALITY DISORDER, UNSPECIFIED 01/11/2019 MARS NIHARIKA CARRION Ot G35 MULTIPLE SCLEROSIS 01/11/2019 MARS NIHARIKA CARRION Ot G43.909 MIGRAINE, UNSP, NOT INTRACTABLE, WITHOUT 01/11/2019 MARS TORI CARRIONA Na Ot I10 ESSENTIAL (PRIMARY) HYPERTENSION 01/11/2019 NIHARIKA CREWS DO Ot J18.1 LOBAR PNEUMONIA, UNSPECIFIED ORGANISM 01/11/2019 MARS NIHARIKA CARRION Ot N39.0 URINARY TRACT INFECTION, SITE NOT SPECIF 01/11/2019 NIHARIKA CREWS DO Ot R41.82 ALTERED MENTAL STATUS, UNSPECIFIED 01/11/2019 MARS NIHARIKA CARRION Ot R65.21 SEVERE SEPSIS WITH SEPTIC SHOCK 01/11/2019 NIHARIKA CREWS DO Ot Z79.51 RN HOME HEALTH (CURRENT) USE OF 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 01/11/2019 NIHARIKA CREWS DO Ot Z87.01 PERSONAL HISTORY OF PNEUMONIA (RECURRENT 01/11/2019 NIHARIKA CREWS DO Ot Z87.19 PERSONAL HISTORY OF OTHER DISEASES OF TH 01/11/2019 NIHARIKA CREWS DO Ot Z87.448 PERSONAL HISTORY OF OTHER DISEASES OF UR 01/11/2019 NIHARIKA CREWS DO Ot Z87.891 PERSONAL HISTORY OF NICOTINE DEPENDENCE 01/11/2019 NIHARIKA CREWS DO Ot Z88.1 ALLERGY STATUS TO OTHER ANTIBIOTIC AGENT 01/11/2019 [facility] Z88.8 ALLERGY STATUS TO OTH DRUG/MEDS/BIOL SUB 01/11/2019 [facility] Ot Z90.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 ABSENCE OF BOTH CERVIX AND UTER 01/11/2019 [facility] Ot Z90.89 ACQUIRED ABSENCE OF OTHER ORGANS 01/11/2019 [facility] Ot Z91.040 LATEX ALLERGY STATUS 01/11/2019 [facility] Ot Z91.048 OTHER NONMEDICINAL SUBSTANCE ALLERGY STA 01/14/2019 [facility] Ot A41.9 SEPSIS, UNSPECIFIED ORGANISM 01/14/2019 [facility] Ot F03.90 UNSPECIFIED DEMENTIA WITHOUT BEHAVIORAL 01/14/2019 [facility] Ot F60.9 PERSONALITY DISORDER, UNSPECIFIED 01/14/2019 [facility] Ot G35 MULTIPLE SCLEROSIS 01/14/2019 [facility] Ot G43.909 MIGRAINE, UNSP, NOT INTRACTABLE, WITHOUT 01/14/2019 MARS NIHARIKA Ot I10 ESSENTIAL (PRIMARY) HYPERTENSION 01/14/2019 [facility] Ot J18.1 LOBAR PNEUMONIA, UNSPECIFIED ORGANISM 01/14/2019 MARS NIHARIKA CARRION Ot N39.0 URINARY TRACT INFECTION, SITE NOT SPECIF 01/14/2019 TRIPOLI NIHARIKA CARRION Ot R41.82 ALTERED MENTAL STATUS, UNSPECIFIED 01/14/2019 [facility] Ot R65.21 SEVERE SEPSIS WITH SEPTIC SHOCK 01/14/2019 [facility] Ot Z79.51 RN HOME HEALTH (CURRENT) USE OF 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 01/14/2019 MARS NIHARIKA CARRION Ot Z87.01 PERSONAL HISTORY OF PNEUMONIA (RECURRENT 01/14/2019 MARS NIHARIKA CARRION Ot Z87.19 PERSONAL HISTORY OF OTHER DISEASES OF TH 01/14/2019 MARS NIHARIKA CARRION Ot Z87.448 PERSONAL HISTORY OF OTHER DISEASES OF UR 01/14/2019 MARS NIHARIKA CARRION Ot Z87.891 PERSONAL HISTORY OF NICOTINE DEPENDENCE 01/14/2019 MARS DONIHARIKA Ot Z88.1 ALLERGY STATUS TO OTHER ANTIBIOTIC AGENT 01/14/2019 NIHARIKA CREWS DO Ot Z88.8 ALLERGY STATUS TO OT DRUG/MEDS/BIOL SUB 01/14/2019 NIHARIKA CREWS DO Ot Z90.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 ABSENCE OF BOTH CERVIX AND UTER 01/14/2019 NIHARIKA CREWS DO Ot Z90.89 ACQUIRED ABSENCE OF OTHER ORGANS 01/14/2019 NIHARIKA CREWS DO Ot Z91.040 LATEX ALLERGY STATUS 01/14/2019 NIHARIKA CREWS DO Ot Z91.048 OTHER NONMEDICINAL SUBSTANCE ALLERGY STA 02/26/2019 RUSH SANCHEZ, ABHIJEET Monzon Ot V76.12 OT SCREEN MAMMO-MALIGN NEOPLASM OF HANS 02/26/2019 ABHIJEET BEVERLY MD Ot R39.198 OTHER DIFFICULTIES WITH MICTURITION 02/26/2019 ABHIJEET BEVERLY MD Ot N39.0 URINARY TRACT INFECTION, SITE NOT SPECIF 02/26/2019 ABHIJEET BEVERLY MD Ot R0 5 COUGH 02/28/2019 ABHIJEET BEVERLY MD Ot N39.0 URINARY TRACT INFECTION, SITE NOT SPECIF 03/02/2019 NIHARIKA CREWS DO Ot F03.91 UNSPECIFIED DEMENTIA WITH BEHAVIORAL DIS 03/02/2019 NIHARIKA CREWS DO Ot F22 DELUSIONAL DISORDERS 03/02/2019 NIHARIKA CREWS DO Ot F32.9 MAJOR DEPRESSIVE DISORDER, SINGLE EPISOD 03/02/2019 NIHARIKA CREWS DO Ot F41.9 ANXIETY DISORDER, UNSPECIFIED 03/02/2019 NIHARIKA CREWS DO Ot 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 03/02/2019 NIHARIKA CREWS DO Ot 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 03/02/2019 NIHARIKA CREWS DO Ot G35 MULTIPLE SCLEROSIS 03/02/2019 NIHARIKA CREWS DO Ot G43.909 MIGRAINE, UNSP, NOT INTRACTABLE, WITHOUT 03/02/2019 NIHARIKA CREWS DO Ot I11.0 HYPERTENSIVE HEART DISEASE WITH HEART FA 03/02/2019 NIHARIKA CREWS DO Ot I50.9 HEART FAILURE, UNSPECIFIED 03/02/2019 NIHARIKA CREWS DO Ot J44.9 CHRONIC OBSTRUCTIVE PULMONARY DISEASE, U 03/02/2019 NIHARIKA CREWS DO Ot K21.9 GASTRO-ESOPHAGEAL REFLUX DISEASE WITHOUT 03/02/2019 NIHARIKA CREWS DO Ot R05 COUGH 03/02/2019 NIHARIKA CREWS DO Ot Z74.09 OTHER REDUCED MOBILITY 03/02/2019 NIHARIKA CREWS DO Ot Z79.51 HALFWAY (CURRENT) USE OF 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 03/02/2019 NIHARIKA CREWS DO Ot Z87.01 PERSONAL HISTORY OF PNEUMONIA (RECURRENT 03/02/2019 NIHARIKA CREWS DO Ot Z87.891 PERSONAL HISTORY OF NICOTINE DEPENDENCE 03/02/2019 NIHARIKA CREWS DO Ot Z88.0 ALLERGY STATUS TO PENICILLIN 03/02/2019 NIHARIKA CREWS DO Ot Z88.1 ALLERGY STATUS TO OTHER ANTIBIOTIC AGENT 03/02/2019 NIHARIKA CREWS DO Ot Z88.8 ALLERGY STATUS TO OTH DRUG/MEDS/BIOL SUB 03/02/2019 NIHARIKA CREWS DO Ot Z90.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 ABSENCE OF BOTH CERVIX AND UTER 03/02/2019 NIHARIKA CREWS DO Ot Z90.89 ACQUIRED ABSENCE OF OTHER ORGANS 03/02/2019 NIHARIKA CREWS DO Ot Z91.040 LATEX ALLERGY STATUS 03/02/2019 NIHARIKA CREWS DO Ot Z98.890 OTHER SPECIFIED POSTPROCEDURAL STATES 03/08/2019 NIHARIKA CREWS DO Ot F03.91 UNSPECIFIED DEMENTIA WITH BEHAVIORAL DIS 03/08/2019 NIHARIKA CREWS DO Ot F22 DELUSIONAL DISORDERS 03/08/2019 NIHARIKA CREWS DO Ot F32.9 MAJOR DEPRESSIVE DISORDER, SINGLE EPISOD 03/08/2019 NIHARIKA CREWS DO Ot F41.9 ANXIETY DISORDER, UNSPECIFIED 03/08/2019 NIHARIKA CREWS DO Ot 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 03/08/2019 NIHARIKA CREWS DO Ot 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 03/08/2019 NIHARIKA CREWS DO Ot G35 MULTIPLE SCLEROSIS 03/08/2019 NIHARIKA CREWS DO Ot G43.909 MIGRAINE, UNSP, NOT INTRACTABLE, WITHOUT 03/08/2019 NIHARIKA CREWS DO Ot I11.0 HYPERTENSIVE HEART DISEASE WITH HEART FA 03/08/2019 NIHARIKA CREWS DO Ot I50.9 HEART FAILURE, UNSPECIFIED 03/08/2019 MARS CARRION NIHARIKA Na Ot J44.9 CHRONIC OBSTRUCTIVE PULMONARY DISEASE, U 03/08/2019 MARS CARRION NIHARIKA Na Zamudio K21.9 GASTRO-ESOPHAGEAL REFLUX DISEASE WITHOUT 03/08/2019 MARS NIHARIKA Ot R05 COUGH 03/08/2019 MARS NIHARIKA Ot Z74.09 OTHER REDUCED MOBILITY 03/08/2019 MARS NIHARIKA Ot Z79.51 RN HOME HEALTH (CURRENT) USE OF 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 03/08/2019 MARS NIHARIKA Ot Z87.01 PERSONAL HISTORY OF PNEUMONIA (RECURRENT 03/08/2019 MARS NIHARIKA K Ot Z87.891 PERSONAL HISTORY OF NICOTINE DEPENDENCE 03/08/2019 MARS NIHARIKA Ot Z88.0 ALLERGY STATUS TO PENICILLIN 03/08/2019 MARS NIHARIKA Ot Z88.1 ALLERGY STATUS TO OTHER ANTIBIOTIC AGENT 03/08/2019 MARS NIHARIKA Ot Z88.8 ALLERGY STATUS TO OTH DRUG/MEDS/BIOL SUB 03/08/2019 MARS NIHARIKA Ot Z90.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 ABSENCE OF BOTH CERVIX AND UTER 03/08/2019 MARS NIHARIKA Ot Z90.89 ACQUIRED ABSENCE OF OTHER ORGANS 03/08/2019 MARS NIHARIKA Ot Z91.040 LATEX ALLERGY STATUS 03/08/2019 MARS TORIA Na Ot Z98.890 OTHER SPECIFIED POSTPROCEDURAL STATES 05/19/2019 JEREMÍAS CAM DO Ot A41.9 SEPSIS, UNSPECIFIED ORGANISM 05/19/2019 JEREMÍAS CAM DO Ot B95.2 ENTEROCOCCUS THE CAUSE OF DISEASES CL 05/19/2019 JEREMÍAS CAM DO Ot B96.3 HEMOPHILUS INFLUENZAE THE CAUSE OF DI 05/19/2019 JEREMÍAS CAM DO Ot F03.91 UNSPECIFIED DEMENTIA WITH BEHAVIORAL DIS 05/19/2019 JEREMÍAS CAM DO Ot F22 DELUSIONAL DISORDERS 05/19/2019 JEREMÍAS CAM DO Ot F32.9 MAJOR DEPRESSIVE DISORDER, SINGLE EPISOD 05/19/2019 JEREMÍAS CAM DO Ot F41.9 ANXIETY DISORDER, UNSPECIFIED 05/19/2019 JEREMÍAS CAM DO Ot 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 05/19/2019 GELLENDER DO, JEREMÍAS Frederick Ot G35 MULTIPLE SCLEROSIS 05/19/2019 GELLENDER DO, JEREMÍAS Yoly Ot G43.909 MIGRAINE, UNSP, NOT INTRACTABLE, WITHOUT 05/19/2019 GELLENDER DO, JEREMÍAS Yoly Ot G89.29 OTHER CHRONIC PAIN 05/19/2019 GELLENDER DO, JEREMÍAS Yoly Ot H35.30 UNSPECIFIED MACULAR DEGENERATION 05/19/2019 GELLENDER DO, JEREMÍAS Frederick Ot H40.9 UNSPECIFIED GLAUCOMA 05/19/2019 GELLENDER DO, JEREMÍAS Frederick Ot I11.0 HYPERTENSIVE HEART DISEASE WITH HEART FA 05/19/2019 GELLENDER DO, JEREMÍAS Frederick Ot I50.9 HEART FAILURE, UNSPECIFIED 05/19/2019 GELLENDER DO, JEREMÍAS Frederick Ot J18.9 PNEUMONIA, UNSPECIFIED ORGANISM 05/19/2019 GELLENDER DO, JEREMÍAS Frederick Ot J44.0 CHR OBSTRUCTIVE PULMON DISEASE WITH (ACU 05/19/2019 GELLENDER DO, JEREMÍAS Yoly Ot K21.9 GASTRO-ESOPHAGEAL REFLUX DISEASE WITHOUT 05/19/2019 GELLENDER DO, JEREMÍAS Yoly Ot K59.09 OTHER CONSTIPATION 05/19/2019 GELLENDER DO, JEREMÍAS Yoly Ot M54.9 DORSALGIA, UNSPECIFIED 05/19/2019 GELLENDER DO, JEREMÍAS Yoly Ot N39.0 URINARY TRACT INFECTION, SITE NOT SPECIF 05/19/2019 GELLENDER DO, JEREMÍAS Yoly Ot R09.02 HYPOXEMIA 05/19/2019 GELLENDER DO, JEREMÍAS Yoly Ot R13.10 DYSPHAGIA, UNSPECIFIED 05/19/2019 GELLENDER DO, JEREMÍAS Yoly Ot R47.02 DYSPHASIA 05/19/2019 GELLENDER DO, JEREMÍAS Yoly Ot Z66 DO NOT RESUSCITATE 05/19/2019 GELLENDER DO, JEREMÍAS Yoly Ot Z87.891 PERSONAL HISTORY OF NICOTINE DEPENDENCE 05/19/2019 GELLENDER DO, JEREMÍAS Frederick Ot Z88.1 ALLERGY STATUS TO OTHER ANTIBIOTIC AGENT 05/19/2019 GELLENDER DO, JEREMÍAS Frederick Ot Z99.3 DEPENDENCE ON WHEELCHAIR 06/20/2019 RUSH SANCHEZ, ABHIJEET Monzon Ot V76.12 OTH SCREEN MAMMO-MALIGN NEOPLASM OF HANS 06/20/2019 ABHIJEET BEVERLY MD Ot R39.198 OTHER DIFFICULTIES WITH MICTURITION 06/20/2019 GUGNANI MD, ABHIJEET K Ot N39.0 URINARY TRACT INFECTION, SITE NOT SPECIF 06/20/2019 RUSH SANCHEZ, ABHIJEET Monzon Ot R0 5 COUGH 06/20/2019 GELLENDER DO, JEREMÍAS A Ot J69.0 PNEUMONITIS DUE TO INHALATION OF FOOD AN 06/30/2019 GELLENDER DO, JEREMÍAS A Ot J69.0 PNEUMONITIS DUE TO INHALATION OF FOOD AN 07/06/2019 GELLENDER DO, JEREMÍAS A Ot J69.0 PNEUMONITIS DUE TO INHALATION OF FOOD AN 08/29/2019 ALFONSO SANCHEZ, JOSE R Dowd Ot F03.91 UNSPECIFIED DEMENTIA WITH BEHAVIORAL DIS 08/29/2019 ALFONSO SANCHEZ, JOSE R Dowd Ot F32.9 MAJOR DEPRESSIVE DISORDER, SINGLE EPISOD 08/29/2019 JOSE R HAMILOTN MD, Ot F41.9 ANXIETY DISORDER, UNSPECIFIED 08/29/2019 JOSE R HAMILTON MD, Ot 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 08/29/2019 JOSE R HAMILTON MD Ot G35 MULTIPLE SCLEROSIS 08/29/2019 JOSE R HAMILTON MD, Ot G43.909 MIGRAINE, UNSP, NOT INTRACTABLE, WITHOUT 08/29/2019 JOSE R HAMILTON MD Ot I11.0 HYPERTENSIVE HEART DISEASE WITH HEART FA 08/29/2019 JOSE R HAMILTON MD, Ot I50.9 HEART FAILURE, UNSPECIFIED 08/29/2019 JOSE R HAMILTON MD, Ot J06.9 ACUTE UPPER RESPIRATORY INFECTION, UNSPE 08/29/2019 JOSE R HAMILTON MD, Ot J44.9 CHRONIC OBSTRUCTIVE PULMONARY DISEASE, U 08/29/2019 JOSE R HAMILTON MD, Ot K21.9 GASTRO-ESOPHAGEAL REFLUX DISEASE WITHOUT 08/29/2019 JOSE R HAMILTON MD, Ot R50.9 FEVER, UNSPECIFIED 08/29/2019 JOSE R HAMILTON MD, Ot Z79.51 HALFWAY (CURRENT) USE OF 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 08/29/2019 JOSE R HAMILTON MD, Ot Z87.891 PERSONAL HISTORY OF NICOTINE DEPENDENCE 08/29/2019 JOSE R HAMILTON MD, Ot Z88.0 ALLERGY STATUS TO PENICILLIN 08/29/2019 JOSE R HAMILTON MD, Ot Z88.1 ALLERGY STATUS TO OTHER ANTIBIOTIC AGENT 08/29/2019 JOSE R HAMILTON MD, Ot Z88.4 ALLERGY STATUS TO ANESTHETIC AGENT STATU 08/29/2019 JOSE R HAMILTON MD, Ot Z88.8 ALLERGY STATUS TO OTH DRUG/MEDS/BIOL SUB 08/29/2019 JOSE R HAMILTON MD, Ot Z90.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 ABSENCE OF BOTH CERVIX AND UTER 08/29/2019 JOSE R HAMILTON MD, Ot Z90.89 ACQUIRED ABSENCE OF OTHER ORGANS 08/29/2019 JOSE R HAMILTON MD, Ot Z91.040 LATEX ALLERGY STATUS 09/01/2019 JOSE R HAMILTON MD, Ot F03.91 UNSPECIFIED DEMENTIA WITH BEHAVIORAL DIS 09/01/2019 JOSE R HAMILTON MD, Ot F32.9 MAJOR DEPRESSIVE DISORDER, SINGLE EPISOD 09/01/2019 JOSE R HAMILTON MD, Ot F41.9 ANXIETY DISORDER, UNSPECIFIED 09/01/2019 JOSE R HAMILTON MD, Ot 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 09/01/2019 JOSE R HAMILTON MD, Ot G35 MULTIPLE SCLEROSIS 09/01/2019 JOSE R HAMILTON MD, Ot G43.909 MIGRAINE, UNSP, NOT INTRACTABLE, WITHOUT 09/01/2019 JOSE R HAMILTON MD, Ot I11.0 HYPERTENSIVE HEART DISEASE WITH HEART FA 09/01/2019 JOSE R HAMILTON MD, Ot I50.9 HEART FAILURE, UNSPECIFIED 09/01/2019 JOSE R HAMILTON MD, Ot J06.9 ACUTE UPPER RESPIRATORY INFECTION, UNSPE 09/01/2019 JOSE R HAMILTON MD, Ot J44.9 CHRONIC OBSTRUCTIVE PULMONARY DISEASE, U 09/01/2019 JOSE R HAMILTON MD, Ot K21.9 GASTRO-ESOPHAGEAL REFLUX DISEASE WITHOUT 09/01/2019 JOSE R HAMILTON MD, Ot R50.9 FEVER, UNSPECIFIED 09/01/2019 JOSE R HAMILTON MD, Ot Z79.51 RN HOME HEALTH (CURRENT) USE OF 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 09/01/2019 JOSE R HAMILTON MD, Ot Z87.891 PERSONAL HISTORY OF NICOTINE DEPENDENCE 09/01/2019 ALFONSO SANCHEZ, JOSE R Dowd Ot Z88.0 ALLERGY STATUS TO PENICILLIN 09/01/2019 ALFONSO SANCHEZ, JOSE R Dowd Ot Z88.1 ALLERGY STATUS TO OTHER ANTIBIOTIC AGENT 09/01/2019 ALFONSO SANCHEZ, JOSE R Dowd Ot Z88.4 ALLERGY STATUS TO ANESTHETIC AGENT STATU 09/01/2019 ALFONSO SANCHEZ, JOSE R Dowd Ot Z88.8 ALLERGY STATUS TO OTH DRUG/MEDS/BIOL SUB 09/01/2019 ALFONSO SANCHEZ, JOSE R Dowd Ot Z90.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 ABSENCE OF BOTH CERVIX AND UTER 09/01/2019 JOSE R HAMILTON MD, Ot Z90.89 ACQUIRED ABSENCE OF OTHER ORGANS 09/01/2019 ALFONSO SANCHEZ, JOSE R Dowd Ot Z91.040 LATEX ALLERGY STATUS Procedures Code Description Performed By Per jf On 33.24 ENDO SCOPIC BRONCHIAL BX 07/23/2009 31828 ELEC TROCARDIOGRAM REPORT GERARD SANCHEZ, KIRT Gipson 08/19/2013 Results Test Result Range COMPLETE BLOOD COUNT - 08/19/13 14:50 Platelet 218 10^3u 142-424 MPV 10.9 FL 9.4-12.4 Terrell # 0.85 10^3u 0.0-1.0 RBC 5.14 10^6u 4.04-6.13 Terrell % 12.0 % 0-12 RDW 14.2 % [...] MG/DL 0.7-1.5 Valproic Acid (Depakene) - 08/19/13 14:5 0 Valproic Acid (Depakene) 17.72 UG/ML 50- 100 [...] Urobilinogen 4.0 0.2-1.0 Urine RBC N0-2 Specific [place] 1.020 1.010-1.020 Urine WBC N0-2 Amorphous Crystals 1+ Blood Negative Negative Color Yellow Yellow Squamous Epithelial Cells 2+ Bilirubin Negative Negative Valproic Acid (Depakene) - 08/25/13 05:3 0 Valproic Acid (Depakene) 36.78 UG/ML 50- 100 Complete urinalysis with reflex to cultu re - 10/25/16 06:37 Urine color determination YELLOW NRG Urine clarity determination SLIGHTLY CLOUDY NRG Urine pH measurement by test strip 6 5-9 Specific gravity of urine by test strip 1.015 1.016-1.022 Urine protein assay by test strip, semi-quantitative NEGATIVE NEGATIVE Urine glucose detection by automated test strip NE GATIVE NEGATIVE Erythrocytes detection in urine sediment by light micr oscopy 1+ NEGATIVE Urine ketones detection by automated test strip NE GATIVE NEGATIVE Urine nitrite detection by test strip NEGATIVE NEGATIVE Urine total bilirubin detection by test strip NEGA TIVE NEGATIVE Urine urobilinogen measurement by automated test strip (mass/volume) 4 mg/dL NORMAL Urine leukocyte esterase detection by dipstick 2+ NEGATIVE Automated urine sediment erythrocyte cou nt by microscopy (number/high power field) NONE NRG Automated urine sediment leukocyte count by microscopy (number/high power field) TNTC NRG Bacteria detection in urine sediment by light microsco py LARGE NRG Squamous epithelial cells detection in u rine sediment by light microscopy 0-2 NRG Crystals detection in urine sediment by light microsco py PRESENT NRG Casts detection in urine sediment by light microscopy NONE NRG Mucus detection in urine sediment by light microscopy NEGATIVE NRG Complete urinalysis with reflex to culture YES NRG Amorphous sediment detection in urine sediment by ligh t microscopy MOD PITA URATES NRG Renal epithelial cells detection in urin e sediment by light microscopy 0-2 NRG Bacterial urine culture - 10/25/16 06:37 Bacterial urine culture FOOTNOTE NRG Complete urinalysis with reflex to cultu re - 01/31/17 02:33 Urine color determination YELLOW NRG Urine clarity determination SLIGHTLY CLOUDY NRG Urine pH measurement by test strip 6 5-9 Specific gravity of urine by test strip 1.020 1.016-1.022 Urine protein assay by test strip, semi-quantitative 1+ NEGATIVE Urine glucose detection by automated test strip NE GATIVE NEGATIVE Erythrocytes detection in urine sediment by light micr oscopy NEGATIVE NEGATIVE Urine ketones detection by automated test strip NE GATIVE NEGATIVE Urine nitrite detection by test strip NEGATIVE NEGATIVE Urine total bilirubin detection by test strip NEGA TIVE NEGATIVE Urine urobilinogen measurement by automated test strip (mass/volume) 4 mg/dL NORMAL Urine leukocyte esterase detection by dipstick 1+ NEGATIVE Automated urine sediment erythrocyte cou nt by microscopy (number/high power field) NONE NRG Automated urine sediment leukocyte count by microscopy (number/high power field) [HPF] NRG Bacteria detection in urine sediment by light microsco py LARGE NRG Squamous epithelial cells detection in u rine sediment by light microscopy 5-10 NRG Crystals detection in urine sediment by light microsco py NONE NRG Casts detection in urine sediment by light microscopy NONE NRG Mucus detection in urine sediment by light microscopy NEGATIVE NRG Complete urinalysis with reflex to culture YES NRG Bacterial urine culture - 01/31/17 02:33 Bacterial urine culture [id number] NRG COLONY COUNT >100,000/ML NRG FTX;REPORTABLE SENSITIVITY REPORTED AT 0811, 17 NRG URINE CULTURE RESULTS PLUS NR Bacterial susceptibility panel - 7 02:33 Gentamicin susceptibility test by minimum inhibitory c oncentration >= NRG Trimethoprim/sulfamethoxazole susceptibi lity test by minimum inhibitoryconcentration <= NRG Ampicillin susceptibility test by minimum inhibitory c oncentration >= NRG Tobramycin susceptibility test by minimum inhibitory c oncentration 2 NRG Cefazolin susceptibility test by minimum inhibitory co ncentration <= NRG Ceftriaxone susceptibility test by minimum inhibitory concentration <= NRG Ampicillin/sulbactam susceptibility test by minimum inhibitory concentration 16 NRG Piperacillin/tazobactam susceptibility t est by minimum inhibitory concentration <= NRG Ciprofloxacin susceptibility test by minimum inhibitor y concentration 0.5 NRG Meropenem susceptibility test by minimum inhibitory co ncentration <= NRG Nitrofurantoin susceptibility test by mi nimum inhibitory concentration <= NRG Aztreonam susceptibility test by minimum inhibitory co ncentration <= NRG Extended spectrum beta lactamase (ESBL) producing bacteria susceptibility test by minimum inhibitory concentration - NR Bacterial susceptibility panel - 7 02:33 Gentamicin susceptibility test by minimum inhibitory c oncentration S NRG Vancomycin susceptibility test by minimum inhibitory c oncentration <= NRG Levofloxacin susceptibility test by minimum inhibitory concentration >= NRG Tetracycline susceptibility test by minimum inhibitory concentration >= NRG Ampicillin susceptibility test by minimum inhibitory c oncentration 8 NRG Ciprofloxacin susceptibility test by minimum inhibitor y concentration R NRG Nitrofurantoin susceptibility test by mi nimum inhibitory concentration 64 NRG Linezolid susceptibility test by minimum inhibitory co ncentration 2 NRG Sputum Gram stain - 02/20/17 05:00 GRAM STAIN SPUTUM AND MIXED BACTERIAL SUSAN NRG Bacterial sputum culture - 02/20/17 05:0 0 FREE TEXT EXTERNAL AB NRG QUANTITY OF GROWTH . NRG MRSA AGAR MRSA isolated (Screening test for MRSA is positive) NRG CALL POSITIVES (F1 HELP) CALLED TO MARLON/LUIS Frederick AT 0936, 02-22-17 NR Bacterial sputum culture [id number] [facility] Bacterial susceptibility panel - 7 05:00 Oxacillin susceptibility test by minimum inhibitory co ncentration >= NRG Gentamicin susceptibility test by minimum inhibitory c oncentration <= NRG Clindamycin susceptibility test by minimum inhibitory concentration R NRG Erythromycin susceptibility test by minimum inhibitory concentration >= NRG Trimethoprim/sulfamethoxazole susceptibi lity test by minimum inhibitoryconcentration <= NRG Vancomycin susceptibility test by minimum inhibitory c oncentration <= NRG Levofloxacin susceptibility test by minimum inhibitory concentration >= NRG Rifampin susceptibility test by minimum inhibitory con centration <= NRG Tetracycline susceptibility test by minimum inhibitory concentration >= NRG Ciprofloxacin susceptibility test by minimum inhibitor y concentration R [facility] Bacterial susceptibility panel - 7 05:00 Gentamicin susceptibility test by minimum inhibitory c oncentration >= NRG Trimethoprim/sulfamethoxazole susceptibi lity test by minimum inhibitoryconcentration >= NRG Ampicillin susceptibility test by minimum inhibitory c oncentration >= NRG Tobramycin susceptibility test by minimum inhibitory c oncentration >= NRG Cefazolin susceptibility test by minimum inhibitory co ncentration I NRG Ceftriaxone susceptibility test by minimum inhibitory concentration S NRG Ampicillin/sulbactam susceptibility test by minimum inhibitory concentration >= NRG Piperacillin/tazobactam susceptibility t est by minimum inhibitory concentration <= NRG Ciprofloxacin susceptibility test by minimum inhibitor y concentration >= NRG Meropenem susceptibility test by minimum inhibitory co ncentration <= NRG Aztreonam susceptibility test by minimum inhibitory co ncentration S NRG Amikacin susceptibility test by minimum inhibitory con centration S [facility] Bacterial susceptibility panel - 7 05:00 Gentamicin susceptibility test by minimum inhibitory c oncentration >= NRG Trimethoprim/sulfamethoxazole susceptibi lity test by minimum inhibitoryconcentration <= NRG Ampicillin susceptibility test by minimum inhibitory c oncentration >= NRG Tobramycin susceptibility test by minimum inhibitory c oncentration 8 NRG Cefazolin susceptibility test by minimum inhibitory co ncentration <= NRG Ceftriaxone susceptibility test by minimum inhibitory concentration <= NRG Ampicillin/sulbactam susceptibility test by minimum inhibitory concentration 16 NRG Piperacillin/tazobactam susceptibility t est by minimum inhibitory concentration <= NRG Ciprofloxacin susceptibility test by minimum inhibitor y concentration >= NRG Meropenem susceptibility test by minimum inhibitory co ncentration <= NRG Aztreonam susceptibility test by minimum inhibitory co ncentration <= NRG Extended spectrum beta lactamase (ESBL) producing bacteria susceptibility test by minimum inhibitory concentration - NRG Amikacin susceptibility test by minimum inhibitory con centration S NRG Complete blood count (CBC) with automate d white blood cell (WBC) differential - 06/18/17 22:55 Blood leukocytes automated count (number/volume) 9.6 10*3/uL 4.3-11.0 Blood erythrocytes automated count (number/volume) 4.90 10*6/uL 4.35-5.85 Venous blood hemoglobin measurement (mass/volume) 14.1 g/dL 11.5-16.0 Blood hematocrit (volume fraction) 43 % 35-52 Automated erythrocyte mean corpuscular volume 88 [ foz_us] 80-99 Automated erythrocyte mean corpuscular h emoglobin (mass per erythrocyte) 29 pg 25-34 Automated erythrocyte mean corpuscular h emoglobin concentration measurement (mass/volume) 33 g/dL 32-36 Automated erythrocyte distribution width ratio 14. 3 % 10.0- 14.5 Automated blood platelet count [...] 10*3 1.0-4.0 Blood monocytes automated count (number/volume) 0. 7 10*3 0.0-1.0 Automated eosinophil count 0.0 10*3/uL 0 .0-0.3 Automated blood basophil count (count/volume) 0.1 10*3/uL 0.0-0.1 Whole blood basic metabolic panel - 04/26 22:55 Serum or plasma sodium measurement (moles/volume) 141 mmol/L 135-145 Serum or plasma potassium measurement (moles/volume) 3.9 mmol/L 3.6-5.0 Serum or plasma chloride measurement (moles/volume) 104 mmol/L 98-107 Carbon dioxide 26 mmol/L 21-32 Serum or plasma anion gap determination (moles/volume) 11 mmol/L 5-14 Serum or plasma urea nitrogen measurement (mass/volume ) 28 mg/dL 7-18 Serum or plasma creatinine measurement (mass/volume) 0.86 mg/dL 0.60-1.30 Serum or plasma urea nitrogen/creatinine mass ratio 33 NRG Serum or plasma creatinine measurement w ith calculation of estimated glomerular filtration rate > NRG Serum or plasma glucose measurement (mass/volume) 120 mg/dL 70-105 Serum or plasma calcium measurement (mass/volume) 9.4 mg/dL 8.5-10.1 Valproic acid - 06/18/17 22:55 Valproic acid 25.3 ug/mL 50.0-100.0 Complete urinalysis with reflex to cultu re - 06/19/17 00:04 Urine color determination YELLOW NRG Urine clarity determination CLEAR NR G Urine pH measurement by test strip 6 5-9 Specific gravity of urine by test strip 1.020 1.016-1.022 Urine protein assay by test strip, semi-quantitative NEGATIVE NEGATIVE Urine glucose detection by automated test strip NE GATIVE NEGATIVE Erythrocytes detection in urine sediment by light micr oscopy NEGATIVE NEGATIVE Urine ketones detection by automated test strip NE GATIVE NEGATIVE Urine nitrite detection by test strip NEGATIVE NEGATIVE Urine total bilirubin detection by test strip NEGA TIVE NEGATIVE Urine urobilinogen measurement by automated test strip (mass/volume) 4 mg/dL NORMAL Urine leukocyte esterase detection by dipstick 1+ NEGATIVE Automated urine sediment erythrocyte cou nt by microscopy (number/high power field) NONE NRG Automated urine sediment leukocyte count by microscopy (number/high power field) RARE NRG Bacteria detection in urine sediment by light microsco py TRACE NRG Squamous epithelial cells detection in u rine sediment by light microscopy 2-5 NRG Crystals detection in urine sediment by light microsco py NONE NRG Casts detection in urine sediment by light microscopy PRESENT NRG Mucus detection in urine sediment by light microscopy SMALL NRG Complete urinalysis with reflex to culture NO NRG Hyaline casts detection in urine sediment by light manjinder roscopy RARE NRG Blood lactic acid measurement (moles/vol ume) - 07/20/17 16:30 Blood lactic acid measurement (moles/volume) 1.13 mmol/L 0.50-2.00 Complete blood count (CBC) with automate d white blood cell (WBC) differential - 07/20/17 16:30 Blood leukocytes automated count (number/volume) 23.6 10*3/uL 4.3-11.0 Blood erythrocytes automated count (number/volume) 4.94 10*6/uL 4.35-5.85 Venous blood hemoglobin measurement (mass/volume) 14.0 g/dL 11.5-16.0 Blood hematocrit (volume fraction) 43 % 35-52 Automated erythrocyte mean corpuscular volume 88 [ foz_us] 80-99 Automated erythrocyte mean corpuscular h emoglobin (mass per erythrocyte) 28 pg 25-34 Automated erythrocyte mean corpuscular h emoglobin concentration measurement (mass/volume) 32 g/dL 32-36 Automated erythrocyte distribution width ratio 14. 5 % 10.0- 14.5 Automated blood platelet count [...] 10*3 1.0-4.0 Blood monocytes automated count (number/volume) 1. 6 10*3 0.0-1.0 Automated eosinophil count 0.0 10*3/uL 0 .0-0.3 Automated blood basophil count (count/volume) 0.0 10*3/uL 0.0-0.1 PT panel in platelet poor plasma by coag ulation assay - 07/20/17 16:30 Prothrombin time (PT) in platelet poor plasma by coagu lation assay 14.5 s 12.2-14.7 INR in platelet poor plasma or blood by coagulation as say 1.1 0.8-1.4 Activated partial thromboplastin time (a PTT) in platelet poor plasma bycoagulation assay - 07/20/17 16:30 Activated partial thromboplastin time (a PTT) in platelet poor plasma bycoagulation assay 35 s 24-35 Comprehensive metabolic panel - 07/20/17 16:30 Serum or plasma sodium measurement (moles/volume) 142 mmol/L 135-145 Serum or plasma potassium measurement (moles/volume) 3.3 mmol/L 3.6-5.0 Serum or plasma chloride measurement (moles/volume) 104 mmol/L 98-107 Carbon dioxide 28 mmol/L 21-32 Serum or plasma anion gap determination (moles/volume) 10 mmol/L 5-14 Serum or plasma urea nitrogen measurement (mass/volume ) 26 mg/dL 7-18 Serum or plasma creatinine measurement (mass/volume) 0.80 mg/dL 0.60-1.30 Serum or plasma urea nitrogen/creatinine mass ratio 33 NRG Serum or plasma creatinine measurement w ith calculation of estimated glomerular filtration rate > NRG Serum or plasma glucose measurement (mass/volume) 103 mg/dL 70-105 Serum or plasma calcium measurement (mass/volume) 9.8 mg/dL 8.5-10.1 Serum or plasma total bilirubin measurement (mass/volu me) 1.1 mg/dL 0.1-1.0 Serum or plasma alkaline phosphatase yolanda surement (enzymatic activity/volume) 102 U/L 40-136 Serum or plasma aspartate aminotransfera se measurement (enzymatic activity/volume) 16 U/L 5-34 Serum or plasma alanine aminotransferase measurement (enzymatic activity/volume) 14 U/L 0-55 Serum or plasma protein measurement (mass/volume) 7.8 g/dL 6.4-8.2 Serum or plasma albumin measurement (mass/volume) 3.3 g/dL 3.2-4.5 Blood manual differential performed dete ction - 07/20/17 16:30 Blood monocytes/100 leukocytes 3 % NRG Manual blood segmented neutrophils/100 leukocytes 80 % NRG Blood band neutrophils/100 leukocytes 5 % NRG Manual blood lymphocytes/100 leukocytes 12 % NRG Blood erythrocyte morphology finding identification NORMAL NRG Blood toxic granules detection by light microscopy 1+ NRG Serum or plasma lithium measurement (mol es/volume) - 07/20/17 16:30 BNP level 124.3 pg/mL <100.0 Bacterial blood culture - 07/20/17 16:30 Bacterial blood culture NG NRG Bacterial blood culture - 07/20/17 16:52 Bacterial blood culture NG NRG Influenza virus A and B antigen detectio n - 07/20/17 17:14 FLU RESULT NEGATIVE FOR INFLUENZA A AND B ANTIGENS BY IA NRG Complete urinalysis with reflex to cultu re - 07/20/17 17:24 Urine color determination SHABBIR NRG Urine clarity determination CLEAR NR G Urine pH measurement by test strip 5 5-9 Specific gravity of urine by test strip 1.025 1.016-1.022 Urine protein assay by test strip, semi-quantitative 1+ NEGATIVE Urine glucose detection by automated test strip NE GATIVE NEGATIVE Erythrocytes detection in urine sediment by light micr oscopy NEGATIVE NEGATIVE Urine ketones detection by automated test strip NE GATIVE NEGATIVE Urine nitrite detection by test strip NEGATIVE NEGATIVE Urine total bilirubin detection by test strip NEGA TIVE NEGATIVE Urine urobilinogen measurement by automated test strip (mass/volume) 4 mg/dL NORMAL Urine leukocyte esterase detection by dipstick 1+ NEGATIVE Automated urine sediment erythrocyte cou nt by microscopy (number/high power field) NONE NRG Automated urine sediment leukocyte count by microscopy (number/high power field) [HPF] NRG Bacteria detection in urine sediment by light microsco py LARGE NRG Squamous epithelial cells detection in u rine sediment by light microscopy 0-2 NRG Crystals detection in urine sediment by light microsco py NONE NRG Casts detection in urine sediment by light microscopy PRESENT NRG Mucus detection in urine sediment by light microscopy NEGATIVE NRG Complete urinalysis with reflex to culture YES NRG Hyaline casts detection in urine sediment by light manjinder roscopy 0-2 NRG Bacterial urine culture - 07/20/17 17:24 Bacterial urine culture SEE COMMEN NRG COLONY COUNT . NRG FTX;REPORTABLE SENSITIVITY REPORTED 07/23 07:40 NRG Bacterial susceptibility panel - 7 17:24 Gentamicin susceptibility test by minimum inhibitory c oncentration S NRG Vancomycin susceptibility test by minimum inhibitory c oncentration <= NRG Levofloxacin susceptibility test by minimum inhibitory concentration >= NRG Tetracycline susceptibility test by minimum inhibitory concentration >= NRG Ampicillin susceptibility test by minimum inhibitory c oncentration R NRG Ciprofloxacin susceptibility test by minimum inhibitor y concentration R NRG Nitrofurantoin susceptibility test by mi nimum inhibitory concentration 64 NRG Linezolid susceptibility test by minimum inhibitory co ncentration 2 NRG Complete blood count (CBC) with automate d white blood cell (WBC) differential - 07/21/17 05:31 Blood leukocytes automated count (number/volume) 16.6 10*3/uL 4.3-11.0 Blood erythrocytes automated count (number/volume) 4.78 10*6/uL 4.35-5.85 Venous blood hemoglobin measurement (mass/volume) 13.5 g/dL 11.5-16.0 Blood hematocrit (volume fraction) 42 % 35-52 Automated erythrocyte mean corpuscular volume 87 [ foz_us] 80-99 Automated erythrocyte mean corpuscular h emoglobin (mass per erythrocyte) 28 pg 25-34 Automated erythrocyte mean corpuscular h emoglobin concentration measurement (mass/volume) 32 g/dL 32-36 Automated erythrocyte distribution width ratio 14. 0 % 10.0- 14.5 Automated blood platelet count [...] 10*3 1.0-4.0 Blood monocytes automated count (number/volume) 1. 1 10*3 0.0-1.0 Automated eosinophil count 0.0 10*3/uL 0 .0-0.3 Automated blood basophil count (count/volume) 0.0 10*3/uL 0.0-0.1 Comprehensive metabolic panel - 07/21/17 05:31 Serum or plasma sodium measurement (moles/volume) 143 mmol/L 135-145 Serum or plasma potassium measurement (moles/volume) 3.0 mmol/L 3.6-5.0 Serum or plasma chloride measurement (moles/volume) 104 mmol/L 98-107 Carbon dioxide 28 mmol/L 21-32 Serum or plasma anion gap determination (moles/volume) 11 mmol/L 5-14 Serum or plasma urea nitrogen measurement (mass/volume ) 26 mg/dL 7-18 Serum or plasma creatinine measurement (mass/volume) 0.76 mg/dL 0.60-1.30 Serum or plasma urea nitrogen/creatinine mass ratio 34 NRG Serum or plasma creatinine measurement w ith calculation of estimated glomerular filtration rate > NRG Serum or plasma glucose measurement (mass/volume) 96 mg/dL 70-105 Serum or plasma calcium measurement (mass/volume) 9.4 mg/dL 8.5-10.1 Serum or plasma total bilirubin measurement (mass/volu me) 0.9 mg/dL 0.1-1.0 Serum or plasma alkaline phosphatase yolanda surement (enzymatic activity/volume) 102 U/L 40-136 Serum or plasma aspartate aminotransfera se measurement (enzymatic activity/volume) 16 U/L 5-34 Serum or plasma alanine aminotransferase measurement (enzymatic activity/volume) 9 U/L 0-55 Serum or plasma protein measurement (mass/volume) 7.4 g/dL 6.4-8.2 Serum or plasma albumin measurement (mass/volume) 3.2 g/dL 3.2-4.5 Complete blood count (CBC) with automate d white blood cell (WBC) differential - 07/22/17 05:41 Blood leukocytes automated count (number/volume) 9.9 10*3/uL 4.3-11.0 Blood erythrocytes automated count (number/volume) 4.57 10*6/uL 4.35-5.85 Venous blood hemoglobin measurement (mass/volume) 13.1 g/dL 11.5-16.0 Blood hematocrit (volume fraction) 40 % 35-52 Automated erythrocyte mean corpuscular volume 87 [ foz_us] 80-99 Automated erythrocyte mean corpuscular h emoglobin (mass per erythrocyte) 29 pg 25-34 Automated erythrocyte mean corpuscular h emoglobin concentration measurement (mass/volume) 33 g/dL 32-36 Automated erythrocyte distribution width ratio 13. 6 % 10.0- 14.5 Automated blood platelet count [...] 10*3 1.0-4.0 Blood monocytes automated count (number/volume) 0. 8 10*3 0.0-1.0 Automated eosinophil count 0.1 10*3/uL 0 .0-0.3 Automated blood basophil count (count/volume) 0.0 10*3/uL 0.0-0.1 Complete blood count (CBC) with automate d white blood cell (WBC) differential - 07/23/17 06:16 Blood leukocytes automated count (number/volume) 7.5 10*3/uL 4.3-11.0 Blood erythrocytes automated count (number/volume) 4.40 10*6/uL 4.35-5.85 Venous blood hemoglobin measurement (mass/volume) 12.5 g/dL 11.5-16.0 Blood hematocrit (volume fraction) 39 % 35-52 Automated erythrocyte mean corpuscular volume 88 [ foz_us] 80-99 Automated erythrocyte mean corpuscular h emoglobin (mass per erythrocyte) 28 pg 25-34 Automated erythrocyte mean corpuscular h emoglobin concentration measurement (mass/volume) 33 g/dL 32-36 Automated erythrocyte distribution width ratio 13. 7 % 10.0- 14.5 Automated blood platelet count [...] 10*3 1.0-4.0 Blood monocytes automated count (number/volume) 0. 9 10*3 0.0-1.0 Automated eosinophil count 0.2 10*3/uL 0 .0-0.3 Automated blood basophil count (count/volume) 0.1 10*3/uL 0.0-0.1 Comprehensive metabolic panel - 07/23/17 06:16 Serum or plasma sodium measurement (moles/volume) 137 mmol/L 135-145 Serum or plasma potassium measurement (moles/volume) 3.5 mmol/L 3.6-5.0 Serum or plasma chloride measurement (moles/volume) 104 mmol/L 98-107 Carbon dioxide 23 mmol/L 21-32 Serum or plasma anion gap determination (moles/volume) 10 mmol/L 5-14 Serum or plasma urea nitrogen measurement (mass/volume ) 18 mg/dL 7-18 Serum or plasma creatinine measurement (mass/volume) 0.64 mg/dL 0.60-1.30 Serum or plasma urea nitrogen/creatinine mass ratio 28 NRG Serum or plasma creatinine measurement w ith calculation of estimated glomerular filtration rate > NRG Serum or plasma glucose measurement (mass/volume) 100 mg/dL 70-105 Serum or plasma calcium measurement (mass/volume) 8.6 mg/dL 8.5-10.1 Serum or plasma total bilirubin measurement (mass/volu me) 0.4 mg/dL 0.1-1.0 Serum or plasma alkaline phosphatase yolanda surement (enzymatic activity/volume) 75 U/L 40-136 Serum or plasma aspartate aminotransfera se measurement (enzymatic activity/volume) 23 U/L 5-34 Serum or plasma alanine aminotransferase measurement (enzymatic activity/volume) 16 U/L 0-55 Serum or plasma protein measurement (mass/volume) 6.7 g/dL 6.4-8.2 Serum or plasma albumin measurement (mass/volume) 2.8 g/dL 3.2-4.5 Complete blood count (CBC) with automate d white blood cell (WBC) differential - 07/24/17 05:12 Blood leukocytes automated count (number/volume) 6.8 10*3/uL 4.3-11.0 Blood erythrocytes automated count (number/volume) 4.42 10*6/uL 4.35-5.85 Venous blood hemoglobin measurement (mass/volume) 12.6 g/dL 11.5-16.0 Blood hematocrit (volume fraction) 39 % 35-52 Automated erythrocyte mean corpuscular volume 88 [ foz_us] 80-99 Automated erythrocyte mean corpuscular h emoglobin (mass per erythrocyte) 29 pg 25-34 Automated erythrocyte mean corpuscular h emoglobin concentration measurement (mass/volume) 33 g/dL 32-36 Automated erythrocyte distribution width ratio 13. 7 % 10.0- 14.5 Automated blood platelet count [...] 10*3 1.0-4.0 Blood monocytes automated count (number/volume) 0. 8 10*3 0.0-1.0 Automated eosinophil count 0.3 10*3/uL 0 .0-0.3 Automated blood basophil count (count/volume) 0.1 10*3/uL 0.0-0.1 Comprehensive metabolic panel - 07/24/17 05:12 Serum or plasma sodium measurement (moles/volume) 141 mmol/L 135-145 Serum or plasma potassium measurement (moles/volume) 4.0 mmol/L 3.6-5.0 Serum or plasma chloride measurement (moles/volume) 106 mmol/L 98-107 Carbon dioxide 27 mmol/L 21-32 Serum or plasma anion gap determination (moles/volume) 8 mmol/L 5-14 Serum or plasma urea nitrogen measurement (mass/volume ) 12 mg/dL 7-18 Serum or plasma creatinine measurement (mass/volume) 0.67 mg/dL 0.60-1.30 Serum or plasma urea nitrogen/creatinine mass ratio 18 NRG Serum or plasma creatinine measurement w ith calculation of estimated glomerular filtration rate > NRG Serum or plasma glucose measurement (mass/volume) 77 mg/dL 70-105 Serum or plasma calcium measurement (mass/volume) 8.9 mg/dL 8.5-10.1 Serum or plasma total bilirubin measurement (mass/volu me) 0.4 mg/dL 0.1-1.0 Serum or plasma alkaline phosphatase yolanda surement (enzymatic activity/volume) 71 U/L 40-136 Serum or plasma aspartate aminotransfera se measurement (enzymatic activity/volume) 23 U/L 5-34 Serum or plasma alanine aminotransferase measurement (enzymatic activity/volume) 15 U/L 0-55 Serum or plasma protein measurement (mass/volume) 6.2 g/dL 6.4-8.2 Serum or plasma albumin measurement (mass/volume) 2.7 g/dL 3.2-4.5 Complete blood count (CBC) with automate d white blood cell (WBC) differential - 07/26/17 09:42 Blood leukocytes automated count (number/volume) 8.5 10*3/uL 4.3-11.0 Blood erythrocytes automated count (number/volume) 4.69 10*6/uL 4.35-5.85 Venous blood hemoglobin measurement (mass/volume) 13.3 g/dL 11.5-16.0 Blood hematocrit (volume fraction) 41 % 35-52 Automated erythrocyte mean corpuscular volume 87 [ foz_us] 80-99 Automated erythrocyte mean corpuscular h emoglobin (mass per erythrocyte) 28 pg 25-34 Automated erythrocyte mean corpuscular h emoglobin concentration measurement (mass/volume) 33 g/dL 32-36 Automated erythrocyte distribution width ratio 13. 8 % 10.0- 14.5 Automated blood platelet count [...] 10*3 1.0-4.0 Blood monocytes automated count (number/volume) 1. 0 10*3 0.0-1.0 Automated eosinophil count 0.2 10*3/uL 0 .0-0.3 Automated blood basophil count (count/volume) 0.1 10*3/uL 0.0-0.1 Blood blood smear finding identification by light micr oscopy S [facility] Comprehensive metabolic panel - 07/26/17 09:42 Serum or plasma sodium measurement (moles/volume) 140 mmol/L 135-145 Serum or plasma potassium measurement (moles/volume) 4.0 mmol/L 3.6-5.0 Serum or plasma chloride measurement (moles/volume) 101 mmol/L 98-107 Carbon dioxide 30 mmol/L 21-32 Serum or plasma anion gap determination (moles/volume) 9 mmol/L 5-14 Serum or plasma urea nitrogen measurement (mass/volume ) 10 mg/dL 7-18 Serum or plasma creatinine measurement (mass/volume) 0.73 mg/dL 0.60-1.30 Serum or plasma urea nitrogen/creatinine mass ratio 14 NRG Serum or plasma creatinine measurement w ith calculation of estimated glomerular filtration rate > NRG Serum or plasma glucose measurement (mass/volume) 98 mg/dL 70-105 Serum or plasma calcium measurement (mass/volume) 9.3 mg/dL 8.5-10.1 Serum or plasma total bilirubin measurement (mass/volu me) 0.5 mg/dL 0.1-1.0 Serum or plasma alkaline phosphatase yolanda surement (enzymatic activity/volume) 80 U/L 40-136 Serum or plasma aspartate aminotransfera se measurement (enzymatic activity/volume) 17 U/L 5-34 Serum or plasma alanine aminotransferase measurement (enzymatic activity/volume) 13 U/L 0-55 Serum or plasma protein measurement (mass/volume) 7.3 g/dL 6.4-8.2 Serum or plasma albumin measurement (mass/volume) 3.0 g/dL 3.2-4.5 Bacterial blood culture - 01/11/19 19:45 Bacterial blood culture NG [facility] Complete blood count (CBC) with automate d white blood cell (WBC) differential - 01/11/19 19:50 Blood leukocytes automated count (number/volume) 9.8 10*3/uL 4.3-11.0 Blood erythrocytes automated count (number/volume) 4.29 10*6/uL 4.35-5.85 Venous blood hemoglobin measurement (mass/volume) 12.7 g/dL 11.5-16.0 Blood hematocrit (volume fraction) 38 % 35-52 Automated erythrocyte mean corpuscular volume 90 [ foz_us] 80-99 Automated erythrocyte mean corpuscular h emoglobin (mass per erythrocyte) 30 pg 25-34 Automated erythrocyte mean corpuscular h emoglobin concentration measurement (mass/volume) 33 g/dL 32-36 Automated erythrocyte distribution width ratio 13. 5 % 10.0- 14.5 Automated blood platelet count [...] 10*3 1.0-4.0 Blood monocytes automated count (number/volume) 0. 8 10*3 0.0-1.0 Automated eosinophil count 0.1 10*3/uL 0 .0-0.3 Automated blood basophil count (count/volume) 0.0 10*3/uL 0.0-0.1 PT panel in platelet poor plasma by coag ulation assay - 01/11/19 19:50 Prothrombin time (PT) in platelet poor plasma by coagu lation assay 14.9 s 12.2-14.7 INR in platelet poor plasma or blood by coagulation as say 1.1 0.8-1.4 Activated partial thromboplastin time (a PTT) in platelet poor plasma bycoagulation assay - 01/11/19 19:50 Activated partial thromboplastin time (a PTT) in platelet poor plasma bycoagulation assay 37 s 24-35 Blood lactic acid measurement (moles/vol ume) - 01/11/19 19:50 Blood lactic acid measurement (moles/volume) 1.45 mmol/L 0.50-2.00 Comprehensive metabolic panel - 01/11/19 19:50 Serum or plasma sodium measurement (moles/volume) 139 mmol/L 135-145 Serum or plasma potassium measurement (moles/volume) 4.2 mmol/L 3.6-5.0 Serum or plasma chloride measurement (moles/volume) 107 mmol/L 98-107 Carbon dioxide 24 mmol/L 21-32 Serum or plasma anion gap determination (moles/volume) 8 mmol/L 5-14 Serum or plasma urea nitrogen measurement (mass/volume ) 17 mg/dL 7-18 Serum or plasma creatinine measurement (mass/volume) 0.88 mg/dL 0.60-1.30 Serum or plasma urea nitrogen/creatinine mass ratio 19 NRG Serum or plasma creatinine measurement w ith calculation of estimated glomerular filtration rate > NRG Serum or plasma glucose measurement (mass/volume) 132 mg/dL 70-105 Serum or plasma calcium measurement (mass/volume) 8.8 mg/dL 8.5-10.1 Serum or plasma total bilirubin measurement (mass/volu me) 0.8 mg/dL 0.1-1.0 Serum or plasma alkaline phosphatase yolanda surement (enzymatic activity/volume) 80 U/L 40-136 Serum or plasma aspartate aminotransfera se measurement (enzymatic activity/volume) 25 U/L 5-34 Serum or plasma alanine aminotransferase measurement (enzymatic activity/volume) 19 U/L 0-55 Serum or plasma protein measurement (mass/volume) 7.1 g/dL 6.4-8.2 Serum or plasma albumin measurement (mass/volume) 3.3 g/dL 3.2-4.5 CALCIUM CORRECTED 9.4 mg/dL 8.5-10.1 Magnesium - 01/11/19 19:50 Magnesium 2.0 mg/dL 1.8-2.4 Serum or plasma creatine kinase measurem ent (enzymatic activity/volume) - 01/11/19 19:50 Serum or plasma creatine kinase measurem ent (enzymatic activity/volume) 66 U/L 29-168 Serum or plasma lithium measurement (mol es/volume) - 01/11/19 19:50 BNP level 107.9 pg/mL <100.0 Serum or plasma creatine kinase MB measu rement (enzymatic activity/volume) - 01/11/19 19:50 Serum or plasma creatine kinase MB measu rement (enzymatic activity/volume) 2.2 ng/mL <6.6 Serum or plasma troponin i.cardiac measu rement (mass/volume) - 01/11/19 19:50 Serum or plasma troponin i.cardiac measurement (mass/v olume) < ng/mL <0.028 Myoglobin, serum - 01/11/19 19:50 Myoglobin, serum 39.9 ng/mL 10.0-92.0 Serum or plasma thyrotropin measurement by detection limit <=0.05 miu/l (units/volume) - 01/11/19 19:50 Serum or plasma thyrotropin measurement by detection limit <=0.05 miu/l (units/volume) 0.81 u[iU]/mL 0.35-4.94 [id number] - 01/11/19 19:50 [id number] 23.9 ug/mL 50.0-100.0 Bacterial blood culture - 01/11/19 19:50 Bacterial blood culture NG NRG Influenza virus A and B antigen detectio n - 01/11/19 20:19 FLU RESULT NEGATIVE FOR INFLUENZA A AND B ANTIGENS BY IA NRG Complete urinalysis with reflex to cultu re - 01/11/19 20:32 Urine color determination YELLOW NRG Urine clarity determination SLIGHTLY CLOUDY NRG Urine pH measurement by test strip 6 5-9 Specific gravity of urine by test strip 1.015 1.016-1.022 Urine protein assay by test strip, semi-quantitative 1+ NEGATIVE Urine glucose detection by automated test strip NE GATIVE NEGATIVE Erythrocytes detection in urine sediment by light micr oscopy NEGATIVE NEGATIVE Urine ketones detection by automated test strip 1+ NEGATIVE Urine nitrite detection by test strip POSITIVE NEGATIVE Urine total bilirubin detection by test strip NEGA TIVE NEGATIVE Urine urobilinogen measurement by automated test strip (mass/volume) 8 mg/dL NORMAL Urine leukocyte esterase detection by dipstick 2+ NEGATIVE Automated urine sediment erythrocyte cou nt by microscopy (number/high power field) NONE NRG Automated urine sediment leukocyte count by microscopy (number/high power field) [HPF] NRG Bacteria detection in urine sediment by light microsco py LARGE NRG Squamous epithelial cells detection in u rine sediment by light microscopy 0-2 NRG Crystals detection in urine sediment by light microsco py NONE NRG Casts detection in urine sediment by light microscopy NONE NRG Mucus detection in urine sediment by light microscopy NEGATIVE NRG Complete urinalysis with reflex to culture CULTURE PENDING NRG Bacterial urine culture - 01/11/19 20:32 Bacterial urine culture SEE COMMEN NRG COLONY COUNT . NRG FTX;REPORTABLE ID/SUSCEPTIBILITY REPORTED 01/14 15:0 5 NRG FREE TEXT ENTRY 2 ID REPORTED 01/13/19 13:05 NRG FREE TEXT ENTRY 3 RESISTANT ORGANISM/CONTACT PRECA UTIONS NRG Dirithromycin susceptibility test by dis k diffusion - 01/11/19 20:32 Gentamicin susceptibility test by minimum inhibitory c oncentration <= NRG Trimethoprim/sulfamethoxazole susceptibi lity test by minimum inhibitoryconcentration > NRG Levofloxacin susceptibility test by minimum inhibitory concentration > NRG Ampicillin susceptibility test by minimum inhibitory c oncentration > NRG Cefazolin susceptibility test by minimum inhibitory co ncentration > NRG Ceftriaxone susceptibility test by minimum inhibitory concentration > NRG Ciprofloxacin susceptibility test by minimum inhibitor y concentration > NRG Meropenem susceptibility test by minimum inhibitory co ncentration <= NRG Nitrofurantoin susceptibility test by mi nimum inhibitory concentration > NRG Amoxicillin and clavulanate potassium susc MANJINDER R NRG Dirithromycin susceptibility test by dis k diffusion - 01/11/19 20:32 Gentamicin susceptibility test by minimum inhibitory c oncentration <= NRG Trimethoprim/sulfamethoxazole susceptibi lity test by minimum inhibitoryconcentration <= NRG Levofloxacin susceptibility test by minimum inhibitory concentration > NRG Ampicillin susceptibility test by minimum inhibitory c oncentration <= NRG Cefazolin susceptibility test by minimum inhibitory co ncentration 4 NRG Ceftriaxone susceptibility test by minimum inhibitory concentration <= NRG Ciprofloxacin susceptibility test by minimum inhibitor y concentration > NRG Meropenem susceptibility test by minimum inhibitory co ncentration <= NRG Nitrofurantoin susceptibility test by mi nimum inhibitory concentration > NRG Amoxicillin and clavulanate potassium susc MANJINDER = NRG Bacterial blood culture - 03/02/19 22:25 Bacterial blood culture NG NRG Comprehensive metabolic panel - 03/02/19 22:40 Serum or plasma sodium measurement (moles/volume) 141 mmol/L 135-145 Serum or plasma potassium measurement (moles/volume) 3.7 mmol/L 3.6-5.0 Serum or plasma chloride measurement (moles/volume) 109 mmol/L 98-107 Carbon dioxide 21 mmol/L 21-32 Serum or plasma anion gap determination (moles/volume) 11 mmol/L 5-14 Serum or plasma urea nitrogen measurement (mass/volume ) 19 mg/dL 7-18 Serum or plasma creatinine measurement (mass/volume) 0.80 mg/dL 0.60-1.30 Serum or plasma urea nitrogen/creatinine mass ratio 24 NRG Serum or plasma creatinine measurement w ith calculation of estimated glomerular filtration rate > NRG Serum or plasma glucose measurement (mass/volume) 120 mg/dL 70-105 Serum or plasma calcium measurement (mass/volume) 9.4 mg/dL 8.5-10.1 Serum or plasma total bilirubin measurement (mass/volu me) 0.4 mg/dL 0.1-1.0 Serum or plasma alkaline phosphatase yolanda surement (enzymatic activity/volume) 97 U/L 40-136 Serum or plasma aspartate aminotransfera se measurement (enzymatic activity/volume) 24 U/L 5-34 Serum or plasma alanine aminotransferase measurement (enzymatic activity/volume) 18 U/L 0-55 Serum or plasma protein measurement (mass/volume) 7.8 g/dL 6.4-8.2 Serum or plasma albumin measurement (mass/volume) 3.3 g/dL 3.2-4.5 CALCIUM CORRECTED 10.0 mg/dL 8.5-10.1 [id number] - 03/02/19 22:40 [id number] 19.3 ug/mL 50.0-100.0 Blood lactic acid measurement (moles/vol ume) - 03/02/19 22:40 Blood lactic acid measurement (moles/volume) 1.33 mmol/L 0.50-2.00 Complete blood count (CBC) with automate d white blood cell (WBC) differential - 03/02/19 22:40 Blood leukocytes automated count (number/volume) 6.5 10*3/uL 4.3-11.0 Blood erythrocytes automated count (number/volume) 4.56 10*6/uL 4.35-5.85 Venous blood hemoglobin measurement (mass/volume) 13.1 g/dL 11.5-16.0 Blood hematocrit (volume fraction) 40 % 35-52 Automated erythrocyte mean corpuscular volume 88 [ foz_us] 80-99 Automated erythrocyte mean corpuscular h emoglobin (mass per erythrocyte) 29 pg 25-34 Automated erythrocyte mean corpuscular h emoglobin concentration measurement (mass/volume) 33 g/dL 32-36 Automated erythrocyte distribution width ratio 14. 0 % 10.0- 14.5 Automated blood platelet count (count/volume) 197 10*3/uL 130-400 Automated blood platelet mean volume measurement 10.5 [foz_us] 7.4-10.4 Automated blood neutrophils/100 leukocytes 50 % 42-75 Automated blood lymphocytes/100 leukocytes 33 % 12-44 Blood monocytes/100 leukocytes 12 % 0-12 Automated blood eosinophils/100 leukocytes 5 % 0-10 Automated blood basophils/100 leukocytes 2 % 0-10 Blood neutrophils automated count (number/volume) 3.2 10*3 1.8-7.8 Blood lymphocytes automated count (number/volume) 2.1 10*3 1.0-4.0 Blood monocytes automated count (number/volume) 0. 8 10*3 0.0-1.0 Automated eosinophil count 0.3 10*3/uL 0 .0-0.3 Automated blood basophil count (count/volume) 0.1 10*3/uL 0.0-0.1 Sputum Gram stain - 03/02/19 22:40 Sputum Gram stain RELEVANT, INTERPRET WITH CAUTION . NRG Bacterial sputum culture - 03/02/19 22:4 0 QUANTITY OF GROWTH . NRG Bacterial sputum culture USUAL RESP NRG Bacterial blood culture - 03/02/19 22:55 Bacterial blood culture NG NRG Bacterial blood culture - 05/16/19 04:00 Bacterial blood culture NG NRG Sputum Gram stain - 05/16/19 04:05 Sputum Gram stain Moderate Gram negative bacilli NRG Bacterial sputum culture - 05/16/19 04:0 5 FREE TEXT EXTERNAL BETA LACTAMASE NEG, SEE COMMENT S NRG QUANTITY OF GROWTH . NRG Bacterial sputum culture USUAL RESP NRG Complete blood count (CBC) with automate d white blood cell (WBC) differential - 05/16/19 04:06 Blood leukocytes automated count (number/volume) 6.8 10*3/uL 4.3-11.0 Blood erythrocytes automated count (number/volume) 4.88 10*6/uL 4.35-5.85 Venous blood hemoglobin measurement (mass/volume) 13.4 g/dL 11.5-16.0 Blood hematocrit (volume fraction) 42 % 35-52 Automated erythrocyte mean corpuscular volume 87 [ foz_us] 80-99 Automated erythrocyte mean corpuscular h emoglobin (mass per erythrocyte) 28 pg 25-34 Automated erythrocyte mean corpuscular h emoglobin concentration measurement (mass/volume) 32 g/dL 32-36 Automated erythrocyte distribution width ratio 14. 5 % 10.0- 14.5 Automated blood platelet count (count/volume) 214 10*3/uL 130-400 Automated blood platelet mean volume measurement 10.3 [foz_us] 7.4-10.4 Automated blood neutrophils/100 leukocytes 57 % 42-75 Automated blood lymphocytes/100 leukocytes 27 % 12-44 Blood monocytes/100 leukocytes 11 % 0-12 Automated blood eosinophils/100 leukocytes 5 % 0-10 Automated blood basophils/100 leukocytes 1 % 0-10 Blood neutrophils automated count (number/volume) 3.9 10*3 1.8-7.8 Blood lymphocytes automated count (number/volume) 1.8 10*3 1.0-4.0 Blood monocytes automated count (number/volume) 0. 8 10*3 0.0-1.0 Automated eosinophil count 0.3 10*3/uL 0 .0-0.3 Automated blood basophil count (count/volume) 0.1 10*3/uL 0.0-0.1 Blood lactic acid measurement (moles/vol ume) - 05/16/19 04:06 Blood lactic acid measurement (moles/volume) 1.02 mmol/L 0.50-2.00 Influenza virus A and B antigen detectio n - 05/16/19 04:06 FLU RESULT NEGATIVE FOR INFLUENZA A AND B ANTIGENS BY IA NR PT panel in platelet poor plasma by coag ulation assay - 05/16/19 04:06 Prothrombin time (PT) in platelet poor plasma by coagu lation assay 13.6 s 12.2-14.7 INR in platelet poor plasma or blood by coagulation as say 1.0 0.8-1.4 Activated partial thromboplastin time (a PTT) in platelet poor plasma bycoagulation assay - 05/16/19 04:06 Activated partial thromboplastin time (a PTT) in platelet poor plasma bycoagulation assay 33 s 24-35 Comprehensive metabolic panel - 05/16/19 04:06 Serum or plasma sodium measurement (moles/volume) 143 mmol/L 135-145 Serum or plasma potassium measurement (moles/volume) 4.0 mmol/L 3.6-5.0 Serum or plasma chloride measurement (moles/volume) 109 mmol/L 98-107 Carbon dioxide 27 mmol/L 21-32 Serum or plasma anion gap determination (moles/volume) 7 mmol/L 5-14 Serum or plasma urea nitrogen measurement (mass/volume ) 16 mg/dL 7-18 Serum or plasma creatinine measurement (mass/volume) 0.79 mg/dL 0.60-1.30 Serum or plasma urea nitrogen/creatinine mass ratio 20 NRG Serum or plasma creatinine measurement w ith calculation of estimated glomerular filtration rate > NRG Serum or plasma glucose measurement (mass/volume) 91 mg/dL 70-105 Serum or plasma calcium measurement (mass/volume) 8.9 mg/dL 8.5-10.1 Serum or plasma total bilirubin measurement (mass/volu me) 0.4 mg/dL 0.1-1.0 Serum or plasma alkaline phosphatase yolanda surement (enzymatic activity/volume) 92 U/L 40-136 Serum or plasma aspartate aminotransfera se measurement (enzymatic activity/volume) 24 U/L 5-34 Serum or plasma alanine aminotransferase measurement (enzymatic activity/volume) 23 U/L 0-55 Serum or plasma protein measurement (mass/volume) 8.2 g/dL 6.4-8.2 Serum or plasma albumin measurement (mass/volume) 3.1 g/dL 3.2-4.5 CALCIUM CORRECTED 9.6 mg/dL 8.5-10.1 Magnesium - 05/16/19 04:06 Magnesium 2.1 mg/dL 1.6-2.4 Serum or plasma troponin i.cardiac measu rement (mass/volume) - 05/16/19 04:06 Serum or plasma troponin i.cardiac measurement (mass/v olume) < ng/mL <0.028 [id number] - 05/16/19 04:06 [id number] 26.5 ug/mL 50.0-100.0 Serum or plasma lithium measurement (mol es/volume) - 05/16/19 04:06 BNP PT 67.4 pg/mL <100.0 Bacterial blood culture - 05/16/19 04:26 Bacterial blood culture NG NRG Complete urinalysis with reflex to cultu re - 05/16/19 04:55 Urine color determination YELLOW NRG Urine clarity determination CLEAR NR G Urine pH measurement by test strip 7 5-9 Specific gravity of urine by test strip 1.015 1.016-1.022 Urine protein assay by test strip, semi-quantitative 1+ NEGATIVE Urine glucose detection by automated test strip NE GATIVE NEGATIVE Erythrocytes detection in urine sediment by light micr oscopy NEGATIVE NEGATIVE Urine ketones detection by automated test strip NE GATIVE NEGATIVE Urine nitrite detection by test strip NEGATIVE NEGATIVE Urine total bilirubin detection by test strip NEGA TIVE NEGATIVE Urine urobilinogen measurement by automated test strip (mass/volume) 8 mg/dL NORMAL Urine leukocyte esterase detection by dipstick 1+ NEGATIVE Automated urine sediment erythrocyte cou nt by microscopy (number/high power field) [HPF] NRG Automated urine sediment leukocyte count by microscopy (number/high power field) [HPF] NRG Bacteria detection in urine sediment by light microsco py LARGE NRG Squamous epithelial cells detection in u rine sediment by light microscopy 0-2 NRG Crystals detection in urine sediment by light microsco py NONE NRG Casts detection in urine sediment by light microscopy NONE NRG Mucus detection in urine sediment by light microscopy NEGATIVE NRG Complete urinalysis with reflex to culture CULTURE PENDING NRG Bacterial urine culture - 05/16/19 04:55 Bacterial urine culture [id number] NRG COLONY COUNT >100,000/ML NRG FTX;REPORTABLE SUSCEPTIBILITY REPORTED 05/19/19 12 :15 NRG Dirithromycin susceptibility test by dis k diffusion - 05/16/19 04:55 Vancomycin susceptibility test by minimum inhibitory c oncentration 2 NRG Levofloxacin susceptibility test by minimum inhibitory concentration <= NRG Ampicillin susceptibility test by minimum inhibitory c oncentration 1 NRG Nitrofurantoin susceptibility test by mi nimum inhibitory concentration <= NRG Linezolid susceptibility test by minimum inhibitory co ncentration <= NRG Daptomycin susc MANJINDER <= NRG Complete blood count (CBC) with automate d white blood cell (WBC) differential - 05/17/19 05:11 Blood leukocytes automated count (number/volume) 7.0 10*3/uL 4.3-11.0 Blood erythrocytes automated count (number/volume) 4.45 10*6/uL 4.35-5.85 Venous blood hemoglobin measurement (mass/volume) 12.2 g/dL 11.5-16.0 Blood hematocrit (volume fraction) 39 % 35-52 Automated erythrocyte mean corpuscular volume 87 [ foz_us] 80-99 Automated erythrocyte mean corpuscular h emoglobin (mass per erythrocyte) 27 pg 25-34 Automated erythrocyte mean corpuscular h emoglobin concentration measurement (mass/volume) 32 g/dL 32-36 Automated erythrocyte distribution width ratio 14. 2 % 10.0- 14.5 Automated blood platelet count (count/volume) 165 10*3/uL 130-400 Automated blood platelet mean volume measurement 10.0 [foz_us] 7.4-10.4 Automated blood neutrophils/100 leukocytes 86 % 42-75 Automated blood lymphocytes/100 leukocytes 11 % 12-44 Blood monocytes/100 leukocytes 3 % 0-12 Automated blood eosinophils/100 leukocytes 0 % 0-10 Automated blood basophils/100 leukocytes 0 % 0-10 Blood neutrophils automated count (number/volume) 6.0 10*3 1.8-7.8 Blood lymphocytes automated count (number/volume) 0.8 10*3 1.0-4.0 Blood monocytes automated count (number/volume) 0. 2 10*3 0.0-1.0 Automated eosinophil count 0.0 10*3/uL 0 .0-0.3 Automated blood basophil count (count/volume) 0.0 10*3/uL 0.0-0.1 Comprehensive metabolic panel - 05/17/19 05:11 Serum or plasma sodium measurement (moles/volume) 139 mmol/L 135-145 Serum or plasma potassium measurement (moles/volume) 4.8 mmol/L 3.6-5.0 Serum or plasma chloride measurement (moles/volume) 112 mmol/L 98-107 Carbon dioxide 21 mmol/L 21-32 Serum or plasma anion gap determination (moles/volume) 6 mmol/L 5-14 Serum or plasma urea nitrogen measurement (mass/volume ) 16 mg/dL 7-18 Serum or plasma creatinine measurement (mass/volume) 0.69 mg/dL 0.60-1.30 Serum or plasma urea nitrogen/creatinine mass ratio 23 NRG Serum or plasma creatinine measurement w ith calculation of estimated glomerular filtration rate > NRG Serum or plasma glucose measurement (mass/volume) 152 mg/dL 70-105 Serum or plasma calcium measurement (mass/volume) 8.8 mg/dL 8.5-10.1 Serum or plasma total bilirubin measurement (mass/volu me) 0.3 mg/dL 0.1-1.0 Serum or plasma alkaline phosphatase yolanda surement (enzymatic activity/volume) 72 U/L 40-136 Serum or plasma aspartate aminotransfera se measurement (enzymatic activity/volume) 16 U/L 5-34 Serum or plasma alanine aminotransferase measurement (enzymatic activity/volume) 20 U/L 0-55 Serum or plasma protein measurement (mass/volume) 7.4 g/dL 6.4-8.2 Serum or plasma albumin measurement (mass/volume) 2.8 g/dL 3.2-4.5 CALCIUM CORRECTED 9.8 mg/dL 8.5-10.1 Automated blood complete blood count (he mogram) panel - 05/18/19 06:25 Blood leukocytes automated count (number/volume) 6.7 10*3/uL 4.3-11.0 Blood erythrocytes automated count (number/volume) 4.84 10*6/uL 4.35-5.85 Venous blood hemoglobin measurement (mass/volume) 13.2 g/dL 11.5-16.0 Blood hematocrit (volume fraction) 42 % 35-52 Automated erythrocyte mean corpuscular volume 88 [ foz_us] 80-99 Automated erythrocyte mean corpuscular h emoglobin (mass per erythrocyte) 27 pg 25-34 Automated erythrocyte mean corpuscular h emoglobin concentration measurement (mass/volume) 31 g/dL 32-36 Automated erythrocyte distribution width ratio 14. 7 % 10.0- 14.5 Automated blood platelet count (count/volume) 203 10*3/uL 130-400 Automated blood platelet mean volume measurement 10.0 [foz_us] 7.4-10.4 Whole blood basic metabolic panel - 04/28 06:25 Serum or plasma sodium measurement (moles/volume) 141 mmol/L 135-145 Serum or plasma potassium measurement (moles/volume) 4.3 mmol/L 3.6-5.0 Serum or plasma chloride measurement (moles/volume) 110 mmol/L 98-107 Carbon dioxide 26 mmol/L 21-32 Serum or plasma anion gap determination (moles/volume) 5 mmol/L 5-14 Serum or plasma urea nitrogen measurement (mass/volume ) 14 mg/dL 7-18 Serum or plasma creatinine measurement (mass/volume) 0.72 mg/dL 0.60-1.30 Serum or plasma urea nitrogen/creatinine mass ratio 19 NRG Serum or plasma creatinine measurement w ith calculation of estimated glomerular filtration rate > NRG Serum or plasma glucose measurement (mass/volume) 75 mg/dL 70-105 Serum or plasma calcium measurement (mass/volume) 8.6 mg/dL 8.5-10.1 Capillary blood glucose measurement by g lucometer (mass/volume) - 05/18/19 15:49 Capillary blood glucose measurement by glucometer (mas s/volume) 107 mg/dL 70-110 Automated blood complete blood count (he mogram) panel - 05/19/19 05:09 Blood leukocytes automated count (number/volume) 6.3 10*3/uL 4.3-11.0 Blood erythrocytes automated count (number/volume) 4.50 10*6/uL 4.35-5.85 Venous blood hemoglobin measurement (mass/volume) 12.3 g/dL 11.5-16.0 Blood hematocrit (volume fraction) 39 % 35-52 Automated erythrocyte mean corpuscular volume 87 [ foz_us] 80-99 Automated erythrocyte mean corpuscular h emoglobin (mass per erythrocyte) 27 pg 25-34 Automated erythrocyte mean corpuscular h emoglobin concentration measurement (mass/volume) 32 g/dL 32-36 Automated erythrocyte distribution width ratio 14. 9 % 10.0- 14.5 Automated blood platelet count (count/volume) 203 10*3/uL 130-400 Automated blood platelet mean volume measurement 9.7 [foz_us] 7.4-10.4 Whole blood basic metabolic panel - 05/10 05:09 Serum or plasma sodium measurement (moles/volume) 139 mmol/L 135-145 Serum or plasma potassium measurement (moles/volume) 4.4 mmol/L 3.6-5.0 Serum or plasma chloride measurement (moles/volume) 109 mmol/L 98-107 Carbon dioxide 23 mmol/L 21-32 Serum or plasma anion gap determination (moles/volume) 7 mmol/L 5-14 Serum or plasma urea nitrogen measurement (mass/volume ) 13 mg/dL 7-18 Serum or plasma creatinine measurement (mass/volume) 0.67 mg/dL 0.60-1.30 Serum or plasma urea nitrogen/creatinine mass ratio 19 NRG Serum or plasma creatinine measurement w ith calculation of estimated glomerular filtration rate > NRG Serum or plasma glucose measurement (mass/volume) 99 mg/dL 70-105 Serum or plasma calcium measurement (mass/volume) 8.4 mg/dL 8.5-10.1 Complete urinalysis with reflex to cultu re - 05/19/19 09:20 Urine color determination YELLOW NRG Urine clarity determination CLEAR NR G Urine pH measurement by test strip 8 5-9 Specific gravity of urine by test strip 1.015 1.016-1.022 Urine protein assay by test strip, semi-quantitative NEGATIVE NEGATIVE Urine glucose detection by automated test strip NE GATIVE NEGATIVE Erythrocytes detection in urine sediment by light micr oscopy NEGATIVE NEGATIVE Urine ketones detection by automated test strip NE GATIVE NEGATIVE Urine nitrite detection by test strip NEGATIVE NEGATIVE Urine total bilirubin detection by test strip NEGA TIVE NEGATIVE Urine urobilinogen measurement by automated test strip (mass/volume) NORMAL NORMAL Urine leukocyte esterase detection by dipstick NEG ATIVE NEGATIVE Automated urine sediment erythrocyte cou nt by microscopy (number/high power field) RARE NRG Automated urine sediment leukocyte count by microscopy (number/high power field) RARE NRG Bacteria detection in urine sediment by light microsco py NEGATIVE NRG Squamous epithelial cells detection in u rine sediment by light microscopy RARE NRG Crystals detection in urine sediment by light microsco py NONE NRG Casts detection in urine sediment by light microscopy NONE NRG Mucus detection in urine sediment by light microscopy NEGATIVE NRG Complete urinalysis with reflex to culture NO NRG Yeast detection in urine sediment by light microscopy FEW NRG Bacterial blood culture - 08/29/19 09:25 Bacterial blood culture NG NRG Complete blood count (CBC) with automate d white blood cell (WBC) differential - 08/29/19 09:29 Blood leukocytes automated count (number/volume) 7.4 10*3/uL 4.3-11.0 Blood erythrocytes automated count (number/volume) 4.96 10*6/uL 4.35-5.85 Venous blood hemoglobin measurement (mass/volume) 13.8 g/dL 11.5-16.0 Blood hematocrit (volume fraction) 44 % 35-52 Automated erythrocyte mean corpuscular volume 88 [ foz_us] 80-99 Automated erythrocyte mean corpuscular h emoglobin (mass per erythrocyte) 28 pg 25-34 Automated erythrocyte mean corpuscular h emoglobin concentration measurement (mass/volume) 32 g/dL 32-36 Automated erythrocyte distribution width ratio 15. 3 % 10.0- 14.5 Automated blood platelet count (count/volume) 156 10*3/uL 130-400 Automated blood platelet mean volume measurement 10.6 [foz_us] 7.4-10.4 Automated blood neutrophils/100 leukocytes 64 % 42-75 Automated blood lymphocytes/100 leukocytes 23 % 12-44 Blood monocytes/100 leukocytes 10 % 0-12 Automated blood eosinophils/100 leukocytes 2 % 0-10 Automated blood basophils/100 leukocytes 1 % 0-10 Blood neutrophils automated count (number/volume) 4.7 10*3 1.8-7.8 Blood lymphocytes automated count (number/volume) 1.7 10*3 1.0-4.0 Blood monocytes automated count (number/volume) 0. 7 10*3 0.0-1.0 Automated eosinophil count 0.2 10*3/uL 0 .0-0.3 Automated blood basophil count (count/volume) 0.1 10*3/uL 0.0-0.1 Influenza virus A and B antigen detectio n - 08/29/19 09:29 FLU RESULT NEGATIVE FOR INFLUENZA A AND B ANTIGENS BY IA [facility] Comprehensive metabolic panel - 08/29/19 09:29 Serum or plasma sodium measurement (moles/volume) 141 mmol/L 135-145 Serum or plasma potassium measurement (moles/volume) 4.0 mmol/L 3.6-5.0 Serum or plasma chloride measurement (moles/volume) 107 mmol/L 98-107 Carbon dioxide 24 mmol/L 21-32 Serum or plasma anion gap determination (moles/volume) 10 mmol/L 5-14 Serum or plasma urea nitrogen measurement (mass/volume ) 19 mg/dL 7-18 Serum or plasma creatinine measurement (mass/volume) 0.85 mg/dL 0.60-1.30 Serum or plasma urea nitrogen/creatinine mass ratio 22 [facility] Serum or plasma creatinine measurement w ith calculation of estimated glomerular filtration rate > [facility] Serum or plasma glucose measurement (mass/volume) 115 mg/dL 70-105 Serum or plasma calcium measurement (mass/volume) 9.1 mg/dL 8.5-10.1 Serum or plasma total bilirubin measurement (mass/volu me) 0.4 mg/dL 0.1-1.0 Serum or plasma alkaline phosphatase yolanda surement (enzymatic activity/volume) 72 U/L 40-136 Serum or plasma aspartate aminotransfera se measurement (enzymatic activity/volume) 25 U/L 5-34 Serum or plasma alanine aminotransferase measurement (enzymatic activity/volume) 12 U/L 0-55 Serum or plasma protein measurement (mass/volume) 8.0 g/dL 6.4-8.2 Serum or plasma albumin measurement (mass/volume) 3.4 g/dL 3.2-4.5 CALCIUM CORRECTED 9.6 mg/dL 8.5-10.1 PT panel in platelet poor plasma by coag ulation assay - 08/29/19 09:29 Prothrombin time (PT) in platelet poor plasma by coagu lation assay 14.3 s 12.2-14.7 INR in platelet poor plasma or blood by coagulation as say 1.1 0.8-1.4 Activated partial thromboplastin time (a PTT) in platelet poor plasma bycoagulation assay - 08/29/19 09:29 Activated partial thromboplastin time (a PTT) in platelet poor plasma bycoagulation assay 34 s 24-35 Blood lactic acid measurement (moles/vol ume) - 08/29/19 09:29 Blood lactic acid measurement (moles/volume) 2.04 mmol/L 0.50-2.00 Sputum Gram stain - 08/29/19 09:29 Sputum Gram stain Mixed Bacterial Susan NRG Bacterial sputum culture - 08/29/19 09:2 9 QUANTITY OF GROWTH . NRG Bacterial sputum culture USUAL RESP NRG Serum or plasma lactate measurement (mol es/volume) - 08/29/19 11:20 Serum or plasma lactate measurement (moles/volume) 1.27 mmol/L 0.50-2.00 Bacterial blood culture - 08/29/19 12:17 Bacterial blood culture NG NRG Complete urinalysis with reflex to cultu re - 08/29/19 13:03 Urine color determination YELLOW NRG Urine clarity determination CLEAR NR G Urine pH measurement by test strip 5.5 5-9 Specific gravity of urine by test strip 1.025 1.016-1.022 Urine protein assay by test strip, semi-quantitative NEGATIVE NEGATIVE Urine glucose detection by automated test strip NE GATIVE NEGATIVE Erythrocytes detection in urine sediment by light micr oscopy NEGATIVE NEGATIVE Urine ketones detection by automated test strip NE GATIVE NEGATIVE Urine nitrite detection by test strip NEGATIVE NEGATIVE Urine total bilirubin detection by test strip NEGA TIVE NEGATIVE Urine urobilinogen measurement by automated test strip (mass/volume) 2.0 mg/dL < = 1.0 Urine leukocyte esterase detection by dipstick NEG ATIVE NEGATIVE Automated urine sediment erythrocyte cou nt by microscopy (number/high power field) NONE NRG Automated urine sediment leukocyte count by microscopy (number/high power field) RARE NRG Bacteria detection in urine sediment by light microsco py TRACE NRG Squamous epithelial cells detection in u rine sediment by light microscopy RARE NRG Crystals detection in urine sediment by light microsco py NONE NRG Casts detection in urine sediment by light microscopy NONE NRG Mucus detection in urine sediment by light microscopy NEGATIVE NRG Complete urinalysis with reflex to culture CULTURE PENDING NRG Yeast detection in urine sediment by light microscopy FEW NRG Bacterial urine culture - 08/29/19 13:03 Bacterial urine culture [id number] NRG COLONY COUNT 20,000 CFU/ML NRG FTX;REPORTABLE AMENDED REPORT SENT BY [facility] 08/31/19 NRG FREE TEXT ENTRY 2 15:05 NRG Encounters ACCT No. Visit Date/Time Discharge Status Pt. Type Provider Facility Loc./Unit Complaint [id number] 08/19/2013 14:00:00 08/25/2013 14:30 :00 [id number] 08/19/2013 14:00:00 08/19/2013 14:00 :00 DIS Outpatient GERARD SANCHEZ, KIRT Gipson [facility] [id number] 09/22/2019 10:09:00 09/22/2019 23:59 :00 DIS Outpatient ELIER COLLIER [id number] 11/18/2018 11:23:00 11/18/2018 23:59: 00 DIS Outpatient ELIER COLLIER [id number] 05/27/2018 08:52:00 05/27/2018 23:59: 00 DIS Outpatient ELIER COLLIER [id number] 03/24/2019 11:01:11 Document Registration [id number] 08/06/2018 01:15:26 Document Registration [id number] 08/29/2019 09:12:00 020 15:20:00 DIS Emergency ALFONSO SANCHEZ, JOSE R Dowd [facility] ER FEVER;SOA [id number] 06/08/2019 14:19:00 019 23:59:59 CLS Outpatient JEREMÍAS CAM DO Via [facility] RAD ASPIRATION [id number] 05/16/2019 05:15:00 019 13:10:00 DIS Inpatient JEREMÍAS CAM DO [facility] 4TH PNEUMONIA, HYPO JOSE; SEPSIS;DEMEMTIA; UTI [id number] 03/02/2019 22:19:00 019 23:50:00 DIS Emergency MARS DONIHARIKA [facility] ER COUGHING [id number] 01/11/2019 19:39:00 019 23:02:00 DIS Emergency MARS DONIHARIKA [facility] ER AMS [id number] 07/24/2017 10:57:00 017 14:35:00 DIS Inpatient BRENDON CARRION NATASHA V [facility] 4TH SWB-PNEUMONIA [id number] 07/20/2017 17:55:00 017 10:56:00 DIS Inpatient JONNA ALICEA MD [facility] 4TH BIBASILAR PNA,RESP DIST RESS [id number] 06/18/2017 22:36:00 017 02:26:00 DIS Emergency JOSE R HAMILTON MD [facility] ER FALL [id number] 02/20/2017 17:19:00 017 23:59:59 CLS Outpatient ABHIJEET BEVERLY MD [facility] LABT R05 [id number] 01/31/2017 10:53:00 017 23:59:59 CLS Outpatient ABHIJEET BEVERLY MD [facility] LABNPT UTI [id number] 10/25/2016 09:02:00 017 23:59:59 CLS Outpatient ABHIJEET BEVERLY MD [facility] LABNPT UA [id number] 05/04/2014 13:47:00 014 23:59:59 CLS Outpatient ABHIJEET BEVERLY MD [facility] RAD SCREENING [id number] 02/06/2020 14:23:[address] Emergency RASHEEDA WALKER [facility] [place] ER SOA;COUGH [id number] 09/28/2010 09:46:00 Document Registration [id number] 07/22/2009 13:01:00 Document Registration
--- NOTE | 2020-02-06 17:40 | NUR ---
MARAH HARRY admitted to room 411-1, with an admitting diagnosis of VOLUME DEPLETION, LETHARGIC AND GENERAL WEAKNESS, on 02/06/20 from ED via CART, accompanied by 4TH FLOOR RN AND PCT. MARAH HARRY introduced to surroundings, call light, bed controls, phone, TV, temperature control, lights, meal times, smoking policy, visitor policy, side rail policy, bathrooms and showers. Patient Rights given to patient in the handbook. MARAH HARRY IS UNABLE TO UNDERSTAND OR verbalize understanding that [facility] is not responsible for the loss or damage to any personal effects or valuables that are kept in the patients posession during their hospitalization. The following Patient Care Plans were discussed with the PATIENT: Discharge Planning, . MARAH HARRY IS UNABLE TO verbalize understanding of Interdisciplinary Patient Education. Patient and/or family were informed about the Rapid Response Team and its purpose.
[2020-02-06] MEDS ORDERED: CATHETER FLUSH 10 ML SYR IV PRN (18:15)
--- NOTE | 2020-02-06 18:46 | NUR ---
MESSAGE SENT TO DR HO. DVT SCORE IS 2.
[2020-02-06] MEDS: LACTATED RINGERS 1,000 ML IV SCH (18:58)
[2020-02-06] MEDS ORDERED: ENOXAPARIN 40 MG/0.4 ML (LOVENOX) SYR SQ SCH (19:30)
--- OUTSIDE RECORDS SUMMARY | 2020-02-06 20:55 | XMS REPORT | Continuity of Care Document ---
[...] UNKNOWN Yes VANCOMYCIN UNKNOWN UNKNOWN Yes Aminoglycosides [id number] D rug Allergy Unknown N/A 11/11/2006 Yes amoxicillin [id number] Drug Aller gy Unknown N/A 11/11/2006 Yes bacitracin [id number] Drug Allerg y Unknown N/A 11/11/2006 Yes clavulanic acid [id number] D rug Allergy Unknown N/A 11/11/2006 Yes erythromycin base [id number] Drug Allergy Unknown N/A 11/11/2006 Yes gramicidin D [id number] Drug Allergy Unknown N/A 11/11/2006 Yes neomycin [id number] Drug Allergy Unknown N/A 11/11/2006 Yes polymyxin B [id number] Drug Aller gy Unknown N/A 11/11/2006 Yes vancomycin [id number] Drug Allerg y Unknown N/A 11/11/2006 Yes adhesive [id number] Drug Allergy Unknown N/A 02/01/2008 Yes latex [id number] Drug Allergy Unknown N/A 02/01/2008 Yes *MRSA Miscellaneous Allergy N/A N/A 08/23/2013 Yes cefaclor [id number] Drug Allergy Unknown N/A 07/20/2017 Medications There is no data. 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 01/11/2019 NIHARIKA [...] ALLERGY STATUS TO OTHER ANTIBIOTIC AGENT 01/11/2019 [facility] Z88.8 ALLERGY STATUS TO OTH DRUG/MEDS/BIOL SUB 01/11/2019 [facility] Ot Z90.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 ABSENCE OF BOTH CERVIX AND UTER 01/11/2019 [facility] Ot Z90.89 ACQUIRED ABSENCE OF OTHER ORGANS 01/11/2019 [facility] Ot Z91.040 LATEX ALLERGY STATUS 01/11/2019 [facility] Ot Z91.048 OTHER NONMEDICINAL SUBSTANCE ALLERGY STA 01/14/2019 [facility] Ot A41.9 SEPSIS, UNSPECIFIED ORGANISM 01/14/2019 [facility] Ot F03.90 UNSPECIFIED DEMENTIA WITHOUT BEHAVIORAL 01/14/2019 [facility] Ot F60.9 PERSONALITY DISORDER, UNSPECIFIED 01/14/2019 [facility] Ot G35 MULTIPLE SCLEROSIS 01/14/2019 [facility] Ot G43.909 MIGRAINE, UNSP, NOT INTRACTABLE, WITHOUT 01/14/2019 MARS NIHARIKA Ot I10 ESSENTIAL (PRIMARY) HYPERTENSION 01/14/2019 [facility] Ot J18.1 LOBAR PNEUMONIA, UNSPECIFIED ORGANISM 01/14/2019 MARS NIHARIKA CARRION Ot N39.0 URINARY TRACT INFECTION, SITE NOT SPECIF 01/14/2019 [facility] [place] NIHARIKA CARRION Ot R41.82 ALTERED MENTAL STATUS, UNSPECIFIED 01/14/2019 [facility] Ot R65.21 SEVERE SEPSIS WITH SEPTIC SHOCK 01/14/2019 [facility] Ot 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 01/14/2019 MARS [...] DISORDER OF SPEECH AND TAL 03/02/2019 NIHARIKA RCEWS DO Ot G35 MULTIPLE SCLEROSIS 03/02/2019 NIHARIKA [...] MOBILITY 03/02/2019 NIHARIKA CREWS DO Ot Z79.51 GROUP HOME (CURRENT) USE OF 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 03/02/2019 NIHARIKA [...] REDUCED MOBILITY 03/08/2019 MARS NIHARIKA Ot 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 03/08/2019 MARS [...] DEPRESSIVE DISORDER, SINGLE EPISOD 08/29/2019 JOSE R HAMILTON MD, Ot F41.9 ANXIETY DISORDER, UNSPECIFIED 08/29/2019 [...] 08/29/2019 JOSE R HAMILTON MD, Ot Z79.51 GROUP HOME (CURRENT) USE OF 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 08/29/2019 JOSE [...] 09/01/2019 JOSE R HAMILTON MD, Ot 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 09/01/2019 JOSE [...] On 33.24 ENDO SCOPIC BRONCHIAL BX 07/23/2009 61774 ELEC TROCARDIOGRAM REPORT GERARD SANCHEZ, KIRT Gipson 08/19/2013 Results Test Result Range COMPLETE BLOOD COUNT - 08/19/13 14:50 Platelet 218 10^3u 142-424 MPV 10.9 FL 9.4-12.4 [place] # 0.85 10^3u 0.0-1.0 RBC 5.14 10^6u 4.04-6.13 [place] % 12.0 % 0-12 RDW 14.2 % [...] Urobilinogen 4.0 0.2-1.0 Urine RBC N0-2 Specific [place] 1.020 1.010-1.020 Urine WBC N0-2 Amorphous Crystals [...] culture - 01/31/17 02:33 Bacterial urine culture [id number] NRG COLONY COUNT >100,000/ML NRG FTX;REPORTABLE SENSITIVITY [...] AT 0936, 02-22-17 NR Bacterial sputum culture [id number] [facility] Bacterial susceptibility panel - 7 05:00 Oxacillin [...] test by minimum inhibitor y concentration R [facility] Bacterial susceptibility panel - 7 05:00 Gentamicin [...] test by minimum inhibitory con centration S [facility] Bacterial susceptibility panel - 7 05:00 Gentamicin [...] finding identification by light micr oscopy S [facility] Comprehensive metabolic panel - 07/26/17 09:42 Serum [...] - 01/11/19 19:45 Bacterial blood culture NG [facility] Complete blood count (CBC) with automate d [...] limit <=0.05 miu/l (units/volume) 0.81 u[iU]/mL 0.35-4.94 [id number] - 01/11/19 19:50 [id number] 23.9 ug/mL 50.0-100.0 Bacterial blood culture - [...] g/dL 3.2-4.5 CALCIUM CORRECTED 10.0 mg/dL 8.5-10.1 [id number] - 03/02/19 22:40 [id number] 19.3 ug/mL 50.0-100.0 Blood lactic acid measurement [...] i.cardiac measurement (mass/v olume) < ng/mL <0.028 [id number] - 05/16/19 04:06 [id number] 26.5 ug/mL 50.0-100.0 Serum or plasma lithium [...] culture - 05/16/19 04:55 Bacterial urine culture [id number] NRG COLONY COUNT >100,000/ML NRG FTX;REPORTABLE SUSCEPTIBILITY [...] INFLUENZA A AND B ANTIGENS BY IA [facility] Comprehensive metabolic panel - 08/29/19 09:29 Serum [...] or plasma urea nitrogen/creatinine mass ratio 22 [facility] Serum or plasma creatinine measurement w ith calculation of estimated glomerular filtration rate > [facility] Serum or plasma glucose measurement (mass/volume) 115 [...] culture - 08/29/19 13:03 Bacterial urine culture [id number] NRG COLONY COUNT 20,000 CFU/ML NRG FTX;REPORTABLE AMENDED REPORT SENT BY [facility] 08/31/19 NRG FREE TEXT ENTRY 2 15:05 NRG Encounters ACCT No. Visit Date/Time Discharge Status Pt. Type Provider Facility Loc./Unit Complaint [id number] 08/19/2013 14:00:00 08/25/2013 14:30 :00 [id number] 08/19/2013 14:00:00 08/19/2013 14:00 :00 DIS Outpatient GERARD SANCHEZ, KIRT Gipson [facility] [id number] 09/22/2019 10:09:00 09/22/2019 23:59 :00 DIS Outpatient ELIER COLLIER [id number] 11/18/2018 11:23:00 11/18/2018 23:59: 00 DIS Outpatient ELIER COLLIER [id number] 05/27/2018 08:52:00 05/27/2018 23:59: 00 DIS Outpatient ELIER COLLIER [id number] 03/24/2019 11:01:11 Document Registration [id number] 08/06/2018 01:15:26 Document Registration [id number] 08/29/2019 09:12:00 020 15:20:00 DIS Emergency ALFONSO SANCHEZ, JOSE R Dowd [facility] ER FEVER;SOA [id number] 06/08/2019 14:19:00 019 23:59:59 CLS Outpatient JEREMÍAS CAM DO [facility] RAD ASPIRATION [id number] 05/16/2019 05:15:00 019 13:10:00 DIS Inpatient JEREMÍAS CAM DO [facility] 4TH PNEUMONIA, HYPO JOSE; SEPSIS;DEMEMTIA; UTI [id number] 03/02/2019 22:19:00 019 23:50:00 DIS Emergency MARS DONIHARIKA [facility] ER COUGHING [id number] 01/11/2019 19:39:00 019 23:02:00 DIS Emergency MARS DONIHARIKA [facility] ER AMS [id number] 07/24/2017 10:57:00 017 14:35:00 DIS Inpatient BRENDON CARRION NATASHA V [facility] 4TH SWB-PNEUMONIA [id number] 07/20/2017 17:55:00 017 10:56:00 DIS Inpatient JONNA ALICEA MD [facility] 4TH BIBASILAR PNA,RESP DIST RESS [id number] 06/18/2017 22:36:00 017 02:26:00 DIS Emergency JOSE R HAMILTON MD [facility] ER FALL [id number] 02/20/2017 17:19:00 017 23:59:59 CLS Outpatient ABHIJEET BEVERLY MD [facility] LABT R05 [id number] 01/31/2017 10:53:00 017 23:59:59 CLS Outpatient ABHIJEET BEVERLY MD [facility] LABNPT UTI [id number] 10/25/2016 09:02:00 017 23:59:59 CLS Outpatient ABHIJEET BEVERLY MD [facility] LABNPT UA [id number] 05/04/2014 13:47:00 014 23:59:59 CLS Outpatient ABHIJEET BEVERLY MD [facility] RAD SCREENING [id number] 02/06/2020 16:20:[address] Inpatient VIC SANCHEZ, TIFFANIE Valdovinos [facility] 4TH LETHARGIC, GENERAL WEEKNESS [id number] 09/28/2010 09:46:00 Document Registration [id number] 07/22/2009 13:01:00 Document Registration
[2020-02-07 04:15] VITALS: BP 102/61
[2020-02-07] MEDS ORDERED: IPRA3AMP31 IH (04:46)
[2020-02-07] MEDS ORDERED: CRAN450T9 PO (04:46)
[2020-02-07] MEDS ORDERED: SENN-259 PO (04:46)
[2020-02-07] MEDS ORDERED: ACET325T49 PO (04:46)
[2020-02-07] MEDS ORDERED: ASCO500T7 PO (04:46)
[2020-02-07] MEDS: LACTATED RINGERS 1,000 ML IV SCH (04:51)
[2020-02-07 05:26] LABS: BASOPHILS # (AUTO) 0.1 10^3/uL (0.0-0.1); BASOPHILS % (AUTO) 1 % (0-10); EOSINOPHILS # (AUTO) 0.2 10^3/uL (0.0-0.3); EOSINOPHILS % (AUTO) 3 % (0-10); HEMATOCRIT 39 % (35-52); HEMOGLOBIN 12.5 G/DL (11.5-16.0); LYMPHOCYTES # (AUTO) 2.4 X 10^3 (1.0-4.0); LYMPHOCYTES % (AUTO) 31 % (12-44); MEAN CORPUSCULAR HEMOGLOBIN 29 PG (25-34); MEAN CORPUSCULAR HGB CONC 32 G/DL (32-36); MEAN CORPUSCULAR VOLUME 92 FL (80-99); MEAN PLATELET VOLUME 10.2 FL (7.4-10.4); MONOCYTES # (AUTO) 0.8 X 10^3 (0.0-1.0); MONOCYTES % (AUTO) 11 % (0-12); NEUTROPHILS # (AUTO) 4.4 X 10^3 (1.8-7.8); NEUTROPHILS % (AUTO) 55 % (42-75); PLATELET COUNT 155 10^3/uL (130-400); RED CELL DISTRIBUTION WIDTH 14.4 % (10.0-14.5); WHITE BLOOD COUNT 7.9 10^3/uL (4.3-11.0)
[2020-02-07 05:44] LABS: ALBUMIN 2.8 GM/DL (3.2-4.5); CHLORIDE 108 MMOL/L (98-107); SODIUM 143 MMOL/L (135-145)
[2020-02-07 05:45] LABS: CALCIUM 8.6 MG/DL (8.5-10.1)
[2020-02-07 05:46] LABS: GLUCOSE 81 MG/DL (70-105); TOTAL PROTEIN 6.8 GM/DL (6.4-8.2)
[2020-02-07 05:47] LABS: CARBON DIOXIDE 28 MMOL/L (21-32)
[2020-02-07 05:48] LABS: BILIRUBIN,TOTAL 0.3 MG/DL (0.1-1.0)
[2020-02-07 05:50] LABS: ALKALINE PHOSPHATASE 70 U/L (40-136); CREATININE SERUM 0.76 MG/DL (0.60-1.30); GFR ESTIMATED > 60
[2020-02-07 05:51] LABS: BUN/CREATININE RATIO 30
[2020-02-07 05:53] LABS: ALANINE AMINOTRANSFERASE < 6 U/L (0-55)
[2020-02-07 08:00] VITALS: BP 105/66
[2020-02-07] MEDS ORDERED: ACETAMINOPHEN 325 MG TABLET PO PRN (09:15)
--- NOTE | 2020-02-07 09:23 | Short Stay Summary-Hospitalist ---
History of Present Illness HPI/Chief Complaint Pt is 69yoCF with a PMH of advanced dementia, seizure disorder who presented to the ER due to lethargy and weakness. She is unable to provide me any history and is only able to answer a few questions and then just mumbles. All history is obtained from the records. Apparently she was her normal self yesterday and ate breakfast well but then became more weak and less responsive. This morning she is alert and awake and when asked how she is feeling she states "good." She otherwise has no complaints. Nurse reports she ate breakfast well. Source: patient Date Seen 02/07/20 Time Seen by a Provider: 09:20 Attending Physician Miriam Khan MD PCP Ramon Egan MD Referring Physician Date of Admission Feb 06, 2020 at 16:20 Home Medications & Allergies Home Medications Reviewed patient Home Medication Reconciliation performed by pharmacy medication reconciliations hardware technician and/or nursing. Patients Allergies have been reviewed. Allergies Allergies Coded Allergies Aminoglycosides (Verified Allergy, Unknown, 11/11/06) adhesive (Verified Allergy, Unknown, 02/01/08) amoxicillin (Verified Allergy, Unknown, 11/11/06) bacitracin (Verified Allergy, Unknown, 11/11/06) cefaclor (Verified Allergy, Unknown, 07/20/17) clavulanic acid (Verified Allergy, Unknown, 11/11/06) erythromycin base (Verified Allergy, Unknown, 11/11/06) gramicidin D (Verified Allergy, Unknown, 11/11/06) latex (Verified Allergy, Unknown, 02/01/08) neomycin (Verified Allergy, Unknown, 11/11/06) polymyxin B (Verified Allergy, Unknown, 11/11/06) vancomycin (Verified Allergy, Unknown, 11/11/06) Past Vboedcu-Ihdfdr-Uljrxr Hx Past Med/Social Hx: Reviewed Nursing Past Med/Soc Hx Patient Social History Employed/Student: retired Alcohol Use: Denies Use Recreational Drug Use: No Smoking Status: Former Smoker Former Smoker, Quit: Jul 20, 2007 Type Used: Cigarettes 2nd Hand Smoke Exposure: No Recent Foreign Travel: No Contact w/other who traveled: No Recent Hopitalizations: No Recent Infectious Disease Expo: No Immunizations Up To Date Tetanus Booster (TDap): Unknown Pediatric: No Date of Pneumonia Vaccine: Jun 25, 2011 Date of Influenza Vaccine: May 21, 2017 Seasonal Allergies Seasonal Allergies: No Past Medical History Surgeries: Hysterectomy, Orthopedic, Tonsillectomy Currently Using CPAP: No Currently Using BIPAP: No Cardiac: Chronic Edema/Swelling, Hypertension Neurological: Dementia, Headaches /Migraines, Multiple Sclerosis Reproductive: No Menopausal Genitourinary: Bladder Infection Gastrointestinal: Gastroesophageal Reflux, Chronic Constipation, Ulcer Musculoskeletal: Chronic Back Pain HEENT: Dysphagia, Macular Degeneration, Glaucoma Loss of Vision: Bilateral Psychosocial: Anxiety, Personality Disorder, Depression History of Blood Disorders: No Adverse Reaction to Blood [place]: No Family History Reviewed Nursing Family Hx Patient reports no known family medical history. No Pertinent Family Hx Review of Systems ROS-Unable to Obtain: dementia Constitutional: see HPI Physical Exam Physical Exam Vital Signs Vital Signs - First Documented 02/06/20 02/06/20 14:30 14:35 Temp 35.9 Pulse 80 Resp 20 B/P (MAP) 99/70 (80) Pulse Ox 99 O2 Delivery Nasal Cannula O2 Flow Rate 3.00 Capillary Refill : Less Than 3 Seconds Height, Weight, BMI Height: 5'6.00" Weight: 160lbs. 2.0oz. 72.718811wf; 21.71 BMI Method:Estimated General Appearance: No Apparent Distress, Chronically ill Eyes: Bilateral Eye Normal Inspection, Bilateral Eye PERRL, Bilateral Eye EOMI HEENT: Moist Mucous Membranes Respiratory: Lungs Clear, No Accessory Muscle Use, No Respiratory Distress Cardiovascular: Regular Rate, Rhythm, No Edema, No Murmur, Normal Peripheral Pulses Gastrointestinal: Normal Bowel Sounds, Non Tender, Soft Rectal: Other (warner in place) Extremity: No Calf Tenderness, No Pedal Edema Neurologic/Psychiatric: Alert, Disoriented (knows her name and when informed she is in a hospital she says "I know" and points to her IV) Skin: Normal Color, Warm/Dry Results Results/Procedures Labs Laboratory Tests 02/06/20 14:40 02/07/20 04:55 Patient resulted labs reviewed. Imaging [facility] [place] NAME: MARAH HARRY Leonela [facility] REC#: [id number] PT STATUS: REG ER : 1950 PHYSICIAN: RASHEEDA WALKER ADMIT DATE: 02/06/20/ER Signed Date of Exam:02/06/20 CHEST 1 VIEW, AP/PA ONLY INDICATION: Chest pain Portable chest 3:05 PM Heart size and pulmonary vascularity are normal. Lungs are clear. There are no effusions or pneumothoraces. IMPRESSION: No acute abnormalities in the chest. Dictated by: Dictated on workstation # [id number] Dict: 02/06/20 1535 Trans: 02/06/20 1605 CVB [id number] Interpreted by: SHARONDA BROWER MD Electronically signed by: SHARONDA BROWER MD 02/06/20 1608 Short Stay Diagnosis Discharge Diagnosis-Short Stay Admission Diagnosis Weakness Final Discharge Diagnosis Weakness Conclusion Plan Weakness Appears that she was slightly dehydrated Improved with IVF No evidence of infection Plan to DC back to [place] today Diagnosis/Problems Diagnosis/Problems (1) Dementia Qualifiers: Qualified Codes: F03.90 - Unspecified dementia without behavioral disturbance Clinical Quality Measures DVT/VTE Risk/Contraindication: Risk Factor Score Per Nursin RFS Level Per Nursing on Admit: 2=Moderate KEVIN CAICEDO MD Feb 07, 2020 09:23
[2020-02-07 11:55] VITALS: BP 108/70
--- NOTE | 2020-02-07 12:00 | NUR ---
timmy medina, christina nair
[2020-02-07] MEDS ORDERED: BACLOFEN 10 MG (LIORESAL) TAB PO SCH (13:00)
[2020-02-07] MEDS ORDERED: DIVALPROX SPRINKLE 125 MG (DEPAKOTE) CAP PO SCH (13:00)
--- NOTE | 2020-02-07 13:40 | NUR ---
"RD ASSESSMENT PMHx: dementia; pneumonia; COPD; HTN; GERD; chronic constipation; dysphagia PT INTERACTION: Pt was awake and pleasant during nutrition assessment. Note pt has dementia, per chart review. Pt states current appetite is good. Note avg PO intake 41% x3meal, per chart review. Pt states following a regular diet at home, and has no issues with chewing/swallowing food. Pt states no recent issues with nausea, vomiting, constipation, or diarrhea. Note last BM was 02/05, and pt not currently on bowel regimen per chart review. Pt states no recent wt changes. Note recent 44# wt loss x5mon, per chart review. This is significant wt loss at 23% x6mon. ABNORMAL NUTRITION-RELATED LAB VALUES LOW: alb 2.8 HIGH: Cl 108; BUN 23 Est. kcal needs: 9320-3018 kcal | 25-30 kcal/kg Est. Pro needs: 67-80 g Pro | 1.0-1.2 g Pro/kg PES STATEMENT: Inadequate oral intake (NI-2.1) related to loss of appetite | dementia as evidenced by pt interview | chart review | avg PO intake 41% x1d INTERVENTION: Continue with current diet order of Regular diet. Add Ensure Enlive to meals TID, for increased kcal intake. Provides 350 kcal and 13 g Pro per serving. Will continue to follow and reassess as pt needs, intake, and status change. MONITOR/EVALUATE: PO Intake; Plan of Care; Hydration Status; Weight Status; Lab Values Tay More, MS, RD, LD"
--- NOTE | 2020-02-07 14:01 | NUR ---
CM/SS visited with patient for discharge planning. Plan: The patient will return to [facility] today 02/06 with a vegetable picker time of 2:00 p.m. CM/SS attempted to contact patients nicholas Diaz ([phone]) to inform them of patients discharge back to facility; however, cm/ss left a voice mail with call back number. CM/SS [facility] Chanel [facility]. CM/SS faxed finalized discharge orders. No further needs at this time.
[2020-02-07 15:31] VITALS: BP 108/70
--- NOTE | 2020-02-07 15:35 | NUR ---
DISCHARGE INSTRUCTION EXPLAINED TO PATIENT, IV DC, SITE WITHOUT REDNESS OR SWELLING, INCONT URINE AND STOOL. DENIES PAIN OR SOB, ASSISTED WITH LUNCH, ATE 50 PERCENT
--- NOTE | 2020-02-07 15:42 | NUR ---
REPORT CALLED TO JASON SANTIAGO AT [facility] AND [facility]
[2020-02-07] MEDS ORDERED: ADVAIR HFA 115/21 MCG INHALER 8 GM IH SCH (20:00)
[2020-02-07] MEDS ORDERED: DORZOLAMIDE 2% 10 ML BTL (TRUSOPT) OU SCH (21:00)
[2020-02-07] MEDS ORDERED: LATANOPROST 0.005% (XALATAN) OPHTH SOLN 2.5 ML OU SCH (21:00)
[2020-02-07] MEDS ORDERED: toPIRamate 25 MG (TOPAMAX) TAB PO SCH (21:00)
[2020-02-08] MEDS ORDERED: VENlafaxine XR 75 MG (EFFEXOR XR) CAP PO SCH (07:00)
[2020-02-08] MEDS ORDERED: FAMOTIDINE 20 MG (PEPCID) TABLET PO SCH (09:00)
[2020-02-08] MEDS ORDERED: NON-FORMULARY MEDICATION 1 EA EA (Mirabegron (Myrbetriq) 50 MG) PO SCH (09:00)
[2020-02-08] MEDS ORDERED: SENNA W/DOCUSATE (SENOKOT S) TABLET PO SCH (09:00)
== END 2020-02-07 15:35 ==
LOC: EDUNIT# 14:15 → ER 14:23 → 4TH 16:20 → ER 17:33
PROVIDERS: ADMIT Internal Medicine; ATTEND Internal Medicine
DX: R53.1 Weakness (principal); F03.90 Unspecified dementia, unspecified severity, without behavioral disturbance, psychotic disturbance, mood disturbance, and anxiety; E86.9 Volume depletion, unspecified; J44.9 Chronic obstructive pulmonary disease, unspecified; I11.0 Hypertensive heart disease with heart failure; I50.9 Heart failure, unspecified; G43.909 Migraine, unspecified, not intractable, without status migrainosus; G35 Multiple sclerosis; F41.9 Anxiety disorder, unspecified; F32.9 Major depressive disorder, single episode, unspecified; G89.29 Other chronic pain; K21.9 Gastro-esophageal reflux disease without esophagitis; Z88.1 Allergy status to other antibiotic agents; Z88.8 Allergy status to other drugs, medicaments and biological substances; Z91.048 Other nonmedicinal substance allergy status; Z91.040 Latex allergy status; Z79.51 Long term (current) use of inhaled steroids; Z79.891 Long term (current) use of opiate analgesic; Z79.899 Other long term (current) drug therapy; Z79.2 Long term (current) use of antibiotics; Z87.891 Personal history of nicotine dependence; Z90.710 Acquired absence of both cervix and uterus
CPT/HCPCS: 51702; 71045; 80053 ×2; 81000; 83605; 83883; 84145; 84155; 84165; 85025 ×2; 85610; 85730; 87040; 87077; 87088; 87186; 96360; 99284; G0378; 36415

== ENCOUNTER 2020-04-06 14:41 | Inpatient (IN) | payer MEDICARE, MEDICAID ==
[~2020-04-06] VITALS: Ht 165.1 cm; Wt 70.4 kg
[~2020-04-06 14:41] MED LIST changes: +ACET325T49 PO; +ASCO500T7 PO; +CRAN450T9 PO; +IPRA3AMP31 IH; +SENN-259 PO
--- NOTE | 2020-04-06 14:57 | NUR ---
spoke with daughter Emily Mendoza on telephone, explained pt condition to family, family states that pt is a DNR, Emily states she spoke with sister and they wish to have pt intubated
--- NOTE | 2020-04-06 15:08 | ED Respiratory ---
General Chief Complaint: Respiratory Problems Stated Complaint: DECREASED O2 STATS Source: patient Exam Limitations: no limitations History of Present Illness Date Seen by Provider: Apr 06, 2020 Time Seen by Provider: 15:06 Initial Comments To ER with low O2 saturation from [facility] where there have been no covid cases nor other allowed any visitors. This was noticed this morning incidentally. Patient has dementia and history of COPD. Timing/Duration: this morning Severity: moderate Associated Symptoms: cough, shortness of breath Allergies and Home Medications Allergies Coded Allergies: Aminoglycosides (Verified Allergy, Unknown, 11/11/06) adhesive (Verified Allergy, Unknown, 02/01/08) amoxicillin (Verified Allergy, Unknown, 11/11/06) bacitracin (Verified Allergy, Unknown, 11/11/06) cefaclor (Verified Allergy, Unknown, 07/20/17) clavulanic acid (Verified Allergy, Unknown, 11/11/06) erythromycin base (Verified Allergy, Unknown, 11/11/06) gramicidin D (Verified Allergy, Unknown, 11/11/06) latex (Verified Allergy, Unknown, 02/01/08) neomycin (Verified Allergy, Unknown, 11/11/06) polymyxin B (Verified Allergy, Unknown, 11/11/06) vancomycin (Verified Allergy, Unknown, 11/11/06) Home Medications Acetaminophen 325 Mg Tablet, 650 MG PO Q4H PRN for PAIN-MILD (1-4), (Reported) Ascorbic Acid 500 Mg Tablet, 500 MG PO DAILY, (Reported) Baclofen 10 Mg Tablet, 10 MG PO TID, (Reported) Bisacodyl 10 Mg Supp.rect, 10 MG RC DAILY PRN for CONSTIPATION-4TH LINE, (Reported) Cranberry Fruit 450 Mg Tablet, 450 MG PO BID, (Reported) Divalproex Sodium 125 Mg Cap.sprink, 250 MG PO TID, (Reported) TAKES 2 (125MG) CAPSULES Dorzolamide HCl 10 Ml Drops, 1 DROP OU BID, (Reported) Famotidine 20 Mg Tablet, 20 MG PO DAILY, (Reported) Fluticasone/Vilanterol 1 Each Blst.w.dev, 1 PUFF INH DAILY, (Reported) Furosemide 20 Mg Tablet, 20 MG PO DAILY, (Reported) Guaifenesin/Dextromethorphan 5 Ml Syrup, 10 ML PO Q4H PRN for COUGH, (Reported) SUGAR FREE Ipratropium/Albuterol Sulfate 3 Ml Ampul.neb, 3 ML NEB Q4H PRN for SHORTNESS OF BREATH, (Reported) Ipratropium/Albuterol Sulfate 3 Ml Ampul.neb, 3 ML IH Q4H PRN for SHORTNESS OF BREATH, (Reported) Latanoprost 2.5 Ml Drops, 1 DROP OU HS, (Reported) Magnesium Hydroxide 400 Mg/5 Ml Oral.susp, 30 ML PO DAILY PRN for CONSTIPATION- 1ST LINE, (Reported) Mirabegron 50 Mg Tab.er.24h, 50 MG PO DAILY, (Reported) Pilocarpine HCl 15 Ml Drops, 1 DROP OU QID, (Reported) Polyethylene Glycol 3350 17 Gm Powd.pack, 17 GM PO DAILY PRN for CONSTIPATION- 2ND LINE, (Reported) Potassium Chloride 10 Meq Tablet.er, 10 MEQ PO MoWeFr, (Reported) Sennosides/Docusate Sodium 1 Each Tablet, 1 EACH PO DAILY, (Reported) Topiramate 25 Mg Tablet, 25 MG PO BID, (Reported) Venlafaxine HCl 150 Mg Cap.er.24h, 150 MG PO DAILY, (Reported) [Pure & Gentle Enema] , 1 EA RC DAILY PRN for CONSTIPATION, (Reported) Patient Home Medication List Home Medication List Reviewed: Yes Review of Systems Review of Systems Constitutional: see HPI, other (unable to obtain) Past Xilynrp-Yauxvt-Qcdeev Hx Patient Social History Type Used: Cigarettes Former Smoker, Quit: Jul 20, 2007 2nd Hand Smoke Exposure: No Recent Hopitalizations: No Immunizations Up To Date Tetanus Booster (TDap): Unknown PED Vaccines UTD: No Date of Pneumonia Vaccine: Jun 25, 2011 Date of Influenza Vaccine: May 21, 2017 Seasonal Allergies Seasonal Allergies: No Past Medical History Surgeries: Yes (TONSILLECTOMY; HYSTERECTOMY; ELBOW SURGERY; CARPAL TUNNEL SURGERY) Hysterectomy, Orthopedic, Tonsillectomy Respiratory: Yes (RLL PNEUMONIA AND SEPTIC SHOCK 01/11/19) Pneumonia, COPD Currently Using CPAP: No Currently Using BIPAP: No Cardiac: Yes (CHF) Chronic Edema/Swelling, Hypertension Neurological: Yes (DYPSHAGIA AND DYSPHASIA) Dementia, Headaches /Migraines, Multiple Sclerosis Reproductive Disorders: No 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 No Pertinent Family Hx Physical Exam Vital Signs - First Documented 04/06/20 14:45 Temp 37.8 Pulse 87 Resp 30 B/P (MAP) 104/64 (77) Pulse Ox 87 O2 Delivery Non Rebreather O2 Flow Rate 15.00 Capillary Refill : Height: 5'6.00" Weight: 160lbs. 2.0oz. 72.753746zm; 21.71 BMI Method:Estimated General Appearance: WD/WN, other (And oxygen saturation 89-92% on a nonrebreather at 15 L. crackles bilateral. No jugular vein distention. Heart rate of 89 sinus. Respiratory rate of 28. Blood pressure 104/64.) Eyes: Bilateral Eye Normal Inspection, Bilateral Eye PERRL, Bilateral Eye EOMI Neck: non-tender, full range of motion Respiratory: no respiratory distress, no accessory muscle use Cardiovascular: regular rate, rhythm, no murmur Neurologic/Psychiatric: alert, normal mood/affect, oriented x 3 Skin: normal color, warm/dry Focused Exam Lactate Level 04/06/20 14:25: Lactic Acid Level 1.61 Lactic Acid Level Laboratory Tests Test 04/06/20 14:25 Lactic Acid Level 1.61 MMOL/L (0.50-2.00) Progress/Results/Core Measures Suspected Sepsis SIRS Temperature: Pulse: Respiratory Rate: Laboratory Tests 04/06/20 14:25: White Blood Count 16.5H Blood Pressure / Mean: 04/06/20 14:25: Lactic Acid Level 1.61 Laboratory Tests 04/06/20 14:25: Creatinine 0.81, Platelet Count 201, Total Bilirubin 0.8 Results/Orders Lab Results Laboratory Tests Test 04/06/20 14:25 04/06/20 14:30 04/06/20 14:35 04/06/20 14:59 Range/Units White Blood Count 16.5 H 4.3-11.0 10^3/uL Red Blood Count 4.88 4.35-5.85 10^6/uL Hemoglobin 14.2 11.5-16.0 G/DL Hematocrit 44 35-52 % Mean Corpuscular Volume 90 80-99 FL Mean Corpuscular Hemoglobin 29 25-34 PG Mean Corpuscular Hemoglobin Concent 32 32-36 G/DL Red Cell Distribution Width 14.9 H 10.0-14.5 % Platelet Count 201 130-400 10^3/uL Mean Platelet Volume 10.5 H 7.4-10.4 FL Neutrophils (%) (Auto) 72 42-75 % Lymphocytes (%) (Auto) 17 12-44 % Monocytes (%) (Auto) 11 0-12 % Eosinophils (%) (Auto) 0 0-10 % Basophils (%) (Auto) 0 0-10 % Neutrophils # (Auto) 11.9 H 1.8-7.8 X 10^3 Lymphocytes # (Auto) 2.7 1.0-4.0 X 10^3 Monocytes # (Auto) 1.8 H 0.0-1.0 X 10^3 Eosinophils # (Auto) 0.0 0.0-0.3 10^3/uL Basophils # (Auto) 0.1 0.0-0.1 10^3/uL Neutrophils % (Manual) 72 % Lymphocytes % (Manual) 15 % Monocytes % (Manual) 9 % Eosinophils % (Manual) 0 % Basophils % (Manual) 0 % Band Neutrophils 4 % Blood Morphology Comment NORMAL Sodium Level 142 135-145 MMOL/L Potassium Level 4.0 3.6-5.0 MMOL/L Chloride Level 107 98-107 MMOL/L Carbon Dioxide Level 26 21-32 MMOL/L Anion Gap 9 5-14 MMOL/L Blood Urea Nitrogen 24 H 7-18 MG/DL Creatinine 0.81 0.60-1.30 MG/DL Estimat Glomerular Filtration Rate > 60 BUN/Creatinine Ratio 30 Glucose Level 108 H 70-105 MG/DL Lactic Acid Level 1.61 0.50-2.00 MMOL/L Calcium Level 9.1 8.5-10.1 MG/DL Corrected Calcium 9.8 8.5-10.1 MG/DL Total Bilirubin 0.8 0.1-1.0 MG/DL Aspartate Amino Transf (AST/SGOT) 18 5-34 U/L Alanine Aminotransferase (ALT/SGPT) 10 0-55 U/L Alkaline Phosphatase 78 40-136 U/L Total Protein 7.6 6.4-8.2 GM/DL Albumin 3.1 L 3.2-4.5 GM/DL Urine Color YELLOW Urine Clarity CLEAR Urine pH 6.0 5-9 Urine Specific [place] 1.020 1.016-1.022 Urine Protein TRACE H NEGATIVE Urine Glucose (UA) NEGATIVE NEGATIVE Urine Ketones NEGATIVE NEGATIVE Urine Nitrite POSITIVE H NEGATIVE Urine Bilirubin NEGATIVE NEGATIVE Urine Urobilinogen 4.0 < = 1.0 MG/DL Urine Leukocyte Esterase 1+ H NEGATIVE Urine RBC (Auto) TRACE-I NEGATIVE Urine RBC 0-2 /HPF Urine WBC 10-25 H /HPF Urine Squamous Epithelial Cells 0-2 /HPF Urine Crystals NONE /LPF Urine Bacteria LARGE H /HPF Urine Casts NONE /LPF Urine Mucus NEGATIVE /LPF Urine Culture Indicated YES Blood Gas Puncture Site R RAD Blood Gas Patient Temperature 37.8 Arterial Blood pH 7.39 7.37-7.43 Arterial Blood Partial Pressure CO2 46 H 35-45 MMHG Arterial Blood Partial Pressure O2 115 H 79-93 MMHG Arterial Blood HCO3 27 23-27 MMOL/L Arterial Blood Total CO2 28.2 21.0-31.0 MMOL/L Arterial Blood Oxygen Saturation 99 94-100 % Arterial Blood Base Excess 2.5 -2.5-2.5 MMOL/L Mahad Test YES-POS Blood Gas Ventilator Setting NO Blood Gas Inspired Oxygen 15L Coronavirus 2019 (DONALD) Negative Negative My Orders Orders - CRISTO SWARTZ APRN Arterial Blood Gas (04/06/20 14:58) Cbc With Automated Diff (04/06/20 15:18) Comprehensive Metabolic Panel (04/06/20 15:18) Ua Culture If Indicated (04/06/20 15:18) Straight Cath (Urinary) (04/06/20 15:18) Chest 1 View, Ap/Pa Only (04/06/20 15:18) Blood Culture (04/06/20 15:18) Lactic Acid Analyzer (04/06/20 15:18) Manual Differential (04/06/20 14:25) Covid 19 Inhouse Test (04/06/20 15:31) Urine Culture (04/06/20 14:30) Coronavirus Sars-Cov-2 So 2018 (04/06/20 15:57) Vital Signs/I&O 04/06/20 04/06/20 14:45 16:05 Temp 37.8 Pulse 87 86 Resp 30 24 B/P (MAP) 104/64 (77) Pulse Ox 87 95 O2 Delivery Non Rebreather O2 Flow Rate 15.00 50.00 Capillary Refill : Departure Communication (Admissions) 1510-Patient did have a DO NOT RESUSCITATE order filled out by her daughter Emily in February of 2019. We have this on file and this mentions intubation as well. I discussed with her daughter Emily over the telephone my recommendation to forego intubation here as it would not be the most humane or kind thing to do given her poor prognosis, dementia and other comorbidities. She agrees to proceed with typical treatment of pneumonia (our suspected diagnosis)including supplemental oxygen, BiPAP, antibiotics, but keep her DO NOT RESUSCITATE status and DO NOT INTUBATE status. She asked if her sister should start driving up from [place] and I advised her that yes she should. Impression Primary Impression: Dementia Additional Impressions: Hypoxia Pneumonia Disposition: ADMITTED INPATIENT Condition: Stable Admissions Decision to Admit Reason: Admit from ER (General) Decision to Admit/Date: Apr 06, 2020 Time/Decision to Admit Time: 16:41 Departure-Patient Inst. Referrals: ABHIJEET BEVERLY MD (PCP/Family) Primary Care Physician CRISTO SWARTZ APRN Apr 06, 2020 15:07
[2020-04-06 15:09] LABS: ABG BASE EXCESS 2.5 MMOL/L (-2.5-2.5); ABG OXYGEN SATURATION 99 % (94-100); ABG PCO2 46 MMHG (35-45); ABG PH 7.39 (7.37-7.43); ABG PO2 115 MMHG (79-93); ABG TCO2 28.2 MMOL/L (21.0-31.0); ALLENS TEST YES-POS; INSPIRED O2 15L; PATIENT TEMP 37.8; VENTILATOR NO
[2020-04-06 15:26] LABS: BASOPHILS # (AUTO) 0.1 10^3/uL (0.0-0.1); BASOPHILS % (AUTO) 0 % (0-10); EOSINOPHILS % (AUTO) 0 % (0-10); HEMATOCRIT 44 % (35-52); HEMOGLOBIN 14.2 G/DL (11.5-16.0); LYMPHOCYTES # (AUTO) 2.7 X 10^3 (1.0-4.0); LYMPHOCYTES % (AUTO) 17 % (12-44); MEAN CORPUSCULAR HEMOGLOBIN 29 PG (25-34); MEAN CORPUSCULAR HGB CONC 32 G/DL (32-36); MEAN CORPUSCULAR VOLUME 90 FL (80-99); MEAN PLATELET VOLUME 10.5 FL (7.4-10.4); MONOCYTES # (AUTO) 1.8 X 10^3 (0.0-1.0); MONOCYTES % (AUTO) 11 % (0-12); NEUTROPHILS # (AUTO) 11.9 X 10^3 (1.8-7.8); NEUTROPHILS % (AUTO) 72 % (42-75); PLATELET COUNT 201 10^3/uL (130-400); RED CELL DISTRIBUTION WIDTH 14.9 % (10.0-14.5); WHITE BLOOD COUNT 16.5 10^3/uL (4.3-11.0)
[2020-04-06 15:30] LABS: BILIRUBIN,URINE NEGATIVE (NEGATIVE); CLARITY,URINE CLEAR; COLOR,URINE YELLOW; GLUCOSE, URINE (UA) NEGATIVE (NEGATIVE); KETONES,URINE NEGATIVE (NEGATIVE); LEUKOCYTE ESTERASE ,URINE 1+ (NEGATIVE); NITRITE,URINE POSITIVE (NEGATIVE); PROTEIN,URINE TRACE (NEGATIVE)
[2020-04-06 15:35] LABS: ALBUMIN 3.1 GM/DL (3.2-4.5)
[2020-04-06 15:36] LABS: CHLORIDE 107 MMOL/L (98-107); SODIUM 142 MMOL/L (135-145)
[2020-04-06 15:37] LABS: CALCIUM 9.1 MG/DL (8.5-10.1)
[2020-04-06 15:38] LABS: GLUCOSE 108 MG/DL (70-105); TOTAL PROTEIN 7.6 GM/DL (6.4-8.2)
[2020-04-06 15:39] LABS: CARBON DIOXIDE 26 MMOL/L (21-32)
[2020-04-06 15:40] LABS: BILIRUBIN,TOTAL 0.8 MG/DL (0.1-1.0)
[2020-04-06 15:41] LABS: ALKALINE PHOSPHATASE 78 U/L (40-136)
[2020-04-06 15:42] LABS: CREATININE SERUM 0.81 MG/DL (0.60-1.30); GFR ESTIMATED > 60
[2020-04-06 15:43] LABS: BUN/CREATININE RATIO 30
[2020-04-06 15:45] LABS: ALANINE AMINOTRANSFERASE 10 U/L (0-55)
[2020-04-06 15:47] LABS: RBC,URINE 0-2 /HPF
[2020-04-06 15:48] LABS: BACTERIA,URINE LARGE /HPF; SQUAMOUS EPITHELIAL CELL,UR 0-2 /HPF
[2020-04-06 15:51] LABS: BAND NEUTROPHILS 4 %; BASOPHILS % (MANUAL) 0 %; EOSINOPHILS % (MANUAL) 0 %; LYMPHOCYTES % (MANUAL) 15 %; MONOCYTES % (MANUAL) 9 %; NEUTROPHILS % (MANUAL) 72 %
[2020-04-06 15:52] LABS: RBC MORPH NORMAL
[2020-04-06 16:05] VITALS: BP 117/76
--- NOTE | 2020-04-06 16:29 | Diagnostic Imaging Report ---
INDICATION: Weakness. Respiratory distress. COMPARISON: 02/06/2020. FINDINGS: Single frontal radiographic view of the chest was obtained and demonstrates interval development of alveolar airspace opacities within the medial left base partially obscured by the left heart border. There is no large effusion or pneumothorax. Cardiac silhouette and pulmonary vasculature are within normal limits. Calcified aortic atherosclerosis is noted. Osseous structures show no acute abnormalities. IMPRESSION: 1. Interval development of alveolar opacity in the medial left base concerning for pneumonia. Follow-up to resolution is advised. Dictated by: Dictated on workstation # [id number]
[2020-04-06] MEDS ORDERED: LORazepam INJ 2 MG/ML (ATIVAN) VIAL IVP PRN (17:45)
[2020-04-06 18:31] VITALS: BP 112/59
--- NOTE | 2020-04-06 18:36 | NUR ---
MARAH HARRY admitted to room 411-1, with an admitting diagnosis of pna, on 04/06/20 from er via stretcher, accompanied by staff .MARAH HARRY introduced to surroundings, call light, bed controls, phone, TV, temperature control, lights, meal times, smoking policy, visitor policy, side rail policy, bathrooms and showers. Patient Rights given to patient in the handbook. MARAH HARRY verbalizes understanding that [facility] is not responsible for the loss or damage to any personal effects or valuables that are kept in the patients posession during their hospitalization. The following Patient Care Plans and discharge were discussed with the patient. MARAH HARRY verbalizes understanding of Interdisciplinary Patient Education. Patient was informed about the Rapid Response Team and its purpose. confused - reinforcement needed
[2020-04-06] MEDS ORDERED: CATHETER FLUSH 10 ML SYR IV PRN (18:45)
[2020-04-06] MEDS: LEVOFLOXACIN 750 MG/D5W 150 ML PRE-MIX IV SCH (18:51)
[2020-04-06] MEDS: ENOXAPARIN 40 MG/0.4 ML (LOVENOX) SYR SC SCH (18:51)
[2020-04-06] MEDS: LACTATED RINGERS 1,000 ML IV SCH (18:51)
[2020-04-06 19:28] VITALS: BP 100/61
[2020-04-06 22:35] VITALS: BP 117/76
--- NOTE | 2020-04-06 23:00 | NUR ---
Patient is a poor historian much of patient's admission was recalled or from patient's chart
[2020-04-07] VITALS: BP 112/62
[2020-04-07] MEDS: LACTATED RINGERS 1,000 ML IV SCH ×4 (04:32→20:23)
[2020-04-07 04:36] VITALS: BP 112/77
[2020-04-07 05:44] LABS: BASOPHILS % (AUTO) 0 % (0-10); EOSINOPHILS % (AUTO) 0 % (0-10); HEMATOCRIT 42 % (35-52); HEMOGLOBIN 13.4 G/DL (11.5-16.0); LYMPHOCYTES # (AUTO) 1.1 X 10^3 (1.0-4.0); LYMPHOCYTES % (AUTO) 7 % (12-44); MEAN CORPUSCULAR HEMOGLOBIN 29 PG (25-34); MEAN CORPUSCULAR HGB CONC 32 G/DL (32-36); MEAN CORPUSCULAR VOLUME 91 FL (80-99); MEAN PLATELET VOLUME 10.3 FL (7.4-10.4); MONOCYTES # (AUTO) 0.9 X 10^3 (0.0-1.0); MONOCYTES % (AUTO) 6 % (0-12); NEUTROPHILS # (AUTO) 13.8 X 10^3 (1.8-7.8); NEUTROPHILS % (AUTO) 87 % (42-75); PLATELET COUNT 146 10^3/uL (130-400); RED CELL DISTRIBUTION WIDTH 14.8 % (10.0-14.5); WHITE BLOOD COUNT 15.9 10^3/uL (4.3-11.0)
[2020-04-07 06:02] LABS: ALBUMIN 2.9 GM/DL (3.2-4.5); CHLORIDE 107 MMOL/L (98-107); POTASSIUM 3.9 MMOL/L (3.6-5.0); SODIUM 141 MMOL/L (135-145)
[2020-04-07 06:05] LABS: GLUCOSE 106 MG/DL (70-105)
[2020-04-07 06:06] LABS: CARBON DIOXIDE 24 MMOL/L (21-32)
[2020-04-07 06:07] LABS: BILIRUBIN,TOTAL 0.8 MG/DL (0.1-1.0)
[2020-04-07 06:08] LABS: ALKALINE PHOSPHATASE 76 U/L (40-136); CREATININE SERUM 0.76 MG/DL (0.60-1.30); GFR ESTIMATED > 60
[2020-04-07 06:10] LABS: BUN/CREATININE RATIO 34
[2020-04-07 06:11] LABS: ALANINE AMINOTRANSFERASE 8 U/L (0-55)
--- NOTE | 2020-04-07 07:33 | History & Physical-Hospitalist ---
History of Present Illness HPI/Chief Complaint CC: Hypoxia HPI: This is a 70yoWF NH patient of [facility] who has end stage dementia and COPD who presented to the ER with dyspnea and hypoxia COVID swab take and rapid was negative and just received word PCR was negative also. PPE was used to see patient before PCR result known. Patient maintained on biPAP. Patient near [place] and does not open her eyes. DNR discussed with family and decision was made to continue treatment plan but DNR. Source: RN/MD Exam Limitations: clinical condition Date Seen 04/07/20 Time Seen by a Provider: 10:00 Attending Physician Celestina Zamorano Pankaj K MD Referring Physician Date of Admission Apr 06, 2020 at 16:40 Home Medications & Allergies Home Medications Reviewed patient Home Medication Reconciliation performed by pharmacy medication reconciliations atm technician and/or nursing. Patients Allergies have been reviewed. Allergies Allergies Coded Allergies Aminoglycosides (Verified Allergy, Unknown, 11/11/06) adhesive (Verified Allergy, Unknown, 02/01/08) amoxicillin (Verified Allergy, Unknown, 11/11/06) bacitracin (Verified Allergy, Unknown, 11/11/06) cefaclor (Verified Allergy, Unknown, 07/20/17) clavulanic acid (Verified Allergy, Unknown, 11/11/06) erythromycin base (Verified Allergy, Unknown, 11/11/06) gramicidin D (Verified Allergy, Unknown, 11/11/06) latex (Verified Allergy, Unknown, 02/01/08) neomycin (Verified Allergy, Unknown, 11/11/06) polymyxin B (Verified Allergy, Unknown, 11/11/06) vancomycin (Verified Allergy, Unknown, 11/11/06) Past Iinoych-Ryplwr-Mjllqn Hx Past Med/Social Hx: Reviewed Nursing Past Med/Soc Hx, Reviewed and Corrections made Patient Social History Marrital Status: single Employed/Student: retired Smoking Status: Unknown if Ever Smoked Former Smoker, Quit: Jul 20, 2007 Type Used: Cigarettes 2nd Hand Smoke Exposure: No Recent Foreign Travel: No Contact w/other who traveled: No Recent Hopitalizations: No Recent Infectious Disease Expo: No Immunizations Up To Date Tetanus Booster (TDap): Unknown Pediatric: No Date of Pneumonia Vaccine: Jun 25, 2011 Date of Influenza Vaccine: May 21, 2017 Seasonal Allergies Seasonal Allergies: No Past Medical History Surgeries: Hysterectomy, Orthopedic, Tonsillectomy Respiratory: COPD Currently Using CPAP: No Currently Using BIPAP: No Cardiac: Chronic Edema/Swelling, Hypertension Neurological: Dementia, Headaches /Migraines, Multiple Sclerosis Reproductive: No Menopausal Genitourinary: Bladder Infection Gastrointestinal: Gastroesophageal Reflux, Chronic Constipation, Ulcer Musculoskeletal: Chronic Back Pain HEENT: Dysphagia, Macular Degeneration, Glaucoma Loss of Vision: Bilateral Psychosocial: Anxiety, Personality Disorder, Depression History of Blood Disorders: No Adverse Reaction to Blood [place]: No Family History Patient reports no known family medical history. No Pertinent Family Hx Review of Systems Constitutional: see HPI Physical Exam Physical Exam Vital Signs Vital Signs - First Documented 04/06/20 04/06/20 14:45 18:07 Temp 37.8 Pulse 87 Resp 30 B/P (MAP) 104/64 (77) Pulse Ox 87 O2 Delivery Non Rebreather O2 Flow Rate 15.00 FiO2 78 Capillary Refill : Less Than 3 Seconds Height, Weight, BMI Height: 5'6.00" Weight: 160lbs. 2.0oz. 72.862243xs; 23.88 BMI Method:Estimated General Appearance: No Apparent Distress, Chronically ill, Thin Eyes: Right Eye Normal Inspection, Right Eye PERRL HEENT: PERRL/EOMI, Other (bipap on) Neck: Full Range of Motion, Normal Inspection, Non Tender Respiratory: Chest Non Tender, No Accessory Muscle Use, No Respiratory Distress, Decreased Breath Sounds, Wheezing Cardiovascular: Regular Rate, Rhythm, No Edema, No Gallop, No JVD, No Murmur, Normal Peripheral Pulses Gastrointestinal: Normal Bowel Sounds, No Organomegaly, No Pulsatile Mass, Non Tender, Soft Back: Normal Inspection, No CVA Tenderness, No Vertebral Tenderness Extremity: Normal Capillary Refill, Normal Inspection, Normal Range of Motion, Non Tender, No Calf Tenderness, No Pedal Edema Neurologic/Psychiatric: Disoriented Skin: Normal Color, Warm/Dry Lymphatic: No Adenopathy Results Results/Procedures Labs Laboratory Tests 04/06/20 14:25 04/07/20 05:32 Patient resulted labs reviewed. Assessment/Plan Admission Diagnosis Assessment: PNA Hypoxia COVID negative End stage dementia Unresponsiveness Severe COPD Plan: biPAP Abx Nebs O2 Admission Status: Inpatient Order (span 2 midnights) Reason for Inpatient Admission: resp failure Diagnosis/Problems Diagnosis/Problems (1) Pneumonia (2) Hypoxia (3) Dementia (4) UTI (urinary tract infection) Clinical Quality Measures DVT/VTE Risk/Contraindication: Risk Factor Score Per Nursin RFS Level Per Nursing on Admit: 4+=Very High CELESTINA ZAMORANO DO Apr 07, 2020 07:33
[2020-04-07 08:00] VITALS: BP 123/68
[2020-04-07 12:00] VITALS: BP 126/74
[2020-04-07 15:56] VITALS: BP 115/56
[2020-04-07] MEDS: ENOXAPARIN 40 MG/0.4 ML (LOVENOX) SYR SC SCH (19:03)
[2020-04-07 20:00] VITALS: BP 123/70
[2020-04-08] VITALS: BP 116/62
[2020-04-08 03:34] VITALS: BP 108/64
[2020-04-08] MEDS: LACTATED RINGERS 1,000 ML IV SCH ×3 (04:17→21:02)
[2020-04-08 08:44] VITALS: BP 98/65
--- NOTE | 2020-04-08 09:49 | Progress Note - Hospitalist ---
Subjective HPI/CC On Admission Date Seen by Provider: Apr 08, 2020 Time Seen by Provider: 10:00 CC: Hypoxia HPI: This is a 70yoWF NH patient of [facility] who has end stage dementia and COPD who presented to the ER with dyspnea and hypoxia COVID swab take and rapid was negative and just received word PCR was negative also. PPE was used to see patient before PCR result known. Patient maintained on biPAP. Patient near comatose and does not open her eyes. DNR discussed with family and decision was made to continue treatment plan but DNR. Subjective/Events-last exam COVID negative biPAP changed to NC Patient still unresponsive Can't swallow safely Needs Hospice and DC to NH Review of Systems General: Fatigue Neurological: Confusion Focused Exam Lactate Level 04/06/20 14:25: Lactic Acid Level 1.61 Objective Exam Vital Signs Vital Signs Date Time Temp Pulse Resp B/P (MAP) Pulse Ox O2 Delivery O2 Flow Rate FiO2 04/08/20 16:43 36.6 89 23 118/70 (86) 92 Nasal Cannula 5.00 04/06/20 18:07 78 Capillary Refill : Less Than 3 Seconds General Appearance: No Apparent Distress, WD/WN, Chronically ill Respiratory: No Accessory Muscle Use, No Respiratory Distress, Decreased Breath Sounds Cardiovascular: Regular Rate, Rhythm Neurologic/Psychiatric: Disoriented Results/Procedures Lab Laboratory Tests 04/08/20 10:10 04/08/20 10:15 Patient resulted labs reviewed. Assessment/Plan Assessment and Plan Assess & Plan/Chief Complaint Assessment: PNA Hypoxia COVID negative End stage dementia Unresponsiveness Severe COPD Plan: biPAP changed to NC Abx Nebs O2 Diagnosis/Problems Diagnosis/Problems (1) Pneumonia (2) Hypoxia (3) Dementia (4) UTI (urinary tract infection) Clinical Quality Measures DVT/VTE Risk/Contraindication: Risk Factor Score Per Nursin RFS Level Per Nursing on Admit: 4+=Very High NATASHA OLIVAS DO Apr 08, 2020 09:49
[2020-04-08 10:25] LABS: BASOPHILS % (AUTO) 0 % (0-10); EOSINOPHILS # (AUTO) 0.1 10^3/uL (0.0-0.3); EOSINOPHILS % (AUTO) 1 % (0-10); HEMATOCRIT 37 % (35-52); HEMOGLOBIN 11.7 G/DL (11.5-16.0); LYMPHOCYTES # (AUTO) 1.4 X 10^3 (1.0-4.0); LYMPHOCYTES % (AUTO) 15 % (12-44); MEAN CORPUSCULAR HEMOGLOBIN 29 PG (25-34); MEAN CORPUSCULAR HGB CONC 32 G/DL (32-36); MEAN CORPUSCULAR VOLUME 92 FL (80-99); MEAN PLATELET VOLUME 10.2 FL (7.4-10.4); MONOCYTES # (AUTO) 0.6 X 10^3 (0.0-1.0); MONOCYTES % (AUTO) 7 % (0-12); NEUTROPHILS % (AUTO) 77 % (42-75); PLATELET COUNT 112 10^3/uL (130-400); RED CELL DISTRIBUTION WIDTH 14.3 % (10.0-14.5); WHITE BLOOD COUNT 9.1 10^3/uL (4.3-11.0)
[2020-04-08 10:47] LABS: ALANINE AMINOTRANSFERASE 9 U/L (0-55); ALBUMIN 2.5 GM/DL (3.2-4.5); ALKALINE PHOSPHATASE 65 U/L (40-136); BILIRUBIN,TOTAL 0.5 MG/DL (0.1-1.0); BUN/CREATININE RATIO 32; CALCIUM 9.2 MG/DL (8.5-10.1); CARBON DIOXIDE 25 MMOL/L (21-32); CHLORIDE 109 MMOL/L (98-107); CREATININE SERUM 0.65 MG/DL (0.60-1.30); GFR ESTIMATED > 60; GLUCOSE 82 MG/DL (70-105); POTASSIUM 3.7 MMOL/L (3.6-5.0); SODIUM 143 MMOL/L (135-145); TOTAL PROTEIN 6.4 GM/DL (6.4-8.2)
[2020-04-08 11:52] VITALS: BP 113/73
[2020-04-08 16:43] VITALS: BP 118/70
[2020-04-08] MEDS: LEVOFLOXACIN 750 MG/D5W 150 ML PRE-MIX IV SCH (18:31)
[2020-04-08] MEDS: ENOXAPARIN 40 MG/0.4 ML (LOVENOX) SYR SC SCH (18:31)
[2020-04-08 20:59] VITALS: BP 112/63
[2020-04-09] VITALS (7 sets, daily range): BP systolic 99–134; BP diastolic 59–89
[2020-04-09 05:49] LABS: BASOPHILS % (AUTO) 0 % (0-10); EOSINOPHILS # (AUTO) 0.1 10^3/uL (0.0-0.3); EOSINOPHILS % (AUTO) 2 % (0-10); HEMATOCRIT 37 % (35-52); HEMOGLOBIN 11.7 G/DL (11.5-16.0); LYMPHOCYTES # (AUTO) 1.5 X 10^3 (1.0-4.0); LYMPHOCYTES % (AUTO) 21 % (12-44); MEAN CORPUSCULAR HEMOGLOBIN 29 PG (25-34); MEAN CORPUSCULAR HGB CONC 32 G/DL (32-36); MEAN CORPUSCULAR VOLUME 91 FL (80-99); MEAN PLATELET VOLUME 10.4 FL (7.4-10.4); MONOCYTES # (AUTO) 0.5 X 10^3 (0.0-1.0); MONOCYTES % (AUTO) 7 % (0-12); NEUTROPHILS # (AUTO) 4.8 X 10^3 (1.8-7.8); NEUTROPHILS % (AUTO) 70 % (42-75); PLATELET COUNT 110 10^3/uL (130-400); RED CELL DISTRIBUTION WIDTH 14.3 % (10.0-14.5); WHITE BLOOD COUNT 6.9 10^3/uL (4.3-11.0)
[2020-04-09 05:59] LABS: ALBUMIN 2.4 GM/DL (3.2-4.5); CHLORIDE 108 MMOL/L (98-107); POTASSIUM 3.6 MMOL/L (3.6-5.0)
[2020-04-09 06:00] LABS: SODIUM 141 MMOL/L (135-145)
[2020-04-09 06:01] LABS: CALCIUM 8.4 MG/DL (8.5-10.1)
[2020-04-09 06:02] LABS: GLUCOSE 78 MG/DL (70-105); TOTAL PROTEIN 5.9 GM/DL (6.4-8.2)
[2020-04-09 06:03] LABS: CARBON DIOXIDE 24 MMOL/L (21-32)
[2020-04-09 06:04] LABS: BILIRUBIN,TOTAL 0.5 MG/DL (0.1-1.0)
[2020-04-09 06:05] LABS: ALKALINE PHOSPHATASE 57 U/L (40-136); GFR ESTIMATED > 60
[2020-04-09] MEDS: LACTATED RINGERS 1,000 ML IV SCH ×3 (06:05→22:55)
[2020-04-09 06:07] LABS: BUN/CREATININE RATIO 30
[2020-04-09 06:08] LABS: ALANINE AMINOTRANSFERASE 7 U/L (0-55)
[2020-04-09] MEDS ORDERED: POTA10TA36 PO (10:20)
[2020-04-09] MEDS ORDERED: FEN12TD TD (10:20)
[2020-04-09] MEDS ORDERED: MICO113C TP (10:20)
[2020-04-09] MEDS ORDERED: [UNRECOGNIZED DRUG - CODE] PO (10:20)
--- NOTE | 2020-04-09 10:21 | NUR ---
PALLIATIVE CARE RN in to see patient. Reports that she is mostly unresponsive are no longer accurate as she is awake and expressive with smiles. Attempts to communicate but is unintelligible. Nurse reports granddaughter to visit around the noon hour. Dr. Kerr to assess and possibly contact this Palliative Care RN for hospice at discharge after she discusses this with the family. Hospice does appear to be appropriate due to the advanced dementia.
--- NOTE | 2020-04-09 10:23 | NUR ---
THE MED REC HAS BEEN COMPLETED USING THE ORDER SUMMARY REPORT FROM [facility]
--- NOTE | 2020-04-09 12:37 | Physician Query Clarification ---
PQ-Further Specificity Admission/Discharge Admission Date: Apr 06, 2020 at 16:40 Discharge Date: The medical record reflects the following clinical scenario: Dr. Zamorano History/Risk Factors: Respiratory failure documented in H&P under reason for admission. Hypoxia Pneumonia DNR/DNI Clinical Findings: T 37.8, p 87, Resp 30 pulse ox 87%. Blood gases pH 7.39, pC02 46, p02 115. Treatment: BiPAP, non rebreather 02 flow rate 15.00, IV Levofloxacin. Question: Can you further specify the acuity of respiratory failure per the clinical indicators above? Please document a response in the Progress Notes or Discharge Summary. 1. Acute respiratory failure with hypoxia. 2. Chronic respiratory failure with hypoxia. 3. Other, with explanation of the clinical findings. 4. Clinically undetermined, no explanation for the clinical findings. PHYSICIAN RESPONSE Can you specify per above: 2 Please remember a lack of response to the above will prompt a phone page by CDI/Coding staff. In responding to this query, please exercise your independent professional judgment. The purpose of this communication is to more accurately reflect the complexity of your patients condition. The fact that a question is asked does not imply that any particular answer is desired or expected. Thank you for your timely response to this clarification. Requestors name: Magui Grossman [facility] Phone # ext [phone] or [phone] THIS PHYSICIAN QUERY FORM IS A PERMANENT PART OF THE MEDICAL RECORD MAGUI GROSSMAN Apr 09, 2020 12:37 NATASHA ZAMORANO DO Apr 09, 2020 16:09
--- NOTE | 2020-04-09 13:32 | NUR ---
PALLIATIVE CARE RN in to see if patients granddaughter is in the room. She is not but noted her lunch was available for her to eat. I did assist her with getting to an upright position before eating. She had a couple bites of the ground meat and potatoes with gravy and did well with that and the tea. I gave her the pears which I smashed with a fork first...even still she choked on them. She was able to clear her throat but after choking on the pears she choked several more times on the chicken and potatoes. Patient wanted to get up to the bathroom insisting she gets up with a walker..due her being so stiff I suspected this would not be true and call to confirm with PC&R. I was informed that she id definitely NOT up using a walker..it takes max assist x 2 and is close to needing a Talya lift. I will let the nurse know what patient's ability is at baseline.
--- NOTE | 2020-04-09 13:39 | ST Dysphagia Evaluation ---
Speech Evaluation-General Medical Diagnosis Pneumonia Onset Date: Apr 07, 2020 Therapy Diagnosis Therapy Diagnosis: Oropharyngeal Dysphagia Precautions Precautions: Aspiration Referral Referring Physician: Dr. Zamorano Medical History Pertinent Medical History: COPD, Dementia, Heart Failure, Macular Degenertion Reviewed History: Yes Social History Home: [facility] Current Living Status: Speech PLF/Current-Dysphagia Prior Level of Function Patient lives in a local [place] where she receives assistance for all of her daily needs. Subjective Patient was cooperative with the Bedside Dysphagia Evaluation. Cognitive Status Patient Orientation: Confused, Unable to Assess Patient is reported to be in end stage dementia. Oral Motor Skills Dentition: Edentalous Ability to Follow Directions: Fair Oral Expression Ability: Severe Impairment Oral-Facial Assessment Oral-Facial Dentition: Normal Labial Seal Description: Reduced ROM, Poor Coordination Smile: Reduced ROM, Poor Coordination Lingual Protrusion: Abnormal Lingual ROM: Abnormal Lingual Strength: Abnormal Pharynx Velopharyngeal Move.: Normal Volitional Dry Swallow: Yes Voluntary Cough: Yes Dysphagia Evaluation Consistencies Presented: Mechanical Soft, [place] Thick Liquid, Honey Thick Liquid, Pureed Oral Phase: Oral Residue, Unable to Form Bolus, Reduced Oral Transit With mechanical soft texture only Pharyngeal Phase: Decreased A/P Bolus Transit, Multiple Swallow Attempts, Delayed Swallow With mechanical soft only Funct. Velo/Pharyngeal Symptom: Cough After Swallow With thin and nectar consistency liquids. Dietary Recommendations: Pureed Liquid Recommendations: Honey Consistancy Swallowing Precautions: Alternate Liquids/Solids, Decreased Bolus 1/4 Tsp, Decreased Bolus 1/2 Tsp, Liquids from Spoon, No Straw, Small Bites and Sips, Sitting Upright 90 Degrees, Sitting 90 Degrees 30 Post Intake Dysphagia Evaluation Summary Patient is a 70 y/o female who was admitted to the hospital via ED. Patient was brought to the hospital by [place] staff due to decreased O2 sats. Patient was referred for a dysphagia evaluation. Patient was given 1/2 tsp of thin with co ugh/clear following. Patient was also given nectar consistency at 1/2 tsp with cough/clear following. Patient was presented 1/2 tsp honey consistency liquids without difficulty. Patient was presented 1/2 tsp puree and mechanical soft. Puree presentation was without difficulty. Presentation of mechanical soft was difficult for patient to form or manage bolus. Patient is recommended for honey consistency liquids with Dysphagia I diet level. This information was provided to her nurse, Billie and written on the white board in the patient's room. Barriers to Learning Patient is in end stage dementia. Speech-Plan Patient/Family Goals Patient/Family Goals: Patient will discharge back to the NH. Treatment Plan Speech Therapy Treatment Plan: Discontinue ST Treatment Duration: Apr 09, 2020 Frequency: 1 time per week Estimated Hrs Per Day: .25 hour per day Rehab Potential: Poor Barriers to Learning: Patient is in end stage dementia. Pt/Family Agrees to Plan: Yes Safety Risks/Education Teaching Recipient: Patient Teaching Methods: Discussion Response to Teaching: Reinforcement Needed Education Topics Provided: Safety of oral intake, diet level Time Speech Therapy Time In: 11:00 Speech Therapy Time Out: 11:20 Total Billed Time: 20 Billed Treatment Time 1, AMI, DYST YOSVANY Quesada Apr 09, 2020 13:39
--- NOTE | 2020-04-09 14:50 | NUR ---
Pastoral care visit, pt appears confused, offered support and prayer.
--- NOTE | 2020-04-09 18:32 | Progress Note ---
Subjective Subjective/Events-last exam Patient alert and pleasant this AM. She is dependent on all ADLs including feeding. Denies any pain this AM. Review of Systems Unable to perform due to end stage dementia Objective Exam Last Set of Vital Signs Vital Signs Date Time Temp Pulse Resp B/P (MAP) Pulse Ox O2 Delivery O2 Flow Rate FiO2 04/09/20 16:00 35.9 86 18 118/77 (91) 97 High Flow N/C 7.00 04/06/20 18:07 78 Capillary Refill : Less Than 3 Seconds I&O Intake and Output0 04/09/20 00:00 Intake Total 2100 ml Output Total 1250 ml Balance 850 ml Intake Oral 100 ml IV Total 2000 ml Output Urine Total 1250 ml # Bowel Movements 2 General: Alert, Other (Oriented x0, pleasant) HEENT: Mucous Memb Moist/[place] Lungs: Clear to Auscultation, Normal Air Movement Heart: Regular Rate, No Murmurs Abdomen: Normal Bowel Sounds, Soft, No Tenderness, No Masses Extremities: No Edema, No Tenderness/Swelling Results/Procedures Lab Laboratory Tests 04/09/20 05:24: White Blood Count 6.9, Red Blood Count 4.06L, Hemoglobin 11.7, Hematocrit 37, Mean Corpuscular Volume 91, Mean Corpuscular Hemoglobin 29, Mean Corpuscular Hemoglobin Concent 32, Red Cell Distribution Width 14.3, Platelet Count 110L, Mean Platelet Volume 10.4, Neutrophils (%) (Auto) 70, Lymphocytes (%) (Auto) 21, Monocytes (%) (Auto) 7, Eosinophils (%) (Auto) 2, Basophils (%) (Auto) 0, Neutrophils # (Auto) 4.8, Lymphocytes # (Auto) 1.5, Monocytes # (Auto) 0.5, Eosinophils # (Auto) 0.1, Basophils # (Auto) 0.0, Sodium Level 141, Potassium Level 3.6, Chloride Level 108H, Carbon Dioxide Level 24, Anion Gap 9, Blood Urea Nitrogen 18, Creatinine 0.60, Estimat Glomerular Filtration Rate > 60, BUN/Creatinine Ratio 30, Glucose Level 78, Calcium Level 8.4L, Corrected Calcium 9.7, Total Bilirubin 0.5, Aspartate Amino Transf (AST/SGOT) 18, Alanine Aminotransferase (ALT/SGPT) 7, Alkaline Phosphatase 57, Total Protein 5.9L, Albumin 2.4L Microbiology 8/28/20 Blood Culture - Preliminary, Resulted No growth 04/06/20 Urine Culture - Final, Complete Escherichia coli Assessment/Plan Assessment/Plan (1) Sepsis Status: Resolved Assessment & Plan: 04/09: Patient on NC this AM, continue IV antibiotics, MAT protocol, COVID neg Qualifiers: (2) Pneumonia Status: Acute Qualifiers: Qualified Codes: J18.9 - Pneumonia, unspecified organism (3) UTI (urinary tract infection) Status: Acute Assessment & Plan: 04/09: Continue antibiotics Qualifiers: Qualified Codes: N30.01 - Acute cystitis with hematuria (4) Hypoxia Status: Acute Assessment & Plan: 04/09: Will continue to titrate oxygen as tolerated (5) Dementia Status: Chronic Assessment & Plan: 04/09: Dependent on all ADLs including feeding, unable to make needs known, Hospice consult placed, will discuss plan of care with family Qualifiers: Qualified Codes: F03.90 - Unspecified dementia without behavioral disturbance Clinical Quality Measures DVT/VTE Risk/Contraindication: Risk Factor Score Per Nursin RFS Level Per Nursing on Admit: 4+=Very High JERMAIN ANGELES MD Apr 09, 2020 18:32
[2020-04-09] MEDS: ENOXAPARIN 40 MG/0.4 ML (LOVENOX) SYR SC SCH (19:00)
[2020-04-09] MEDS: RT-ALBUTEROL SULF 2.5 MG/3 ML PRE-MIX VIAL INH SCH (21:42)
[2020-04-10] MEDS: RT-ALBUTEROL SULF 2.5 MG/3 ML PRE-MIX VIAL INH SCH ×3 (02:20→14:57)
[2020-04-10 03:52] VITALS: BP 127/62
[2020-04-10 05:38] LABS: CHLORIDE 105 MMOL/L (98-107); POTASSIUM 3.2 MMOL/L (3.6-5.0); SODIUM 138 MMOL/L (135-145)
[2020-04-10 05:39] LABS: CALCIUM 8.2 MG/DL (8.5-10.1); GLUCOSE 85 MG/DL (70-105)
[2020-04-10 05:41] LABS: CARBON DIOXIDE 25 MMOL/L (21-32)
[2020-04-10 05:43] LABS: GFR ESTIMATED > 60
[2020-04-10 05:44] LABS: BUN/CREATININE RATIO 22
[2020-04-10] MEDS: LACTATED RINGERS 1,000 ML IV SCH (05:44)
[2020-04-10 08:00] VITALS: BP 154/84
--- NOTE | 2020-04-10 11:17 | NUR ---
Palliative Care RN in to see patient. She is alert and responsive. She is able to make herself understood but you have to really listen to what she is saying. She reports not having breakfast and asked for iced tea. This was prepared for her and she took several drinks for this RN. She is planned for return to [facility] today. Dr. Kerr has spoken to the family and they will wait on hospice at this time. Will plan for discharge today to current placement at [facility]
--- NOTE | 2020-04-10 11:37 | Discharge Summary ---
Discharge Summary Reconcile Patient Problems Problems Reviewed?: Yes Hospital Course Hospital Course Date of Admission: Apr 06, 2020 at 16:40 Admission Diagnosis : Family Physician/Provider: Ramon Egan MD Date of Discharge: 04/10/20 Discharge Diagnosis: Aspiration PNA Acute on Chronic COPD with Exacerbation Hypoxia End Stage Dementia Dysphagia UTI Hospital Course: 70 yo F that presented with tachypnea and hypoxia found to have PNA consistent with aspiration. Patient tested Neg for Covid-19 during this admission. She was initially on the bipap and was able to transition to [place]. She was treated with IV antibiotics to cover for aspiration PNA and has had some improvement. Speech therapy worked with patient and she has significant dysphagia related to her dementia. Discussed end of life care with daughter Emily and answered questions regarding hospice care. Patient needs full assistance with all ADLs including feeding. She is 2 person assistance with transfers. She states that she would like to discuss hospice care with her family. Patient is at her baseline and will be discharged back to SNF. Labs and Pending Lab Test: Laboratory Tests 04/10/20 04:50: Sodium Level 138, Potassium Level 3.2L, Chloride Level 105, Carbon Dioxide Level 25, Anion Gap 8, Blood Urea Nitrogen 13, Creatinine 0.60, Estimat Glomerular Filtration Rate > 60, BUN/Creatinine Ratio 22, Glucose Level 85, Calcium Level 8.2L Microbiology 04/06/20 Blood Culture - Preliminary, Resulted No growth 04/06/20 Urine Culture - Final, Complete Escherichia coli Home Meds Active Reported Fentanyl Patch 12 MCG (Fentanyl) 1 Each Patch.td72 12 Mcg TD Q72H Anti-Fungal Cream (Miconazole Nitrate) 113 Gm Cream..g. 1 Applic TP UD APPLY UNDER BREAST WITH EVERY SHIFT CHANGE Potassium Chloride 10 Meq Tab.er.prt 10 Meq PO MON,WE,FRI Diabetic Tussin Dm Liquid (Guaifenesin/Dextromethorphan) 118 Ml Liquid 10 Ml PO Q4H PRN Senna Plus 8.6-50 mg Tablet (Sennosides/Docusate Sodium) 1 Each Tablet 1 Each PO DAILY Cranberry (Cranberry Fruit) 450 Mg Tablet 450 Mg PO BID Ascorbic Acid 500 Mg Tablet 500 Mg PO DAILY Acetaminophen 325 Mg Tablet 650 Mg PO Q4H PRN [Pure & Gentle Enema] 1 Ea RC DAILY PRN Miralax (Polyethylene Glycol 3350) 17 Gm Powd.pack 17 Gm PO DAILY PRN Myrbetriq (Mirabegron) 50 Mg Tab.er.24h 50 Mg PO DAILY Milk of Magnesia (Magnesium Hydroxide) 400 Mg/5 Ml Oral.susp 30 Ml PO DAILY PRN Dorzolamide HCl 10 Ml Drops 1 Drop OU BID Bisacodyl 10 Mg Supp.rect 10 Mg RC DAILY PRN Furosemide 20 Mg Tablet 20 Mg PO DAILY Baclofen 10 Mg Tablet 10 Mg PO TID Topiramate 25 Mg Tablet 25 Mg PO BID Isopto Carpine (Pilocarpine HCl) 15 Ml Drops 1 Drop OU QID Acid Technical Service Engineer (FAMOTIDINE) (Famotidine) 20 Mg Tablet 20 Mg PO DAILY Venlafaxine HCl ER (Venlafaxine HCl) 150 Mg Cap.er.24h 150 Mg PO DAILY Iprat-Albut 0.5-3(2.5) mg/3 ml (Ipratropium/Albuterol Sulfate) 3 Ml Ampul.neb 3 Ml NEB Q4H PRN Divalproex Sodium 125 Mg Cap.sprink 250 Mg PO TID TAKES 2 (125MG) CAPSULES Breo Ellipta 100-25 Mcg INH (Fluticasone/Vilanterol) 1 Each Blst.w.dev 1 Puff INH DAILY Latanoprost 2.5 Ml Drops 1 Drop OU HS Follow Up Appt.: [facility] provider will see patient at SNF Skilled NF Admit to: [facility] ([facility]) I certify that SNF services are required to be given on an inpatient basis because of the above named patient's need for care home care on a continuing basis for the conditions(s) for which he/she was receiving inpatient hospital services prior to his/her transfer to the [facility]. [facility] Facility Order: Physical Therapy-Evaluate & Treat, Speech Language-Evaluate & Treat Oxygen Delivery Method: Nasal Cannula Discharge Diet: Other Diet ([place] thickened liquids, dysphagia diet) Daily Activity as Tolerated: Yes Resuscitation Status: Do Not Resuscitate New & Resume Previous Orders Resume previous orders Medication Rec sent with patient in transfer Jermain Kerr Apr 10, 2020 11:28 Discharge Physical Exam General: Alert, Other (not oriented , answers simple questions) Lungs: Clear to Auscultation Heart: Regular Rate, No Murmurs Abdomen: Normal Bowel Sounds, Soft, No Tenderness, No Masses Extremities: No Edema, No Tenderness/Swelling Skin: Other Psych/Mental Status: Other (Pleasantly demented) JERMAIN KERR MD Apr 10, 2020 11:34
[2020-04-10] MEDS ORDERED: LEVO750T9 PO (11:39)
[2020-04-10 12:00] VITALS: BP 123/77
--- NOTE | 2020-04-10 12:44 | NUR ---
"RD ASSESSMENT PMHx: end stage dementia; COPD; HTN; GERD; chronic constipation; dysphagia PT INTERACTION: Note pt has end stage dementia, per chart review. Note all diet information gathered for nutrition assessment is per chart review. Note avg PO intake 25-50% x2meal. Note last BM was 04/10, and pt not currently on bowel regimen. Note recent 9# wt gain x2mon. ABNORMAL NUTRITION-RELATED LAB VALUES LOW: K 3.2; Ca 8.2 HIGH: Est. kcal needs: 1750 kcal | 25 kcal/kg Est. Pro needs: 56 g Pro | 0.8 g Pro/kg PES STATEMENT: Inadequate oral intake (NI-2.1) related to loss of appetite as evidenced by chart review | avg PO intake 25-50% x2meal INTERVENTION: Continue with current diet order of DYS1 Pureed diet. Add Ensure Enlive (vary) to meals TID, for increased kcal intake. Provides 350 kcal and 13 g Pro per serving. Will continue to follow and reassess as pt needs, intake, and status change. MONITOR/EVALUATE: PO Intake; Plan of Care; Hydration Status; Weight Status; Lab Values Tay More, MS, RD, LD"
--- NOTE | 2020-04-10 14:03 | NUR ---
REPORT CALLED TO ZEUS AT [facility].
[2020-04-10 15:15] VITALS: BP 154/84
== END 2020-04-10 15:19 | DRG 177 ==
LOC: EDUNIT# 14:41 → ER 14:43 → 4TH 16:40 → ICU 16:40 → UNDOADMIN 16:40
PROVIDERS: ADMIT Internal Medicine; ATTEND Family Medicine
DX: J69.0 Pneumonitis due to inhalation of food and vomit (principal); A41.9 Sepsis, unspecified organism; N39.0 Urinary tract infection, site not specified; J96.11 Chronic respiratory failure with hypoxia; J44.0 Chronic obstructive pulmonary disease with (acute) lower respiratory infection; F03.91 Unspecified dementia, unspecified severity, with behavioral disturbance; Z66 Do not resuscitate; I11.0 Hypertensive heart disease with heart failure; I50.9 Heart failure, unspecified; R41.9 Unspecified symptoms and signs involving cognitive functions and awareness; F03.90 Unspecified dementia, unspecified severity, without behavioral disturbance, psychotic disturbance, mood disturbance, and anxiety; G43.909 Migraine, unspecified, not intractable, without status migrainosus; G35 Multiple sclerosis; K21.9 Gastro-esophageal reflux disease without esophagitis; K59.09 Other constipation; M54.9 Dorsalgia, unspecified; H35.30 Unspecified macular degeneration; H40.9 Unspecified glaucoma; F60.3 Borderline personality disorder; F22 Delusional disorders; F41.9 Anxiety disorder, unspecified; F32.9 Major depressive disorder, single episode, unspecified; Z20.828 Contact with and (suspected) exposure to other viral communicable diseases; Z87.11 Personal history of peptic ulcer disease; Z87.891 Personal history of nicotine dependence
CPT/HCPCS: 36415; 71045; 80048; 80053; 81000; 82805; 83605; 85007; 85025; 85027; 87040; 87077; 87088; 87186; 87635; 94640; 94660; 94760